=== PATIENT | male | born 1950 | race American Indian/Alaskan Native ===

== ENCOUNTER 2022-01-17 19:41 | Inpatient (IN) | payer MEDICARE ==
[2022-01-17] MEDS ORDERED: SODIUM CHLORIDE 0.9% 1000 ML 1,000 ML IV ONE (21:48)
--- NOTE | 2022-01-17 22:13 | XRay Report ---
CHEST 1 VIEW 01/17/2022 9:06 PM INDICATION / CLINICAL INFORMATION: Altered Mental Status. COMPARISON: None available. FINDINGS: SUPPORT DEVICES: None. HEART / MEDIASTINUM: No significant abnormality. LUNGS / PLEURA: Left lower lung opacity and retrocardiac opacity No pneumothorax. Signer Name: Matteo Hu MD Signed: 01/17/2022 10:09 PM Workstation Name: [id number]
[2022-01-17 22:20] LABS: ABG Base Excess -4.9 mmol/L (-2.0-3.0); ABG HCO3 19.1 mmol/L (20.0-26.0); ABG Methemoglobin 0.6 % (0.0-1.5); ABG Oxygen Saturation 99.3 % (95.0-99.0); ABG PCO2 32.8 mm Hg; ABG PH 7.383 pH Units (7.350-7.450); ABG PO2 210.4 mm Hg (80.0-90.0)
[2022-01-17 22:56] LABS: Bacteria,Urine 3+ /HPF (Negative); Color,Urine Yellow (Yellow); Mucus,Urine FEW /HPF; WBC,Urine > 182.0 /HPF (0.0-6.0)
[2022-01-17] MEDS ORDERED: cefTRIAXone/NS 1 GM/50 ML 1 GM/50 ML BAG IV ONE (23:14)
[2022-01-17 23:32] LABS: Mean Corpuscular HGB Conc 31 % (32-34); Mean Corpuscular Volume 77 fl (84-94); Platelet Count 320 K/mm3 (140-440); Red Blood Count 6.26 M/mm3 (3.65-5.03); Red Cell Distribution Width 17.4 % (13.2-15.2)
[2022-01-17 23:34] LABS: Hematocrit 47.9 % (35.5-45.6)
[2022-01-17 23:39] LABS: INR 1.06 (0.87-1.13)
[2022-01-18 00:51] LABS: Anisocytosis 1+; Band Neutrophils # (Manual) 0.1 K/mm3; Basophils % (Manual) 0 % (0.0-1.8); Eosinophils % (Manual) 0 % (0.0-4.3); Total Cells Counted 100
[2022-01-18 00:52] LABS: Platelet Estimate Consistent w Auto; Target Cells Few
[2022-01-18 01:16] LABS: Albumin 3.4 g/dL (3.9-5); Calcium 10.3 mg/dL (8.4-10.2)
--- NOTE | 2022-01-18 02:34 | Emergency Department Report ---
ED Shortness of Breath HPI - General Chief Complaint: Dyspnea/Respdistress Stated Complaint: AMS/MARLI Time Seen by Provider: 01/17/22 21:44 Source: EMS Mode of arrival: Ambulatory Limitations: No Limitations - History of Present Illness Initial Comments: From [facility] with Difficulty In breathing. Altered Mental Status. Non rebreather on and O2 sat 100%. Kumar cath in place. pt has colon cancer and had surgery this year with colosotmy and chemo Complaint: shortness of breath -: unknown Consistency: constant Improves With: nothing Worsens With: nothing Associated Symptoms: cough - Related Data Allergies Allergy/AdvReac Type Severity Reaction Status Date / Time No Known Allergies Allergy Verified 01/17/22 20:48 ED Review of Systems ROS: Stated complaint: AMS/MARLI Other details as noted in HPI Comment: Unobtainable due to pts medical conditions ED Past Medical Hx - Past Medical History Previous Medical History?: Yes Hx Hypertension: Yes Hx Congestive Heart Failure: Yes Hx Renal Disease: Yes Hx of Cancer: Yes (Colon) Additional medical history: Anemia. A-fib. BPH - Surgical History Past Surgical History?: No - Social History Smoking Status: Unknown if ever smoked ED Physical Exam - General Limitations: No Limitations General appearance: lethargic, cachectic - Head Head exam: Present: atraumatic, normocephalic - Eye Eye exam: Present: normal appearance - ENT ENT exam: Present: mucous membranes dry - Neck Neck exam: Present: normal inspection - Respiratory Respiratory exam: Present: normal lung sounds bilaterally. Absent: respiratory distress - Cardiovascular Cardiovascular Exam: Present: normal rhythm, tachycardia. Absent: systolic murmur, diastolic murmur, rubs, gallop - GI/Abdominal GI/Abdominal exam: Present: soft, normal bowel sounds, other (colostomy bag) - Rectal Rectal exam: Present: deferred - Extremities Exam Extremities exam: Present: normal inspection - Back Exam Back exam: Present: normal inspection - Expanded Neurological Exam Expanded Neurological exam: Present: innattentive Best Eye Response (Josue): (4) open spontaneously Best Motor Response (Josue): (4) withdraws to pain Best Verbal Response (Josue): (1) no verbal response [place] Total: 9 - Skin Skin exam: Present: dry. Absent: rash ED Course Vital Signs 01/17/22 01/17/22 01/17/22 20:43 21:51 22:22 Temperature 97 F L 98.6 F Pulse Rate 116 H 108 H Respiratory 18 20 17 Rate Blood Pressure 122/90 Blood Pressure 114/77 [Right] O2 Sat by Pulse 92 100 100 Oximetry 01/17/22 01/18/22 22:28 02:28 Temperature 98.0 F Pulse Rate 101 H 106 H Respiratory 17 16 Rate Blood Pressure Blood Pressure 122/89 115/79 [Right] O2 Sat by Pulse 100 96 Oximetry ED Medical Decision Making - Lab Data Result diagrams: 01/17/22 22:34 01/18/22 00:47 - EKG Data -: EKG Interpreted by Ga EKG shows normal: sinus rhythm Rate: tachycardia - EKG Data Interpretation: nonspecific ST-T wave bibiana, LVH - Radiology Data Radiology results: report reviewed, image reviewed - Medical Decision Making work up showed : - Sepsis : cultures fluids abx - Pneumonia : abx - FTT : fludis given -UTI : Abx given spoke with sister desirae , who confimed full code status cental line placed sister will talk to son to come to hospital to see if he can change status Critical care attestation.: If time is entered above; I have spent that time in minutes in the direct care of this critically ill patient, excluding procedure time. ED Disposition Clinical Impression: Altered mental status, Cachexia, SOB (shortness of breath), Pneumonia, Hypernatremia, Hyperkalemia, Hypercalcemia, Sepsis, UTI (urinary tract infection), Failure to thrive Disposition: ADMITTED INPATIENT Is pt being admited?: Yes Does the pt Need Aspirin: No Condition: Fair Instructions: Bacterial Pneumonia (ED)
[2022-01-18] MEDS ORDERED: ACETAMINOPHEN 325 MG TAB PO PRN ×2 (02:52→02:55)
[2022-01-18] MEDS ORDERED: ONDANSETRON 4 MG/2 ML INJ IV PRN (02:52)
[2022-01-18] MEDS ORDERED: MORPHINE 2 MG/1 ML INJ IV PRN (02:52)
[2022-01-18] MEDS ORDERED: MORPHINE 4 MG/1 ML INJ IV PRN (02:52)
[2022-01-18] MEDS ORDERED: traMADol 50 MG TAB PO PRN (02:55)
[2022-01-18] MEDS ORDERED: NITROGLYCERIN 0.4 MG TAB SUBL SL PRN (02:55)
[2022-01-18] MEDS ORDERED: D5W/0.45% NACL 1,000 ML IV SCH (03:00)
--- NOTE | 2022-01-18 03:03 | History and Physical Report ---
History of Present Illness Date of examination: 01/18/22 Date of admission: 01/18/22 Chief complaint: Dyspnea Respiratory distress History of present illness: 71 years old male with history of colon cancer s/p chemotherapy with colostomy was brought to the emergency room from [facility] because of dyspnea and respiratory distress. Patient is also altered Mental Status. Patient is on Non rebreather on and O2 sat 100%. Kumar cath in place. Patient is a very poor historian. In the ER patient chest x-ray shows pneumonia, patient sodium is 154, potassium 5.6 BUN 135 creatinine 4.7, glucose 162, lactic acid 5.20, troponin 0.149. Also patient has UTI.'s were going to admit the patient we will put the patient on IMCU. We will put the patient on IV fluid antibiotic. We will consult cardiology as well as nephrology for evaluation. Past History Past Medical History: heart failure, hypertension, renal failure, other (Colon cancer is status postchemotherapy with colostomy, anemia, A. fib, BPH) Past Surgical History: Other (Colon cancer with colostomy) Social history: no significant social history Family history: hypertension Medications and Allergies Allergies Allergy/AdvReac Type Severity Reaction Status Date / Time No Known Allergies Allergy Verified 01/17/22 20:48 Review of Systems Constitutional: fatigue, weakness, malaise, lethargy, other (Altered mental status, dyspnea, respiratory distress) Exam - Constitutional Vitals: Temp Pulse Resp BP Pulse Ox 98.0 F 106 H 16 115/79 96 01/18/22 02:28 01/18/22 02:28 01/18/22 02:28 01/18/22 02:28 01/18/22 02:28 General appearance: Present: severe distress, cachectic - EENT Eyes: Present: PERRL ENT: hearing intact, clear oral mucosa - Neck Neck: Present: supple, normal ROM - Respiratory Respiratory effort: normal Respiratory: bilateral: diminished - Cardiovascular Heart Sounds: Present: S1 & S2. Absent: rub, click - Extremities Extremities: pulses symmetrical, No edema Peripheral Pulses: within normal limits - Abdominal General gastrointestinal: Present: soft, non-tender, non-distended, normal bowel sounds Male genitourinary: Present: normal - Integumentary Integumentary: Present: clear, warm, dry - Musculoskeletal Musculoskeletal: gait normal, strength equal bilaterally - Psychiatric Psychiatric: other - Neurologic Neurologic: CNII-XII intact, moves all extremities HEART Score - HEART Score Troponin: Troponin T 0.149 ng/mL (0.00-0.029) H* 01/17/22 22:34 Results - Labs CBC & Chem 7: 01/17/22 22:34 01/18/22 00:47 Labs: Laboratory Last Values WBC 12.5 K/mm3 (4.5-11.0) H 01/17/22 22:34 RBC 6.26 M/mm3 (3.65-5.03) H 01/17/22 22:34 Hgb 15.0 gm/dl (11.8-15.2) 01/17/22 22:34 Hct 47.9 % (35.5-45.6) H 01/17/22 22:34 MCV 77 fl (84-94) L 01/17/22 22:34 MCH 24 pg (28-32) L 01/17/22 22:34 MCHC 31 % (32-34) L 01/17/22 22:34 RDW 17.4 % (13.2-15.2) H 01/17/22 22:34 Plt Count 320 K/mm3 (140-440) 01/17/22 22:34 Add Manual Diff Complete 01/17/22 22:34 Total Counted 100 01/17/22 22:34 Seg Neutrophils % Class A Truck Driver 01/17/22 22:34 Seg Neuts % (Manual) 82.0 % (40.0-70.0) H 01/17/22 22:34 Band Neutrophils % 1.0 % 01/17/22 22:34 Lymphocytes % (Manual) 11.0 % (13.4-35.0) L 01/17/22 22:34 Reactive Lymphs % (Man) 0 % 01/17/22 22:34 Monocytes % (Manual) 6.0 % (0.0-7.3) 01/17/22 22:34 Eosinophils % (Manual) 0 % (0.0-4.3) 01/17/22 22:34 Basophils % (Manual) 0 % (0.0-1.8) 01/17/22 22:34 Metamyelocytes % 0 % 01/17/22 22:34 Myelocytes % 0 % 01/17/22 22:34 Promyelocytes % 0 % 01/17/22 22:34 Blast Cells % 0 % 01/17/22 22:34 Nucleated RBC % Not Reportable 01/17/22 22:34 Seg Neutrophils # Man 10.3 K/mm3 (1.8-7.7) H 01/17/22 22:34 Band Neutrophils # 0.1 K/mm3 01/17/22 22:34 Lymphocytes # (Manual) 1.4 K/mm3 (1.2-5.4) 01/17/22 22:34 Abs React Lymphs (Man) 0.0 K/mm3 01/17/22 22:34 Monocytes # (Manual) 0.8 K/mm3 (0.0-0.8) 01/17/22 22:34 Eosinophils # (Manual) 0.0 K/mm3 (0.0-0.4) 01/17/22 22:34 Basophils # (Manual) 0.0 K/mm3 (0.0-0.1) 01/17/22 22:34 Metamyelocytes # 0.0 K/mm3 01/17/22 22:34 Myelocytes # 0.0 K/mm3 01/17/22 22:34 Promyelocytes # 0.0 K/mm3 01/17/22 22:34 Blast Cells # 0.0 K/mm3 01/17/22 22:34 WBC Morphology Not Reportable 01/17/22 22:34 Hypersegmented Neuts Not Reportable 01/17/22 22:34 Hyposegmented Neuts Not Reportable 01/17/22 22:34 Hypogranular Neuts Not Reportable 01/17/22 22:34 Smudge Cells Not Reportable 01/17/22 22:34 Toxic Granulation Not Reportable 01/17/22 22:34 Toxic Vacuolation Not Reportable 01/17/22 22:34 Dohle Bodies Not Reportable 01/17/22 22:34 Pelger-Huet Anomaly Not Reportable 01/17/22 22:34 Bj Rods Not Reportable 01/17/22 22:34 Platelet Estimate Consistent w auto 01/17/22 22:34 Clumped Platelets Not Reportable 01/17/22 22:34 Plt Clumps, EDTA Not Reportable 01/17/22 22:34 Large Platelets Not Reportable 01/17/22 22:34 Giant Platelets Not Reportable 01/17/22 22:34 Platelet Satelliting Not Reportable 01/17/22 22:34 Plt Morphology Comment Not Reportable 01/17/22 22:34 RBC Morphology Not Reportable 01/17/22 22:34 Dimorphic RBCs Not Reportable 01/17/22 22:34 Polychromasia Not Reportable 01/17/22 22:34 Hypochromasia Not Reportable 01/17/22 22:34 Poikilocytosis Not Reportable 01/17/22 22:34 Anisocytosis 1+ 01/17/22 22:34 Microcytosis 1+ 01/17/22 22:34 Macrocytosis Not Reportable 01/17/22 22:34 Spherocytes Not Reportable 01/17/22 22:34 Pappenheimer Bodies Not Reportable 01/17/22 22:34 Sickle Cells Not Reportable 01/17/22 22:34 Target Cells Few 01/17/22 22:34 Tear Drop Cells Not Reportable 01/17/22 22:34 Ovalocytes Not Reportable 01/17/22 22:34 Helmet Cells Not Reportable 01/17/22 22:34 [place] Bodies Not Reportable 01/17/22 22:34 [place] Rings Not Reportable 01/17/22 22:34 [place] Cells Not Reportable 01/17/22 22:34 Bite Cells Not Reportable 01/17/22 22:34 Crenated Cell Not Reportable 01/17/22 22:34 Elliptocytes Not Reportable 01/17/22 22:34 Acanthocytes (Spur) Not Reportable 01/17/22 22:34 Rouleaux Not Reportable 01/17/22 22:34 Hemoglobin C Crystals Not Reportable 01/17/22 22:34 Schistocytes Not Reportable 01/17/22 22:34 Malaria parasites Not Reportable 01/17/22 22:34 Sahil Bodies Not Reportable 01/17/22 22:34 Hem Pathologist Commnt No 01/17/22 22:34 PT 15.3 Sec. (12.2-14.9) H 01/17/22 22:34 INR 1.06 (0.87-1.13) 01/17/22 22:34 ABG pH 7.383 pH Units (7.350-7.450) 01/17/22 22:05 ABG pCO2 32.8 mm Hg 01/17/22 22:05 ABG pO2 210.4 mm Hg (80.0-90.0) H 01/17/22 22:05 ABG HCO3 19.1 mmol/L (20.0-26.0) L 01/17/22 22:05 ABG O2 Saturation 99.3 % (95.0-99.0) H 01/17/22 22:05 ABG O2 Content 20.3 (0.0-44) 01/17/22 22:05 ABG Base Excess -4.9 mmol/L (-2.0-3.0) L 01/17/22 22:05 ABG Hemoglobin 14.5 gm/dl (14.0-18.0) 01/17/22 22:05 ABG Carboxyhemoglobin 1.2 % (0.0-5.0) 01/17/22 22:05 ABG Methemoglobin 0.6 % (0.0-1.5) 01/17/22 22:05 Oxyhemoglobin 97.5 % (95.0-99.0) 01/17/22 22:05 FiO2 100 % 01/17/22 22:05 Sodium 154 mmol/L (137-145) H 01/18/22 00:47 Potassium 5.6 mmol/L (3.6-5.0) H 01/18/22 00:47 Chloride 110.8 mmol/L (98-107) H 01/18/22 00:47 Carbon Dioxide 21 mmol/L (22-30) L 01/18/22 00:47 Anion Gap 28 mmol/L 01/18/22 00:47 BUN 135 mg/dL (9-20) H 01/18/22 00:47 Creatinine 4.7 mg/dL (0.8-1.3) H 01/18/22 00:47 Estimated GFR 12 ml/min 01/18/22 00:47 BUN/Creatinine Ratio 29 % 01/18/22 00:47 Glucose 162 mg/dL (75-100) H 01/18/22 00:47 Lactic Acid 6.30 mmol/L (0.7-2.0) H* 01/18/22 00:10 Calcium 10.3 mg/dL (8.4-10.2) H 01/18/22 00:47 Total Bilirubin 0.30 mg/dL (0.1-1.2) 01/18/22 00:47 AST 18 units/L (5-40) 01/18/22 00:47 ALT 15 units/L (7-56) 01/18/22 00:47 Alkaline Phosphatase 124 units/L (35-129) 01/18/22 00:47 Ammonia 14.0 umol/L (25-60) L 01/17/22 22:34 Total Creatine Kinase 48 units/L (55-170) L 01/17/22 22:34 Troponin T 0.149 ng/mL (0.00-0.029) H* 01/17/22 22:34 NT-Pro-B Natriuret Pep 2069 pg/mL (0-900) H 01/17/22 22:34 Total Protein 9.8 g/dL (6.3-8.2) H 01/18/22 00:47 Albumin 3.4 g/dL (3.9-5) L 01/18/22 00:47 Albumin/Globulin Ratio 0.5 % 01/18/22 00:47 Urine Color Yellow (Yellow) 01/17/22 21:49 Urine Turbidity Cloudy (Clear) 01/17/22 21:49 Specific [place] (Man) 1.020 (1.003-1.030) 01/17/22 21:49 Ur Protein (Man) 2+ mg/dL (Negative) 01/17/22 21:49 Ur Ketones (Man) Negative (Negative) 01/17/22 21:49 Ur Nitrite (Man) Positive (Negative) 01/17/22 21:49 Ur Reducing Substances Not Reportable 01/17/22 21:49 Urine Bilirubin (Man) Negative (Negative) 01/17/22 21:49 Urine Ictotest Not Reportable 01/17/22 21:49 Leukocyte Esterase (Man) Moderate (Negative) 01/17/22 21:49 Urine WBC (Auto) > 182.0 /HPF (0.0-6.0) H 01/17/22 21:49 Urine RBC (Auto) 17.0 /HPF (0.0-6.0) 01/17/22 21:49 Urine Bacteria (Auto) 3+ /HPF (Negative) 01/17/22 21:49 Urine RBC (Manual) 1+ (Negative) 01/17/22 21:49 Urine WBC Clumps 3+ /HPF 01/17/22 21:49 Urine Mucus Few /HPF 01/17/22 21:49 Urine Yeast (Budding) 3+ /HPF 01/17/22 21:49 Salicylates < 0.3 mg/dL (2.8-20.0) L 01/17/22 22:34 - Imaging and Cardiology Chest x-ray: report reviewed Assessment and Plan VTE prophylaxis?: Mechanical Plan of care discussed with patient/family: Yes - Patient Problems (1) Acute metabolic encephalopathy Status: Acute Plan to address problem: Admit the patient to the [facility]. Metabolic encephalopathy secondary to sepsis, pneumonia, UTI. Oxygen via nasal cannula filer helper pulmonate. D5 half-normal saline at the rate of 100 cc/h. DuoNeb by nebulizer every 4 hours. Albuterol via nebulizer every 4 hours as needed. Rocephin 2 g IV daily. Zithromax 500 mg IV daily. We will do the blood culture urine culture. (2) Cachexia Status: Acute Plan to address problem: D5 half-normal saline at the rate of 100 cc/h. We will consult nutrition evaluation. Recheck CMP in the morning (3) Failure to thrive Status: Acute Plan to address problem: D5 half-normal saline at the rate of 100 cc/h. We will consult nutrition evaluation. Recheck CMP in the morning (4) Hyperkalemia Status: Acute Plan to address problem: Patient already get calcium gluconate 1 g IV x1 dose. Kayexalate 30 g p.o. x1 dose. Will consult nephrology for evaluation. Recheck CMP in the morning (5) Hypernatremia Status: Acute Plan to address problem: D5 half-normal saline at the rate of 100 cc/h. Will consult nephrology for evaluation. Recheck CMP in the morning (6) Pneumonia Status: Acute Plan to address problem: Oxygen via nasal cannula filer helper pulmonate. DuoNeb by nebulizer every 4 hours. Albuterol via nebulizer every 4 hours as needed. Rocephin 2 g IV daily. Zithromax 500 mg IV daily. We will do the blood culture urine culture. (7) Sepsis Status: Acute Plan to address problem: D5 half-normal saline at the rate of 100 cc/h. Rocephin 2 g IV daily. Zithromax 500 mg IV daily. We will do the blood culture urine culture. Recheck CBC BMP in the morning (8) SOB (shortness of breath) Status: Acute Plan to address problem: Oxygen via nasal cannula filer helper pulmonate. DuoNeb by nebulizer every 4 hours. Albuterol via nebulizer every 4 hours as needed. (9) UTI (urinary tract infection) Status: Acute Plan to address problem: Rocephin 2 g IV daily. Zithromax 500 mg IV daily. We will do the blood culture urine culture. (10) DVT prophylaxis Status: Acute Plan to address problem: SCD for DVT prophylaxis. Pepcid 20 mg IV every 12 hours for GI prophylaxis. Patient is a full code. Prognosis is poor
[2022-01-18] MEDS ORDERED: SODIUM POLYSTYRENE 15 GM/60 ML ORAL LIQD PO ONE (03:09)
[2022-01-18] MEDS ORDERED: CALC GLUCONATE 1GM/NS 100 ML 1 GM/100 ML BAG IV ONE (03:15)
[2022-01-18 03:38] LABS: Chol/HDL Ratio 3.06 %; HDL Cholesterol 73 mg/dL (40-59); LDL Cholesterol,Direct 114 mg/dL (50-130)
--- NOTE | 2022-01-18 04:04 | Consultation ---
History of Present Illness - Reason for Consult acute renal failure - History of Present Illness 71 years old male with history of colon cancer s/p chemotherapy with colostomy was brought [facility] the emergency room from [facility] because of dyspnea and respiratory distress. Patient is also altered Mental Status. Patient is on Non rebreather on and O2 sat 100%. Kumar cath in place. Patient is a very poor historian. In the ER patient chest x-ray shows pneumonia, patient sodium is 154, potassium 5.6 BUN 135 creatinine 4.7, glucose 162, lactic acid 5.20, troponin 0.149. Also patient has UTI.'s were going to admit the patient we will put the patient on IMCU. We will put the patient on IV fluid antibiotic. Past History Past Medical History: heart failure, hypertension, renal failure, other (Colon cancer is status postchemotherapy with colostomy, anemia, A. fib, BPH) Past Surgical History: Other (Colon cancer with colostomy) Social history: no significant social history Family history: hypertension Review of Systems Constitutional: fatigue, weakness, malaise, lethargy, other (Altered mental status, dyspnea, respiratory distress) Past History Past Medical History: heart failure, hypertension, renal failure, other (Colon cancer is status postchemotherapy with colostomy, anemia, A. fib, BPH) Past Surgical History: Other (Colon cancer with colostomy) Social history: no significant social history Family history: hypertension Medications and Allergies Allergies Allergy/AdvReac Type Severity Reaction Status Date / Time No Known Allergies Allergy Verified 01/18/22 07:24 Active Meds: Active Medications Acetaminophen (Acetaminophen 325 Mg Tab) 650 mg PO Q4H PRN PRN Reason: Pain MILD(1-3)/Fever >100.5/LUTHER Albuterol/Ipratropium (Ipratropium/Albuterol Sulfate 3 Ml Ampul.Neb) 1 ampul IH Q6HRT [facility] Aspirin (Aspirin Ec 325 Mg Tab) 325 mg PO QDAY [facility] Atorvastatin Calcium (Atorvastatin 40 Mg Tab) 40 mg PO QHS [facility] Famotidine (Famotidine 20 Mg/2 Ml Inj) 20 mg IV DAILY [facility] Dextrose/Sodium Chloride (D5/0.45ns) 1,000 mls @ 100 mls/hr IV DIRECT [facility] Ceftriaxone Sodium (Rocephin/Ns 2 Gm/100 Ml) 2 gm in 100 mls @ 200 mls/hr IV Q24H [facility]; Protocol Azithromycin (Zithromax/Ns) 500 mg in 250 mls @ 250 mls/hr IV Q24H [facility] CALC GLUCONATE 1GM/NS 100 ML (Calcium Gluonate/Ns 1,000mg/100ml) 1 gm in 100 mls @ 100 mls/hr IV ONCE ONE Stop: 01/18/22 04:14 Morphine Sulfate (Morphine 2 Mg/1 Ml Inj) 2 mg IV Q4H PRN PRN Reason: Pain, Moderate (4-6) Morphine Sulfate (Morphine 4 Mg/1 Ml Inj) 4 mg IV Q4H PRN PRN Reason: Pain , Severe (7-10) Nitroglycerin (Nitroglycerin 0.4 Mg Tab Subl) 0.4 mg SL Q5M PRN PRN Reason: Chest Pain Ondansetron HCl (Ondansetron 4 Mg/2 Ml Inj) 4 mg IV Q8H PRN PRN Reason: Nausea And Vomiting Sodium Chloride (Sodium Chloride 0.9% 10 Ml Flush Syringe) 10 ml IV BID [facility] Sodium Chloride (Sodium Chloride 0.9% 10 Ml Flush Syringe) 10 ml IV PRN PRN PRN Reason: LINE FLUSH Tramadol HCl (Tramadol 50 Mg Tab) 50 mg PO Q6H PRN PRN Reason: Pain, Moderate (4-6) Exam - Vital Signs Vital signs: Vital Signs Temp Pulse Resp BP Pulse Ox 97 F L 116 H 18 114/77 92 01/17/22 20:43 01/17/22 20:43 01/17/22 20:43 01/17/22 20:43 01/17/22 20:43 - Physical Exam Narrative exam: General appearance: Present: severe distress, cachectic - EENT Eyes: Present: PERRL ENT: hearing intact, clear oral mucosa - Neck Neck: Present: supple, normal ROM - Respiratory Respiratory effort: normal Respiratory: bilateral: diminished - Cardiovascular Heart Sounds: Present: S1 & S2. Absent: rub, click - Extremities Extremities: pulses symmetrical, No edema Peripheral Pulses: within normal limits - Abdominal General gastrointestinal: Present: soft, non-tender, non-distended, normal bowel sounds Male genitourinary: Present: normal - Integumentary Integumentary: Present: clear, warm, dry - Musculoskeletal Musculoskeletal: gait normal, strength equal bilaterally - Psychiatric Psychiatric: other - Neurologic Neurologic: CNII-XII intact, moves all extremities Results - Lab Results 01/18/22 06:01 01/18/22 06:01 Most recent lab results ABG pH 7.383 pH Units (7.350-7.450) 01/17/22 22:05 ABG pCO2 32.8 mm Hg 01/17/22 22:05 ABG pO2 210.4 mm Hg (80.0-90.0) H 01/17/22 22:05 ABG HCO3 19.1 mmol/L (20.0-26.0) L 01/17/22 22:05 ABG O2 Saturation 99.3 % (95.0-99.0) H 01/17/22 22:05 Calcium 10.3 mg/dL (8.4-10.2) H 01/18/22 00:47 Assessment and Plan Impression: * NATHALIE * Metabolic acidosis * Hyperkalemia * Hypernatremia * sepsis * UTI * AMS Plan: * aggressive ivf resusciatation--give d5w * iv abx * strict i/os and daily lytes * rec abd imaging with elevated lactate * follow up renal us * urine lytes * avoid nephrotoxins * medical treatment of Hyperkalemia--follow up * no emergent indication for [employer] at this time
[2022-01-18 06:19] LABS: Mean Corpuscular HGB Conc 31 % (32-34); Mean Corpuscular Volume 76 fl (84-94); Platelet Count 248 K/mm3 (140-440); Red Blood Count 5.29 M/mm3 (3.65-5.03); Red Cell Distribution Width 17.2 % (13.2-15.2)
[2022-01-18 06:20] LABS: Hemoglobin 12.2 gm/dl (11.8-15.2); Lymphocytes % (Auto) 3.3 % (13.4-35.0)
[2022-01-18 06:21] LABS: Basophils % (Auto) 0.1 % (0.0-1.8); Lymphocytes # (Auto) 0.6 K/mm3 (1.2-5.4); Monocytes # (Auto) 0.5 K/mm3 (0.0-0.8)
[2022-01-18 06:38] LABS: Calcium 9.1 mg/dL (8.4-10.2)
--- NOTE | 2022-01-18 09:51 | Consultation ---
History of Present Illness Consult date: 01/18/22 Consult reason: abnormal cardiac enzymes History of present illness: 71-year-old male with history of hypertension, CKD, colon cancer status post chemotherapy with colostomy was brought into the hospital from [facility] because of shortness of breath and altered mental status. He was placed on nonrebreather 100%. In the ER he was found to have urinary tract infection, NATHALIE lactic acidosis with mild elevated troponins of 0.149. This morning patient was altered and was not able to answer any of my questions. Past History Past Medical History: heart failure, hypertension, renal failure, other (Colon cancer is status postchemotherapy with colostomy, anemia, A. fib, BPH) Past Surgical History: Other (Colon cancer with colostomy) Social history: no significant social history Family history: hypertension Medications and Allergies Allergies Allergy/AdvReac Type Severity Reaction Status Date / Time No Known Allergies Allergy Verified 01/18/22 07:24 Active Meds: Active Medications Acetaminophen (Acetaminophen 325 Mg Tab) 650 mg PO Q4H PRN PRN Reason: Pain MILD(1-3)/Fever >100.5/LUTHER Albuterol/Ipratropium (Ipratropium/Albuterol Sulfate 3 Ml Ampul.Neb) 1 ampul IH Q6HRT [facility] Aspirin (Aspirin Ec 325 Mg Tab) 325 mg PO QDAY [facility] Atorvastatin Calcium (Atorvastatin 40 Mg Tab) 40 mg PO QHS [facility] Famotidine (Famotidine 20 Mg/2 Ml Inj) 20 mg IV DAILY [facility] Dextrose/Sodium Chloride (D5/0.45ns) 1,000 mls @ 125 mls/hr IV DIRECT [facility] Ceftriaxone Sodium (Rocephin/Ns 2 Gm/100 Ml) 2 gm in 100 mls @ 200 mls/hr IV Q24H [facility]; Protocol Azithromycin (Zithromax/Ns) 500 mg in 250 mls @ 250 mls/hr IV Q24H [facility] Morphine Sulfate (Morphine 2 Mg/1 Ml Inj) 2 mg IV Q4H PRN PRN Reason: Pain, Moderate (4-6) Morphine Sulfate (Morphine 4 Mg/1 Ml Inj) 4 mg IV Q4H PRN PRN Reason: Pain , Severe (7-10) Nitroglycerin (Nitroglycerin 0.4 Mg Tab Subl) 0.4 mg SL Q5M PRN PRN Reason: Chest Pain Ondansetron HCl (Ondansetron 4 Mg/2 Ml Inj) 4 mg IV Q8H PRN PRN Reason: Nausea And Vomiting Sodium Chloride (Sodium Chloride 0.9% 10 Ml Flush Syringe) 10 ml IV BID [facility] Sodium Chloride (Sodium Chloride 0.9% 10 Ml Flush Syringe) 10 ml IV PRN PRN PRN Reason: LINE FLUSH Tramadol HCl (Tramadol 50 Mg Tab) 50 mg PO Q6H PRN PRN Reason: Pain, Moderate (4-6) Review of Systems ROS unobtainable: due to mental status Physical Examination Vital Signs Temp Pulse Resp BP Pulse Ox 97 F L 116 H 18 114/77 92 01/17/22 20:43 01/17/22 20:43 01/17/22 20:43 01/17/22 20:43 01/17/22 20:43 General appearance: cachectic HEENT: Positive: Normocephaly Neck: Negative: JVD/HJR Cardiac: Positive: Irregularly Regular, S1/S2 Lungs: Positive: Decreased Breath Sounds Neuro: Positive: Other (Unable to exam) Abdomen: Positive: Soft Skin: Negative: Rash Extremities: Absent: edema Results 01/18/22 06:01 01/18/22 06:01 Cardiac Enzymes 01/18/22 Range/Units 00:47 AST 18 (5-40) units/L Coagulation 01/17/22 Range/Units 22:34 PT 15.3 H (12.2-14.9) Sec. INR 1.06 (0.87-1.13) Lipids 01/17/22 Range/Units 22:34 Triglycerides 143 (2-149) mg/dL Cholesterol 224 H (50-199) mg/dL HDL Cholesterol 73 H (40-59) mg/dL Cholesterol/HDL Ratio 3.06 % CBC 01/17/22 01/18/22 Range/Units 22:34 06:01 WBC 12.5 H 18.5 H (4.5-11.0) K/mm3 RBC 6.26 H 5.29 H (3.65-5.03) M/mm3 Hgb 15.0 12.2 (11.8-15.2) gm/dl Hct 47.9 H 40.0 D (35.5-45.6) % Plt Count 320 248 (140-440) K/mm3 Lymph # (Auto) 0.6 L (1.2-5.4) K/mm3 [place] # (Auto) 0.5 (0.0-0.8) K/mm3 Eos # (Auto) 0.0 (0.0-0.4) K/mm3 Baso # (Auto) 0.0 (0.0-0.1) K/mm3 Comprehensive Metabolic Panel 01/18/22 01/18/22 Range/Units 00:47 06:01 Sodium 154 H 157 H (137-145) mmol/L Potassium 5.6 H 5.1 H (3.6-5.0) mmol/L Chloride 110.8 H 121.2 H (98-107) mmol/L Carbon Dioxide 21 L 21 L (22-30) mmol/L BUN 135 H 126 H (9-20) mg/dL Creatinine 4.7 H 4.0 H (0.8-1.3) mg/dL Glucose 162 H 115 H (75-100) mg/dL Calcium 10.3 H 9.1 (8.4-10.2) mg/dL AST 18 (5-40) units/L ALT 15 (7-56) units/L Alkaline Phosphatase 124 (35-129) units/L Total Protein 9.8 H (6.3-8.2) g/dL Albumin 3.4 L (3.9-5) g/dL EKG interpretations - Telemetry EKG Rhythm: Atrial Fibrillation - EKG Sinus rhythms and dysrhythmias: sinus tachycardia Chamber hypertrophy or enlargement: left ventricular hypertro Repolarization changes or abnormalities: early repolarization due to LVH Assessment and Plan - Patient Problems (1) Elevated troponin Current Visit: Yes Status: Acute Plan to address problem: The elevated troponin is likely type II NV secondary to sepsis lactic acidosis acute kidney injury. Continue to trend troponins x2. Obtain an echocardiogram to assess for EF and wall motion abnormalities. (2) Atrial fibrillation Current Visit: Yes Status: Acute Plan to address problem: Patient initially was in sinus tachycardia based on the EKG but around 2:00 this morning developed atrial fibrillation with RVR. Given his chronic medical issues he may benefit from amiodarone therapy please give 150 mg IV bolus then start 1 mg drip for 6 hours and 0.5 mg for 18 hours. There is a oral amiodarone 200 mg twice daily. Patient will need anticoagulation, we will start once safe given his altered mental status.
[2022-01-18] MEDS ORDERED: FAMOTIDINE 20 MG/2 ML INJ IV SCH (10:00)
--- NOTE | 2022-01-18 10:10 | Progress Note ---
Assessment and Plan Assessment and plan: History of present illness: 71 years old male from [place] with history of colon cancer s/p chemotherapy with colostomy was brought to the emergency room from [facility] because of dyspnea and respiratory distress. Patient is also altered Mental Status. Patient is on Non rebreather on and O2 sat 100%. Kumar cath in place. Patient is a very poor historian. In the ER patient chest x-ray shows pneumonia, patient sodium is 154, potassium 5.6 BUN 135 creatinine 4.7, glucose 162, lactic acid 5.20, troponin 0.149. Also patient has UTI.'s were going to admit the patient we will put the patient on IMCU. We will put the patient on IV fluid antibiotic. We will consult cardiology as well as nephrology for evaluation. Assessment and Plan: #Sepsis POA #Urinary tract infection #Left lower lobe pneumonia #Lactic Acidosis - WBC: 18.5K, tachycardia, elevated urine [id number], LA 5.2 - CXR: LLL pneumonic process - blood culture -urine culture -MRSA screen, COVID PCR (recent outbreak at facility) - Abx therapy with Rocephin IV, azithromycin #Atrial fibrillation with rapid ventricular response #Doubt NSTEMI, Possibly Type 2 [place] - elevated troponin: 0.149 --> 0.88 - BNP: 2069 - echo pending - tele: afib, ventricular rate 90-110 - amiodorone 200 mg bid - heparin gtt - cardiology consultation #Acute kidney injury due to vasomotor nephropathy #Hypokalemia #Hyponatremia #Metabolic Acidosis - sepsis/dehydration likely driving Nathalie - renal US: mild prominence of renal pelvis - replace K. - Aggressive IVF - nephrology consultation #Acute metabolic encephalopathy - etiology: multifactorial poor po intake, UTI, NATHALIE - IVF, management as above. - CT brain w/o con ordered. #History of colon cancer on chemotherapy #Failure to thrive - apparently stage 4 Colon CA, mets to liver per son - has only had one session of chemotherapy. - only on puree diet per history #Advance care planning Spoke extenisviely with son Soha Taylor II. Disease education conducted, care plan discussed, diagnoses discussed, prognosis discussed, patient is full code, patient son acknowledges understanding and agree with care plan, +30 minutes. The high probability of a clinically significant, sudden or life threatening deterioration of the [multi] system(s) required my full and direct attention, intervention and personal management. The aggregate critical care time was [60] minutes. This time is in addition to time spent performing reported procedures but includes the following: [x] Data Review and interpretation [x] Patient assessment and monitoring of vital signs [x] Documentation [x] Medication orders and management History Interval history: Altered on examination. Hospitalist Physical - Physical exam Narrative exam: Physical Exam: VITAL SIGNS: Reviewed. GENERAL: The patient appears normally developed, Vital signs as documented. Altered, ill-appearing, very thin HEAD: No signs of head trauma. EYES: Pupils are equal. Extraocular motions intact. EARS: Hearing grossly intact. MOUTH: Oropharynx is normal. NECK: No adenopathy, no JVD. CHEST: Chest with clear breath sounds bilaterally. No wheezes, rales, or rhonchi. CARDIAC: Regular rate and rhythm. S1 and S2, without murmurs, gallops, or rubs. VASCULAR: No Edema. Peripheral pulses normal and equal in all extremities. ABDOMEN: Soft, non tender and non distended. No rebound or guarding, and no masses palpated. Bowel Sounds normal. MUSCULOSKELETAL: Good range of motion of all major joints. Extremities without clubbing, cyanosis or edema. NEUROLOGIC EXAM: Obtunded, mildly agitated PSYCHIATRIC: Mood normal. SKIN: detail exam as documented in skin assessment - Constitutional Vitals: Temp Pulse Resp BP Pulse Ox 98.0 F 110 H 18 117/81 96 01/18/22 02:28 01/18/22 06:01 01/18/22 06:01 01/18/22 06:01 01/18/22 06:01 General appearance: Present: cachectic HEART Score - HEART Score Troponin: Troponin T 0.149 ng/mL (0.00-0.029) H* 01/17/22 22:34 Results - Labs CBC & Chem 7: 01/18/22 06:01 01/18/22 06:01 Labs: Laboratory Last Values WBC 18.5 K/mm3 (4.5-11.0) H 01/18/22 06:01 RBC 5.29 M/mm3 (3.65-5.03) H 01/18/22 06:01 Hgb 12.2 gm/dl (11.8-15.2) 01/18/22 06:01 Hct 40.0 % (35.5-45.6) D 01/18/22 06:01 MCV 76 fl (84-94) L 01/18/22 06:01 MCH 23 pg (28-32) L 01/18/22 06:01 MCHC 31 % (32-34) L 01/18/22 06:01 RDW 17.2 % (13.2-15.2) H 01/18/22 06:01 Plt Count 248 K/mm3 (140-440) 01/18/22 06:01 Lymph % (Auto) 3.3 % (13.4-35.0) L 01/18/22 06:01 [place] % (Auto) 3.0 % (0.0-7.3) 01/18/22 06:01 Eos % (Auto) 0.0 % (0.0-4.3) 01/18/22 06:01 Baso % (Auto) 0.1 % (0.0-1.8) 01/18/22 06:01 Lymph # (Auto) 0.6 K/mm3 (1.2-5.4) L 01/18/22 06:01 [place] # (Auto) 0.5 K/mm3 (0.0-0.8) 01/18/22 06:01 Eos # (Auto) 0.0 K/mm3 (0.0-0.4) 01/18/22 06:01 Baso # (Auto) 0.0 K/mm3 (0.0-0.1) 01/18/22 06:01 Add Manual Diff Complete 01/17/22 22:34 Total Counted 100 01/17/22 22:34 Seg Neutrophils % [employer] 01/18/22 06:01 Seg Neuts % (Manual) 82.0 % (40.0-70.0) H 01/17/22 22:34 Band Neutrophils % 1.0 % 01/17/22 22:34 Lymphocytes % (Manual) 11.0 % (13.4-35.0) L 01/17/22 22:34 Reactive Lymphs % (Man) 0 % 01/17/22 22:34 Monocytes % (Manual) 6.0 % (0.0-7.3) 01/17/22 22:34 Eosinophils % (Manual) 0 % (0.0-4.3) 01/17/22 22:34 Basophils % (Manual) 0 % (0.0-1.8) 01/17/22 22:34 Metamyelocytes % 0 % 01/17/22 22:34 Myelocytes % 0 % 01/17/22 22:34 Promyelocytes % 0 % 01/17/22 22:34 Blast Cells % 0 % 01/17/22 22:34 Nucleated RBC % Not Reportable 01/17/22 22:34 Seg Neutrophils # 17.3 K/mm3 (1.8-7.7) H 01/18/22 06:01 Seg Neutrophils # Man 10.3 K/mm3 (1.8-7.7) H 01/17/22 22:34 Band Neutrophils # 0.1 K/mm3 01/17/22 22:34 Lymphocytes # (Manual) 1.4 K/mm3 (1.2-5.4) 01/17/22 22:34 Abs React Lymphs (Man) 0.0 K/mm3 01/17/22 22:34 Monocytes # (Manual) 0.8 K/mm3 (0.0-0.8) 01/17/22 22:34 Eosinophils # (Manual) 0.0 K/mm3 (0.0-0.4) 01/17/22 22:34 Basophils # (Manual) 0.0 K/mm3 (0.0-0.1) 01/17/22 22:34 Metamyelocytes # 0.0 K/mm3 01/17/22 22:34 Myelocytes # 0.0 K/mm3 01/17/22 22:34 Promyelocytes # 0.0 K/mm3 01/17/22 22:34 Blast Cells # 0.0 K/mm3 01/17/22 22:34 WBC Morphology Not Reportable 01/17/22 22:34 Hypersegmented Neuts Not Reportable 01/17/22 22:34 Hyposegmented Neuts Not Reportable 01/17/22 22:34 Hypogranular Neuts Not Reportable 01/17/22 22:34 Smudge Cells Not Reportable 01/17/22 22:34 Toxic Granulation Not Reportable 01/17/22 22:34 Toxic Vacuolation Not Reportable 01/17/22 22:34 Dohle Bodies Not Reportable 01/17/22 22:34 Pelger-Huet Anomaly Not Reportable 01/17/22 22:34 Bj Rods Not Reportable 01/17/22 22:34 Platelet Estimate Consistent w auto 01/17/22 22:34 Clumped Platelets Not Reportable 01/17/22 22:34 Plt Clumps, EDTA Not Reportable 01/17/22 22:34 Large Platelets Not Reportable 01/17/22 22:34 Giant Platelets Not Reportable 01/17/22 22:34 Platelet Satelliting Not Reportable 01/17/22 22:34 Plt Morphology Comment Not Reportable 01/17/22 22:34 RBC Morphology Not Reportable 01/17/22 22:34 Dimorphic RBCs Not Reportable 01/17/22 22:34 Polychromasia Not Reportable 01/17/22 22:34 Hypochromasia Not Reportable 01/17/22 22:34 Poikilocytosis Not Reportable 01/17/22 22:34 Anisocytosis 1+ 01/17/22 22:34 Microcytosis 1+ 01/17/22 22:34 Macrocytosis Not Reportable 01/17/22 22:34 Spherocytes Not Reportable 01/17/22 22:34 Pappenheimer Bodies Not Reportable 01/17/22 22:34 Sickle Cells Not Reportable 01/17/22 22:34 Target Cells Few 01/17/22 22:34 Tear Drop Cells Not Reportable 01/17/22 22:34 Ovalocytes Not Reportable 01/17/22 22:34 Helmet Cells Not Reportable 01/17/22 22:34 Byers-Klahr Bodies Not Reportable 01/17/22 22:34 [place] Rings Not Reportable 01/17/22 22:34 [place] Cells Not Reportable 01/17/22 22:34 Bite Cells Not Reportable 01/17/22 22:34 Crenated Cell Not Reportable 01/17/22 22:34 Elliptocytes Not Reportable 01/17/22 22:34 Acanthocytes (Spur) Not Reportable 01/17/22 22:34 Rouleaux Not Reportable 01/17/22 22:34 Hemoglobin C Crystals Not Reportable 01/17/22 22:34 Schistocytes Not Reportable 01/17/22 22:34 Malaria parasites Not Reportable 01/17/22 22:34 Sahil Bodies Not Reportable 01/17/22 22:34 Hem Pathologist Commnt No 01/17/22 22:34 PT 15.3 Sec. (12.2-14.9) H 01/17/22 22:34 INR 1.06 (0.87-1.13) 01/17/22 22:34 ABG pH 7.383 pH Units (7.350-7.450) 01/17/22 22:05 ABG pCO2 32.8 mm Hg 01/17/22 22:05 ABG pO2 210.4 mm Hg (80.0-90.0) H 01/17/22 22:05 ABG HCO3 19.1 mmol/L (20.0-26.0) L 01/17/22 22:05 ABG O2 Saturation 99.3 % (95.0-99.0) H 01/17/22 22:05 ABG O2 Content 20.3 (0.0-44) 01/17/22 22:05 ABG Base Excess -4.9 mmol/L (-2.0-3.0) L 01/17/22 22:05 ABG Hemoglobin 14.5 gm/dl (14.0-18.0) 01/17/22 22:05 ABG Carboxyhemoglobin 1.2 % (0.0-5.0) 01/17/22 22:05 ABG Methemoglobin 0.6 % (0.0-1.5) 01/17/22 22:05 Oxyhemoglobin 97.5 % (95.0-99.0) 01/17/22 22:05 FiO2 100 % 01/17/22 22:05 Sodium 157 mmol/L (137-145) H 01/18/22 06:01 Potassium 5.1 mmol/L (3.6-5.0) H 01/18/22 06:01 Chloride 121.2 mmol/L (98-107) H 01/18/22 06:01 Carbon Dioxide 21 mmol/L (22-30) L 01/18/22 06:01 Anion Gap 20 mmol/L 01/18/22 06:01 BUN 126 mg/dL (9-20) H 01/18/22 06:01 Creatinine 4.0 mg/dL (0.8-1.3) H 01/18/22 06:01 Estimated GFR 18 ml/min 01/18/22 06:01 BUN/Creatinine Ratio 32 % 01/18/22 06:01 Glucose 115 mg/dL (75-100) H 01/18/22 06:01 Ketones Quantitative Negative (Negative) 01/17/22 22:34 Lactic Acid 2.70 mmol/L (0.7-2.0) H* 01/18/22 06:01 Calcium 9.1 mg/dL (8.4-10.2) 01/18/22 06:01 Total Bilirubin 0.30 mg/dL (0.1-1.2) 01/18/22 00:47 AST 18 units/L (5-40) 01/18/22 00:47 ALT 15 units/L (7-56) 01/18/22 00:47 Alkaline Phosphatase 124 units/L (35-129) 01/18/22 00:47 Ammonia 14.0 umol/L (25-60) L 01/17/22 22:34 Total Creatine Kinase 48 units/L (55-170) L 01/17/22 22:34 Troponin T 0.149 ng/mL (0.00-0.029) H* 01/17/22 22:34 C-Reactive Protein 5.80 mg/dL (0.00-1.30) H 01/17/22 22:34 NT-Pro-B Natriuret Pep 2069 pg/mL (0-900) H 01/17/22 22:34 Total Protein 9.8 g/dL (6.3-8.2) H 01/18/22 00:47 Albumin 3.4 g/dL (3.9-5) L 01/18/22 00:47 Albumin/Globulin Ratio 0.5 % 01/18/22 00:47 Triglycerides 143 mg/dL (2-149) 01/17/22 22:34 Cholesterol 224 mg/dL (50-199) H 01/17/22 22:34 LDL Cholesterol Direct 114 mg/dL (50-130) 01/17/22 22:34 HDL Cholesterol 73 mg/dL (40-59) H 01/17/22 22:34 Cholesterol/HDL Ratio 3.06 % 01/17/22 22:34 Urine Color Yellow (Yellow) 01/17/22 21:49 Urine Turbidity Cloudy (Clear) 01/17/22 21:49 Specific [place] (Man) 1.020 (1.003-1.030) 01/17/22 21:49 Ur Protein (Man) 2+ mg/dL (Negative) 01/17/22 21:49 Ur Ketones (Man) Negative (Negative) 01/17/22 21:49 Ur Nitrite (Man) Positive (Negative) 01/17/22 21:49 Ur Reducing Substances Not Reportable 01/17/22 21:49 Urine Bilirubin (Man) Negative (Negative) 01/17/22 21:49 Urine Ictotest Not Reportable 01/17/22 21:49 Leukocyte Esterase (Man) Moderate (Negative) 01/17/22 21:49 Urine WBC (Auto) > 182.0 /HPF (0.0-6.0) H 01/17/22 21:49 Urine RBC (Auto) 17.0 /HPF (0.0-6.0) 01/17/22 21:49 Urine Bacteria (Auto) 3+ /HPF (Negative) 01/17/22 21:49 Urine RBC (Manual) 1+ (Negative) 01/17/22 21:49 Urine WBC Clumps 3+ /HPF 01/17/22 21:49 Urine Mucus Few /HPF 01/17/22 21:49 Urine Yeast ([place]) 3+ /HPF 01/17/22 21:49 Salicylates < 0.3 mg/dL (2.8-20.0) L 01/17/22 22:34 Microbiology: Microbiology 01/17/22 23:06 Peripheral/Venous Blood Culture - Preliminary Culture in Progress 01/17/22 22:34 Peripheral/Venous Blood Culture - Preliminary Culture in Progress Active Medications - Current Medications Current Medications: Generic Name Dose Route Start Last Admin Trade Name Freq PRN Reason Stop Dose Admin Acetaminophen 650 mg 01/18/22 02:52 Acetaminophen 325 Mg Tab PO Q4H PRN Pain MILD(1-3)/Fever >100.5/LUTHER Albuterol/Ipratropium 1 ampul 01/18/22 08:00 Ipratropium/Albuterol Sulfate 3 Ml Ampul.Neb IH Q6HRT [facility] Aspirin 325 mg 01/19/22 10:00 Aspirin Ec 325 Mg Tab PO QDAY [facility] Atorvastatin Calcium 40 mg 01/18/22 22:00 Atorvastatin 40 Mg Tab PO QHS [facility] Famotidine 20 mg 01/18/22 10:00 Famotidine 20 Mg/2 Ml Inj IV DAILY [facility] Dextrose/Sodium Chloride 1,000 mls @ 125 mls/hr 01/18/22 03:00 D5/0.45ns IV DIRECT [facility] Ceftriaxone Sodium 2 gm in 100 mls @ 200 mls/hr 01/18/22 14:00 Rocephin/Ns 2 Gm/100 Ml IV Q24H [facility] Protocol Azithromycin 500 mg in 250 mls @ 250 mls/hr 01/18/22 03:00 Zithromax/Ns IV Q24H [facility] Morphine Sulfate 2 mg 01/18/22 02:52 Morphine 2 Mg/1 Ml Inj IV Q4H PRN Pain, Moderate (4-6) Morphine Sulfate 4 mg 01/18/22 02:52 Morphine 4 Mg/1 Ml Inj IV Q4H PRN Pain , Severe (7-10) Nitroglycerin 0.4 mg 01/18/22 02:55 Nitroglycerin 0.4 Mg Tab Subl SL Q5M PRN Chest Pain Ondansetron HCl 4 mg 01/18/22 02:52 Ondansetron 4 Mg/2 Ml Inj IV Q8H PRN Nausea And Vomiting Sodium Chloride 10 ml 01/18/22 10:00 Sodium Chloride 0.9% 10 Ml Flush Syringe IV BID [facility] Sodium Chloride 10 ml 01/18/22 02:52 Sodium Chloride 0.9% 10 Ml Flush Syringe IV PRN PRN LINE FLUSH Tramadol HCl 50 mg 01/18/22 02:55 Tramadol 50 Mg Tab PO Q6H PRN Pain, Moderate (4-6) Nutrition/Malnutrition Assess - Dietary Evaluation Nutrition/Malnutrition Findings: Nutrition Notes Start: 01/18/22 09:21 Freq: Status: Active Protocol: Document 01/18/22 09:21 JULIANA (Rec: 01/18/22 09:27 [facility] [id number]) Nutrition Notes Need for Assessment generated from: MD Order Initial or Follow up Assessment Current Diagnosis Acute Kidney Injury,Sepsis Other Pertinent Diagnosis Resp distress, Acute metabolic encephalopathy, Pneu, Cachexia, FTT, UTI Current Diet NPO Labs/Tests Na 157 K 5.1 BUN 126 Cr 4 Pertinent Medications D5 1/2NS at 125ml/hr Height 5 ft 11 in Weight 68.039 kg [place] Body Weight (kg) 78.18 BMI 20.9 Weight Status Underweight Subjective/Other Information RD consulted for malnutrition; pt in ED at this time. [place] is from [place]. PMHx includes colon CA s/p chemo and colostomy placement. Per nephrology, no indication for renal replacement therapy at this time. Burn Absent Trauma Absent #1 Nutrition Diagnosis Inadequate oral intake Etiology AMS, resp distress As Evidenced by Signs and Symptoms pt NPO, pt underweight for age Is patient on ventilator? No Is Patient Ambulatory and/or Out of Bed No REE-([facility]-confined to bed) 4790.204 Calculation Used for Recommendations [facility] Additional Notes Pro needs 0.8-1.2g/k-82g/ day Fluid needs 1ml/kcal Nutrition Intervention Change Diet Order: Advance diet when medically feasible Goal #1 Diet advancement to meet nutrient needs Goal #2 Wt maintenance and/or gain Anticipated Discharge Needs: Unable to identify at this time Follow-Up By: 01/20/22 Additional Comments F/U: diet advancement, transfer to medical floor, malnutrition assessment
--- NOTE | 2022-01-18 11:28 | Ultrasound Report ---
ULTRASOUND RENAL INDICATION / CLINICAL INFORMATION: renal failure. COMPARISON: None available. FINDINGS: RIGHT KIDNEY: Length = 9.2 cm. - Echogenicity: Normal. - Cortical Thickness: Normal. - Hydronephrosis: Mild prominence of the renal pelvis - Cyst or mass: No significant abnormality. - Stones: None seen. LEFT KIDNEY: Length = 9 cm. - Echogenicity: Normal. - Cortical Thickness: Normal. - Hydronephrosis: Mild prominence of the renal pelvis - Cyst or mass: No significant abnormality. - Stones: None seen. URINARY BLADDER: No significant abnormality. FREE FLUID: None. ADDITIONAL FINDINGS: None. IMPRESSION: 1. No definite renal stones. Mild prominence of the renal pelvis. Signer Name: Matteo Hu MD Signed: 01/18/2022 11:24 AM Workstation Name: [id number]
[2022-01-18] MEDS ORDERED: HEPARIN 10,000 UNITS/10 ML VIAL IV PRN (15:48)
[2022-01-18] MEDS: FAMOTIDINE 20 MG/2 ML INJ IV SCH (16:18)
[2022-01-18] MEDS: cefTRIAXone/NS 2 GM/100 ML 2 GM/100 ML BAG IV SCH (16:18)
[2022-01-18] MEDS: HEPARIN/ 0.45% NACL DRIP 25,000 UNIT/500 ML BAG IV SCH (16:39)
[2022-01-18] MEDS: IPRATROPIUM/ALBUTEROL SULFATE 3 ML AMPUL.NEB IH SCH ×2 (20:56→20:57)
[2022-01-18] MEDS: AZITHROMYCIN/NS 500 MG/250 ML 500 MG/250 ML BAG IV SCH (21:09)
--- NOTE | 2022-01-19 01:08 | Cat Scan Report ---
CT HEAD WITHOUT CONTRAST INDICATION / CLINICAL INFORMATION: encephalopathy. TECHNIQUE: CT head was performed without administration of intravenous contrast. All CT scans at this location are performed using CT dose reduction for ALARA by means of automated exposure control. COMPARISON: None available. FINDINGS: CEREBRAL HEMISPHERES: Significant motion artifact. Area of hypoattenuation right parietal cortex and white matter within the centrum semiovale compatible with infarction is demonstrated. No evidence of hemorrhage. Moderate atrophy. Moderate changes of microvascular ischemia. CEREBELLUM / BRAINSTEM: No significant abnormality. ORBITS: No significant abnormality. SOFT TISSUES: No significant abnormality. SKULL: No significant abnormality. PARANASAL SINUSES / MASTOID AIR CELLS: Normal as visualized. ADDITIONAL FINDINGS: None. IMPRESSION: 1. Hypoattenuation right parietal cortex and white matter compatible with infarction, subacute to chr onic appearance is suggested. 2. Allowing for motion, no evidence of acute pathology. 3. Moderately advanced senescent changes.. Signer Name: John Rosado II, MD Signed: 01/19/2022 1:04 AM Workstation Name: [id number]
[2022-01-19] MEDS: AMIODARONE 200 MG TAB FEEDTUBE SCH ×2 (01:10→11:27)
--- NOTE | 2022-01-19 08:32 | Progress Note ---
Assessment and Plan Assessment and plan: History of present illness: 71 years old male from longterm with history of colon cancer s/p chemotherapy with colostomy was brought to the emergency room from intermediate because of dyspnea and respiratory distress. Patient is also altered Mental Status. Patient is on Non rebreather on and O2 sat 100%. Kumar cath in place. Patient is a very poor historian. In the ER patient chest x-ray shows pneumonia, patient sodium is 154, potassium 5.6 BUN 135 creatinine 4.7, glucose 162, lactic acid 5.20, troponin 0.149. Also patient has UTI.'s were going to admit the patient we will put the patient on IMCU. We will put the patient on IV fluid antibiotic. We will consult cardiology as well as nephrology for evaluation. Hospital Course: Spoke extensively with son about history. Patient has a history of colon cancer S4 with mets to liver. He has only undergone one course of chemotherapy at [facility]. He was recently discharged 1 month ago from [facility] for UTI. Currently the patient resides in SNF. Per the son pt has lost a lot of weight. has been struggling with feeding. I explained that the patient's medical terminologist prognosis is poor. We discussed hospice breifly but son was not ready to go over this. I mentioned that in the next 24- 48hrs we could reassess. 01/19: Continue aggressive hydration for NATHALIE. 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 Treatment of Sepsis/UTI/PNA with IV Abx. HR mostly controlle d on amiodorone. Continue heparin gtt. Assessment and Plan: #Sepsis POA #Urinary tract infection #Left lower lobe pneumonia #Lactic Acidosis - WBC: 18.5K, tachycardia, elevated urine [id number], LA 5.2 - CXR: LLL pneumonic process - blood culture -urine culture -MRSA screen, COVID PCR (recent outbreak at facility) - Abx therapy with Rocephin IV, azithromycin #Atrial fibrillation with rapid ventricular response #Doubt NSTEMI, Possibly Type 2 NV - elevated troponin: 0.149 --> 0.88 - BNP: 2068 - echo pending - tele: afib, ventricular rate 90-110 - amiodorone 200 mg bid - heparin gtt - cardiology consultation #Acute kidney injury due to vasomotor nephropathy #Hypokalemia #Hyponatremia #Metabolic Acidosis - sepsis/dehydration likely driving Nathalie - renal US: mild prominence of renal pelvis - replace K. - Aggressive IVF - nephrology consultation #Acute metabolic encephalopathy - etiology: multifactorial poor po intake, UTI, NATHALIE - IVF, management as above. - CT brain w/o con ordered. #History of colon cancer on chemotherapy #Failure to thrive - apparently stage 4 Colon CA, mets to liver per son - has only had one session of chemotherapy. - only on puree diet per history #Advance care planning Spoke extensively with son Soha Taylor II. Disease education conducted, care plan discussed, diagnoses discussed, prognosis discussed, patient is full code, patient son acknowledges understanding and agree with care plan, +30 minutes. Time spent: +35 min CPT 54619 History Interval history: more alert on bedside encounter. Only yes/no responses. Difficult to address orientation. Hospitalist Physical - Physical exam Narrative exam: Physical Exam: VITAL SIGNS: Reviewed. GENERAL: The patient appears normally developed, Vital signs as documented. Altered, ill-appearing, very thin HEAD: No signs of head trauma. EYES: Pupils are equal. Extraocular motions intact. EARS: Hearing grossly intact. MOUTH: Oropharynx is normal. dry on initial encounter, poor dentition. NECK: No adenopathy, no JVD. CHEST: Chest with clear breath sounds bilaterally. No wheezes, rales, or rhonchi. CARDIAC: Regular rate and rhythm. S1 and S2, without murmurs, gallops, or rubs. VASCULAR: No Edema. Peripheral pulses normal and equal in all extremities. ABDOMEN: Soft, non tender and non distended. No rebound or guarding, and no masses palpated. Bowel Sounds normal. MUSCULOSKELETAL: Good range of motion of all major joints. Extremities without clubbing, cyanosis or edema. NEUROLOGIC EXAM: Obtunded, mildly agitated PSYCHIATRIC: Mood normal. SKIN: detail exam as documented in skin assessment - Constitutional Vitals: Temp Pulse Resp BP Pulse Ox 98.0 F 66 18 115/78 92 01/19/22 05:40 01/19/22 05:40 01/19/22 05:10 01/19/22 05:40 01/19/22 05:40 General appearance: Present: cachectic HEART Score - HEART Score Troponin: Troponin T 0.088 ng/mL (0.00-0.029) H D 01/18/22 13:40 Results - Labs CBC & Chem 7: 01/19/22 07:35 01/19/22 07:35 Labs: Laboratory Last Values WBC 18.5 K/mm3 (4.5-11.0) H 01/18/22 06:01 RBC 5.29 M/mm3 (3.65-5.03) H 01/18/22 06:01 Hgb 12.2 gm/dl (11.8-15.2) 01/18/22 06:01 Hct 40.0 % (35.5-45.6) D 01/18/22 06:01 MCV 76 fl (84-94) L 01/18/22 06:01 MCH 23 pg (28-32) L 01/18/22 06:01 MCHC 31 % (32-34) L 01/18/22 06:01 RDW 17.2 % (13.2-15.2) H 01/18/22 06:01 Plt Count 248 K/mm3 (140-440) 01/18/22 06:01 Lymph % (Auto) 3.3 % (13.4-35.0) L 01/18/22 06:01 [place] % (Auto) 3.0 % (0.0-7.3) 01/18/22 06:01 Eos % (Auto) 0.0 % (0.0-4.3) 01/18/22 06:01 Baso % (Auto) 0.1 % (0.0-1.8) 01/18/22 06:01 Lymph # (Auto) 0.6 K/mm3 (1.2-5.4) L 01/18/22 06:01 [place] # (Auto) 0.5 K/mm3 (0.0-0.8) 01/18/22 06:01 Eos # (Auto) 0.0 K/mm3 (0.0-0.4) 01/18/22 06:01 Baso # (Auto) 0.0 K/mm3 (0.0-0.1) 01/18/22 06:01 Add Manual Diff Complete 01/17/22 22:34 Total Counted 100 01/17/22 22:34 Seg Neutrophils % Appraisal Coordinator 01/18/22 06:01 Seg Neuts % (Manual) 82.0 % (40.0-70.0) H 01/17/22 22:34 Band Neutrophils % 1.0 % 01/17/22 22:34 Lymphocytes % (Manual) 11.0 % (13.4-35.0) L 01/17/22 22:34 Reactive Lymphs % (Man) 0 % 01/17/22 22:34 Monocytes % (Manual) 6.0 % (0.0-7.3) 01/17/22 22:34 Eosinophils % (Manual) 0 % (0.0-4.3) 01/17/22 22:34 Basophils % (Manual) 0 % (0.0-1.8) 01/17/22 22:34 Metamyelocytes % 0 % 01/17/22 22:34 Myelocytes % 0 % 01/17/22 22:34 Promyelocytes % 0 % 01/17/22 22:34 Blast Cells % 0 % 01/17/22 22:34 Nucleated RBC % Not Reportable 01/17/22 22:34 Seg Neutrophils # 17.3 K/mm3 (1.8-7.7) H 01/18/22 06:01 Seg Neutrophils # Man 10.3 K/mm3 (1.8-7.7) H 01/17/22 22:34 Band Neutrophils # 0.1 K/mm3 01/17/22 22:34 Lymphocytes # (Manual) 1.4 K/mm3 (1.2-5.4) 01/17/22 22:34 Abs React Lymphs (Man) 0.0 K/mm3 01/17/22 22:34 Monocytes # (Manual) 0.8 K/mm3 (0.0-0.8) 01/17/22 22:34 Eosinophils # (Manual) 0.0 K/mm3 (0.0-0.4) 01/17/22 22:34 Basophils # (Manual) 0.0 K/mm3 (0.0-0.1) 01/17/22 22:34 Metamyelocytes # 0.0 K/mm3 01/17/22 22:34 Myelocytes # 0.0 K/mm3 01/17/22 22:34 Promyelocytes # 0.0 K/mm3 01/17/22 22:34 Blast Cells # 0.0 K/mm3 01/17/22 22:34 WBC Morphology Not Reportable 01/17/22 22:34 Hypersegmented Neuts Not Reportable 01/17/22 22:34 Hyposegmented Neuts Not Reportable 01/17/22 22:34 Hypogranular Neuts Not Reportable 01/17/22 22:34 Smudge Cells Not Reportable 01/17/22 22:34 Toxic Granulation Not Reportable 01/17/22 22:34 Toxic Vacuolation Not Reportable 01/17/22 22:34 Dohle Bodies Not Reportable 01/17/22 22:34 Pelger-Huet Anomaly Not Reportable 01/17/22 22:34 Bj Rods Not Reportable 01/17/22 22:34 Platelet Estimate Consistent w auto 01/17/22 22:34 Clumped Platelets Not Reportable 01/17/22 22:34 Plt Clumps, EDTA Not Reportable 01/17/22 22:34 Large Platelets Not Reportable 01/17/22 22:34 Giant Platelets Not Reportable 01/17/22 22:34 Platelet Satelliting Not Reportable 01/17/22 22:34 Plt Morphology Comment Not Reportable 01/17/22 22:34 RBC Morphology Not Reportable 01/17/22 22:34 Dimorphic RBCs Not Reportable 01/17/22 22:34 Polychromasia Not Reportable 01/17/22 22:34 Hypochromasia Not Reportable 01/17/22 22:34 Poikilocytosis Not Reportable 01/17/22 22:34 Anisocytosis 1+ 01/17/22 22:34 Microcytosis 1+ 01/17/22 22:34 Macrocytosis Not Reportable 01/17/22 22:34 Spherocytes Not Reportable 01/17/22 22:34 Pappenheimer Bodies Not Reportable 01/17/22 22:34 Sickle Cells Not Reportable 01/17/22 22:34 Target Cells Few 01/17/22 22:34 Tear Drop Cells Not Reportable 01/17/22 22:34 Ovalocytes Not Reportable 01/17/22 22:34 Helmet Cells Not Reportable 01/17/22 22:34 Byers-Haslet Bodies Not Reportable 01/17/22 22:34 [place] Rings Not Reportable 01/17/22 22:34 [place] Cells Not Reportable 01/17/22 22:34 Bite Cells Not Reportable 01/17/22 22:34 Crenated Cell Not Reportable 01/17/22 22:34 Elliptocytes Not Reportable 01/17/22 22:34 Acanthocytes (Spur) Not Reportable 01/17/22 22:34 Rouleaux Not Reportable 01/17/22 22:34 Hemoglobin C Crystals Not Reportable 01/17/22 22:34 Schistocytes Not Reportable 01/17/22 22:34 Malaria parasites Not Reportable 01/17/22 22:34 Sahil Bodies Not Reportable 01/17/22 22:34 Hem Pathologist Commnt No 01/17/22 22:34 PT 15.3 Sec. (12.2-14.9) H 01/17/22 22:34 INR 1.06 (0.87-1.13) 01/17/22 22:34 Heparin Anti-Xa Level 1.17 U.I./ml (0.3-0.7) H 01/19/22 00:11 ABG pH 7.383 pH Units (7.350-7.450) 01/17/22 22:05 ABG pCO2 32.8 mm Hg 01/17/22 22:05 ABG pO2 210.4 mm Hg (80.0-90.0) H 01/17/22 22:05 ABG HCO3 19.1 mmol/L (20.0-26.0) L 01/17/22 22:05 ABG O2 Saturation 99.3 % (95.0-99.0) H 01/17/22 22:05 ABG O2 Content 20.3 (0.0-44) 01/17/22 22:05 ABG Base Excess -4.9 mmol/L (-2.0-3.0) L 01/17/22 22:05 ABG Hemoglobin 14.5 gm/dl (14.0-18.0) 01/17/22 22:05 ABG Carboxyhemoglobin 1.2 % (0.0-5.0) 01/17/22 22:05 ABG Methemoglobin 0.6 % (0.0-1.5) 01/17/22 22:05 Oxyhemoglobin 97.5 % (95.0-99.0) 01/17/22 22:05 FiO2 100 % 01/17/22 22:05 Sodium 157 mmol/L (137-145) H 01/18/22 06:01 Potassium 5.1 mmol/L (3.6-5.0) H 01/18/22 06:01 Chloride 121.2 mmol/L (98-107) H 01/18/22 06:01 Carbon Dioxide 21 mmol/L (22-30) L 01/18/22 06:01 Anion Gap 20 mmol/L 01/18/22 06:01 BUN 126 mg/dL (9-20) H 01/18/22 06:01 Creatinine 4.0 mg/dL (0.8-1.3) H 01/18/22 06:01 Estimated GFR 18 ml/min 01/18/22 06:01 BUN/Creatinine Ratio 32 % 01/18/22 06:01 Glucose 115 mg/dL (75-100) H 01/18/22 06:01 Ketones Quantitative Negative (Negative) 01/17/22 22:34 Lactic Acid 3.20 mmol/L (0.7-2.0) H* 01/18/22 13:40 Calcium 9.1 mg/dL (8.4-10.2) 01/18/22 06:01 Total Bilirubin 0.30 mg/dL (0.1-1.2) 01/18/22 00:47 AST 18 units/L (5-40) 01/18/22 00:47 ALT 15 units/L (7-56) 01/18/22 00:47 Alkaline Phosphatase 124 units/L (35-129) 01/18/22 00:47 Ammonia 14.0 umol/L (25-60) L 01/17/22 22:34 Total Creatine Kinase 48 units/L (55-170) L 01/17/22 22:34 Troponin T 0.088 ng/mL (0.00-0.029) H D 01/18/22 13:40 C-Reactive Protein 5.80 mg/dL (0.00-1.30) H 01/17/22 22:34 NT-Pro-B Natriuret Pep 2069 pg/mL (0-900) H 01/17/22 22:34 Total Protein 9.8 g/dL (6.3-8.2) H 01/18/22 00:47 Albumin 3.4 g/dL (3.9-5) L 01/18/22 00:47 Albumin/Globulin Ratio 0.5 % 01/18/22 00:47 Triglycerides 143 mg/dL (2-149) 01/17/22 22:34 Cholesterol 224 mg/dL (50-199) H 01/17/22 22:34 LDL Cholesterol Direct 114 mg/dL (50-130) 01/17/22 22:34 HDL Cholesterol 73 mg/dL (40-59) H 01/17/22 22:34 Cholesterol/HDL Ratio 3.06 % 01/17/22 22:34 Urine Color Yellow (Yellow) 01/17/22 21:49 Urine Turbidity Cloudy (Clear) 01/17/22 21:49 Specific [place] (Man) 1.020 (1.003-1.030) 01/17/22 21:49 Ur Protein (Man) 2+ mg/dL (Negative) 01/17/22 21:49 Ur Ketones (Man) Negative (Negative) 01/17/22 21:49 Ur Nitrite (Man) Positive (Negative) 01/17/22 21:49 Ur Reducing Substances Not Reportable 01/17/22 21:49 Urine Bilirubin (Man) Negative (Negative) 01/17/22 21:49 Urine Ictotest Not Reportable 01/17/22 21:49 Leukocyte Esterase (Man) Moderate (Negative) 01/17/22 21:49 Urine WBC (Auto) > 182.0 /HPF (0.0-6.0) H 01/17/22 21:49 Urine RBC (Auto) 17.0 /HPF (0.0-6.0) 01/17/22 21:49 Urine Bacteria (Auto) 3+ /HPF (Negative) 01/17/22 21:49 Urine RBC (Manual) 1+ (Negative) 01/17/22 21:49 Urine WBC Clumps 3+ /HPF 01/17/22 21:49 Urine Mucus Few /HPF 01/17/22 21:49 Urine Yeast (Budding) 3+ /HPF 01/17/22 21:49 Salicylates < 0.3 mg/dL (2.8-20.0) L 01/17/22 22:34 Microbiology: Microbiology 01/17/22 23:06 Peripheral/Venous Blood Culture - Preliminary NO GROWTH AFTER 24 HOURS 01/17/22 22:34 Peripheral/Venous Blood Culture - Preliminary NO GROWTH AFTER 24 HOURS Kumar/IV: Voiding Method Indwelling Catheter Active Medications - Current Medications Current Medications: Generic Name Dose Route Start Last Admin Trade Name Freq PRN Reason Stop Dose Admin Acetaminophen 650 mg 01/18/22 02:52 Acetaminophen 325 Mg Tab PO Q4H PRN Pain MILD(1-3)/Fever >100.5/LUTHER Albuterol/Ipratropium 1 ampul 01/18/22 08:00 01/18/22 20:57 Ipratropium/Albuterol Sulfate 3 Ml Ampul.Neb IH Not Given Q6HRT [facility] Amiodarone HCl 200 mg 01/18/22 22:00 01/19/22 01:10 Amiodarone 200 Mg Tab FEEDTUBE Not Given BID [facility] Aspirin 325 mg 01/19/22 10:00 Aspirin Ec 325 Mg Tab PO QDAY [facility] Atorvastatin Calcium 40 mg 01/18/22 22:00 01/19/22 00:52 Atorvastatin 40 Mg Tab PO Not Given QHS ROSCOE Famotidine 20 mg 01/18/22 10:00 01/18/22 16:18 Famotidine 20 Mg/2 Ml Inj IV 20 mg DAILY ROSCOE Administration Heparin Sodium (Porcine) 2,700 unit 01/18/22 15:48 Heparin 10,000 Units/10 Ml Vial 40 unit/kg (2700 unit) IV Q6H PRN Anti-Xa Assay < 0.1 units/ml Ceftriaxone Sodium 2 gm in 100 mls @ 200 mls/hr 01/18/22 14:00 01/18/22 16:18 Rocephin/Ns 2 Gm/100 Ml IV 200 mls/hr Q24H ROSCOE Administration Protocol Azithromycin 500 mg in 250 mls @ 250 mls/hr 01/18/22 03:00 01/18/22 21:09 Zithromax/Ns IV 250 mls/hr Q24H ROSCOE Administration Heparin Sodium/Sodium Chloride 25,000 unit in 500 mls @ 20 mls/hr 01/18/22 16:00 01/19/22 01:15 Heparin/ 0.45% Nacl-25,000 Unit/500 Ml IV 1,000 units/hr TITR ROSCOE 20 mls/hr Titration Protocol 1,000 UNITS/HR Dextrose 1,000 mls @ 100 mls/hr 01/18/22 17:00 D5w IV DIRECT ROSCOE Morphine Sulfate 2 mg 01/18/22 02:52 Morphine 2 Mg/1 Ml Inj IV Q4H PRN Pain, Moderate (4-6) Morphine Sulfate 4 mg 01/18/22 02:52 Morphine 4 Mg/1 Ml Inj IV Q4H PRN Pain , Severe (7-10) Nitroglycerin 0.4 mg 01/18/22 02:55 Nitroglycerin 0.4 Mg Tab Subl SL Q5M PRN Chest Pain Ondansetron HCl 4 mg 01/18/22 02:52 Ondansetron 4 Mg/2 Ml Inj IV Q8H PRN Nausea And Vomiting Sodium Chloride 10 ml 01/18/22 10:00 01/19/22 00:52 Sodium Chloride 0.9% 10 Ml Flush Syringe IV 10 ml BID ROSCOE Administration Sodium Chloride 10 ml 01/18/22 02:52 Sodium Chloride 0.9% 10 Ml Flush Syringe IV PRN PRN LINE FLUSH Tramadol HCl 50 mg 01/18/22 02:55 Tramadol 50 Mg Tab PO Q6H PRN Pain, Moderate (4-6) Nutrition/Malnutrition Assess - Dietary Evaluation Nutrition/Malnutrition Findings: Nutrition Notes Start: 01/18/22 09:21 Freq: Status: Active Protocol: Document 01/18/22 09:21 TNNEO (Rec: 01/18/22 09:27 [facility] [id number]) Nutrition Notes Need for Assessment generated from: MD Order Initial or Follow up Assessment Current Diagnosis Acute Kidney Injury,Sepsis Other Pertinent Diagnosis Resp distress, Acute metabolic encephalopathy, Pneu, Cachexia, FTT, UTI Current Diet NPO Labs/Tests Na 157 K 5.1 BUN 126 Cr 4 Pertinent Medications D5 1/2NS at 125ml/hr Height 5 ft 11 in Weight 68.039 kg [facility] Body Weight (kg) 78.18 BMI 20.9 Weight Status Underweight Subjective/Other Information RD consulted for malnutrition; pt in ED at this time. Pt is from [place]. PMHx includes colon CA s/p chemo and colostomy placement. Per nephrology, no indication for renal replacement therapy at this time. Burn Absent Trauma Absent #1 Nutrition Diagnosis Inadequate oral intake Etiology AMS, resp distress As Evidenced by Signs and Symptoms pt NPO, pt underweight for age Is patient on ventilator? No Is Patient Ambulatory and/or Out of Bed No REE-([facility]-confined to bed) [phone] Calculation Used for Recommendations [facility] Additional Notes Pro needs 0.8-1.2g/k-82g/ day Fluid needs 1ml/kcal Nutrition Intervention Change Diet Order: Advance diet when medically feasible Goal #1 Diet advancement to meet nutrient needs Goal #2 Wt maintenance and/or gain Anticipated Discharge Needs: Unable to identify at this time Follow-Up By: 01/20/22 Additional Comments F/U: diet advancement, transfer to medical floor, malnutrition assessment
[2022-01-19 08:33] LABS: Mean Corpuscular HGB Conc 30 % (32-34); Mean Corpuscular Volume 77 fl (84-94); Platelet Count 199 K/mm3 (140-440); Red Blood Count 6.14 M/mm3 (3.65-5.03); Red Cell Distribution Width 17.4 % (13.2-15.2)
[2022-01-19 08:34] LABS: Hematocrit 46.9 % (35.5-45.6); Hemoglobin 14.2 gm/dl (11.8-15.2)
[2022-01-19 08:35] LABS: Albumin 3.1 g/dL (3.9-5); Calcium 10.2 mg/dL (8.4-10.2)
[2022-01-19] MEDS: IPRATROPIUM/ALBUTEROL SULFATE 3 ML AMPUL.NEB IH SCH ×4 (08:41→21:20)
[2022-01-19] MEDS ORDERED: ASPIRIN EC 325 MG TAB PO SCH (10:00)
--- NOTE | 2022-01-19 10:15 | Progress Note ---
Assessment and Plan Impression: * NATHALIE * Metabolic acidosis * Hyperkalemia * Hypernatremia * sepsis * UTI * AMS Plan: * aggressive ivf resusciatation--continue d5w * iv abx per primary team * strict i/os and daily lytes * rec abd imaging with elevated lactate * follow up renal us * urine lytes * avoid nephrotoxins * medical treatment of Hyperkalemia--better today--follow up * no emergent indication for CARDIOPULMONARY PHYSICAL THERAPIST at this time Subjective Date of service: 01/19/22 Interval history: resting in bed labs and chart reviewed Objective - Exam Narrative Exam: General appearance: Present: severe distress, cachectic - EENT Eyes: Present: PERRL ENT: hearing intact, clear oral mucosa - Neck Neck: Present: supple, normal ROM - Respiratory Respiratory effort: normal Respiratory: bilateral: diminished - Cardiovascular Heart Sounds: Present: S1 & S2. Absent: rub, click - Extremities Extremities: pulses symmetrical, No edema Peripheral Pulses: within normal limits - Abdominal General gastrointestinal: Present: soft, non-tender, non-distended, normal bowel sounds Male genitourinary: Present: normal - Integumentary Integumentary: Present: clear, warm, dry - Musculoskeletal Musculoskeletal: gait normal, strength equal bilaterally - Psychiatric Psychiatric: other - Neurologic Neurologic: CNII-XII intact, moves all extremities - Vital Signs Vital signs: Vital Signs - 12hr 01/18/22 01/18/22 01/18/22 22:16 22:30 22:46 Temperature Pulse Rate 92 H 82 86 Respiratory 13 13 12 Rate Blood Pressure 129/91 129/91 131/93 Blood Pressure [Right] O2 Sat by Pulse 100 100 100 Oximetry 01/18/22 01/18/22 01/18/22 23:00 23:16 23:19 Temperature Pulse Rate 88 91 H Respiratory 12 11 L 15 Rate Blood Pressure 131/93 131/93 Blood Pressure [Right] O2 Sat by Pulse 100 100 100 Oximetry 01/18/22 01/18/22 01/18/22 23:24 23:25 23:30 Temperature Pulse Rate 91 H 91 H 85 Respiratory 13 18 12 Rate Blood Pressure 131/93 131/93 Blood Pressure 131/93 [Right] O2 Sat by Pulse 100 100 100 Oximetry 01/18/22 01/19/22 01/19/22 23:46 00:00 00:16 Temperature Pulse Rate 93 H 99 H 97 H Respiratory 14 12 13 Rate Blood Pressure 131/93 Blood Pressure [Right] O2 Sat by Pulse 99 100 Oximetry 01/19/22 01/19/22 01/19/22 00:30 00:46 01:00 Temperature Pulse Rate 97 H 94 H 95 H Respiratory 12 12 12 Rate Blood Pressure 131/93 131/93 131/93 Blood Pressure [Right] O2 Sat by Pulse Oximetry 01/19/22 01/19/22 01/19/22 01:16 01:30 01:46 Temperature Pulse Rate 95 H 99 H 93 H Respiratory 12 13 11 L Rate Blood Pressure 131/93 131/93 131/93 Blood Pressure [Right] O2 Sat by Pulse 97 87 Oximetry 01/19/22 01/19/22 01/19/22 02:00 02:16 02:30 Temperature Pulse Rate 91 H 74 94 H Respiratory 13 14 13 Rate Blood Pressure 131/93 131/93 131/93 Blood Pressure [Right] O2 Sat by Pulse 89 86 97 Oximetry 01/19/22 01/19/22 01/19/22 02:37 02:52 04:00 Temperature 98.7 F Pulse Rate 90 Respiratory 15 18 Rate Blood Pressure 128/92 Blood Pressure 122/90 [Right] O2 Sat by Pulse 95 94 Oximetry 01/19/22 01/19/22 01/19/22 04:52 05:00 05:10 Temperature Pulse Rate 102 H 103 H 95 H Respiratory 20 18 18 Rate Blood Pressure 209/120 209/120 209/120 Blood Pressure [Right] O2 Sat by Pulse 95 95 Oximetry 01/19/22 01/19/22 01/19/22 05:40 06:00 10:06 Temperature 98.0 F 97.5 F L Pulse Rate 66 101 H Respiratory 20 Rate Blood Pressure 115/78 116/88 Blood Pressure [Right] O2 Sat by Pulse 92 94 98 Oximetry - Lab 01/19/22 07:35 01/19/22 07:35 Most recent lab results ABG pH 7.383 pH Units (7.350-7.450) 01/17/22 22:05 ABG pCO2 32.8 mm Hg 01/17/22 22:05 ABG pO2 210.4 mm Hg (80.0-90.0) H 01/17/22 22:05 ABG HCO3 19.1 mmol/L (20.0-26.0) L 01/17/22 22:05 ABG O2 Saturation 99.3 % (95.0-99.0) H 01/17/22 22:05 Calcium 10.2 mg/dL (8.4-10.2) 01/19/22 07:35 Medications & Allergies - Medications Allergies/Adverse Reactions: Allergies No Known Allergies Allergy (Verified 01/18/22 07:24) Active Medications: Generic Name Dose Route Start Last Admin Trade Name Freq PRN Reason Stop Dose Admin Acetaminophen 650 mg 01/18/22 02:52 Acetaminophen 325 Mg Tab PO Q4H PRN Pain MILD(1-3)/Fever >100.5/LUTHER Albuterol/Ipratropium 1 ampul 01/18/22 08:00 01/19/22 08:41 Ipratropium/Albuterol Sulfate 3 Ml Ampul.Neb IH 1 ampul Q6HRT ROSCOE Administration Amiodarone HCl 200 mg 01/18/22 22:00 01/19/22 01:10 Amiodarone 200 Mg Tab FEEDTUBE Not Given BID ROSCOE Aspirin 81 mg 01/19/22 10:00 Aspirin 81 Mg Tab Chew FEEDTUBE QDAY ROSCOE Atorvastatin Calcium 40 mg 01/18/22 22:00 01/19/22 00:52 Atorvastatin 40 Mg Tab PO Not Given QHS ROSCOE Famotidine 20 mg 01/18/22 10:00 01/18/22 16:18 Famotidine 20 Mg/2 Ml Inj IV 20 mg DAILY ROSCOE Administration Heparin Sodium (Porcine) 2,700 unit 01/18/22 15:48 Heparin 10,000 Units/10 Ml Vial 40 unit/kg (2700 unit) IV Q6H PRN Anti-Xa Assay < 0.1 units/ml Ceftriaxone Sodium 2 gm in 100 mls @ 200 mls/hr 01/18/22 14:00 01/18/22 16:18 Rocephin/Ns 2 Gm/100 Ml IV 200 mls/hr Q24H ROSCOE Administration Protocol Azithromycin 500 mg in 250 mls @ 250 mls/hr 01/18/22 03:00 01/18/22 21:09 Zithromax/Ns IV 250 mls/hr Q24H ROSCOE Administration Heparin Sodium/Sodium Chloride 25,000 unit in 500 mls @ 20 mls/hr 01/18/22 16:00 01/19/22 01:15 Heparin/ 0.45% Nacl-25,000 Unit/500 Ml IV 1,000 units/hr TITR ROSCOE 20 mls/hr Titration Protocol 1,000 UNITS/HR Dextrose 1,000 mls @ 125 mls/hr 01/18/22 17:00 D5w IV DIRECT ROSCOE Morphine Sulfate 2 mg 01/18/22 02:52 Morphine 2 Mg/1 Ml Inj IV Q4H PRN Pain, Moderate (4-6) Morphine Sulfate 4 mg 01/18/22 02:52 Morphine 4 Mg/1 Ml Inj IV Q4H PRN Pain , Severe (7-10) Nitroglycerin 0.4 mg 01/18/22 02:55 Nitroglycerin 0.4 Mg Tab Subl SL Q5M PRN Chest Pain Ondansetron HCl 4 mg 01/18/22 02:52 Ondansetron 4 Mg/2 Ml Inj IV Q8H PRN Nausea And Vomiting Sodium Chloride 10 ml 01/18/22 10:00 01/19/22 00:52 Sodium Chloride 0.9% 10 Ml Flush Syringe IV 10 ml BID ROSCOE Administration Sodium Chloride 10 ml 01/18/22 02:52 Sodium Chloride 0.9% 10 Ml Flush Syringe IV PRN PRN LINE FLUSH Tramadol HCl 50 mg 01/18/22 02:55 Tramadol 50 Mg Tab PO Q6H PRN Pain, Moderate (4-6)
[2022-01-19] MEDS: FAMOTIDINE 20 MG/2 ML INJ IV SCH (11:27)
[2022-01-19] MEDS: ASPIRIN 81 MG TAB CHEW FEEDTUBE SCH (11:27)
[2022-01-19] MEDS: DEXTROSE 5% IN WATER 1,000 ML IV SCH (11:29)
[2022-01-19 12:32] LABS: Band Neutrophils # (Manual) 0.2 K/mm3; Basophils % (Manual) 0 % (0.0-1.8); Eosinophils % (Manual) 0 % (0.0-4.3); Total Cells Counted 100
[2022-01-19 12:33] LABS: Anisocytosis 1+; Hypochromasia 1+; Platelet Estimate Consistent w Auto
--- NOTE | 2022-01-19 12:51 | Progress Note ---
Assessment and Plan - Patient Problems (1) Elevated troponin Current Visit: Yes Status: Acute Plan to address problem: The elevated troponin is likely type II DC secondary to sepsis lactic acidosis acute kidney injury. Continue to trend troponins x2. Obtain an echocardiogram to assess for EF and wall motion abnormalities. (2) Atrial fibrillation Current Visit: Yes Status: Acute Plan to address problem: Patient on amiodarone 200 p.o. twice daily. He is not on telemetry. Subjective Date of service: 01/19/22 Interval history: Patient seen and examined today. Patient is still altered not able to answer appropriately Objective Vital Signs Temp Pulse Pulse Resp Resp BP BP 01/19/22 10:06 97.5 F L 101 H 20 116/88 01/19/22 10:00 01/19/22 08:40 83 18 01/19/22 06:00 01/19/22 05:40 98.0 F 66 115/78 01/19/22 05:10 95 H 18 209/120 01/19/22 05:00 103 H 18 209/120 01/19/22 04:52 102 H 20 209/120 01/19/22 04:00 01/19/22 02:52 98.7 F 18 128/92 01/19/22 02:37 90 15 122/90 01/19/22 02:30 94 H 13 131/93 01/19/22 02:16 74 14 131/93 01/19/22 02:00 91 H 13 131/93 01/19/22 01:46 93 H 11 L 131/93 01/19/22 01:30 99 H 13 131/93 01/19/22 01:16 95 H 12 131/93 01/19/22 01:00 95 H 12 131/93 01/19/22 00:46 94 H 12 131/93 01/19/22 00:30 97 H 12 131/93 01/19/22 00:16 97 H 13 01/19/22 00:00 99 H 12 01/18/22 23:46 93 H 14 131/93 01/18/22 23:30 85 12 131/93 01/18/22 23:25 91 H 18 131/93 01/18/22 23:24 91 H 13 131/93 01/18/22 23:19 15 01/18/22 23:16 91 H 11 L 131/93 01/18/22 23:00 88 12 131/93 01/18/22 22:46 86 12 131/93 01/18/22 22:30 82 13 129/91 01/18/22 22:16 92 H 13 129/91 01/18/22 22:00 89 12 129/91 01/18/22 21:46 92 H 14 129/91 01/18/22 21:30 91 H 13 127/92 01/18/22 21:16 100 H 15 127/92 01/18/22 21:00 95 H 13 127/92 01/18/22 20:46 98 H 12 127/92 01/18/22 20:30 92 H 14 134/95 01/18/22 20:16 94 H 14 134/95 01/18/22 20:00 85 13 134/95 01/18/22 19:46 95 H 13 134/95 01/18/22 19:30 98 H 15 125/89 01/18/22 19:16 97 H 12 125/89 01/18/22 19:00 94 H 12 125/89 01/18/22 18:46 95 H 12 125/89 01/18/22 18:30 97 H 13 137/91 01/18/22 18:16 97 H 13 137/91 01/18/22 18:00 98 H 14 01/18/22 17:46 97 H 13 137/91 01/18/22 17:30 90 12 129/90 01/18/22 17:16 90 12 129/90 01/18/22 17:00 89 14 129/90 01/18/22 16:46 98 H 12 137/91 01/18/22 16:30 79 12 125/86 01/18/22 16:16 98 H 12 129/90 01/18/22 16:00 91 H 12 129/90 01/18/22 15:46 84 12 129/90 01/18/22 15:30 95 H 12 118/88 01/18/22 15:16 91 H 12 118/88 01/18/22 15:00 91 H 13 118/88 01/18/22 14:46 97 H 14 118/88 01/18/22 14:30 96 H 14 106/82 01/18/22 14:16 92 H 12 106/82 01/18/22 14:00 93 H 14 118/88 01/18/22 13:46 94 H 15 118/88 01/18/22 13:30 88 14 106/82 01/18/22 13:16 89 15 106/82 01/18/22 13:00 108 H 12 106/82 Pulse Ox 01/19/22 10:06 98 01/19/22 10:00 97 01/19/22 08:40 01/19/22 06:00 94 01/19/22 05:40 92 01/19/22 05:10 95 01/19/22 05:00 95 01/19/22 04:52 01/19/22 04:00 94 01/19/22 02:52 01/19/22 02:37 95 01/19/22 02:30 97 01/19/22 02:16 86 01/19/22 02:00 89 01/19/22 01:46 87 01/19/22 01:30 97 01/19/22 01:16 01/19/22 01:00 01/19/22 00:46 01/19/22 00:30 01/19/22 00:16 01/19/22 00:00 100 01/18/22 23:46 99 01/18/22 23:30 100 01/18/22 23:25 100 01/18/22 23:24 100 01/18/22 23:19 100 01/18/22 23:16 100 01/18/22 23:00 100 01/18/22 22:46 100 01/18/22 22:30 100 01/18/22 22:16 100 01/18/22 22:00 100 01/18/22 21:46 100 01/18/22 21:30 99 01/18/22 21:16 100 01/18/22 21:00 100 01/18/22 20:46 100 01/18/22 20:30 100 01/18/22 20:16 100 01/18/22 20:00 100 01/18/22 19:46 100 01/18/22 19:30 98 01/18/22 19:16 98 01/18/22 19:00 99 01/18/22 18:46 100 01/18/22 18:30 100 01/18/22 18:16 100 01/18/22 18:00 93 01/18/22 17:46 01/18/22 17:30 01/18/22 17:16 97 01/18/22 17:00 01/18/22 16:46 01/18/22 16:30 01/18/22 16:16 01/18/22 16:00 01/18/22 15:46 01/18/22 15:30 01/18/22 15:16 01/18/22 15:00 01/18/22 14:46 01/18/22 14:30 01/18/22 14:16 01/18/22 14:00 01/18/22 13:46 01/18/22 13:30 01/18/22 13:16 01/18/22 13:00 - Physical Examination General: No Apparent Distress HEENT: Positive: Normocephaly Neck: Negative: JVD/HJR Cardiac: Positive: S1/S2 Neuro: Positive: Other (Unable to exam) Abdomen: Positive: Soft Skin: Negative: Rash Extremities: Absent: edema - Labs and Meds Cardiac Enzymes 01/19/22 Range/Units 07:35 AST 18 (5-40) units/L CBC 01/19/22 Range/Units 07:35 WBC 16.1 H (4.5-11.0) K/mm3 RBC 6.14 H (3.65-5.03) M/mm3 Hgb 14.2 (11.8-15.2) gm/dl Hct 46.9 H D (35.5-45.6) % Plt Count 199 (140-440) K/mm3 Comprehensive Metabolic Panel 01/19/22 Range/Units 07:35 Sodium 158 H (137-145) mmol/L Potassium 4.9 (3.6-5.0) mmol/L Chloride 119.6 H (98-107) mmol/L Carbon Dioxide 18 L (22-30) mmol/L BUN 124 H (9-20) mg/dL Creatinine 3.5 H (0.8-1.3) mg/dL Glucose 75 (75-100) mg/dL Calcium 10.2 (8.4-10.2) mg/dL AST 18 (5-40) units/L ALT 15 (7-56) units/L Alkaline Phosphatase 135 H (35-129) units/L Total Protein 9.1 H (6.3-8.2) g/dL Albumin 3.1 L (3.9-5) g/dL - EKG Sinus rhythms and dysrhythmias: sinus tachycardia Chamber hypertrophy or enlargement: left ventricular hypertro Repolarization changes or abnormalities: early repolarization due to LVH
[2022-01-19] MEDS: cefTRIAXone/NS 2 GM/100 ML 2 GM/100 ML BAG IV SCH (13:05)
[2022-01-19] MEDS: AZITHROMYCIN/NS 500 MG/250 ML 500 MG/250 ML BAG IV SCH (19:42)
[2022-01-20] MEDS: AMIODARONE 200 MG TAB FEEDTUBE SCH ×3 (00:32→22:10)
[2022-01-20] MEDS: DEXTROSE 5% IN WATER 1,000 ML IV SCH (00:33)
[2022-01-20] MEDS: HEPARIN/ 0.45% NACL DRIP 25,000 UNIT/500 ML BAG IV SCH (00:48)
[2022-01-20] MEDS: IPRATROPIUM/ALBUTEROL SULFATE 3 ML AMPUL.NEB IH SCH ×4 (01:24→22:53)
[2022-01-20] MEDS: AZITHROMYCIN/NS 500 MG/250 ML 500 MG/250 ML BAG IV SCH (04:28)
[2022-01-20 07:05] LABS: Mean Corpuscular HGB Conc 30 % (32-34); Mean Corpuscular Volume 78 fl (84-94); Platelet Count 171 K/mm3 (140-440); Red Blood Count 5.32 M/mm3 (3.65-5.03); Red Cell Distribution Width 17.8 % (13.2-15.2)
[2022-01-20 07:12] LABS: Hematocrit 41.2 % (35.5-45.6); Hemoglobin 12.3 gm/dl (11.8-15.2)
--- NOTE | 2022-01-20 07:45 | Progress Note ---
Assessment and Plan Assessment and plan: History of present illness: 71 years old male from prison with history of colon cancer s/p chemotherapy with colostomy was brought to the emergency room from senior living because of dyspnea and respiratory distress. Patient is also altered Mental Status. Patient is on Non rebreather on and O2 sat 100%. Kumar cath in place. Patient is a very poor historian. In the ER patient chest x-ray shows pneumonia, patient sodium is 154, potassium 5.6 BUN 135 creatinine 4.7, glucose 162, lactic acid 5.20, troponin 0.149. Also patient has UTI.'s were going to admit the patient we will put the patient on IMCU. We will put the patient on IV fluid antibiotic. We will consult cardiology as well as nephrology for evaluation. Hospital Course: Spoke extensively with son about history. Patient has a history of colon cancer S4 with mets to liver. He has only undergone one course of chemotherapy at [facility]. He was recently discharged 1 month ago from [place] for UTI. Currently the patient resides in SNF. Per the son pt has lost a lot of weight. has been struggling with feeding. 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 We discussed hospice breifly but son was not ready to go over this. I mentioned that in the next 24- 48hrs we could reassess. 01/19: Continue aggressive hydration for NATHALIE. 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 Treatment of Sepsis/UTI/PNA with IV Abx. HR mostly controlle d on amiodorone. Continue heparin gtt. 01/20: Dobhoff placed, Tube feeds started, Nepro @ 30 cc/hr. ST eval pending. Aggressive IVF rehydration (currently on D5W) per nephrology, cr: 3.1 this AM. WBC: 16.7....Currently on Azithromycin/Rocephin for CAP/UTI tx. Prognosis remains Guarded/poor. Patient is severely malnourished and cachectic. Will discuss GOK with son who is coming to hospital today. Assessment and Plan: #Sepsis POA #Urinary tract infection #Left lower lobe pneumonia #Lactic Acidosis - WBC: 18.5K, tachycardia, elevated urine [id number], LA 5.2 - CXR: LLL pneumonic process - blood culture -urine culture -MRSA screen, COVID PCR (recent outbreak at facility) - Abx therapy with Rocephin IV, azithromycin #Atrial fibrillation with rapid ventricular response #Doubt NSTEMI, Possibly Type 2 RI - elevated troponin: 0.149 --> 0.88 - BNP: 2068 - echo pending - tele: afib, ventricular rate 90-110 - amiodorone 200 mg bid - heparin gtt - cardiology consultation #Acute kidney injury due to vasomotor nephropathy #Hypokalemia #Hyponatremia #Metabolic Acidosis - sepsis/dehydration likely driving Nathalie - renal US: mild prominence of renal pelvis - replace K. - Aggressive IVF - nephrology consultation #Acute metabolic encephalopathy - etiology: multifactorial poor po intake, UTI, NATHALIE - IVF, management as above. - CT brain w/o con ordered. #History of colon cancer on chemotherapy #Failure to thrive - apparently stage 4 Colon CA, mets to liver per son - has only had one session of chemotherapy. - only on puree diet per history #Advance care planning Spoke extensively with son Soha Taylor II. Disease education conducted, care plan discussed, diagnoses discussed, prognosis discussed, patient is full code, patient son acknowledges understanding and agree with care plan, +30 minutes. Time spent: +35 min CPT 64006 History Interval history: Resting comfortably. opens eyes to name and able to nod head to state he is feeling well but does not answer any questions. Hospitalist Physical - Physical exam Narrative exam: Physical Exam: VITAL SIGNS: Reviewed. GENERAL: The patient appears normally developed, Vital signs as documented. Al tered, ill-appearing, very thin HEAD: No signs of head trauma. EYES: Pupils are equal. Extraocular motions intact. EARS: Hearing grossly intact. MOUTH: Oropharynx is normal. dry on initial encounter, poor dentition. NECK: No adenopathy, no JVD. CHEST: Chest with clear breath sounds bilaterally. No wheezes, rales, or rhonchi. CARDIAC: Regular rate and rhythm. S1 and S2, without murmurs, gallops, or rubs. VASCULAR: No Edema. Peripheral pulses normal and equal in all extremities. ABDOMEN: Soft, non tender and non distended. No rebound or guarding, and no masses palpated. Bowel Sounds normal. MUSCULOSKELETAL: Good range of motion of all major joints. Extremities without clubbing, cyanosis or edema. NEUROLOGIC EXAM: Obtunded, mildly agitated PSYCHIATRIC: Mood normal. SKIN: detail exam as documented in skin assessment - Constitutional Vitals: Temp Pulse Resp BP Pulse Ox 97.5 F L 99 H 18 110/80 99 01/20/22 04:36 01/20/22 01:29 01/20/22 04:36 01/20/22 04:36 01/19/22 21:25 General appearance: Present: cachectic HEART Score - HEART Score Troponin: Troponin T 0.088 ng/mL (0.00-0.029) H D 01/18/22 13:40 Results - Labs CBC & Chem 7: 01/20/22 06:17 01/20/22 06:17 Labs: Laboratory Last Values WBC 16.7 K/mm3 (4.5-11.0) H 01/20/22 06:17 RBC 5.32 M/mm3 (3.65-5.03) H 01/20/22 06:17 Hgb 12.3 gm/dl (11.8-15.2) 01/20/22 06:17 Hct 41.2 % (35.5-45.6) 01/20/22 06:17 MCV 78 fl (84-94) L 01/20/22 06:17 MCH 23 pg (28-32) L 01/20/22 06:17 MCHC 30 % (32-34) L 01/20/22 06:17 RDW 17.8 % (13.2-15.2) H 01/20/22 06:17 Plt Count 171 K/mm3 (140-440) 01/20/22 06:17 Lymph % (Auto) 3.3 % (13.4-35.0) L 01/18/22 06:01 Howard % (Auto) 3.0 % (0.0-7.3) 01/18/22 06:01 Eos % (Auto) 0.0 % (0.0-4.3) 01/18/22 06:01 Baso % (Auto) 0.1 % (0.0-1.8) 01/18/22 06:01 Lymph # (Auto) 0.6 K/mm3 (1.2-5.4) L 01/18/22 06:01 Howard # (Auto) 0.5 K/mm3 (0.0-0.8) 01/18/22 06:01 Eos # (Auto) 0.0 K/mm3 (0.0-0.4) 01/18/22 06:01 Baso # (Auto) 0.0 K/mm3 (0.0-0.1) 01/18/22 06:01 Add Manual Diff Complete 01/19/22 07:35 Total Counted 100 01/19/22 07:35 Seg Neutrophils % Grants Assistant 01/20/22 06:17 Seg Neuts % (Manual) 95.0 % (40.0-70.0) H 01/19/22 07:35 Band Neutrophils % 1.0 % 01/19/22 07:35 Lymphocytes % (Manual) 3.0 % (13.4-35.0) L 01/19/22 07:35 Reactive Lymphs % (Man) 0 % 01/19/22 07:35 Monocytes % (Manual) 1.0 % (0.0-7.3) 01/19/22 07:35 Eosinophils % (Manual) 0 % (0.0-4.3) 01/19/22 07:35 Basophils % (Manual) 0 % (0.0-1.8) 01/19/22 07:35 Metamyelocytes % 0 % 01/19/22 07:35 Myelocytes % 0 % 01/19/22 07:35 Promyelocytes % 0 % 01/19/22 07:35 Blast Cells % 0 % 01/19/22 07:35 Nucleated RBC % Not Reportable 01/19/22 07:35 Seg Neutrophils # 17.3 K/mm3 (1.8-7.7) H 01/18/22 06:01 Seg Neutrophils # Man 15.3 K/mm3 (1.8-7.7) H 01/19/22 07:35 Band Neutrophils # 0.2 K/mm3 01/19/22 07:35 Lymphocytes # (Manual) 0.5 K/mm3 (1.2-5.4) L 01/19/22 07:35 Abs React Lymphs (Man) 0.0 K/mm3 01/19/22 07:35 Monocytes # (Manual) 0.2 K/mm3 (0.0-0.8) 01/19/22 07:35 Eosinophils # (Manual) 0.0 K/mm3 (0.0-0.4) 01/19/22 07:35 Basophils # (Manual) 0.0 K/mm3 (0.0-0.1) 01/19/22 07:35 Metamyelocytes # 0.0 K/mm3 01/19/22 07:35 Myelocytes # 0.0 K/mm3 01/19/22 07:35 Promyelocytes # 0.0 K/mm3 01/19/22 07:35 Blast Cells # 0.0 K/mm3 01/19/22 07:35 WBC Morphology Not Reportable 01/19/22 07:35 Hypersegmented Neuts Not Reportable 01/19/22 07:35 Hyposegmented Neuts Not Reportable 01/19/22 07:35 Hypogranular Neuts Not Reportable 01/19/22 07:35 Smudge Cells Not Reportable 01/19/22 07:35 Toxic Granulation Not Reportable 01/19/22 07:35 Toxic Vacuolation Not Reportable 01/19/22 07:35 Dohle Bodies Not Reportable 01/19/22 07:35 Pelger-Huet Anomaly Not Reportable 01/19/22 07:35 Bj Rods Not Reportable 01/19/22 07:35 Platelet Estimate Consistent w auto 01/19/22 07:35 Clumped Platelets Not Reportable 01/19/22 07:35 Plt Clumps, EDTA Not Reportable 01/19/22 07:35 Large Platelets Not Reportable 01/19/22 07:35 Giant Platelets Not Reportable 01/19/22 07:35 Platelet Satelliting Not Reportable 01/19/22 07:35 Plt Morphology Comment Not Reportable 01/19/22 07:35 RBC Morphology Not Reportable 01/19/22 07:35 Dimorphic RBCs Not Reportable 01/19/22 07:35 Polychromasia Not Reportable 01/19/22 07:35 Hypochromasia 1+ 01/19/22 07:35 Poikilocytosis Not Reportable 01/19/22 07:35 Anisocytosis 1+ 01/19/22 07:35 Microcytosis Not Reportable 01/19/22 07:35 Macrocytosis Not Reportable 01/19/22 07:35 Spherocytes Not Reportable 01/19/22 07:35 Pappenheimer Bodies Not Reportable 01/19/22 07:35 Sickle Cells Not Reportable 01/19/22 07:35 Target Cells Not Reportable 01/19/22 07:35 Tear Drop Cells Not Reportable 01/19/22 07:35 Ovalocytes Not Reportable 01/19/22 07:35 Helmet Cells Not Reportable 01/19/22 07:35 [place] Bodies Not Reportable 01/19/22 07:35 [place] Rings Not Reportable 01/19/22 07:35 [place] Cells Not Reportable 01/19/22 07:35 Bite Cells Not Reportable 01/19/22 07:35 Crenated Cell Not Reportable 01/19/22 07:35 Elliptocytes Not Reportable 01/19/22 07:35 Acanthocytes (Spur) Not Reportable 01/19/22 07:35 Rouleaux Not Reportable 01/19/22 07:35 Hemoglobin C Crystals Not Reportable 01/19/22 07:35 Schistocytes Not Reportable 01/19/22 07:35 Malaria parasites Not Reportable 01/19/22 07:35 Sahil Bodies Not Reportable 01/19/22 07:35 Hem Pathologist Commnt No 01/19/22 07:35 PT 15.3 Sec. (12.2-14.9) H 01/17/22 22:34 INR 1.06 (0.87-1.13) 01/17/22 22:34 Heparin Anti-Xa Level 0.78 U.I./ml (0.3-0.7) H 01/20/22 06:17 ABG pH 7.383 pH Units (7.350-7.450) 01/17/22 22:05 ABG pCO2 32.8 mm Hg 01/17/22 22:05 ABG pO2 210.4 mm Hg (80.0-90.0) H 01/17/22 22:05 ABG HCO3 19.1 mmol/L (20.0-26.0) L 01/17/22 22:05 ABG O2 Saturation 99.3 % (95.0-99.0) H 01/17/22 22:05 ABG O2 Content 20.3 (0.0-44) 01/17/22 22:05 ABG Base Excess -4.9 mmol/L (-2.0-3.0) L 01/17/22 22:05 ABG Hemoglobin 14.5 gm/dl (14.0-18.0) 01/17/22 22:05 ABG Carboxyhemoglobin 1.2 % (0.0-5.0) 01/17/22 22:05 ABG Methemoglobin 0.6 % (0.0-1.5) 01/17/22 22:05 Oxyhemoglobin 97.5 % (95.0-99.0) 01/17/22 22:05 FiO2 100 % 01/17/22 22:05 Sodium 158 mmol/L (137-145) H 01/19/22 07:35 Potassium 4.9 mmol/L (3.6-5.0) 01/19/22 07:35 Chloride 119.6 mmol/L (98-107) H 01/19/22 07:35 Carbon Dioxide 18 mmol/L (22-30) L 01/19/22 07:35 Anion Gap 25 mmol/L 01/19/22 07:35 BUN 124 mg/dL (9-20) H 01/19/22 07:35 Creatinine 3.5 mg/dL (0.8-1.3) H 01/19/22 07:35 Estimated GFR 21 ml/min 01/19/22 07:35 BUN/Creatinine Ratio 35 % 01/19/22 07:35 Glucose 75 mg/dL (75-100) 01/19/22 07:35 Ketones Quantitative Negative (Negative) 01/17/22 22:34 Lactic Acid 3.20 mmol/L (0.7-2.0) H* 01/18/22 13:40 Calcium 10.2 mg/dL (8.4-10.2) 01/19/22 07:35 Total Bilirubin 0.30 mg/dL (0.1-1.2) 01/19/22 07:35 AST 18 units/L (5-40) 01/19/22 07:35 ALT 15 units/L (7-56) 01/19/22 07:35 Alkaline Phosphatase 135 units/L (35-129) H 01/19/22 07:35 Ammonia 14.0 umol/L (25-60) L 01/17/22 22:34 Total Creatine Kinase 48 units/L (55-170) L 01/17/22 22:34 Troponin T 0.088 ng/mL (0.00-0.029) H D 01/18/22 13:40 C-Reactive Protein 5.80 mg/dL (0.00-1.30) H 01/17/22 22:34 NT-Pro-B Natriuret Pep 2069 pg/mL (0-900) H 01/17/22 22:34 Total Protein 9.1 g/dL (6.3-8.2) H 01/19/22 07:35 Albumin 3.1 g/dL (3.9-5) L 01/19/22 07:35 Albumin/Globulin Ratio 0.5 % 01/19/22 07:35 Triglycerides 143 mg/dL (2-149) 01/17/22 22:34 Cholesterol 224 mg/dL (50-199) H 01/17/22 22:34 LDL Cholesterol Direct 114 mg/dL (50-130) 01/17/22 22:34 HDL Cholesterol 73 mg/dL (40-59) H 01/17/22 22:34 Cholesterol/HDL Ratio 3.06 % 01/17/22 22:34 Urine Color Yellow (Yellow) 01/17/22 21:49 Urine Turbidity Cloudy (Clear) 01/17/22 21:49 Specific [place] (Man) 1.020 (1.003-1.030) 01/17/22 21:49 Ur Protein (Man) 2+ mg/dL (Negative) 01/17/22 21:49 Ur Ketones (Man) Negative (Negative) 01/17/22 21:49 Ur Nitrite (Man) Positive (Negative) 01/17/22 21:49 Ur Reducing Substances Not Reportable 01/17/22 21:49 Urine Bilirubin (Man) Negative (Negative) 01/17/22 21:49 Urine Ictotest Not Reportable 01/17/22 21:49 Leukocyte Esterase (Man) Moderate (Negative) 01/17/22 21:49 Urine WBC (Auto) > 182.0 /HPF (0.0-6.0) H 01/17/22 21:49 Urine RBC (Auto) 17.0 /HPF (0.0-6.0) 01/17/22 21:49 Urine Bacteria (Auto) 3+ /HPF (Negative) 01/17/22 21:49 Urine RBC (Manual) 1+ (Negative) 01/17/22 21:49 Urine WBC Clumps 3+ /HPF 01/17/22 21:49 Urine Mucus Few /HPF 01/17/22 21:49 Urine Yeast (Budding) 3+ /HPF 01/17/22 21:49 Salicylates < 0.3 mg/dL (2.8-20.0) L 01/17/22 22:34 Coronavirus (PCR) Negative (Negative) 01/19/22 10:10 Microbiology: Microbiology 01/17/22 23:06 Peripheral/Venous Blood Culture - Preliminary NO GROWTH AFTER 48 HOURS 01/17/22 22:34 Peripheral/Venous Blood Culture - Preliminary NO GROWTH AFTER 48 HOURS Kumar/IV: Voiding Method Indwelling Catheter Active Medications - Current Medications Current Medications: Generic Name Dose Route Start Last Admin Trade Name Freq PRN Reason Stop Dose Admin Acetaminophen 650 mg 01/18/22 02:52 Acetaminophen 325 Mg Tab PO Q4H PRN Pain MILD(1-3)/Fever >100.5/LUTHER Albuterol/Ipratropium 1 ampul 01/18/22 08:00 01/20/22 01:24 Ipratropium/Albuterol Sulfate 3 Ml Ampul.Neb IH 1 ampul Q6HRT ROSCOE Administration Amiodarone HCl 200 mg 01/18/22 22:00 01/20/22 00:32 Amiodarone 200 Mg Tab FEEDTUBE 200 mg BID ROSCOE Administration Aspirin 81 mg 01/19/22 10:00 01/19/22 11:27 Aspirin 81 Mg Tab Chew FEEDTUBE 81 mg QDAY ROSCOE Administration Atorvastatin Calcium 40 mg 01/18/22 22:00 01/19/22 21:47 Atorvastatin 40 Mg Tab PO 40 mg QHS ROSCOE Administration Famotidine 20 mg 01/18/22 10:00 01/19/22 11:27 Famotidine 20 Mg/2 Ml Inj IV 20 mg DAILY ROSCOE Administration Heparin Sodium (Porcine) 2,700 unit 01/18/22 15:48 Heparin 10,000 Units/10 Ml Vial 40 unit/kg (2700 unit) IV Q6H PRN Anti-Xa Assay < 0.1 units/ml Ceftriaxone Sodium 2 gm in 100 mls @ 200 mls/hr 01/18/22 14:00 01/19/22 13:05 Rocephin/Ns 2 Gm/100 Ml IV 200 mls/hr Q24H ROSCOE Administration Protocol Azithromycin 500 mg in 250 mls @ 250 mls/hr 01/18/22 03:00 01/20/22 04:28 Zithromax/Ns IV 250 mls/hr Q24H ROSCOE Administration Heparin Sodium/Sodium Chloride 25,000 unit in 500 mls @ 20 mls/hr 01/18/22 16:00 01/20/22 07:40 Heparin/ 0.45% Nacl-25,000 Unit/500 Ml IV 850 units/hr TITR ROSCOE 17 mls/hr Titration Protocol 1,000 UNITS/HR Dextrose 1,000 mls @ 125 mls/hr 01/18/22 17:00 01/20/22 00:33 D5w IV 125 mls/hr DIRECT ROSCOE Administration Morphine Sulfate 2 mg 01/18/22 02:52 Morphine 2 Mg/1 Ml Inj IV Q4H PRN Pain, Moderate (4-6) Morphine Sulfate 4 mg 01/18/22 02:52 Morphine 4 Mg/1 Ml Inj IV Q4H PRN Pain , Severe (7-10) Nitroglycerin 0.4 mg 01/18/22 02:55 Nitroglycerin 0.4 Mg Tab Subl SL Q5M PRN Chest Pain Ondansetron HCl 4 mg 01/18/22 02:52 Ondansetron 4 Mg/2 Ml Inj IV Q8H PRN Nausea And Vomiting Sodium Chloride 10 ml 01/18/22 10:00 01/19/22 21:48 Sodium Chloride 0.9% 10 Ml Flush Syringe IV 10 ml BID ROSCOE Administration Sodium Chloride 10 ml 01/18/22 02:52 Sodium Chloride 0.9% 10 Ml Flush Syringe IV PRN PRN LINE FLUSH Tramadol HCl 50 mg 01/18/22 02:55 Tramadol 50 Mg Tab PO Q6H PRN Pain, Moderate (4-6) Nutrition/Malnutrition Assess - Dietary Evaluation Nutrition/Malnutrition Findings: Nutrition Notes Start: 01/18/22 09:21 Freq: Status: Active Protocol: Document 01/19/22 14:04 JULIANA (Rec: 01/19/22 14:24 JULIANA [id number]) Nutrition Notes 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 Current Diet NPO Labs/Tests Na 158 Cl 119.6 CO2 18 BUN 124 Cr 3.5 Pertinent Medications Medications reviewed. 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 Pt currently NPO. 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 Spoke with RN who noted pt can 't open mouth and has swallowing difficulty. Spoke of possible NG tube placement. Attempted to visit pt, but is on COVID19 isolation. Spoke w/ pt's sister who reported that pt has been losing wt since September 2021 with a UBW of 65.09kg. She also reported pt is consuming <25% of meals since August-September 2021. Sister does not live with pt , but son does - contact provided. Attempted to speak with son with no answer. Will continue to monitor and follow-up. Burn Absent Trauma Absent GI Symptoms None Food Allergy No Skin Integrity/Comment No data per Physical Assessment Current % PO Other #1 Nutrition Diagnosis Inadequate oral intake Diagnosis Progress(for reassessment Continues documentation) Is patient on ventilator? No Is Patient Ambulatory and/or Out of Bed No REE-([facility]-confined to bed) [phone] Calculation Used for Recommendations [facility] Additional Notes 0.8-1.2g/kg ABW 54-82g/day Fluid needs 1ml/kcal Nutrition Intervention Change Diet Order: Advance diet when medically feasible Goal #1 Diet advancement to meet nutrient needs Goal #2 Wt maintenance and/or gain Follow-Up By: 01/21/22 Additional Comments Monitor diet advancement, nutrition-related lab values, and weight status.
[2022-01-20 08:23] LABS: Alanine Aminotransferase 13 units/L (7-56); Calcium 10.1 mg/dL (8.4-10.2); Hemolysis Index 79
[2022-01-20 08:36] LABS: BUN/Creatinine Ratio 36; Blood Urea Nitrogen 112 mg/dL (9-20)
--- NOTE | 2022-01-20 08:53 | Electrocardiograph Report ---
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
--- NOTE | 2022-01-20 08:53 | Electrocardiograph Report ---
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
--- NOTE | 2022-01-20 11:23 | Progress Note ---
Assessment and Plan - Patient Problems (1) Elevated troponin Current Visit: Yes Status: Acute Plan to address problem: The elevated troponin is likely type II OH secondary to sepsis lactic acidosis acute kidney injury. Echocardiogram is of poor quality due to body habitus cannot adequately assess the EF or wall motion (2) Atrial fibrillation Current Visit: Yes Status: Acute Plan to address problem: Patient on amiodarone 200 p.o. twice daily. He is currently in sinus rhythm on telemetry. Subjective Interval history: Patient seen and examined today. Patient is still altered Objective Vital Signs Temp Pulse Pulse Resp Resp BP BP 01/20/22 08:19 85 20 01/20/22 08:02 01/20/22 04:36 97.5 F L 18 110/80 01/20/22 01:29 99 H 17 01/19/22 21:25 01/19/22 21:06 97.5 F L 18 114/92 01/19/22 20:35 20 01/19/22 20:00 99 H 16 01/19/22 18:00 97 F L 83 18 99/77 01/19/22 14:30 101 H 20 01/19/22 13:12 97 F L 69 18 113/77 01/19/22 13:05 20 Pulse Ox 01/20/22 08:19 01/20/22 08:02 96 01/20/22 04:36 01/20/22 01:29 01/19/22 21:25 99 01/19/22 21:06 01/19/22 20:35 94 01/19/22 20:00 01/19/22 18:00 94 01/19/22 14:30 01/19/22 13:12 94 01/19/22 13:05 94 - Physical Examination General: No Apparent Distress HEENT: Positive: Normocephaly Neck: Negative: JVD/HJR Cardiac: Positive: Reg Rate and Rhythm, S1/S2 Lungs: Positive: clear to auscultation Neuro: Positive: Other (Unable to exam) Abdomen: Positive: Soft Skin: Negative: Rash Extremities: Absent: edema - Labs and Meds Cardiac Enzymes 01/20/22 Range/Units 06:17 AST 23 (5-40) units/L CBC 01/20/22 Range/Units 06:17 WBC 16.7 H (4.5-11.0) K/mm3 RBC 5.32 H (3.65-5.03) M/mm3 Hgb 12.3 (11.8-15.2) gm/dl Hct 41.2 (35.5-45.6) % Plt Count 171 (140-440) K/mm3 Comprehensive Metabolic Panel 01/20/22 Range/Units 06:17 Sodium QNS Potassium QNS Chloride QNS Carbon Dioxide 16 L (22-30) mmol/L BUN 112 H (9-20) mg/dL Creatinine 3.1 H (0.8-1.3) mg/dL Glucose 137 H (75-100) mg/dL Calcium 10.1 (8.4-10.2) mg/dL AST 23 (5-40) units/L ALT 13 (7-56) units/L Alkaline Phosphatase 132 H (35-129) units/L Total Protein 8.4 H (6.3-8.2) g/dL Albumin 3.0 L (3.9-5) g/dL - Telemetry EKG Rhythm: Sinus Rhythm - EKG Sinus rhythms and dysrhythmias: sinus tachycardia Chamber hypertrophy or enlargement: left ventricular hypertro Repolarization changes or abnormalities: early repolarization due to LVH
[2022-01-20 11:31] LABS: Basophils % (Manual) 0 % (0.0-1.8); Eosinophils % (Manual) 0 % (0.0-4.3); Hypochromasia 1+; Platelet Estimate Consistent w Auto; Total Cells Counted 100
--- NOTE | 2022-01-20 11:39 | Progress Note ---
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 Labs reviewed. Objective - Exam Narrative Exam: Constitutional: no acute distress Head: NC/AT Neck: supple Lungs: clear to auscultation CV: RRR, no M/R/G Abdomen: soft, non-tender, bowel sounds present Back: nontender Extremities: no edema, pulses WNL Skin: intact Neuro: Somnolent - Vital Signs Vital signs: Vital Signs - 12hr 01/20/22 01/20/22 01/20/22 01:29 04:36 08:02 Temperature 97.5 F L Pulse Rate [ 99 H Bilateral] Respiratory 18 Rate Respiratory 17 Rate [Bilateral ] Blood Pressure 110/80 O2 Sat by Pulse 96 Oximetry 01/20/22 08:19 Temperature Pulse Rate [ 85 Bilateral] Respiratory Rate Respiratory 20 Rate [Bilateral ] Blood Pressure O2 Sat by Pulse Oximetry - Lab 01/20/22 06:17 01/20/22 06:17 Most recent lab results ABG pH 7.383 pH Units (7.350-7.450) 01/17/22 22:05 ABG pCO2 32.8 mm Hg 01/17/22 22:05 ABG pO2 210.4 mm Hg (80.0-90.0) H 01/17/22 22:05 ABG HCO3 19.1 mmol/L (20.0-26.0) L 01/17/22 22:05 ABG O2 Saturation 99.3 % (95.0-99.0) H 01/17/22 22:05 Calcium 10.1 mg/dL (8.4-10.2) 01/20/22 06:17 Medications & Allergies - Medications Allergies/Adverse Reactions: Allergies No Known Allergies Allergy (Verified 01/18/22 07:24) Active Medications: Generic Name Dose Route Start Last Admin Trade Name Freq PRN Reason Stop Dose Admin Acetaminophen 650 mg 01/18/22 02:52 Acetaminophen 325 Mg Tab PO Q4H PRN Pain MILD(1-3)/Fever >100.5/LUTHER Albuterol/Ipratropium 1 ampul 01/18/22 08:00 01/20/22 08:02 Ipratropium/Albuterol Sulfate 3 Ml Ampul.Neb IH 1 ampul Q6HRT ROSCOE Administration Amiodarone HCl 200 mg 01/18/22 22:00 01/20/22 00:32 Amiodarone 200 Mg Tab FEEDTUBE 200 mg BID ROSCOE Administration Aspirin 81 mg 01/19/22 10:00 01/19/22 11:27 Aspirin 81 Mg Tab Chew FEEDTUBE 81 mg QDAY ROSCOE Administration Atorvastatin Calcium 40 mg 01/18/22 22:00 01/19/22 21:47 Atorvastatin 40 Mg Tab PO 40 mg QHS ROSCOE Administration Famotidine 20 mg 01/18/22 10:00 01/19/22 11:27 Famotidine 20 Mg/2 Ml Inj IV 20 mg DAILY ROSCOE Administration Heparin Sodium (Porcine) 2,700 unit 01/18/22 15:48 Heparin 10,000 Units/10 Ml Vial 40 unit/kg (2700 unit) IV Q6H PRN Anti-Xa Assay < 0.1 units/ml Ceftriaxone Sodium 2 gm in 100 mls @ 200 mls/hr 01/18/22 14:00 01/19/22 13:05 Rocephin/Ns 2 Gm/100 Ml IV 200 mls/hr Q24H ROSCOE Administration Protocol Azithromycin 500 mg in 250 mls @ 250 mls/hr 01/18/22 03:00 01/20/22 04:28 Zithromax/Ns IV 250 mls/hr Q24H ROSCOE Administration Heparin Sodium/Sodium Chloride 25,000 unit in 500 mls @ 20 mls/hr 01/18/22 16:00 01/20/22 07:40 Heparin/ 0.45% Nacl-25,000 Unit/500 Ml IV 850 units/hr TITR ROSCOE 17 mls/hr Titration Protocol 1,000 UNITS/HR Dextrose 1,000 mls @ 125 mls/hr 01/18/22 17:00 01/20/22 00:33 D5w IV 125 mls/hr DIRECT ROSCOE Administration Morphine Sulfate 2 mg 01/18/22 02:52 Morphine 2 Mg/1 Ml Inj IV Q4H PRN Pain, Moderate (4-6) Morphine Sulfate 4 mg 01/18/22 02:52 Morphine 4 Mg/1 Ml Inj IV Q4H PRN Pain , Severe (7-10) Nitroglycerin 0.4 mg 01/18/22 02:55 Nitroglycerin 0.4 Mg Tab Subl SL Q5M PRN Chest Pain Ondansetron HCl 4 mg 01/18/22 02:52 Ondansetron 4 Mg/2 Ml Inj IV Q8H PRN Nausea And Vomiting Sodium Chloride 10 ml 01/18/22 10:00 01/19/22 21:48 Sodium Chloride 0.9% 10 Ml Flush Syringe IV 10 ml BID ROSCOE Administration Sodium Chloride 10 ml 01/18/22 02:52 Sodium Chloride 0.9% 10 Ml Flush Syringe IV PRN PRN LINE FLUSH Tramadol HCl 50 mg 01/18/22 02:55 Tramadol 50 Mg Tab PO Q6H PRN Pain, Moderate (4-6)
[2022-01-20] MEDS: ASPIRIN 81 MG TAB CHEW FEEDTUBE SCH (12:17)
[2022-01-20] MEDS: FAMOTIDINE 20 MG/2 ML INJ IV SCH (12:18)
[2022-01-20] MEDS: THIAMINE 100 MG TAB PO SCH (12:18)
[2022-01-20] MEDS: SODIUM BICARBONATE 100 MEQ in DEXTROSE 5% IN WATER 1,000 ML IV SCH (12:35)
[2022-01-20] MEDS: cefTRIAXone/NS 2 GM/100 ML 2 GM/100 ML BAG IV SCH (14:00)
--- NOTE | 2022-01-20 15:45 | Consultation ---
History of Present Illness Consult date: 01/20/22 Reason for Consult: MS History of present illness: 71 years old male with history of colon cancer s/p chemotherapy with colostomy was brought to the emergency room from group home because of dyspnea and respiratory distress. Patient is also altered Mental Status. Patient is on Non rebreather on and O2 sat 100%. Kumar cath in place. Patient is a very poor historian. The patient is not opening eyes some mid line command is being followed . Past History Past Medical History: heart failure, hypertension, renal failure, other (Colon cancer is status postchemotherapy with colostomy, anemia, A. fib, BPH) Past Surgical History: Other (Colon cancer with colostomy) Social history: no significant social history Family history: hypertension Medications and Allergies Allergies Allergy/AdvReac Type Severity Reaction Status Date / Time No Known Allergies Allergy Verified 01/18/22 07:24 Active Meds: Active Medications Acetaminophen (Acetaminophen 325 Mg Tab) 650 mg PO Q4H PRN PRN Reason: Pain MILD(1-3)/Fever >100.5/LUTHER Albuterol/Ipratropium (Ipratropium/Albuterol Sulfate 3 Ml Ampul.Neb) 1 ampul IH Q6HRT [facility] Last Admin: 01/20/22 08:02 Dose: 1 ampul Amiodarone HCl (Amiodarone 200 Mg Tab) 200 mg FEEDTUBE BID [facility] Last Admin: 01/20/22 12:17 Dose: 200 mg Aspirin (Aspirin 81 Mg Tab Chew) 81 mg FEEDTUBE QDAY [facility] Last Admin: 01/20/22 12:17 Dose: 81 mg Atorvastatin Calcium (Atorvastatin 40 Mg Tab) 40 mg PO QHS [facility] Last Admin: 01/19/22 21:47 Dose: 40 mg Famotidine (Famotidine 20 Mg/2 Ml Inj) 20 mg IV DAILY [facility] Last Admin: 01/20/22 12:18 Dose: 20 mg Heparin Sodium (Porcine) (Heparin 10,000 Units/10 Ml Vial) 2,700 unit 40 unit/kg (2700 unit) IV Q6H PRN PRN Reason: Anti-Xa Assay < 0.1 units/ml Ceftriaxone Sodium (Rocephin/Ns 2 Gm/100 Ml) 2 gm in 100 mls @ 200 mls/hr IV Q24H [facility]; Protocol Last Admin: 01/19/22 13:05 Dose: 200 mls/hr Azithromycin (Zithromax/Ns) 500 mg in 250 mls @ 250 mls/hr IV Q24H [facility] Last Admin: 01/20/22 04:28 Dose: 250 mls/hr Heparin Sodium/Sodium Chloride (Heparin/ 0.45% Nacl-25,000 Unit/500 Ml) 25,000 unit in 500 mls @ 20 mls/hr IV TITR ROSCOE; Protocol Last Titration: 01/20/22 07:40 Dose: 850 units/hr, 17 mls/hr Sodium Bicarbonate 100 meq/ (Dextrose) 1,100 mls @ 125 mls/hr IV DIRECT ROSCOE Stop: 01/24/22 21:47 Last Admin: 01/20/22 12:35 Dose: 125 mls/hr Morphine Sulfate (Morphine 2 Mg/1 Ml Inj) 2 mg IV Q4H PRN PRN Reason: Pain, Moderate (4-6) Morphine Sulfate (Morphine 4 Mg/1 Ml Inj) 4 mg IV Q4H PRN PRN Reason: Pain , Severe (7-10) Nitroglycerin (Nitroglycerin 0.4 Mg Tab Subl) 0.4 mg SL Q5M PRN PRN Reason: Chest Pain Ondansetron HCl (Ondansetron 4 Mg/2 Ml Inj) 4 mg IV Q8H PRN PRN Reason: Nausea And Vomiting Sodium Chloride (Sodium Chloride 0.9% 10 Ml Flush Syringe) 10 ml IV BID [facility] Last Admin: 01/20/22 12:18 Dose: 10 ml Sodium Chloride (Sodium Chloride 0.9% 10 Ml Flush Syringe) 10 ml IV PRN PRN PRN Reason: LINE FLUSH Thiamine HCl (Thiamine 100 Mg Tab) 100 mg PO QDAY [facility] Last Admin: 01/20/22 12:18 Dose: 100 mg Tramadol HCl (Tramadol 50 Mg Tab) 50 mg PO Q6H PRN PRN Reason: Pain, Moderate (4-6) Physical Examination - Vital Signs Vital Signs: Vital Signs Temp Pulse Resp BP Pulse Ox 97 F L 116 H 18 114/77 92 01/17/22 20:43 01/17/22 20:43 01/17/22 20:43 01/17/22 20:43 01/17/22 20:43 - Physical Exam Narrative exam: 1. The patient is drowsy , moves all extremity very sluggisly , there is no purposeful movements . Results - Laboratory Findings CBC and BMP: 01/20/22 06:17 01/20/22 06:17 Abnormal Lab Findings: Abnormal Labs 01/17/22 01/17/22 01/17/22 21:49 22:05 22:34 WBC RBC Hct MCV MCH MCHC RDW Lymph % (Auto) Lymph # (Auto) Seg Neuts % (Manual) Lymphocytes % (Manual) Seg Neutrophils # Seg Neutrophils # Man Lymphocytes # (Manual) PT Heparin Anti-Xa Level ABG pO2 210.4 H ABG HCO3 19.1 L ABG O2 Saturation 99.3 H ABG Base Excess -4.9 L Sodium Potassium Chloride Carbon Dioxide BUN Creatinine Glucose Lactic Acid 5.20 H* Calcium Alkaline Phosphatase Ammonia Total Creatine Kinase Troponin T C-Reactive Protein NT-Pro-B Natriuret Pep Total Protein Albumin Cholesterol HDL Cholesterol Urine WBC (Auto) > 182.0 H Salicylates 01/17/22 01/17/22 01/17/22 22:34 22:34 22:34 WBC 12.5 H RBC 6.26 H Hct 47.9 H MCV 77 L MCH 24 L MCHC 31 L RDW 17.4 H Lymph % (Auto) Lymph # (Auto) Seg Neuts % (Manual) 82.0 H Lymphocytes % (Manual) 11.0 L Seg Neutrophils # Seg Neutrophils # Man 10.3 H Lymphocytes # (Manual) PT 15.3 H Heparin Anti-Xa Level ABG pO2 ABG HCO3 ABG O2 Saturation ABG Base Excess Sodium Potassium Chloride Carbon Dioxide BUN Creatinine Glucose Lactic Acid Calcium Alkaline Phosphatase Ammonia 14.0 L Total Creatine Kinase Troponin T C-Reactive Protein NT-Pro-B Natriuret Pep Total Protein Albumin Cholesterol HDL Cholesterol Urine WBC (Auto) Salicylates 01/17/22 01/17/22 01/18/22 22:34 22:34 00:10 WBC RBC Hct MCV MCH MCHC RDW Lymph % (Auto) Lymph # (Auto) Seg Neuts % (Manual) Lymphocytes % (Manual) Seg Neutrophils # Seg Neutrophils # Man Lymphocytes # (Manual) PT Heparin Anti-Xa Level ABG pO2 ABG HCO3 ABG O2 Saturation ABG Base Excess Sodium Potassium Chloride Carbon Dioxide BUN Creatinine Glucose Lactic Acid 6.30 H* Calcium Alkaline Phosphatase Ammonia Total Creatine Kinase 48 L Troponin T 0.149 H* C-Reactive Protein 5.80 H NT-Pro-B Natriuret Pep 2069 H Total Protein Albumin Cholesterol 224 H HDL Cholesterol 73 H Urine WBC (Auto) Salicylates < 0.3 L 01/18/22 01/18/22 01/18/22 00:47 06:01 06:01 WBC 18.5 H RBC 5.29 H Hct MCV 76 L MCH 23 L MCHC 31 L RDW 17.2 H Lymph % (Auto) 3.3 L Lymph # (Auto) 0.6 L Seg Neuts % (Manual) Lymphocytes % (Manual) Seg Neutrophils # 17.3 H Seg Neutrophils # Man Lymphocytes # (Manual) PT Heparin Anti-Xa Level ABG pO2 ABG HCO3 ABG O2 Saturation ABG Base Excess Sodium 154 H Potassium 5.6 H Chloride 110.8 H Carbon Dioxide 21 L BUN 135 H Creatinine 4.7 H Glucose 162 H Lactic Acid 2.70 H* Calcium 10.3 H Alkaline Phosphatase Ammonia Total Creatine Kinase Troponin T C-Reactive Protein NT-Pro-B Natriuret Pep Total Protein 9.8 H Albumin 3.4 L Cholesterol HDL Cholesterol Urine WBC (Auto) Salicylates 01/18/22 01/18/22 01/18/22 06:01 13:40 13:40 WBC RBC Hct MCV MCH MCHC RDW Lymph % (Auto) Lymph # (Auto) Seg Neuts % (Manual) Lymphocytes % (Manual) Seg Neutrophils # Seg Neutrophils # Man Lymphocytes # (Manual) PT Heparin Anti-Xa Level ABG pO2 ABG HCO3 ABG O2 Saturation ABG Base Excess Sodium 157 H Potassium 5.1 H Chloride 121.2 H Carbon Dioxide 21 L BUN 126 H Creatinine 4.0 H Glucose 115 H Lactic Acid 3.20 H* Calcium Alkaline Phosphatase Ammonia Total Creatine Kinase Troponin T 0.088 H D C-Reactive Protein NT-Pro-B Natriuret Pep Total Protein Albumin Cholesterol HDL Cholesterol Urine WBC (Auto) Salicylates 01/19/22 01/19/22 01/19/22 00:11 07:35 07:35 WBC 16.1 H RBC 6.14 H Hct 46.9 H D MCV 77 L MCH 23 L MCHC 30 L RDW 17.4 H Lymph % (Auto) Lymph # (Auto) Seg Neuts % (Manual) 95.0 H Lymphocytes % (Manual) 3.0 L Seg Neutrophils # Seg Neutrophils # Man 15.3 H Lymphocytes # (Manual) 0.5 L PT Heparin Anti-Xa Level 1.17 H ABG pO2 ABG HCO3 ABG O2 Saturation ABG Base Excess Sodium 158 H Potassium Chloride 119.6 H Carbon Dioxide 18 L BUN 124 H Creatinine 3.5 H Glucose Lactic Acid Calcium Alkaline Phosphatase 135 H Ammonia Total Creatine Kinase Troponin T C-Reactive Protein NT-Pro-B Natriuret Pep Total Protein 9.1 H Albumin 3.1 L Cholesterol HDL Cholesterol Urine WBC (Auto) Salicylates 01/19/22 01/20/22 01/20/22 19:41 06:17 06:17 WBC 16.7 H RBC 5.32 H Hct MCV 78 L MCH 23 L MCHC 30 L RDW 17.8 H Lymph % (Auto) Lymph # (Auto) Seg Neuts % (Manual) 92.0 H Lymphocytes % (Manual) 3.0 L Seg Neutrophils # Seg Neutrophils # Man 15.4 H Lymphocytes # (Manual) 0.5 L PT Heparin Anti-Xa Level 0.16 L ABG pO2 ABG HCO3 ABG O2 Saturation ABG Base Excess Sodium Potassium Chloride Carbon Dioxide 16 L BUN 112 H Creatinine 3.1 H Glucose 137 H Lactic Acid Calcium Alkaline Phosphatase 132 H Ammonia Total Creatine Kinase Troponin T C-Reactive Protein NT-Pro-B Natriuret Pep Total Protein 8.4 H Albumin 3.0 L Cholesterol HDL Cholesterol Urine WBC (Auto) Salicylates 01/20/22 06:17 WBC RBC Hct MCV MCH MCHC RDW Lymph % (Auto) Lymph # (Auto) Seg Neuts % (Manual) Lymphocytes % (Manual) Seg Neutrophils # Seg Neutrophils # Man Lymphocytes # (Manual) PT Heparin Anti-Xa Level 0.78 H ABG pO2 ABG HCO3 ABG O2 Saturation ABG Base Excess Sodium Potassium Chloride Carbon Dioxide BUN Creatinine Glucose Lactic Acid Calcium Alkaline Phosphatase Ammonia Total Creatine Kinase Troponin T C-Reactive Protein NT-Pro-B Natriuret Pep Total Protein Albumin Cholesterol HDL Cholesterol Urine WBC (Auto) Salicylates Assessment and Plan 1. Encephalopathy ( Multifactorial - ischemic, toxic metabolic ). 2. Rule out Seizure 3. If possible MRI brain - reviewed head CT 4. EEG . 5. No change in medications for now. 6. Follow up in 2 days - neurological prognois is guarded . Dr. Denis
[2022-01-20] MEDS ORDERED: LIP THERAPY VASELINE TP PRN (16:53)
[2022-01-20 17:28] LABS: Calcium 8.7 mg/dL (8.4-10.2)
[2022-01-20] MEDS ORDERED: HEPARIN/ 0.45% NACL DRIP 25,000 UNIT/250 ML BAG IV SCH (18:00)
[2022-01-21] MEDS: SODIUM BICARBONATE 100 MEQ in DEXTROSE 5% IN WATER 1,000 ML IV SCH (01:11)
[2022-01-21] MEDS: AZITHROMYCIN/NS 500 MG/250 ML 500 MG/250 ML BAG IV SCH (02:06)
[2022-01-21] MEDS: IPRATROPIUM/ALBUTEROL SULFATE 3 ML AMPUL.NEB IH SCH ×4 (03:58→20:19)
[2022-01-21 06:24] LABS: Hematocrit 34.8 % (35.5-45.6); Hemoglobin 10.7 gm/dl (11.8-15.2); Mean Corpuscular HGB Conc 31 % (32-34); Mean Corpuscular Volume 76 fl (84-94); Platelet Count 117 K/mm3 (140-440); Red Cell Distribution Width 17.1 % (13.2-15.2)
[2022-01-21] MEDS: HEPARIN/ 0.45% NACL DRIP 25,000 UNIT/500 ML BAG IV SCH (06:26)
[2022-01-21 07:28] LABS: Albumin 2.4 g/dL (3.9-5); Calcium 8.6 mg/dL (8.4-10.2)
[2022-01-21 07:46] LABS: Anisocytosis 1+; Basophils % (Manual) 0 % (0.0-1.8); Eosinophils % (Manual) 0 % (0.0-4.3); Total Cells Counted 100
[2022-01-21 07:47] LABS: Hypochromasia 2+; Platelet Estimate Consistent w Auto
--- NOTE | 2022-01-21 09:42 | Electrocardiograph Report ---
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
--- NOTE | 2022-01-21 10:27 | Progress Note ---
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 Labs reviewed. Objective - Exam Narrative Exam: Constitutional: no acute distress Head: NC/AT Neck: supple Lungs: clear to auscultation CV: RRR, no M/R/G Abdomen: soft, non-tender, bowel sounds present Back: nontender Extremities: no edema, pulses WNL Skin: intact Neuro: Somnolent - Vital Signs Vital signs: Vital Signs - 12hr 01/20/22 01/20/22 01/20/22 22:31 22:58 23:54 Temperature 98.1 F Pulse Rate 92 H Pulse Rate [ 92 H Bilateral] Respiratory 18 Rate Respiratory 20 Rate [Bilateral ] Blood Pressure 123/80 O2 Sat by Pulse 98 96 98 Oximetry 01/21/22 01/21/22 01/21/22 03:58 05:07 06:29 Temperature 98.6 F Pulse Rate 91 H 86 Pulse Rate [ 90 Bilateral] Respiratory 18 Rate Respiratory 16 Rate [Bilateral ] Blood Pressure 110/68 O2 Sat by Pulse 100 Oximetry 01/21/22 08:15 Temperature Pulse Rate Pulse Rate [ 80 Bilateral] Respiratory Rate Respiratory 18 Rate [Bilateral ] Blood Pressure O2 Sat by Pulse 98 Oximetry - Lab 01/21/22 05:37 01/21/22 14:52 Most recent lab results ABG pH 7.383 pH Units (7.350-7.450) 01/17/22 22:05 ABG pCO2 32.8 mm Hg 01/17/22 22:05 ABG pO2 210.4 mm Hg (80.0-90.0) H 01/17/22 22:05 ABG HCO3 19.1 mmol/L (20.0-26.0) L 01/17/22 22:05 ABG O2 Saturation 99.3 % (95.0-99.0) H 01/17/22 22:05 Calcium 8.6 mg/dL (8.4-10.2) 01/21/22 05:37 Medications & Allergies - Medications Allergies/Adverse Reactions: Allergies No Known Allergies Allergy (Verified 01/18/22 07:24) Active Medications: Generic Name Dose Route Start Last Admin Trade Name Freq PRN Reason Stop Dose Admin Acetaminophen 650 mg 01/18/22 02:52 Acetaminophen 325 Mg Tab PO Q4H PRN Pain MILD(1-3)/Fever >100.5/LUTHER Albuterol/Ipratropium 1 ampul 01/18/22 08:00 01/21/22 08:15 Ipratropium/Albuterol Sulfate 3 Ml Ampul.Neb IH 1 ampul Q6HRT ROSCOE Administration Amiodarone HCl 200 mg 01/18/22 22:00 01/20/22 22:10 Amiodarone 200 Mg Tab FEEDTUBE 200 mg BID ROSCOE Administration Aspirin 81 mg 01/19/22 10:00 01/20/22 12:17 Aspirin 81 Mg Tab Chew FEEDTUBE 81 mg QDAY ROSCOE Administration Atorvastatin Calcium 40 mg 01/18/22 22:00 01/20/22 22:10 Atorvastatin 40 Mg Tab PO 40 mg QHS ROSCOE Administration Famotidine 20 mg 01/18/22 10:00 01/20/22 12:18 Famotidine 20 Mg/2 Ml Inj IV 20 mg DAILY ROSCOE Administration Heparin Sodium (Porcine) 2,700 unit 01/18/22 15:48 Heparin 10,000 Units/10 Ml Vial 40 unit/kg (2700 unit) IV Q6H PRN Anti-Xa Assay < 0.1 units/ml Hydrophilic Ointment 1 applic 01/20/22 16:53 Lip Therapy Vaseline TP DIRECT PRN Dry Lips Ceftriaxone Sodium 2 gm in 100 mls @ 200 mls/hr 01/18/22 14:00 01/20/22 14:00 Rocephin/Ns 2 Gm/100 Ml IV 01/22/22 15:59 200 mls/hr Q24H ROSCOE Administration Protocol Azithromycin 500 mg in 250 mls @ 250 mls/hr 01/18/22 03:00 01/21/22 02:06 Zithromax/Ns IV 01/22/22 03:59 250 mls/hr Q24H ROSCOE Administration Heparin Sodium/Sodium Chloride 25,000 unit in 500 mls @ 20 mls/hr 01/18/22 16:00 01/21/22 06:26 Heparin/ 0.45% Nacl-25,000 Unit/500 Ml IV 850 units/hr TITR ROSCOE 17 mls/hr Administration Protocol 1,000 UNITS/HR Dextrose 1,000 mls @ 125 mls/hr 01/21/22 09:00 D5w IV DIRECT ROSCOE Morphine Sulfate 2 mg 01/18/22 02:52 Morphine 2 Mg/1 Ml Inj IV Q4H PRN Pain, Moderate (4-6) Morphine Sulfate 4 mg 01/18/22 02:52 Morphine 4 Mg/1 Ml Inj IV Q4H PRN Pain , Severe (7-10) Nitroglycerin 0.4 mg 01/18/22 02:55 Nitroglycerin 0.4 Mg Tab Subl SL Q5M PRN Chest Pain Ondansetron HCl 4 mg 01/18/22 02:52 Ondansetron 4 Mg/2 Ml Inj IV Q8H PRN Nausea And Vomiting Sodium Chloride 10 ml 01/18/22 10:00 01/20/22 22:10 Sodium Chloride 0.9% 10 Ml Flush Syringe IV 10 ml BID ROSCOE Administration Sodium Chloride 10 ml 01/18/22 02:52 Sodium Chloride 0.9% 10 Ml Flush Syringe IV PRN PRN LINE FLUSH Thiamine HCl 100 mg 01/20/22 12:00 01/20/22 12:18 Thiamine 100 Mg Tab PO 100 mg QDAY ROSCOE Administration Tramadol HCl 50 mg 01/18/22 02:55 Tramadol 50 Mg Tab PO Q6H PRN Pain, Moderate (4-6)
[2022-01-21] MEDS: THIAMINE 100 MG TAB PO SCH (11:19)
[2022-01-21] MEDS: ASPIRIN 81 MG TAB CHEW FEEDTUBE SCH (11:19)
[2022-01-21] MEDS: AMIODARONE 200 MG TAB FEEDTUBE SCH ×2 (11:19→21:20)
[2022-01-21] MEDS: FAMOTIDINE 20 MG/2 ML INJ IV SCH (11:21)
[2022-01-21] MEDS: DEXTROSE 5% IN WATER 1,000 ML IV SCH (11:22)
[2022-01-21] MEDS ORDERED: APIXABAN 5 MG TAB PO SCH (12:30)
[2022-01-21] MEDS ORDERED: HEPARIN/ 0.45% NACL DRIP 25,000 UNIT/250 ML BAG IV SCH (13:00)
--- NOTE | 2022-01-21 13:06 | Progress Note ---
Assessment and Plan Assessment and plan: 71 years old male from senior living with history of colon cancer s/p chemotherapy with colostomy [facility] because of dyspnea and respiratory distress. Patient is also altered Mental Status. Patient is on Non rebreather on and O2 sat 100%. Kumar cath in place. Patient is a very poor historian. In the ER patient chest x-ray shows pneumonia, patient sodium is 154, potassium 5.6 BUN 135 creatinine 4.7, glucose 162, lactic acid 5.20, troponin 0.149. Also patient has UTI.'s were going to admit the patient we will put the patient on IMCU. We will put the patient on IV fluid antibiotic. We will consult cardiology as well as nephrology for evaluation. Hospital Course: Spoke extensively with son about history. Patient has a history of colon cancer S4 with mets to liver. He has only undergone one course of chemotherapy a suzy Kirk. He was recently discharged 1 month ago from [facility] for UTI. Currently the patient resides in SNF. Per the son pt has lost a lot of weight. has been struggling with feeding. I e xplained that the patient's intermediate designer prognosis is poor. We discussed hospice breifly but son was not ready to go over this. I mentioned that in the next 24- 48hrs we could reassess. 01/19: Continue aggressive hydration for NATHALIE. Nephrology recs noted ,no emergent indication for MEDICARE SPECIALIST. Treatment of Sepsis/UTI/PNA with IV Abx. HR mostly controlled on amiodorone. Continue heparin gtt. 01/20: Dobhoff placed, Tube feeds started, Nepro @ 30 cc/hr. ST eval pending. Aggressive IVF rehydration (currently on D5W) per nephrology, cr: 3.1 this AM. WBC: 16.7....Currently on Azithromycin/Rocephin for CAP/UTI tx. Prognosis remains Guarded/poor. Patient is severely malnourished and cachectic. 01/21: TF continues to run at 30cc/hr. Patient alert to person only. Will continue with current care plan. Patient may require PEG tube. Will discuss with NOK. Assessment and Plan: #Sepsis POA #Urinary tract infection #Left lower lobe pneumonia #Lactic Acidosis - WBC: 12, tachycardia, elevated urine wbc 182, LA 5.2 - CXR: LLL pneumonic process - blood culture and urine culture NGTD -MRSA screen, COVID PCR negative (recent outbreak at facility) - Abx therapy with Rocephin IV, azithromycin (end date 01/22/2022) #Atrial fibrillation with rapid ventricular response #NSTEMI, type II - elevated troponin: 0.149 --> 0.088 - BNP: 2068 - TTE with poor quality per Cardiology due to body habitus - tele: afib, ventricular rate 90-110 - amiodorone 200 mg bid - heparin gtt stopped and eliquis started - Cardiology following, assistance appreciated #Acute kidney injury due to vasomotor nephropathy #Hypokalemia #Hyponatremia #Metabolic Acidosis - sepsis/dehydration likely driving NATHALIE - renal US: mild prominence of renal pelvis - replace K. - Aggressive IVF - Nephrology following, assistance appreciated #Acute metabolic encephalopathy - etiology: multifactorial poor po intake, UTI, NATHALIE - IVF, management as above. - CT brain negative, MRI negative for acute findings #History of colon cancer on chemotherapy #Failure to thrive #moderate protein calorie malnutrition - apparently stage 4 Colon CA, mets to liver per son - has only had one session of chemotherapy. - only on puree diet per history, currently NPO with TFs running - patient son agreeable to PEG tube placement, GI consulted #Advance care planning - Spoke extensively with son Soha Taylor II. Disease education conducted, care plan discussed, diagnoses discussed, prognosis discussed, patient is full code, patient son acknowledges understanding and agree with care plan, +30 minutes. History Interval history: No acute events overnight per nursing. Patient appears to be comfortable. He responds to name but no other commands. Hospitalist Physical - Physical exam Narrative exam: GENERAL: Cachextic male. In no acute distress. HEENT: NGT in place @30cc/hr NECK: Supple. CHEST/LUNGS: CTAB on room air HEART/CARDIOVASCULAR: Irregularly irregular rhythm. No murmur, rubs or gallops appreciated. ABDOMEN: +BS. NT/ND. SKIN: No rashes noted. NEURO: Patient does not follow commands. MUSCULOSKELETAL: No joint effusion EXTREMITIES: No cyanosis, clubbing or edema. PSYCH: Somnolent. - Constitutional Vitals: Temp Pulse Resp BP Pulse Ox 98.3 F 86 20 104/68 97 01/21/22 10:28 01/21/22 10:28 01/21/22 10:28 01/21/22 10:28 01/21/22 10:28 General appearance: Present: cachectic HEART Score - HEART Score Troponin: Troponin T 0.088 ng/mL (0.00-0.029) H D 01/18/22 13:40 Results - Labs CBC & Chem 7: 01/21/22 05:37 01/21/22 05:37 Labs: Laboratory Last Values WBC 12.3 K/mm3 (4.5-11.0) H 01/21/22 05:37 RBC 4.60 M/mm3 (3.65-5.03) 01/21/22 05:37 Hgb 10.7 gm/dl (11.8-15.2) L 01/21/22 05:37 Hct 34.8 % (35.5-45.6) L D 01/21/22 05:37 MCV 76 fl (84-94) L 01/21/22 05:37 MCH 23 pg (28-32) L 01/21/22 05:37 MCHC 31 % (32-34) L 01/21/22 05:37 RDW 17.1 % (13.2-15.2) H 01/21/22 05:37 Plt Count 117 K/mm3 (140-440) L 01/21/22 05:37 Lymph % (Auto) 3.3 % (13.4-35.0) L 01/18/22 06:01 [place] % (Auto) 3.0 % (0.0-7.3) 01/18/22 06:01 Eos % (Auto) 0.0 % (0.0-4.3) 01/18/22 06:01 Baso % (Auto) 0.1 % (0.0-1.8) 01/18/22 06:01 Lymph # (Auto) 0.6 K/mm3 (1.2-5.4) L 01/18/22 06:01 [place] # (Auto) 0.5 K/mm3 (0.0-0.8) 01/18/22 06:01 Eos # (Auto) 0.0 K/mm3 (0.0-0.4) 01/18/22 06:01 Baso # (Auto) 0.0 K/mm3 (0.0-0.1) 01/18/22 06:01 Add Manual Diff Complete 01/21/22 05:37 Total Counted 100 01/21/22 05:37 Seg Neutrophils % Control Area Operator 01/21/22 05:37 Seg Neuts % (Manual) 92.0 % (40.0-70.0) H 01/21/22 05:37 Band Neutrophils % 0 % 01/21/22 05:37 Lymphocytes % (Manual) 6.0 % (13.4-35.0) L 01/21/22 05:37 Reactive Lymphs % (Man) 0 % 01/21/22 05:37 Monocytes % (Manual) 2.0 % (0.0-7.3) 01/21/22 05:37 Eosinophils % (Manual) 0 % (0.0-4.3) 01/21/22 05:37 Basophils % (Manual) 0 % (0.0-1.8) 01/21/22 05:37 Metamyelocytes % 0 % 01/21/22 05:37 Myelocytes % 0 % 01/21/22 05:37 Promyelocytes % 0 % 01/21/22 05:37 Blast Cells % 0 % 01/21/22 05:37 Nucleated RBC % Not Reportable 01/21/22 05:37 Seg Neutrophils # 17.3 K/mm3 (1.8-7.7) H 01/18/22 06:01 Seg Neutrophils # Man 11.3 K/mm3 (1.8-7.7) H 01/21/22 05:37 Band Neutrophils # 0.0 K/mm3 01/21/22 05:37 Lymphocytes # (Manual) 0.7 K/mm3 (1.2-5.4) L 01/21/22 05:37 Abs React Lymphs (Man) 0.0 K/mm3 01/21/22 05:37 Monocytes # (Manual) 0.2 K/mm3 (0.0-0.8) 01/21/22 05:37 Eosinophils # (Manual) 0.0 K/mm3 (0.0-0.4) 01/21/22 05:37 Basophils # (Manual) 0.0 K/mm3 (0.0-0.1) 01/21/22 05:37 Metamyelocytes # 0.0 K/mm3 01/21/22 05:37 Myelocytes # 0.0 K/mm3 01/21/22 05:37 Promyelocytes # 0.0 K/mm3 01/21/22 05:37 Blast Cells # 0.0 K/mm3 01/21/22 05:37 WBC Morphology Not Reportable 01/21/22 05:37 Hypersegmented Neuts Not Reportable 01/21/22 05:37 Hyposegmented Neuts Not Reportable 01/21/22 05:37 Hypogranular Neuts Not Reportable 01/21/22 05:37 Smudge Cells Not Reportable 01/21/22 05:37 Toxic Granulation Not Reportable 01/21/22 05:37 Toxic Vacuolation Not Reportable 01/21/22 05:37 Dohle Bodies Not Reportable 01/21/22 05:37 Pelger-Huet Anomaly Not Reportable 01/21/22 05:37 Bj Rods Not Reportable 01/21/22 05:37 Platelet Estimate Consistent w auto 01/21/22 05:37 Clumped Platelets Not Reportable 01/21/22 05:37 Plt Clumps, EDTA Not Reportable 01/21/22 05:37 Large Platelets Not Reportable 01/21/22 05:37 Giant Platelets Not Reportable 01/21/22 05:37 Platelet Satelliting Not Reportable 01/21/22 05:37 Plt Morphology Comment Not Reportable 01/21/22 05:37 RBC Morphology Not Reportable 01/21/22 05:37 Dimorphic RBCs Not Reportable 01/21/22 05:37 Polychromasia Not Reportable 01/21/22 05:37 Hypochromasia 2+ 01/21/22 05:37 Poikilocytosis Not Reportable 01/21/22 05:37 Anisocytosis 1+ 01/21/22 05:37 Microcytosis Not Reportable 01/21/22 05:37 Macrocytosis Not Reportable 01/21/22 05:37 Spherocytes Not Reportable 01/21/22 05:37 Pappenheimer Bodies Not Reportable 01/21/22 05:37 Sickle Cells Not Reportable 01/21/22 05:37 Target Cells Not Reportable 01/21/22 05:37 Tear Drop Cells Not Reportable 01/21/22 05:37 Ovalocytes Not Reportable 01/21/22 05:37 Helmet Cells Not Reportable 01/21/22 05:37 [place] Bodies Not Reportable 01/21/22 05:37 Marcell Rings Not Reportable 01/21/22 05:37 [place] Cells Not Reportable 01/21/22 05:37 Bite Cells Not Reportable 01/21/22 05:37 Crenated Cell Not Reportable 01/21/22 05:37 Elliptocytes Not Reportable 01/21/22 05:37 Acanthocytes (Spur) Not Reportable 01/21/22 05:37 Rouleaux Not Reportable 01/21/22 05:37 Hemoglobin C Crystals Not Reportable 01/21/22 05:37 Schistocytes Not Reportable 01/21/22 05:37 Malaria parasites Not Reportable 01/21/22 05:37 Sahil Bodies Not Reportable 01/21/22 05:37 Hem Pathologist Commnt No 01/21/22 05:37 PT 15.3 Sec. (12.2-14.9) H 01/17/22 22:34 INR 1.06 (0.87-1.13) 01/17/22 22:34 Heparin Anti-Xa Level 0.57 U.I./ml (0.3-0.7) 01/20/22 15:00 ABG pH 7.383 pH Units (7.350-7.450) 01/17/22 22:05 ABG pCO2 32.8 mm Hg 01/17/22 22:05 ABG pO2 210.4 mm Hg (80.0-90.0) H 01/17/22 22:05 ABG HCO3 19.1 mmol/L (20.0-26.0) L 01/17/22 22:05 ABG O2 Saturation 99.3 % (95.0-99.0) H 01/17/22 22:05 ABG O2 Content 20.3 (0.0-44) 01/17/22 22:05 ABG Base Excess -4.9 mmol/L (-2.0-3.0) L 01/17/22 22:05 ABG Hemoglobin 14.5 gm/dl (14.0-18.0) 01/17/22 22:05 ABG Carboxyhemoglobin 1.2 % (0.0-5.0) 01/17/22 22:05 ABG Methemoglobin 0.6 % (0.0-1.5) 01/17/22 22:05 Oxyhemoglobin 97.5 % (95.0-99.0) 01/17/22 22:05 FiO2 100 % 01/17/22 22:05 Sodium 154 mmol/L (137-145) H 01/21/22 05:37 Potassium 3.5 mmol/L (3.6-5.0) L D 01/21/22 05:37 Chloride 117.3 mmol/L (98-107) H 01/21/22 05:37 Carbon Dioxide 26 mmol/L (22-30) D 01/21/22 05:37 Anion Gap 14 mmol/L 01/21/22 05:37 BUN 88 mg/dL (9-20) H 01/21/22 05:37 Creatinine 2.5 mg/dL (0.8-1.3) H 01/21/22 05:37 Estimated GFR 31 ml/min 01/21/22 05:37 BUN/Creatinine Ratio 35 % 01/21/22 05:37 Glucose 131 mg/dL (75-100) H 01/21/22 05:37 POC Glucose 147 mg/dL (70-105) H 01/20/22 16:52 Ketones Quantitative Negative (Negative) 01/17/22 22:34 Lactic Acid 3.20 mmol/L (0.7-2.0) H* 01/18/22 13:40 Calcium 8.6 mg/dL (8.4-10.2) 01/21/22 05:37 Total Bilirubin 0.20 mg/dL (0.1-1.2) 01/21/22 05:37 AST 84 units/L (5-40) H 01/21/22 05:37 ALT 63 units/L (7-56) H 01/21/22 05:37 Alkaline Phosphatase 224 units/L (35-129) H 01/21/22 05:37 Ammonia 14.0 umol/L (25-60) L 01/17/22 22:34 Total Creatine Kinase 48 units/L (55-170) L 01/17/22 22:34 Troponin T 0.088 ng/mL (0.00-0.029) H D 01/18/22 13:40 C-Reactive Protein 5.80 mg/dL (0.00-1.30) H 01/17/22 22:34 NT-Pro-B Natriuret Pep 2069 pg/mL (0-900) H 01/17/22 22:34 Total Protein 6.8 g/dL (6.3-8.2) 01/21/22 05:37 Albumin 2.4 g/dL (3.9-5) L 01/21/22 05:37 Albumin/Globulin Ratio 0.5 % 01/21/22 05:37 Triglycerides 143 mg/dL (2-149) 01/17/22 22:34 Cholesterol 224 mg/dL (50-199) H 01/17/22 22:34 LDL Cholesterol Direct 114 mg/dL (50-130) 01/17/22 22:34 HDL Cholesterol 73 mg/dL (40-59) H 01/17/22 22:34 Cholesterol/HDL Ratio 3.06 % 01/17/22 22:34 Urine Color Yellow (Yellow) 01/17/22 21:49 Urine Turbidity Cloudy (Clear) 01/17/22 21:49 Specific [place] (Man) 1.020 (1.003-1.030) 01/17/22 21:49 Ur Protein (Man) 2+ mg/dL (Negative) 01/17/22 21:49 Ur Ketones (Man) Negative (Negative) 01/17/22 21:49 Ur Nitrite (Man) Positive (Negative) 01/17/22 21:49 Ur Reducing Substances Not Reportable 01/17/22 21:49 Urine Bilirubin (Man) Negative (Negative) 01/17/22 21:49 Urine Ictotest Not Reportable 01/17/22 21:49 Leukocyte Esterase (Man) Moderate (Negative) 01/17/22 21:49 Urine WBC (Auto) > 182.0 /HPF (0.0-6.0) H 01/17/22 21:49 Urine RBC (Auto) 17.0 /HPF (0.0-6.0) 01/17/22 21:49 Urine Bacteria (Auto) 3+ /HPF (Negative) 01/17/22 21:49 Urine RBC (Manual) 1+ (Negative) 01/17/22 21:49 Urine WBC Clumps 3+ /HPF 01/17/22 21:49 Urine Mucus Few /HPF 01/17/22 21:49 Urine Yeast (Budding) 3+ /HPF 01/17/22 21:49 Salicylates < 0.3 mg/dL (2.8-20.0) L 01/17/22 22:34 Coronavirus (PCR) Negative (Negative) 01/19/22 10:10 Microbiology: Microbiology 01/17/22 23:06 Peripheral/Venous Blood Culture - Preliminary NO GROWTH AFTER 72 HOURS 01/17/22 22:34 Peripheral/Venous Blood Culture - Preliminary NO GROWTH AFTER 72 HOURS Kumar/IV: Voiding Method Indwelling Catheter Active Medications - Current Medications Current Medications: Generic Name Dose Route Start Last Admin Trade Name Freq PRN Reason Stop Dose Admin Acetaminophen 650 mg 01/18/22 02:52 Acetaminophen 325 Mg Tab PO Q4H PRN Pain MILD(1-3)/Fever >100.5/LUTHER Albuterol/Ipratropium 1 ampul 01/18/22 08:00 01/21/22 08:15 Ipratropium/Albuterol Sulfate 3 Ml Ampul.Neb IH 1 ampul Q6HRT ROSCOE Administration Amiodarone HCl 200 mg 01/18/22 22:00 01/21/22 11:19 Amiodarone 200 Mg Tab FEEDTUBE 200 mg BID ROSCOE Administration Apixaban 5 mg 01/21/22 12:30 Apixaban 5 Mg Tab PO Q12HR ROSCOE Protocol Aspirin 81 mg 01/19/22 10:00 01/21/22 11:19 Aspirin 81 Mg Tab Chew FEEDTUBE 81 mg QDAY ROSCOE Administration Atorvastatin Calcium 40 mg 01/18/22 22:00 01/20/22 22:10 Atorvastatin 40 Mg Tab PO 40 mg QHS ROSCOE Administration Famotidine 20 mg 01/18/22 10:00 01/21/22 11:21 Famotidine 20 Mg/2 Ml Inj IV 20 mg DAILY ROSCOE Administration Hydrophilic Ointment 1 applic 01/20/22 16:53 Lip Therapy Vaseline TP DIRECT PRN Dry Lips Ceftriaxone Sodium 2 gm in 100 mls @ 200 mls/hr 01/18/22 14:00 01/20/22 14:00 Rocephin/Ns 2 Gm/100 Ml IV 01/22/22 15:59 200 mls/hr Q24H ROSCOE Administration Protocol Azithromycin 500 mg in 250 mls @ 250 mls/hr 01/18/22 03:00 01/21/22 02:06 Zithromax/Ns IV 01/22/22 03:59 250 mls/hr Q24H ROSCOE Administration Dextrose 1,000 mls @ 125 mls/hr 01/21/22 09:00 01/21/22 11:22 D5w IV 125 mls/hr DIRECT ROSCOE Administration Morphine Sulfate 2 mg 01/18/22 02:52 Morphine 2 Mg/1 Ml Inj IV Q4H PRN Pain, Moderate (4-6) Morphine Sulfate 4 mg 01/18/22 02:52 Morphine 4 Mg/1 Ml Inj IV Q4H PRN Pain , Severe (7-10) Nitroglycerin 0.4 mg 01/18/22 02:55 Nitroglycerin 0.4 Mg Tab Subl SL Q5M PRN Chest Pain Ondansetron HCl 4 mg 01/18/22 02:52 Ondansetron 4 Mg/2 Ml Inj IV Q8H PRN Nausea And Vomiting Sodium Chloride 10 ml 01/18/22 10:00 01/21/22 11:20 Sodium Chloride 0.9% 10 Ml Flush Syringe IV 10 ml BID ROSCOE Administration Sodium Chloride 10 ml 01/18/22 02:52 Sodium Chloride 0.9% 10 Ml Flush Syringe IV PRN PRN LINE FLUSH Thiamine HCl 100 mg 01/20/22 12:00 01/21/22 11:19 Thiamine 100 Mg Tab PO 100 mg QDAY ROSCOE Administration Tramadol HCl 50 mg 01/18/22 02:55 Tramadol 50 Mg Tab PO Q6H PRN Pain, Moderate (4-6) Nutrition/Malnutrition Assess - Dietary Evaluation Nutrition/Malnutrition Findings: Nutrition Notes Start: 01/18/22 09:21 Freq: Status: Active Protocol: Document 01/21/22 10:08 JONO (Rec: 01/21/22 10:51 JONO [id number]) Nutrition Notes Initial or Follow up Reassessment Current Diagnosis Acute Kidney Injury,Sepsis, Hypertension,Heart Failure Other Pertinent Diagnosis Atrial Fibrilation/RVR, CAP, FTT, UTI, Encephalopathy, Anemia, Colon CA,... Current Diet TF-Nepro w/CARBSTEADY @ 30 ml/ hr (since L 01/20). Labs/Tests 01/21: Na 154, K 3.5, Cl 117.3 , BUN 88, Crea 2.5, Glu 131. Pertinent Medications 01/21: Thiamine, others nutritionally unremarkable. Height 5 ft 11 in Weight 68.039 kg [place] Body Weight (kg) 78.18 BMI 20.9 Weight change and time frame no body weight change reported in 4 days. Weight Status Appropriate Subjective/Other Information RD consult for routine F/U on dietary advancement assessment . started TF without RD consultation on 01/20. Pt is on Room Air, O2 saturation @ 98%, according to Physical Assessment History notes. MECHANIC/WELDER note on 01/20/22 13:11: Swallowing function has been assessed. Patient demonstrates a severe oral and pharyngeal phase dysphagia characterized by bolus holding and failure to swallow. Recommend NPO. Will reassess in 24 hours. - END OF NOTE. Pt has caries and missing teeth, according to Physical Assessment History notes. Pt has a colostomy poa, according to Physical Assessment History notes. Pt is a SNF resident, according to Progress notes. Percent of energy/protein needs met: Prescribed TF-Nepro w/ CARBSTEADY @ 30 ml/hr provides for energy/protein needs (1, 275 Kcal/57 g) during LOS, 62% Kcal; 100% AA. Burn Absent Trauma Absent GI Symptoms None Difficulty In Swallowing Food Allergy No Skin Integrity/Comment Assessment WNL. Current % PO Other Minimum of two criteria No Energy Intake (severe) < or equal to 50% Estimated Energy Requirement > or equal to 5 days Muscle Mass Mild Depletion (non-severe) Fluid Accumulation N/A Protein-Calorie Malnutrition N\A #1 Nutrition Diagnosis Inadequate oral intake Comments: MECHANIC/WELDER note on 01/20/22 13:11: Swallowing function has been assessed. Patient demonstrates a severe oral and pharyngeal phase dysphagia characterized by bolus holding and failure to swallow. Recommend NPO. Will reassess in 24 hours. - END OF NOTE. started TF without RD consultation on 01/20. Diagnosis Progress(for reassessment Continues documentation) Is patient on ventilator? No Is Patient Ambulatory and/or Out of Bed No REE-([facility]-confined to bed) 1743.204 Kcal/Kg value to use for calculation 30 Approximate Energy Requirements Using 2041 kcal/Kg Calculation Used for Recommendations Kcal/kg Additional Notes Protein: 0.8-1.2 g/Kg ABW; 54- 82 g/day. Fluids: 1 ml/Kcal, or as per MD. Nutrition Intervention Nutrition Support: Continue TF-Nepro w/CARBSTEADY @ 30 ml/hr. Flush: 250 ml water Q 4 hr, or as per MD. Kcal 1,275 Protein (gm) 57 Carbohydrates (gm) 114 Fat (gm) 68 Fluid (mL) 515 Fiber (gm) 9 % RDI: 62% Kcal; 100% AA. Goal #1 Provide at least 75% of energy /protein needs through Enteral Feeding during LOS. Goal #2 Adjust the dietary intervention to better serve Pt's energy/protein needs and clinical conditions during LOS . Follow-Up By: 01/28/22 Additional Comments Continue monitoring TF tolerance, TF adjustment/ increase rate, and BM.
--- NOTE | 2022-01-21 13:16 | Magnetic Resonance Report ---
MRI BRAIN 01/21/2022 INDICATION / CLINICAL INFORMATION: cva, WEAKNESS. TECHNIQUE: Multiplanar, multisequence MR images of the brain were obtained. COMPARISON: None available. FINDINGS: BRAIN / INTRACRANIAL CONTENTS: Unenhanced MR images of the brain demonstrate no evidence of acute abn ormality. Ventricles and sulci are prominent in size, consistent with prominent age-related atrophic change. There is evidence of chronic cortical and subcortical ischemic injury involving the right parietal lo be, with evidence of hemosiderin deposition, presumably from remote hemorrhagic change. There is no e vidence of acute hemorrhage. There is no evidence of acute ischemic injury. No abnormal extra-axial fluid collections. EXTRACRANIAL: Unremarkable CRANIOCERVICAL JUNCTION: No significant abnormality. VASCULAR FLOW-VOIDS: No significant abnormality. IMPRESSION: No acute abnormality. Chronic ischemic and age-related changes. Signer Name: Brandon Peña MD Signed: 01/21/2022 1:12 PM Workstation Name: [id number]
--- NOTE | 2022-01-21 13:18 | Progress Note ---
Assessment and Plan Cardiac work-up so far benign. ECG showed sinus rhythm with PACs, left ventricle hypertrophy with repolarization abnormalities of LVH. Echocardiogram showed mild decrease in left ventricular systolic function. Chest x-ray showed normal-sized cardiac silhouette, hyperlucent lungs of chronic lung disease, but no interstitial edema or CHF. Telemetry monitoring has shown stable sinus rhythm with intermittent PACs. Cardiac status is stable and asymptomatic, we will recommend conservative cardiac management and intermittent follow-up. Subjective Date of service: 01/21/22 Principal diagnosis: Acute encephalopathy Interval history: Patient is lethargic, not communicative, but no acute respiratory distress. On laborer car barn there is a sinus rhythm with intermittent PACs. Objective Vital Signs Temp Pulse Pulse Resp Resp BP Pulse Ox 01/21/22 10:28 98.3 F 86 20 104/68 97 01/21/22 08:15 80 18 98 01/21/22 06:29 86 01/21/22 05:07 98.6 F 91 H 18 110/68 100 01/21/22 03:58 90 16 01/20/22 23:54 98 01/20/22 22:58 92 H 20 96 01/20/22 22:31 98.1 F 92 H 18 123/80 98 01/20/22 16:49 98.2 F 95 H 18 113/80 97 01/20/22 16:18 87 20 01/20/22 14:00 98 - Physical Examination General: No Apparent Distress HEENT: Positive: Normocephaly Neck: Negative: JVD/HJR Cardiac: Positive: Irregularly Regular Lungs: Positive: Decreased Breath Sounds Neuro: Positive: Weakness (Generalized lethargy) Abdomen: Positive: Soft Skin: Negative: Rash Extremities: Absent: edema - Labs and Meds Cardiac Enzymes 01/21/22 Range/Units 05:37 AST 84 H (5-40) units/L CBC 01/21/22 Range/Units 05:37 WBC 12.3 H (4.5-11.0) K/mm3 RBC 4.60 (3.65-5.03) M/mm3 Hgb 10.7 L (11.8-15.2) gm/dl Hct 34.8 L D (35.5-45.6) % Plt Count 117 L (140-440) K/mm3 Comprehensive Metabolic Panel 01/20/22 01/21/22 Range/Units 16:48 05:37 Sodium 155 H 154 H (137-145) mmol/L Potassium 4.5 3.5 L D (3.6-5.0) mmol/L Chloride 121.8 H 117.3 H (98-107) mmol/L Carbon Dioxide 17 L 26 D (22-30) mmol/L BUN 101 H 88 H (9-20) mg/dL Creatinine 2.7 H 2.5 H (0.8-1.3) mg/dL Glucose 150 H 131 H (75-100) mg/dL Calcium 8.7 8.6 (8.4-10.2) mg/dL AST 84 H (5-40) units/L ALT 63 H (7-56) units/L Alkaline Phosphatase 224 H (35-129) units/L Total Protein 6.8 (6.3-8.2) g/dL Albumin 2.4 L (3.9-5) g/dL - EKG Sinus rhythms and dysrhythmias: sinus tachycardia Chamber hypertrophy or enlargement: left ventricular hypertro Repolarization changes or abnormalities: early repolarization due to LVH
[2022-01-21] MEDS: cefTRIAXone/NS 2 GM/100 ML 2 GM/100 ML BAG IV SCH (14:00)
[2022-01-21 23:05] LABS: Hematocrit 33.6 % (35.5-45.6); Hemoglobin 10.3 gm/dl (11.8-15.2); Mean Corpuscular HGB Conc 31 % (32-34); Mean Corpuscular Volume 77 fl (84-94); Platelet Count 106 K/mm3 (140-440); Red Blood Count 4.35 M/mm3 (3.65-5.03); Red Cell Distribution Width 17.8 % (13.2-15.2)
[2022-01-22] MEDS: AZITHROMYCIN/NS 500 MG/250 ML 500 MG/250 ML BAG IV SCH (03:22)
[2022-01-22] MEDS: DEXTROSE 5% IN WATER 1,000 ML IV SCH ×2 (03:24→16:47)
[2022-01-22] MEDS: IPRATROPIUM/ALBUTEROL SULFATE 3 ML AMPUL.NEB IH SCH ×3 (07:44→20:11)
--- NOTE | 2022-01-22 07:51 | Gastroenterology Consultation ---
History of Present Illness - Reason for Consult Consult date: 01/22/22 PEG eval Requesting physician: STACEY CARREON - History of Present Illness 71 year old male with history of colon cancer s/p chemotherapy with colostomy admitted because of dyspnea and respiratory distress. Not tolerating diet, losing weight, failed speech eval, so GI consulted for PEG Patient unable to provide a history Past History Past Medical History: heart failure, hypertension, renal failure, other (Colon cancer is status postchemotherapy with colostomy, anemia, A. fib, BPH) Past Surgical History: Other (Colon cancer with colostomy) Social history: no significant social history Family history: hypertension Obtained/updated/reviewed patient's current medications Past History Past Medical History: heart failure, hypertension, renal failure, other (Colon cancer is status postchemotherapy with colostomy, anemia, A. fib, BPH) Past Surgical History: Other (Colon cancer with colostomy) Social history: no significant social history Family history: hypertension Medications and Allergies Allergies Allergy/AdvReac Type Severity Reaction Status Date / Time No Known Allergies Allergy Verified 01/18/22 07:24 Active Meds: Active Medications Acetaminophen (Acetaminophen 325 Mg Tab) 650 mg PO Q4H PRN PRN Reason: Pain MILD(1-3)/Fever >100.5/LUTHER Albuterol/Ipratropium (Ipratropium/Albuterol Sulfate 3 Ml Ampul.Neb) 1 ampul IH TIDRT [facility] Last Admin: 01/22/22 07:44 Dose: 1 ampul Amiodarone HCl (Amiodarone 200 Mg Tab) 200 mg FEEDTUBE BID [facility] Last Admin: 01/21/22 21:20 Dose: 200 mg Aspirin (Aspirin 81 Mg Tab Chew) 81 mg FEEDTUBE QDAY [facility] Last Admin: 01/21/22 11:19 Dose: 81 mg Atorvastatin Calcium (Atorvastatin 40 Mg Tab) 40 mg PO QHS [facility] Last Admin: 01/21/22 21:20 Dose: 40 mg Famotidine (Famotidine 20 Mg/2 Ml Inj) 20 mg IV DAILY [facility] Last Admin: 01/21/22 11:21 Dose: 20 mg Hydrophilic Ointment (Lip Therapy Vaseline) 1 applic TP DIRECT PRN PRN Reason: Dry Lips Ceftriaxone Sodium (Rocephin/Ns 2 Gm/100 Ml) 2 gm in 100 mls @ 200 mls/hr IV Q24H [facility]; Protocol Stop: 01/22/22 15:59 Last Admin: 01/21/22 14:00 Dose: 200 mls/hr Dextrose (D5w) 1,000 mls @ 125 mls/hr IV DIRECT [facility] Last Admin: 01/22/22 03:24 Dose: 125 mls/hr Morphine Sulfate (Morphine 2 Mg/1 Ml Inj) 2 mg IV Q4H PRN PRN Reason: Pain, Moderate (4-6) Morphine Sulfate (Morphine 4 Mg/1 Ml Inj) 4 mg IV Q4H PRN PRN Reason: Pain , Severe (7-10) Nitroglycerin (Nitroglycerin 0.4 Mg Tab Subl) 0.4 mg SL Q5M PRN PRN Reason: Chest Pain Ondansetron HCl (Ondansetron 4 Mg/2 Ml Inj) 4 mg IV Q8H PRN PRN Reason: Nausea And Vomiting Sodium Chloride (Sodium Chloride 0.9% 10 Ml Flush Syringe) 10 ml IV BID [facility] Last Admin: 01/21/22 21:20 Dose: 10 ml Sodium Chloride (Sodium Chloride 0.9% 10 Ml Flush Syringe) 10 ml IV PRN PRN PRN Reason: LINE FLUSH Thiamine HCl (Thiamine 100 Mg Tab) 100 mg PO QDAY [facility] Last Admin: 01/21/22 11:19 Dose: 100 mg Tramadol HCl (Tramadol 50 Mg Tab) 50 mg PO Q6H PRN PRN Reason: Pain, Moderate (4-6) Review of Systems - Review of Systems ROS unobtainable: due to mental status Exam - Constitutional Vital Signs: Temp Pulse Resp BP Pulse Ox 98.1 F 58 L 14 147/78 100 01/22/22 06:49 01/22/22 07:44 01/22/22 07:44 01/22/22 06:49 01/22/22 07:44 General appearance: cachectic - EENT Eyes: EOM intact - Neck Neck: supple - Respiratory Respiratory effort: normal - Cardiovascular Rhythm: regular - Gastrointestinal General gastrointestinal: Present: other (Ostomy in place left upper quadrant. Extensive amount of scar tissue from prior abdominal surgeries. Thin.) - Integumentary Integumentary: Present: dry - Neurologic Neurological: disoriented - Labs CBC & Chem 7: 01/22/22 07:52 01/21/22 14:52 Lab Results: Laboratory Results - last 24 hr 01/21/22 01/21/22 01/21/22 05:37 11:30 14:52 WBC RBC Hgb Hct MCV MCH MCHC RDW Plt Count PT 16.9 H INR 1.20 H APTT 33.0 Heparin Anti-Xa Level < 0.10 L Potassium 3.5 L D Carbon Dioxide 26 D Anion Gap 14 Creatinine Estimated GFR POC Glucose 104 01/21/22 01/21/22 01/21/22 14:52 20:49 21:47 WBC 12.5 H RBC 4.35 Hgb 10.3 L Hct 33.6 L MCV 77 L MCH 24 L MCHC 31 L RDW 17.8 H Plt Count 106 L PT INR APTT Heparin Anti-Xa Level Potassium Carbon Dioxide Anion Gap Creatinine 2.2 H Estimated GFR 36 POC Glucose 114 H Assessment and Plan After exam the patient's abdomen is seen the placement of his ostomy as well as scar tissue that is present I am concerned that a endoscopic placement of a PEG tube would be unsuccessful due to his anatomy and at significant increased risk of inadvertent perforation. Therefore, I recommend consulting other service for placement of PEG tube such as surgery or IR GI will sign off, please call us back we can be of any further service - Patient Problems (1) Oropharyngeal dysphagia Current Visit: Yes Status: Acute (2) Altered mental status Current Visit: Yes Status: Acute (3) Cachexia Current Visit: Yes Status: Acute (4) Failure to thrive Current Visit: Yes Status: Acute
[2022-01-22] MEDS: FAMOTIDINE 20 MG/2 ML INJ IV SCH ×2 (08:21→10:00)
[2022-01-22 08:39] LABS: Basophils % (Auto) 0.1 % (0.0-1.8); Eosinophils # (Auto) 0.3 K/mm3 (0.0-0.4); Hematocrit 32.5 % (35.5-45.6); Hemoglobin 10.1 gm/dl (11.8-15.2); Lymphocytes # (Auto) 0.6 K/mm3 (1.2-5.4); Lymphocytes % (Auto) 5.8 % (13.4-35.0); Mean Corpuscular HGB Conc 31 % (32-34); Mean Corpuscular Volume 76 fl (84-94); Monocytes # (Auto) 0.4 K/mm3 (0.0-0.8); Monocytes % (Auto) 3.8 % (0.0-7.3); Platelet Count 100 K/mm3 (140-440); Red Blood Count 4.26 M/mm3 (3.65-5.03); Red Cell Distribution Width 17.4 % (13.2-15.2)
--- NOTE | 2022-01-22 08:50 | Progress Note ---
Assessment and Plan Assessment and plan: 71 years old male from senior care with history of colon cancer s/p chemotherapy with colostomy was brought to the emergency room from long-term because of dyspnea and respiratory distress. Patient is also altered Mental Status. Patient is on Non rebreather on and O2 sat 100%. Kumar cath in place. Patient is a very poor historian. In the ER patient chest x-ray shows pneumonia, patient sodium is 154, potassium 5.6 BUN 135 creatinine 4.7, glucose 162, lactic acid 5.20, troponin 0.149. Also patient has UTI.'s were going to admit the patient we will put the patient on IMCU. We will put the patient on IV fluid antibiotic. We will consult cardiology as well as nephrology for evaluation. Hospital Course: Spoke extensively with son about history. Patient has a history of colon cancer S4 with mets to liver. He has only undergone one course of chemotherapy a t [facility]. He was recently discharged 1 month ago from [place] for UTI. Currently the patient resides in SNF. Per the son pt has lost a lot of weight. has been struggling with feeding. I e xplained that the patient's correction prognosis is poor. We discussed hospice breifly but son was not ready to go over this. I mentioned that in the next 24- 48hrs we could reassess. 01/19: Continue aggressive hydration for NATHALIE. Nephrology recs noted ,no emergent indication for LOSS CONTROL ENGINEER. Treatment of Sepsis/UTI/PNA with IV Abx. HR mostly controlled on amiodorone. Continue heparin gtt. 01/20: Dobhoff placed, Tube feeds started, Nepro @ 30 cc/hr. ST eval pending. Aggressive IVF rehydration (currently on D5W) per nephrology, cr: 3.1 this AM. WBC: 16.7....Currently on Azithromycin/Rocephin for CAP/UTI tx. Prognosis remains Guarded/poor. Patient is severely malnourished and cachectic. 01/21: TF continues to run at 30cc/hr. Patient alert to person only. Will continue with current care plan. Patient may require PEG tube. Will discuss with NOK. 01/22: NOK agreeable to PEG. GI and General surgery consulted. Awaiting CT scan of the abdomen, will consult IR for possible PEG placement afterward Assessment and Plan: #Sepsis POA-improving #Urinary tract infection #Left lower lobe pneumonia #Lactic Acidosis - WBC: 12, tachycardia, elevated urine wbc 182, LA 5.2 - CXR: LLL pneumonic process - blood culture and urine culture NGTD -MRSA screen, COVID PCR negative (recent outbreak at facility) - Abx therapy with Rocephin IV, azithromycin (end date 01/22/2022) #Atrial fibrillation with rapid ventricular response #NSTEMI, type II - elevated troponin: 0.149 --> 0.088 - BNP: 2068 - TTE with poor quality per Cardiology due to body habitus - tele: afib, ventricular rate 90-110 - continue amiodorone 200 mg bid - heparin gtt stopped and eliquis currently held for PEG tube placement - Cardiology following, assistance appreciated #Acute kidney injury due to vasomotor nephropathy #Hypokalemia #Hyponatremia #Metabolic Acidosis-improving - sepsis/dehydration likely driving NATHALIE - SCr improved to 1.7 after IVF fluids - renal US: mild prominence of renal pelvis - Nephrology following, assistance appreciated #Acute metabolic encephalopathy-resolved - etiology: multifactorial poor po intake, UTI, NATHALIE - IVF, management as above. - CT brain negative, MRI negative for acute findings #History of colon cancer on chemotherapy #Failure to thrive #moderate protein calorie malnutrition - apparently stage 4 Colon CA, mets to liver per son - has only had one session of chemotherapy. - only on puree diet per history, currently NPO with TFs running - patient son agreeable to PEG tube placement, GI & general surgery consulted #Advance care planning - Disease education conducted, care plan discussed, diagnoses discussed, prognosis discussed, patient is full code, patient and his son acknowledges understanding and agree with care plan, +30 minutes. History Interval history: No acute events overnight per nursing. Patient is alert and talkative today. He denies current pain and discomfort. We discussed the fact that his son agreed to PEG tube placement and he voiced understanding. Hospitalist Physical - Physical exam Narrative exam: GENERAL: Cachextic male. In no acute distress. HEENT: NGT in place without feeds running NECK: Supple. CHEST/LUNGS: CTAB on room air HEART/CARDIOVASCULAR: Irregularly irregular rhythm. No murmur, rubs or gallops appreciated. ABDOMEN: +BS. NT/ND. SKIN: No rashes noted. NEURO: Patient follows commands. MUSCULOSKELETAL: No joint effusion EXTREMITIES: No cyanosis, clubbing or edema. PSYCH: AAOx3 today. - Constitutional Vitals: Temp Pulse Resp BP Pulse Ox 98.1 F 58 L 14 147/78 100 01/22/22 06:49 01/22/22 07:44 01/22/22 07:44 01/22/22 06:49 01/22/22 07:44 General appearance: Present: cachectic HEART Score - HEART Score Troponin: Troponin T 0.088 ng/mL (0.00-0.029) H D 01/18/22 13:40 Results - Labs CBC & Chem 7: 01/22/22 07:52 01/22/22 07:52 Labs: Laboratory Last Values WBC 9.8 K/mm3 (4.5-11.0) 01/22/22 07:52 RBC 4.26 M/mm3 (3.65-5.03) 01/22/22 07:52 Hgb 10.1 gm/dl (11.8-15.2) L 01/22/22 07:52 Hct 32.5 % (35.5-45.6) L 01/22/22 07:52 MCV 76 fl (84-94) L 01/22/22 07:52 MCH 24 pg (28-32) L 01/22/22 07:52 MCHC 31 % (32-34) L 01/22/22 07:52 RDW 17.4 % (13.2-15.2) H 01/22/22 07:52 Plt Count 100 K/mm3 (140-440) L 01/22/22 07:52 Lymph % (Auto) 5.8 % (13.4-35.0) L 01/22/22 07:52 [place] % (Auto) 3.8 % (0.0-7.3) 01/22/22 07:52 Eos % (Auto) 3.0 % (0.0-4.3) 01/22/22 07:52 Baso % (Auto) 0.1 % (0.0-1.8) 01/22/22 07:52 Lymph # (Auto) 0.6 K/mm3 (1.2-5.4) L 01/22/22 07:52 [place] # (Auto) 0.4 K/mm3 (0.0-0.8) 01/22/22 07:52 Eos # (Auto) 0.3 K/mm3 (0.0-0.4) 01/22/22 07:52 Baso # (Auto) 0.0 K/mm3 (0.0-0.1) 01/22/22 07:52 Add Manual Diff Complete 01/21/22 05:37 Total Counted 100 01/21/22 05:37 Seg Neutrophils % 87.3 % (40.0-70.0) H 01/22/22 07:52 Seg Neuts % (Manual) 92.0 % (40.0-70.0) H 01/21/22 05:37 Band Neutrophils % 0 % 01/21/22 05:37 Lymphocytes % (Manual) 6.0 % (13.4-35.0) L 01/21/22 05:37 Reactive Lymphs % (Man) 0 % 01/21/22 05:37 Monocytes % (Manual) 2.0 % (0.0-7.3) 01/21/22 05:37 Eosinophils % (Manual) 0 % (0.0-4.3) 01/21/22 05:37 Basophils % (Manual) 0 % (0.0-1.8) 01/21/22 05:37 Metamyelocytes % 0 % 01/21/22 05:37 Myelocytes % 0 % 01/21/22 05:37 Promyelocytes % 0 % 01/21/22 05:37 Blast Cells % 0 % 01/21/22 05:37 Nucleated RBC % Not Reportable 01/21/22 05:37 Seg Neutrophils # 8.6 K/mm3 (1.8-7.7) H 01/22/22 07:52 Seg Neutrophils # Man 11.3 K/mm3 (1.8-7.7) H 01/21/22 05:37 Band Neutrophils # 0.0 K/mm3 01/21/22 05:37 Lymphocytes # (Manual) 0.7 K/mm3 (1.2-5.4) L 01/21/22 05:37 Abs React Lymphs (Man) 0.0 K/mm3 01/21/22 05:37 Monocytes # (Manual) 0.2 K/mm3 (0.0-0.8) 01/21/22 05:37 Eosinophils # (Manual) 0.0 K/mm3 (0.0-0.4) 01/21/22 05:37 Basophils # (Manual) 0.0 K/mm3 (0.0-0.1) 01/21/22 05:37 Metamyelocytes # 0.0 K/mm3 01/21/22 05:37 Myelocytes # 0.0 K/mm3 01/21/22 05:37 Promyelocytes # 0.0 K/mm3 01/21/22 05:37 Blast Cells # 0.0 K/mm3 01/21/22 05:37 WBC Morphology Not Reportable 01/21/22 05:37 Hypersegmented Neuts Not Reportable 01/21/22 05:37 Hyposegmented Neuts Not Reportable 01/21/22 05:37 Hypogranular Neuts Not Reportable 01/21/22 05:37 Smudge Cells Not Reportable 01/21/22 05:37 Toxic Granulation Not Reportable 01/21/22 05:37 Toxic Vacuolation Not Reportable 01/21/22 05:37 Dohle Bodies Not Reportable 01/21/22 05:37 Pelger-Huet Anomaly Not Reportable 01/21/22 05:37 Bj Rods Not Reportable 01/21/22 05:37 Platelet Estimate Consistent w auto 01/21/22 05:37 Clumped Platelets Not Reportable 01/21/22 05:37 Plt Clumps, EDTA Not Reportable 01/21/22 05:37 Large Platelets Not Reportable 01/21/22 05:37 Giant Platelets Not Reportable 01/21/22 05:37 Platelet Satelliting Not Reportable 01/21/22 05:37 Plt Morphology Comment Not Reportable 01/21/22 05:37 RBC Morphology Not Reportable 01/21/22 05:37 Dimorphic RBCs Not Reportable 01/21/22 05:37 Polychromasia Not Reportable 01/21/22 05:37 Hypochromasia 2+ 01/21/22 05:37 Poikilocytosis Not Reportable 01/21/22 05:37 Anisocytosis 1+ 01/21/22 05:37 Microcytosis Not Reportable 01/21/22 05:37 Macrocytosis Not Reportable 01/21/22 05:37 Spherocytes Not Reportable 01/21/22 05:37 Pappenheimer Bodies Not Reportable 01/21/22 05:37 Sickle Cells Not Reportable 01/21/22 05:37 Target Cells Not Reportable 01/21/22 05:37 Tear Drop Cells Not Reportable 01/21/22 05:37 Ovalocytes Not Reportable 01/21/22 05:37 Helmet Cells Not Reportable 01/21/22 05:37 Byers-Joyce Bodies Not Reportable 01/21/22 05:37 [place] Rings Not Reportable 01/21/22 05:37 Morley Cells Not Reportable 01/21/22 05:37 Bite Cells Not Reportable 01/21/22 05:37 Crenated Cell Not Reportable 01/21/22 05:37 Elliptocytes Not Reportable 01/21/22 05:37 Acanthocytes (Spur) Not Reportable 01/21/22 05:37 Rouleaux Not Reportable 01/21/22 05:37 Hemoglobin C Crystals Not Reportable 01/21/22 05:37 Schistocytes Not Reportable 01/21/22 05:37 Malaria parasites Not Reportable 01/21/22 05:37 Sahil Bodies Not Reportable 01/21/22 05:37 Hem Pathologist Commnt No 01/21/22 05:37 PT 16.9 Sec. (12.2-14.9) H 01/21/22 14:52 INR 1.20 (0.87-1.13) H 01/21/22 14:52 APTT 33.0 Sec. (24.2-36.6) 01/21/22 14:52 Heparin Anti-Xa Level < 0.10 U.I./ml (0.3-0.7) L 01/21/22 14:52 ABG pH 7.383 pH Units (7.350-7.450) 01/17/22 22:05 ABG pCO2 32.8 mm Hg 01/17/22 22:05 ABG pO2 210.4 mm Hg (80.0-90.0) H 01/17/22 22:05 ABG HCO3 19.1 mmol/L (20.0-26.0) L 01/17/22 22:05 ABG O2 Saturation 99.3 % (95.0-99.0) H 01/17/22 22:05 ABG O2 Content 20.3 (0.0-44) 01/17/22 22:05 ABG Base Excess -4.9 mmol/L (-2.0-3.0) L 01/17/22 22:05 ABG Hemoglobin 14.5 gm/dl (14.0-18.0) 01/17/22 22:05 ABG Carboxyhemoglobin 1.2 % (0.0-5.0) 01/17/22 22:05 ABG Methemoglobin 0.6 % (0.0-1.5) 01/17/22 22:05 Oxyhemoglobin 97.5 % (95.0-99.0) 01/17/22 22:05 FiO2 100 % 01/17/22 22:05 Sodium 154 mmol/L (137-145) H 01/21/22 05:37 Potassium 3.5 mmol/L (3.6-5.0) L D 01/21/22 05:37 Chloride 117.3 mmol/L (98-107) H 01/21/22 05:37 Carbon Dioxide 26 mmol/L (22-30) D 01/21/22 05:37 Anion Gap 14 mmol/L 01/21/22 05:37 BUN 88 mg/dL (9-20) H 01/21/22 05:37 Creatinine 2.2 mg/dL (0.8-1.3) H 01/21/22 14:52 Estimated GFR 36 ml/min 01/21/22 14:52 BUN/Creatinine Ratio 35 % 01/21/22 05:37 Glucose 131 mg/dL (75-100) H 01/21/22 05:37 POC Glucose 114 mg/dL (70-105) H 01/21/22 20:49 Ketones Quantitative Negative (Negative) 01/17/22 22:34 Lactic Acid 3.20 mmol/L (0.7-2.0) H* 01/18/22 13:40 Calcium 8.6 mg/dL (8.4-10.2) 01/21/22 05:37 Total Bilirubin 0.20 mg/dL (0.1-1.2) 01/21/22 05:37 AST 84 units/L (5-40) H 01/21/22 05:37 ALT 63 units/L (7-56) H 01/21/22 05:37 Alkaline Phosphatase 224 units/L (35-129) H 01/21/22 05:37 Ammonia 14.0 umol/L (25-60) L 01/17/22 22:34 Total Creatine Kinase 48 units/L (55-170) L 01/17/22 22:34 Troponin T 0.088 ng/mL (0.00-0.029) H D 01/18/22 13:40 C-Reactive Protein 5.80 mg/dL (0.00-1.30) H 01/17/22 22:34 NT-Pro-B Natriuret Pep 2069 pg/mL (0-900) H 01/17/22 22:34 Total Protein 6.8 g/dL (6.3-8.2) 01/21/22 05:37 Albumin 2.4 g/dL (3.9-5) L 01/21/22 05:37 Albumin/Globulin Ratio 0.5 % 01/21/22 05:37 Triglycerides 143 mg/dL (2-149) 01/17/22 22:34 Cholesterol 224 mg/dL (50-199) H 01/17/22 22:34 LDL Cholesterol Direct 114 mg/dL (50-130) 01/17/22 22:34 HDL Cholesterol 73 mg/dL (40-59) H 01/17/22 22:34 Cholesterol/HDL Ratio 3.06 % 01/17/22 22:34 Urine Color Yellow (Yellow) 01/17/22 21:49 Urine Turbidity Cloudy (Clear) 01/17/22 21:49 Specific [place] (Man) 1.020 (1.003-1.030) 01/17/22 21:49 Ur Protein (Man) 2+ mg/dL (Negative) 01/17/22 21:49 Ur Ketones (Man) Negative (Negative) 01/17/22 21:49 Ur Nitrite (Man) Positive (Negative) 01/17/22 21:49 Ur Reducing Substances Not Reportable 01/17/22 21:49 Urine Bilirubin (Man) Negative (Negative) 01/17/22 21:49 Urine Ictotest Not Reportable 01/17/22 21:49 Leukocyte Esterase (Man) Moderate (Negative) 01/17/22 21:49 Urine WBC (Auto) > 182.0 /HPF (0.0-6.0) H 01/17/22 21:49 Urine RBC (Auto) 17.0 /HPF (0.0-6.0) 01/17/22 21:49 Urine Bacteria (Auto) 3+ /HPF (Negative) 01/17/22 21:49 Urine RBC (Manual) 1+ (Negative) 01/17/22 21:49 Urine WBC Clumps 3+ /HPF 01/17/22 21:49 Urine Mucus Few /HPF 01/17/22 21:49 Urine Yeast (Budding) 3+ /HPF 01/17/22 21:49 Salicylates < 0.3 mg/dL (2.8-20.0) L 01/17/22 22:34 Coronavirus (PCR) Negative (Negative) 01/19/22 10:10 Microbiology: Microbiology 01/17/22 23:06 Peripheral/Venous Blood Culture - Preliminary NO GROWTH AFTER 4 DAYS 01/17/22 22:34 Peripheral/Venous Blood Culture - Preliminary NO GROWTH AFTER 4 DAYS Kumar/IV: Voiding Method Indwelling Catheter Active Medications - Current Medications Current Medications: Generic Name Dose Route Start Last Admin Trade Name Freq PRN Reason Stop Dose Admin Acetaminophen 650 mg 01/18/22 02:52 Acetaminophen 325 Mg Tab PO Q4H PRN Pain MILD(1-3)/Fever >100.5/LUTHER Albuterol/Ipratropium 1 ampul 01/22/22 08:00 01/22/22 07:44 Ipratropium/Albuterol Sulfate 3 Ml Ampul.Neb IH 1 ampul TIDRT [facility] Administration Amiodarone HCl 200 mg 01/18/22 22:00 01/21/22 21:20 Amiodarone 200 Mg Tab FEEDTUBE 200 mg BID [facility] Administration Aspirin 81 mg 01/19/22 10:00 01/21/22 11:19 Aspirin 81 Mg Tab Chew FEEDTUBE 81 mg QDAY [facility] Administration Atorvastatin Calcium 40 mg 01/18/22 22:00 01/21/22 21:20 Atorvastatin 40 Mg Tab PO 40 mg QHS [facility] Administration Famotidine 20 mg 01/18/22 10:00 01/22/22 08:21 Famotidine 20 Mg/2 Ml Inj IV 20 mg DAILY [facility] Administration Hydrophilic Ointment 1 applic 01/20/22 16:53 Lip Therapy Vaseline TP DIRECT PRN Dry Lips Ceftriaxone Sodium 2 gm in 100 mls @ 200 mls/hr 01/18/22 14:00 01/21/22 14:00 Rocephin/Ns 2 Gm/100 Ml IV 01/22/22 15:59 200 mls/hr Q24H [facility] Administration Protocol Dextrose 1,000 mls @ 125 mls/hr 01/21/22 09:00 01/22/22 03:24 D5w IV 125 mls/hr DIRECT [facility] Administration Morphine Sulfate 2 mg 01/18/22 02:52 Morphine 2 Mg/1 Ml Inj IV Q4H PRN Pain, Moderate (4-6) Morphine Sulfate 4 mg 01/18/22 02:52 Morphine 4 Mg/1 Ml Inj IV Q4H PRN Pain , Severe (7-10) Nitroglycerin 0.4 mg 01/18/22 02:55 Nitroglycerin 0.4 Mg Tab Subl SL Q5M PRN Chest Pain Ondansetron HCl 4 mg 01/18/22 02:52 Ondansetron 4 Mg/2 Ml Inj IV Q8H PRN Nausea And Vomiting Sodium Chloride 10 ml 01/18/22 10:00 01/21/22 21:20 Sodium Chloride 0.9% 10 Ml Flush Syringe IV 10 ml BID [facility] Administration Sodium Chloride 10 ml 01/18/22 02:52 Sodium Chloride 0.9% 10 Ml Flush Syringe IV PRN PRN LINE FLUSH Thiamine HCl 100 mg 01/20/22 12:00 01/21/22 11:19 Thiamine 100 Mg Tab PO 100 mg QDAY [facility] Administration Tramadol HCl 50 mg 01/18/22 02:55 Tramadol 50 Mg Tab PO Q6H PRN Pain, Moderate (4-6) Nutrition/Malnutrition Assess - Dietary Evaluation Nutrition/Malnutrition Findings: Nutrition Notes Start: 01/18/22 09:21 Freq: Status: Active Protocol: Document 01/21/22 10:08 JONO (Rec: 01/21/22 10:51 JONO [id number]) Nutrition Notes Initial or Follow up Reassessment Current Diagnosis Acute Kidney Injury,Sepsis, Hypertension,Heart Failure Other Pertinent Diagnosis Atrial Fibrilation/RVR, CAP, FTT, UTI, Encephalopathy, Anemia, Colon CA,... Current Diet TF-Nepro w/CARBSTEADY @ 30 ml/ hr (since L 01/20). Labs/Tests 01/21: Na 154, K 3.5, Cl 117.3 , BUN 88, Crea 2.5, Glu 131. Pertinent Medications 01/21: Thiamine, others nutritionally unremarkable. Height 5 ft 11 in Weight 68.039 kg [place] Body Weight (kg) 78.18 BMI 20.9 Weight change and time frame no body weight change reported in 4 days. Weight Status Appropriate Subjective/Other Information RD consult for routine F/U on dietary advancement assessment . MD started TF without RD consultation on 01/20. Pt is on Room Air, O2 saturation @ 98%, according to Physical Assessment History notes. WATER TREATMENT PLANT MECHANIC note on 01/20/22 13:11: Swallowing function has been assessed. Patient demonstrates a severe oral and pharyngeal phase dysphagia characterized by bolus holding and failure to swallow. Recommend NPO. Will reassess in 24 hours. - END OF NOTE. Pt has caries and missing teeth, according to Physical Assessment History notes. Pt has a colostomy poa, according to Physical Assessment History notes. Pt is a SNF resident, according to Progress notes. Percent of energy/protein needs met: Prescribed TF-Nepro w/ CARBSTEADY @ 30 ml/hr provides for energy/protein needs (1, 275 Kcal/57 g) during LOS, 62% Kcal; 100% AA. Burn Absent Trauma Absent GI Symptoms None Difficulty In Swallowing Food Allergy No Skin Integrity/Comment Assessment WNL. Current % PO Other Minimum of two criteria No Energy Intake (severe) < or equal to 50% Estimated Energy Requirement > or equal to 5 days Muscle Mass Mild Depletion (non-severe) Fluid Accumulation N/A Protein-Calorie Malnutrition N\A #1 Nutrition Diagnosis Inadequate oral intake Comments: WATER T[employer]ATMENT PLANT MECHANIC note on 01/20/22 13:11: Swallowing function has been assessed. Patient demonstrates a severe oral and pharyngeal phase dysphagia characterized by bolus holding and failure to swallow. Recommend NPO. Will reassess in 24 hours. - END OF NOTE. started TF without RD consultation on 01/20. Diagnosis Progress(for reassessment Continues documentation) Is patient on ventilator? No Is Patient Ambulatory and/or Out of Bed No REE-([facility]-confined to bed) 8363.204 Kcal/Kg value to use for calculation 30 Approximate Energy Requirements Using 2041 kcal/Kg Calculation Used for Recommendations Kcal/kg Additional Notes Protein: 0.8-1.2 g/Kg ABW; 54- 82 g/day. Fluids: 1 ml/Kcal, or as per MD. Nutrition Intervention Nutrition Support: Continue TF-Nepro w/CARBSTEADY @ 30 ml/hr. Flush: 250 ml water Q 4 hr, or as per MD. Kcal 1,275 Protein (gm) 57 Carbohydrates (gm) 114 Fat (gm) 68 Fluid (mL) 515 Fiber (gm) 9 % RDI: 62% Kcal; 100% AA. Goal #1 Provide at least 75% of energy /protein needs through Enteral Feeding during LOS. Goal #2 Adjust the dietary intervention to better serve Pt's energy/protein needs and clinical conditions during LOS . Follow-Up By: 01/28/22 Additional Comments Continue monitoring TF tolerance, TF adjustment/ increase rate, and BM.
[2022-01-22 09:06] LABS: Alanine Aminotransferase 194 units/L (7-56); Albumin 2.1 g/dL (3.9-5); BUN/Creatinine Ratio 32; Blood Urea Nitrogen 55 mg/dL (9-20); Calcium 8.1 mg/dL (8.4-10.2); Hemolysis Index 0
[2022-01-22] MEDS: ASPIRIN 81 MG TAB CHEW FEEDTUBE SCH (10:00)
[2022-01-22] MEDS: AMIODARONE 200 MG TAB FEEDTUBE SCH ×2 (10:00→22:09)
[2022-01-22] MEDS: THIAMINE 100 MG TAB PO SCH (10:00)
--- NOTE | 2022-01-22 10:50 | Consultation ---
History of Present Illness Consult date: 01/22/22 - History of present illness History of present illness: 71 year old male with history of colon cancer s/p chemotherapy with colostomy admitted because of dyspnea and respiratory distress. Not tolerating diet, losing weight, failed speech eval, so GI consulted for PEG. GI concerned over prior surguries done for colon ca. Pt has a left hypogastric colostomy. There is also a midline incision. Prior feeding tube sites are located in the ruq and right hypogastrium and may represent jejunal feeding tubes. Pt is alert but is not able to recall exactly what was done or where it was done. He states that he is able to swallow but he does not feel like eating. Past History Past Medical History: heart failure, hypertension, renal failure, other (Colon cancer is status postchemotherapy with colostomy, anemia, A. fib, BPH) Past Surgical History: Other (Colon cancer with colostomy) Social history: no significant social history Family history: hypertension Medications and Allergies Allergies Allergy/AdvReac Type Severity Reaction Status Date / Time No Known Allergies Allergy Verified 01/18/22 07:24 Active Meds: Active Medications Acetaminophen (Acetaminophen 325 Mg Tab) 650 mg PO Q4H PRN PRN Reason: Pain MILD(1-3)/Fever >100.5/LUTHER Albuterol/Ipratropium (Ipratropium/Albuterol Sulfate 3 Ml Ampul.Neb) 1 ampul IH TIDRT [facility] Last Admin: 01/22/22 07:44 Dose: 1 ampul Amiodarone HCl (Amiodarone 200 Mg Tab) 200 mg FEEDTUBE BID [facility] Last Admin: 01/21/22 21:20 Dose: 200 mg Aspirin (Aspirin 81 Mg Tab Chew) 81 mg FEEDTUBE QDAY [facility] Last Admin: 01/21/22 11:19 Dose: 81 mg Atorvastatin Calcium (Atorvastatin 40 Mg Tab) 40 mg PO QHS [facility] Last Admin: 01/21/22 21:20 Dose: 40 mg Famotidine (Famotidine 20 Mg/2 Ml Inj) 20 mg IV DAILY [facility] Last Admin: 01/22/22 08:21 Dose: 20 mg Hydrophilic Ointment (Lip Therapy Vaseline) 1 applic TP DIRECT PRN PRN Reason: Dry Lips Ceftriaxone Sodium (Rocephin/Ns 2 Gm/100 Ml) 2 gm in 100 mls @ 200 mls/hr IV Q24H [facility]; Protocol Stop: 01/22/22 15:59 Last Admin: 01/21/22 14:00 Dose: 200 mls/hr Dextrose (D5w) 1,000 mls @ 125 mls/hr IV DIRECT ROSCOE Last Admin: 01/22/22 03:24 Dose: 125 mls/hr Morphine Sulfate (Morphine 2 Mg/1 Ml Inj) 2 mg IV Q4H PRN PRN Reason: Pain, Moderate (4-6) Morphine Sulfate (Morphine 4 Mg/1 Ml Inj) 4 mg IV Q4H PRN PRN Reason: Pain , Severe (7-10) Nitroglycerin (Nitroglycerin 0.4 Mg Tab Subl) 0.4 mg SL Q5M PRN PRN Reason: Chest Pain Ondansetron HCl (Ondansetron 4 Mg/2 Ml Inj) 4 mg IV Q8H PRN PRN Reason: Nausea And Vomiting Sodium Chloride (Sodium Chloride 0.9% 10 Ml Flush Syringe) 10 ml IV BID [facility] Last Admin: 01/21/22 21:20 Dose: 10 ml Sodium Chloride (Sodium Chloride 0.9% 10 Ml Flush Syringe) 10 ml IV PRN PRN PRN Reason: LINE FLUSH Thiamine HCl (Thiamine 100 Mg Tab) 100 mg PO QDAY [facility] Last Admin: 01/21/22 11:19 Dose: 100 mg Tramadol HCl (Tramadol 50 Mg Tab) 50 mg PO Q6H PRN PRN Reason: Pain, Moderate (4-6) Exam Vital Signs Temp Pulse Resp BP Pulse Ox 97 F L 116 H 18 114/77 92 01/17/22 20:43 01/17/22 20:43 01/17/22 20:43 01/17/22 20:43 01/17/22 20:43 - General physical appearance Positive: well developed, no distress - Eyes Positive: PERRL - Neck Positive: no masses, no bruits, trachea midline - Respiratory Positive: normal expansion - Cardiovascular Rhythm: regular - Extremities Extremities: no ischemia, No edema - Abdomen Abdomen: Present: soft, bowel sounds normal, other. Absent: tender Results - Labs 01/22/22 07:52 01/22/22 07:52 Abnormal lab results 01/21/22 01/21/22 01/21/22 Range/Units 14:52 14:52 20:49 WBC (4.5-11.0) K/mm3 Hgb (11.8-15.2) gm/dl Hct (35.5-45.6) % MCV (84-94) fl MCH (28-32) pg MCHC (32-34) % RDW (13.2-15.2) % Plt Count (140-440) K/mm3 Lymph % (Auto) (13.4-35.0) % Lymph # (Auto) (1.2-5.4) K/mm3 Seg Neutrophils % (40.0-70.0) % Seg Neutrophils # (1.8-7.7) K/mm3 PT 16.9 H (12.2-14.9) Sec. INR 1.20 H (0.87-1.13) Heparin Anti-Xa Level < 0.10 L (0.3-0.7) U.I./ml Sodium (137-145) mmol/L Potassium (3.6-5.0) mmol/L Chloride (98-107) mmol/L BUN (9-20) mg/dL Creatinine 2.2 H (0.8-1.3) mg/dL POC Glucose 114 H (70-105) mg/dL Lactic Acid (0.7-2.0) mmol/L Calcium (8.4-10.2) mg/dL AST (5-40) units/L ALT (7-56) units/L Alkaline Phosphatase (35-129) units/L Albumin (3.9-5) g/dL 01/21/22 01/22/22 01/22/22 Range/Units 21:47 07:52 07:52 WBC 12.5 H (4.5-11.0) K/mm3 Hgb 10.3 L 10.1 L (11.8-15.2) gm/dl Hct 33.6 L 32.5 L (35.5-45.6) % MCV 77 L 76 L (84-94) fl MCH 24 L 24 L (28-32) pg MCHC 31 L 31 L (32-34) % RDW 17.8 H 17.4 H (13.2-15.2) % Plt Count 106 L 100 L (140-440) K/mm3 Lymph % (Auto) 5.8 L (13.4-35.0) % Lymph # (Auto) 0.6 L (1.2-5.4) K/mm3 Seg Neutrophils % 87.3 H (40.0-70.0) % Seg Neutrophils # 8.6 H (1.8-7.7) K/mm3 PT (12.2-14.9) Sec. INR (0.87-1.13) Heparin Anti-Xa Level (0.3-0.7) U.I./ml Sodium 148 H (137-145) mmol/L Potassium 3.5 L (3.6-5.0) mmol/L Chloride 111.4 H (98-107) mmol/L BUN 55 H (9-20) mg/dL Creatinine 1.7 H (0.8-1.3) mg/dL POC Glucose (70-105) mg/dL Lactic Acid (0.7-2.0) mmol/L Calcium 8.1 L (8.4-10.2) mg/dL AST 198 H (5-40) units/L ALT 194 H (7-56) units/L Alkaline Phosphatase 332 H (35-129) units/L Albumin 2.1 L (3.9-5) g/dL 01/22/22 Range/Units 07:52 WBC (4.5-11.0) K/mm3 Hgb (11.8-15.2) gm/dl Hct (35.5-45.6) % MCV (84-94) fl MCH (28-32) pg MCHC (32-34) % RDW (13.2-15.2) % Plt Count (140-440) K/mm3 Lymph % (Auto) (13.4-35.0) % Lymph # (Auto) (1.2-5.4) K/mm3 Seg Neutrophils % (40.0-70.0) % Seg Neutrophils # (1.8-7.7) K/mm3 PT (12.2-14.9) Sec. INR (0.87-1.13) Heparin Anti-Xa Level (0.3-0.7) U.I./ml Sodium (137-145) mmol/L Potassium (3.6-5.0) mmol/L Chloride (98-107) mmol/L BUN (9-20) mg/dL Creatinine (0.8-1.3) mg/dL POC Glucose (70-105) mg/dL Lactic Acid 2.20 H* (0.7-2.0) mmol/L Calcium (8.4-10.2) mg/dL AST (5-40) units/L ALT (7-56) units/L Alkaline Phosphatase (35-129) units/L Albumin (3.9-5) g/dL Diabetes panel 01/21/22 01/22/22 Range/Units 14:52 07:52 Sodium 148 H (137-145) mmol/L Potassium 3.5 L (3.6-5.0) mmol/L Chloride 111.4 H (98-107) mmol/L Carbon Dioxide 28 (22-30) mmol/L BUN 55 H (9-20) mg/dL Creatinine 2.2 H 1.7 H (0.8-1.3) mg/dL Glucose 100 (75-100) mg/dL Calcium 8.1 L (8.4-10.2) mg/dL AST 198 H (5-40) units/L ALT 194 H (7-56) units/L Alkaline Phosphatase 332 H (35-129) units/L Total Protein 6.6 (6.3-8.2) g/dL Albumin 2.1 L (3.9-5) g/dL Calcium panel 01/22/22 Range/Units 07:52 Calcium 8.1 L (8.4-10.2) mg/dL Albumin 2.1 L (3.9-5) g/dL Pituitary panel 01/21/22 01/22/22 Range/Units 14:52 07:52 Sodium 148 H (137-145) mmol/L Potassium 3.5 L (3.6-5.0) mmol/L Chloride 111.4 H (98-107) mmol/L Carbon Dioxide 28 (22-30) mmol/L BUN 55 H (9-20) mg/dL Creatinine 2.2 H 1.7 H (0.8-1.3) mg/dL Glucose 100 (75-100) mg/dL Calcium 8.1 L (8.4-10.2) mg/dL Adrenal panel 01/21/22 01/22/22 Range/Units 14:52 07:52 Sodium 148 H (137-145) mmol/L Potassium 3.5 L (3.6-5.0) mmol/L Chloride 111.4 H (98-107) mmol/L Carbon Dioxide 28 (22-30) mmol/L BUN 55 H (9-20) mg/dL Creatinine 2.2 H 1.7 H (0.8-1.3) mg/dL Glucose 100 (75-100) mg/dL Calcium 8.1 L (8.4-10.2) mg/dL Total Bilirubin < 0.20 (0.1-1.2) mg/dL AST 198 H (5-40) units/L ALT 194 H (7-56) units/L Alkaline Phosphatase 332 H (35-129) units/L Total Protein 6.6 (6.3-8.2) g/dL Albumin 2.1 L (3.9-5) g/dL Assessment and Plan Patient with reported stage IV colon cancer and is anorexia. Request for gastrostomy feeding tube. This would be difficult at best with the prior surgeries and scar tissue. Would appreciate a CT of the abdomen and pelvis at this time and also consultation to IR.
--- NOTE | 2022-01-22 14:24 | Progress Note ---
Assessment and Plan Cardiac work-up so far benign, we will recommend conservative cardiac management and intermittent follow-up. Subjective Date of service: 01/22/22 Principal diagnosis: Acute encephalopathy Interval history: No new cardiac complaints, on screw machine tender the patient has a sinus bradycardia at 56. Objective Vital Signs Temp Pulse Pulse Resp Resp BP BP 01/22/22 14:00 55 L 17 01/22/22 11:31 97.7 F 56 L 20 131/68 01/22/22 09:34 01/22/22 07:44 58 L 14 01/22/22 06:49 98.1 F 60 20 147/78 01/22/22 01:53 01/21/22 21:24 98.5 F 74 20 140/80 01/21/22 20:29 01/21/22 20:24 01/21/22 20:20 67 20 01/21/22 16:09 97.6 F 73 16 118/70 Pulse Ox 01/22/22 14:00 01/22/22 11:31 100 01/22/22 09:34 97 01/22/22 07:44 100 01/22/22 06:49 99 01/22/22 01:53 98 01/21/22 21:24 98 01/21/22 20:29 98 01/21/22 20:24 98 01/21/22 20:20 01/21/22 16:09 99 - Physical Examination General: No Apparent Distress, Cachectic HEENT: Positive: Normocephaly Neck: Negative: JVD/HJR Cardiac: Positive: Regular Rhythm Lungs: Positive: Decreased Breath Sounds Neuro: Positive: Weakness (Generalized lethargy) Abdomen: Positive: Soft Skin: Negative: Rash Extremities: Absent: edema - Labs and Meds Cardiac Enzymes 01/22/22 Range/Units 07:52 AST 198 H (5-40) units/L Coagulation 01/21/22 Range/Units 14:52 PT 16.9 H (12.2-14.9) Sec. INR 1.20 H (0.87-1.13) APTT 33.0 (24.2-36.6) Sec. CBC 01/21/22 01/22/22 Range/Units 21:47 07:52 WBC 12.5 H 9.8 (4.5-11.0) K/mm3 RBC 4.35 4.26 (3.65-5.03) M/mm3 Hgb 10.3 L 10.1 L (11.8-15.2) gm/dl Hct 33.6 L 32.5 L (35.5-45.6) % Plt Count 106 L 100 L (140-440) K/mm3 Lymph # (Auto) 0.6 L (1.2-5.4) K/mm3 Douglas # (Auto) 0.4 (0.0-0.8) K/mm3 Eos # (Auto) 0.3 (0.0-0.4) K/mm3 Baso # (Auto) 0.0 (0.0-0.1) K/mm3 Comprehensive Metabolic Panel 01/21/22 01/22/22 Range/Units 14:52 07:52 Sodium 148 H (137-145) mmol/L Potassium 3.5 L (3.6-5.0) mmol/L Chloride 111.4 H (98-107) mmol/L Carbon Dioxide 28 (22-30) mmol/L BUN 55 H (9-20) mg/dL Creatinine 2.2 H 1.7 H (0.8-1.3) mg/dL Glucose 100 (75-100) mg/dL Calcium 8.1 L (8.4-10.2) mg/dL AST 198 H (5-40) units/L ALT 194 H (7-56) units/L Alkaline Phosphatase 332 H (35-129) units/L Total Protein 6.6 (6.3-8.2) g/dL Albumin 2.1 L (3.9-5) g/dL - EKG Sinus rhythms and dysrhythmias: sinus tachycardia Chamber hypertrophy or enlargement: left ventricular hypertro Repolarization changes or abnormalities: early repolarization due to LVH
--- NOTE | 2022-01-22 15:47 | Cat Scan Report ---
CT ABDOMEN WITHOUT CONTRAST INDICATION / CLINICAL INFORMATION: abdominal mets. TECHNIQUE: Axial CT images were obtained through the abdomen without contrast. All CT scans at this [facility] are performed using CT dose reduction for ALARA by means of automated exposure control. COMPARISON: Renal ultrasound 01/18/2022 FINDINGS: LOWER CHEST: Extensive consolidations within the visualized portion of the left lower lobe. Some of t hese appear nodular or masslike. A masslike nodular consolidation is seen at the left lung base measu ring 2.4 x 1.8 x 2.1 cm. Surrounding nodular consolidations are present as well. Small left pleural e ffusion. LIVER: No significant abnormality. GALLBLADDER: Cholelithiasis. BILE DUCTS: No significant abnormality. PANCREAS: No significant abnormality. SPLEEN: No significant abnormality. ADRENALS: No significant abnormality. RIGHT KIDNEY / URETER: Mild calyceal prominence/hydronephrosis. No proximal ureteral obstructing lesi on is seen. LEFT KIDNEY / URETER: Mild calyceal prominence/hydronephrosis. No proximal ureteral obstructing lesio n is seen. STOMACH / SMALL BOWEL: No significant abnormality. COLON: There is a left lower quadrant ostomy. APPENDIX: Not visualized. PERITONEUM: No free fluid. No free air. No fluid collection. LYMPH NODES: No significant adenopathy. AORTA / ARTERIES: Moderate atherosclerotic calcification without acute abnormality. IVC / VEINS: No significant abnormality. ADDITIONAL FINDINGS: None. SKELETAL SYSTEM: Multilevel degenerative changes of the spine. IMPRESSION: 1. Extensive patchy consolidations within the visualized portion of the left lower lobe. Some of thes e appear nodular/masslike. The differential for these lesions includes multifocal pneumonia and malig ida. 2. Cholelithiasis. 3. Mild bilateral hydronephrosis/calyceal prominence. The pelvis is not included on this study, as byrne evaluation for ureteral obstructions is limited. Signer Name: Miguel Lomas MD Signed: 01/22/2022 3:42 PM Workstation Name: [id number]
[2022-01-22] MEDS: cefTRIAXone/NS 2 GM/100 ML 2 GM/100 ML BAG IV SCH (16:47)
--- NOTE | 2022-01-22 18:07 | Progress Note ---
Assessment and Plan Impression: * NATHALIE * Metabolic acidosis * Hyperkalemia * Hypernatremia * sepsis * UTI * AMS Plan: * S/p ivf resusciatation--continue D5W * Continue thiamine tablets * iv abx per primary team * strict i/os and daily lytes * Renal us unremarkable * urine lytes * avoid nephrotoxins * no indication for CHEESE COOK at this time Subjective Date of service: 01/22/22 Principal diagnosis: Acute encephalopathy Interval history: Seen in room, family at bedside. Labs reviewed. Objective - Exam Narrative Exam: Constitutional: no acute distress Head: NC/AT Neck: supple Lungs: clear to auscultation CV: RRR, no M/R/G Abdomen: soft, non-tender, bowel sounds present Back: nontender Extremities: no edema, pulses WNL Skin: intact Neuro: Somnolent - Vital Signs Vital signs: Vital Signs - 12hr 01/22/22 01/22/22 01/22/22 06:49 07:44 09:34 Temperature 98.1 F Pulse Rate 60 Pulse Rate [ 58 L Bilateral] Respiratory 20 Rate Respiratory 14 Rate [Bilateral ] Blood Pressure Blood Pressure 147/78 [Right] O2 Sat by Pulse 99 100 97 Oximetry 01/22/22 01/22/22 01/22/22 10:00 11:31 14:00 Temperature 97.7 F Pulse Rate 57 L 56 L Pulse Rate [ 55 L Bilateral] Respiratory 20 Rate Respiratory 17 Rate [Bilateral ] Blood Pressure 131/68 Blood Pressure [Right] O2 Sat by Pulse 100 Oximetry 01/22/22 16:42 Temperature 97.2 F L Pulse Rate 63 Pulse Rate [ Bilateral] Respiratory 18 Rate Respiratory Rate [Bilateral ] Blood Pressure 128/63 Blood Pressure [Right] O2 Sat by Pulse 100 Oximetry - Lab 01/22/22 07:52 01/22/22 07:52 Most recent lab results ABG pH 7.383 pH Units (7.350-7.450) 01/17/22 22:05 ABG pCO2 32.8 mm Hg 01/17/22 22:05 ABG pO2 210.4 mm Hg (80.0-90.0) H 01/17/22 22:05 ABG HCO3 19.1 mmol/L (20.0-26.0) L 01/17/22 22:05 ABG O2 Saturation 99.3 % (95.0-99.0) H 01/17/22 22:05 Calcium 8.1 mg/dL (8.4-10.2) L 01/22/22 07:52 Medications & Allergies - Medications Allergies/Adverse Reactions: Allergies No Known Allergies Allergy (Verified 01/18/22 07:24) Active Medications: Generic Name Dose Route Start Last Admin Trade Name Freq PRN Reason Stop Dose Admin Acetaminophen 650 mg 01/18/22 02:52 Acetaminophen 325 Mg Tab PO Q4H PRN Pain MILD(1-3)/Fever >100.5/LUTHER Albuterol/Ipratropium 1 ampul 01/22/22 08:00 01/22/22 14:04 Ipratropium/Albuterol Sulfate 3 Ml Ampul.Neb IH 1 ampul TIDRT ROSCOE Administration Amiodarone HCl 200 mg 01/18/22 22:00 01/22/22 10:00 Amiodarone 200 Mg Tab FEEDTUBE Not Given BID ROSCOE Aspirin 81 mg 01/19/22 10:00 01/22/22 10:00 Aspirin 81 Mg Tab Chew FEEDTUBE Not Given QDAY ROSCOE Atorvastatin Calcium 40 mg 01/18/22 22:00 01/21/22 21:20 Atorvastatin 40 Mg Tab PO 40 mg QHS ROSCOE Administration Famotidine 20 mg 01/18/22 10:00 01/22/22 10:00 Famotidine 20 Mg/2 Ml Inj IV Not Given DAILY ROSCOE Hydrophilic Ointment 1 applic 01/20/22 16:53 Lip Therapy Vaseline TP DIRECT PRN Dry Lips Dextrose 1,000 mls @ 125 mls/hr 01/21/22 09:00 01/22/22 16:47 D5w IV 125 mls/hr DIRECT ROSCOE Administration Morphine Sulfate 2 mg 01/18/22 02:52 Morphine 2 Mg/1 Ml Inj IV Q4H PRN Pain, Moderate (4-6) Morphine Sulfate 4 mg 01/18/22 02:52 Morphine 4 Mg/1 Ml Inj IV Q4H PRN Pain , Severe (7-10) Nitroglycerin 0.4 mg 01/18/22 02:55 Nitroglycerin 0.4 Mg Tab Subl SL Q5M PRN Chest Pain Ondansetron HCl 4 mg 01/18/22 02:52 Ondansetron 4 Mg/2 Ml Inj IV Q8H PRN Nausea And Vomiting Sodium Chloride 10 ml 01/18/22 10:00 01/22/22 10:00 Sodium Chloride 0.9% 10 Ml Flush Syringe IV Not Given BID ROSCOE Sodium Chloride 10 ml 01/18/22 02:52 Sodium Chloride 0.9% 10 Ml Flush Syringe IV PRN PRN LINE FLUSH Thiamine HCl 100 mg 01/20/22 12:00 01/22/22 10:00 Thiamine 100 Mg Tab PO Not Given QDAY [facility] Tramadol HCl 50 mg 01/18/22 02:55 Tramadol 50 Mg Tab PO Q6H PRN Pain, Moderate (4-6)
[2022-01-23] MEDS: DEXTROSE 5% IN WATER 1,000 ML IV SCH ×2 (05:37→15:42)
[2022-01-23 08:47] LABS: Basophils % (Auto) 0.2 % (0.0-1.8); Eosinophils # (Auto) 0.2 K/mm3 (0.0-0.4); Hematocrit 30.4 % (35.5-45.6); Hemoglobin 9.4 gm/dl (11.8-15.2); Lymphocytes # (Auto) 0.5 K/mm3 (1.2-5.4); Lymphocytes % (Auto) 6.6 % (13.4-35.0); Mean Corpuscular HGB Conc 31 % (32-34); Mean Corpuscular Volume 77 fl (84-94); Monocytes # (Auto) 0.4 K/mm3 (0.0-0.8); Monocytes % (Auto) 5.2 % (0.0-7.3); Red Blood Count 3.98 M/mm3 (3.65-5.03); Red Cell Distribution Width 16.9 % (13.2-15.2)
[2022-01-23 08:57] LABS: Platelet Count 96 K/mm3 (140-440)
[2022-01-23 09:02] LABS: Alanine Aminotransferase 124 units/L (7-56); Albumin 1.9 g/dL (3.9-5); BUN/Creatinine Ratio 23; Blood Urea Nitrogen 30 mg/dL (9-20); Calcium 7.9 mg/dL (8.4-10.2); Hemolysis Index 1
[2022-01-23] MEDS: IPRATROPIUM/ALBUTEROL SULFATE 3 ML AMPUL.NEB IH SCH ×3 (09:59→20:07)
[2022-01-23] MEDS: POTASSIUM CHLORIDE 10 MEQ 10 MEQ/100 ML BAG IV SCH ×2 (10:47→13:06)
[2022-01-23] MEDS: ASPIRIN 81 MG TAB CHEW FEEDTUBE SCH (10:47)
[2022-01-23] MEDS: AMIODARONE 200 MG TAB FEEDTUBE SCH ×2 (10:47→22:42)
[2022-01-23] MEDS: POTASSIUM CHLORIDE 20 MEQ PACKET FEEDTUBE SCH ×2 (10:48→13:06)
[2022-01-23] MEDS: FAMOTIDINE 20 MG/2 ML INJ IV SCH (10:49)
[2022-01-23] MEDS: THIAMINE 100 MG TAB PO SCH (10:49)
--- NOTE | 2022-01-23 13:09 | Progress Note ---
Assessment and Plan Patient requiring longer term access for tube feeds as he is unable to tolerate significant amounts of p.o. intake. CT scan of the abdomen pelvis was performed. This demonstrates a very poor positioning for percutaneous access with interventional radiology given the presence of bowel in between the gastric wall and abdominal wall. Patient would benefit from surgical placement of a G- tube. Subjective Date of service: 01/23/22 Principal diagnosis: Acute encephalopathy Interval history: Patient with a history of malnutrition. Patient with a history of colon cancer status postresection [facility]. Patient with altered mental s tatus. Patient is cachectic. History obtained from patient's son. Objective - Constitutional Vitals: Vital Signs - 12hr 01/23/22 01/23/22 01/23/22 05:40 08:27 09:59 Temperature 98.6 F Pulse Rate 60 Respiratory 18 Rate Blood Pressure 115/75 O2 Sat by Pulse 98 97 98 Oximetry 01/23/22 10:51 Temperature 97.4 F L Pulse Rate 58 L Respiratory 18 Rate Blood Pressure 144/76 O2 Sat by Pulse 100 Oximetry General appearance: Present: cachectic - EENT ENT: other (NG tube) - Neck Neck: normal ROM - Respiratory Respiratory effort: normal - Labs CBC & Chem 7: 01/23/22 08:14 01/23/22 08:14 Labs: Abnormal lab results 01/22/22 01/23/22 01/23/22 Range/Units 22:00 08:14 08:14 Hgb 9.4 L (11.8-15.2) gm/dl Hct 30.4 L (35.5-45.6) % MCV 77 L (84-94) fl MCH 24 L (28-32) pg MCHC 31 L (32-34) % RDW 16.9 H (13.2-15.2) % Plt Count 96 L (140-440) K/mm3 Lymph % (Auto) 6.6 L (13.4-35.0) % Lymph # (Auto) 0.5 L (1.2-5.4) K/mm3 Seg Neutrophils % 85.0 H (40.0-70.0) % Potassium 2.9 L* (3.6-5.0) mmol/L BUN 30 H (9-20) mg/dL Glucose 103 H (75-100) mg/dL Lactic Acid 2.20 H* (0.7-2.0) mmol/L Calcium 7.9 L (8.4-10.2) mg/dL AST 65 H (5-40) units/L ALT 124 H (7-56) units/L Alkaline Phosphatase 292 H (35-129) units/L Total Protein 5.8 L (6.3-8.2) g/dL Albumin 1.9 L (3.9-5) g/dL Medications & Allergies - Medications Allergies/Adverse Reactions: Allergies No Known Allergies Allergy (Verified 01/18/22 07:24) Home Medications: Home Medications Medication Instructions Recorded Confirmed Last Taken Type No Known Home Medications [No 01/22/22 01/22/22 Unknown History Reported Home Medications] Active Medications: Generic Name Dose Route Start Last Admin Trade Name Freq PRN Reason Stop Dose Admin Acetaminophen 650 mg 01/18/22 02:52 Acetaminophen 325 Mg Tab PO Q4H PRN Pain MILD(1-3)/Fever >100.5/LUTHER Albuterol/Ipratropium 1 ampul 01/22/22 08:00 01/23/22 09:59 Ipratropium/Albuterol Sulfate 3 Ml Ampul.Neb IH Not Given TIDRT ROSCOE Amiodarone HCl 200 mg 01/18/22 22:00 01/23/22 10:47 Amiodarone 200 Mg Tab FEEDTUBE 200 mg BID ROSCOE Administration Aspirin 81 mg 01/19/22 10:00 01/23/22 10:47 Aspirin 81 Mg Tab Chew FEEDTUBE 81 mg QDAY ROSCOE Administration Atorvastatin Calcium 40 mg 01/23/22 22:00 Atorvastatin 40 Mg Tab FEEDTUBE QHS ROSCOE Famotidine 20 mg 01/24/22 10:00 Famotidine 20 Mg Tab FEEDTUBE DAILY ROSCOE Hydrophilic Ointment 1 applic 01/20/22 16:53 01/23/22 10:47 Lip Therapy Vaseline TP 1 applic DIRECT PRN Administration Dry Lips Dextrose 1,000 mls @ 125 mls/hr 01/21/22 09:00 01/23/22 05:37 D5w IV 125 mls/hr DIRECT ROSCOE Administration Morphine Sulfate 2 mg 01/18/22 02:52 Morphine 2 Mg/1 Ml Inj IV Q4H PRN Pain, Moderate (4-6) Morphine Sulfate 4 mg 01/18/22 02:52 Morphine 4 Mg/1 Ml Inj IV Q4H PRN Pain , Severe (7-10) Nitroglycerin 0.4 mg 01/18/22 02:55 Nitroglycerin 0.4 Mg Tab Subl SL Q5M PRN Chest Pain Ondansetron HCl 4 mg 01/18/22 02:52 Ondansetron 4 Mg/2 Ml Inj IV Q8H PRN Nausea And Vomiting Potassium Chloride 40 meq 01/23/22 10:00 01/23/22 10:48 Potassium Chloride 20 Meq Packet FEEDTUBE 01/23/22 14:01 40 meq Q4H ROSCOE Administration Sodium Chloride 10 ml 01/18/22 10:00 01/23/22 10:49 Sodium Chloride 0.9% 10 Ml Flush Syringe IV 10 ml BID ROSCOE Administration Sodium Chloride 10 ml 01/18/22 02:52 Sodium Chloride 0.9% 10 Ml Flush Syringe IV PRN PRN LINE FLUSH Thiamine HCl 100 mg 01/24/22 10:00 Thiamine 100 Mg Tab FEEDTUBE QDAY ROSCOE Tramadol HCl 50 mg 01/18/22 02:55 Tramadol 50 Mg Tab PO Q6H PRN Pain, Moderate (4-6) HEART Score - HEART Score Troponin: Troponin T 0.088 ng/mL (0.00-0.029) H D 01/18/22 13:40
--- NOTE | 2022-01-23 14:01 | Progress Note ---
Assessment and Plan Assessment and plan: 71 years old male from longterm with history of colon cancer s/p chemotherapy with colostomy [facility] because of dyspnea and respiratory distress. Patient is also altered Mental Status. Patient is on Non rebreather on and O2 sat 100%. Kumar cath in place. Patient is a very poor historian. In the ER patient chest x-ray shows pneumonia, patient sodium is 154, potassium 5.6 BUN 135 creatinine 4.7, glucose 162, lactic acid 5.20, troponin 0.149. Also patient has UTI.'s were going to admit the patient we will put the patient on IMCU. We will put the patient on IV fluid antibiotic. We will consult cardiology as well as nephrology for evaluation. Hospital Course: Spoke extensively with son about history. Patient has a history of colon cancer S4 with mets to liver. He has only undergone one course of chemotherapy a t [facility]. He was recently discharged 1 month ago from [facility] for UTI. Currently the patient resides in SNF. Per the son pt has lost a lot of weight. has been struggling with feeding. I e xplained that the patient's assisted prognosis is poor. We discussed hospice breifly but son was not ready to go over this. I mentioned that in the next 24- 48hrs we could reassess. 01/19: Continue aggressive hydration for NATHALIE. Nephrology recs noted ,no emergent indication for BARK FITTER. Treatment of Sepsis/UTI/PNA with IV Abx. HR mostly controlled on amiodorone. Continue heparin gtt. 01/20: Dobhoff placed, Tube feeds started, Nepro @ 30 cc/hr. ST eval pending. Aggressive IVF rehydration (currently on D5W) per nephrology, cr: 3.1 this AM. WBC: 16.7....Currently on Azithromycin/Rocephin for CAP/UTI tx. Prognosis remains Guarded/poor. Patient is severely malnourished and cachectic. 01/21: TF continues to run at 30cc/hr. Patient alert to person only. Will continue with current care plan. Patient may require PEG tube. Will discuss with NOK. 01/22: NOK agreeable to PEG. GI and General surgery consulted. Awaiting CT scan of the abdomen, will consult IR for possible PEG placement afterward 01/23: Family meeting with patients Sister and son at bedside. Agreed to continue care and PEG tube placement with plan to discharge back to care facility. Assessment and Plan: #Sepsis POA-improving #Urinary tract infection #Left lower lobe pneumonia #Lactic Acidosis - WBC: 12, tachycardia, elevated urine wbc 182, LA 5.2 - CXR: LLL pneumonic process - blood culture and urine culture NGTD -MRSA screen, COVID PCR negative (recent outbreak at facility) - s/p Abx therapy with Rocephin IV, azithromycin (end date 01/22/2022) #Atrial fibrillation with rapid ventricular response #NSTEMI, type II - elevated troponin: 0.149 --> 0.088 - BNP: 2068 - TTE with poor quality per Cardiology due to body habitus - tele: afib, ventricular rate 90-110 - continue amiodorone 200 mg bid - heparin gtt stopped and eliquis currently held for PEG tube placement - Cardiology following, assistance appreciated #Acute kidney injury due to vasomotor nephropathy-resolved #Hypokalemia #Hyponatremia #Metabolic Acidosis-improving - sepsis/dehydration likely driving NATHALIE - SCr improved to 1.3 after IVF fluids - renal US: mild prominence of renal pelvis - continue to replete and monitor potassium levels - Nephrology following, assistance appreciated #Acute metabolic encephalopathy-resolved - etiology: multifactorial poor po intake, UTI, NATHALIE - IVF, management as above. - CT brain negative, MRI negative for acute findings #History of colon cancer on chemotherapy #Failure to thrive #moderate protein calorie malnutrition - apparently stage 4 Colon CA, mets to liver per son - has only had one session of chemotherapy. - only on puree diet per history, currently NPO with TFs running - patient son agreeable to PEG tube placement, GI & general surgery consulted #Advance care planning - Disease education conducted, care plan discussed, diagnoses discussed, prognosis discussed, patient is now AND/DNR, patient and his son acknowledges understanding and agree with care plan, +30 minutes. History Interval history: No acute events overnight per nursing. Patient is alert. He denies current pain and discomfort. Family discussion was conducted at the bedside with Son and Sister. Will continue with PEG tube placement and discharge to nursing facility. Hospitalist Physical - Physical exam Narrative exam: GENERAL: Cachextic male. In no acute distress. HEENT: NGT in place without feeds running NECK: Supple. CHEST/LUNGS: CTAB on room air HEART/CARDIOVASCULAR: Irregularly irregular rhythm. No murmur, rubs or gallops appreciated. ABDOMEN: +BS. NT/ND. SKIN: No rashes noted. NEURO: Patient follows commands. MUSCULOSKELETAL: No joint effusion EXTREMITIES: No cyanosis, clubbing or edema. PSYCH: AAOx3 today. - Constitutional Vitals: Temp Pulse Resp BP Pulse Ox 97.4 F L 58 L 18 144/76 100 01/23/22 10:51 01/23/22 10:51 01/23/22 10:51 01/23/22 10:51 01/23/22 10:51 General appearance: Present: cachectic HEART Score - HEART Score Troponin: Troponin T 0.088 ng/mL (0.00-0.029) H D 01/18/22 13:40 Results - Labs CBC & Chem 7: 01/23/22 08:14 01/23/22 08:14 Labs: Laboratory Last Values WBC 7.5 K/mm3 (4.5-11.0) 01/23/22 08:14 RBC 3.98 M/mm3 (3.65-5.03) 01/23/22 08:14 Hgb 9.4 gm/dl (11.8-15.2) L 01/23/22 08:14 Hct 30.4 % (35.5-45.6) L 01/23/22 08:14 MCV 77 fl (84-94) L 01/23/22 08:14 MCH 24 pg (28-32) L 01/23/22 08:14 MCHC 31 % (32-34) L 01/23/22 08:14 RDW 16.9 % (13.2-15.2) H 01/23/22 08:14 Plt Count 96 K/mm3 (140-440) L 01/23/22 08:14 Lymph % (Auto) 6.6 % (13.4-35.0) L 01/23/22 08:14 [place] % (Auto) 5.2 % (0.0-7.3) 01/23/22 08:14 Eos % (Auto) 3.0 % (0.0-4.3) 01/23/22 08:14 Baso % (Auto) 0.2 % (0.0-1.8) 01/23/22 08:14 Lymph # (Auto) 0.5 K/mm3 (1.2-5.4) L 01/23/22 08:14 [place] # (Auto) 0.4 K/mm3 (0.0-0.8) 01/23/22 08:14 Eos # (Auto) 0.2 K/mm3 (0.0-0.4) 01/23/22 08:14 Baso # (Auto) 0.0 K/mm3 (0.0-0.1) 01/23/22 08:14 Add Manual Diff Complete 01/21/22 05:37 Total Counted 100 01/21/22 05:37 Seg Neutrophils % 85.0 % (40.0-70.0) H 01/23/22 08:14 Seg Neuts % (Manual) 92.0 % (40.0-70.0) H 01/21/22 05:37 Band Neutrophils % 0 % 01/21/22 05:37 Lymphocytes % (Manual) 6.0 % (13.4-35.0) L 01/21/22 05:37 Reactive Lymphs % (Man) 0 % 01/21/22 05:37 Monocytes % (Manual) 2.0 % (0.0-7.3) 01/21/22 05:37 Eosinophils % (Manual) 0 % (0.0-4.3) 01/21/22 05:37 Basophils % (Manual) 0 % (0.0-1.8) 01/21/22 05:37 Metamyelocytes % 0 % 01/21/22 05:37 Myelocytes % 0 % 01/21/22 05:37 Promyelocytes % 0 % 01/21/22 05:37 Blast Cells % 0 % 01/21/22 05:37 Nucleated RBC % Not Reportable 01/21/22 05:37 Seg Neutrophils # 6.3 K/mm3 (1.8-7.7) 01/23/22 08:14 Seg Neutrophils # Man 11.3 K/mm3 (1.8-7.7) H 01/21/22 05:37 Band Neutrophils # 0.0 K/mm3 01/21/22 05:37 Lymphocytes # (Manual) 0.7 K/mm3 (1.2-5.4) L 01/21/22 05:37 Abs React Lymphs (Man) 0.0 K/mm3 01/21/22 05:37 Monocytes # (Manual) 0.2 K/mm3 (0.0-0.8) 01/21/22 05:37 Eosinophils # (Manual) 0.0 K/mm3 (0.0-0.4) 01/21/22 05:37 Basophils # (Manual) 0.0 K/mm3 (0.0-0.1) 01/21/22 05:37 Metamyelocytes # 0.0 K/mm3 01/21/22 05:37 Myelocytes # 0.0 K/mm3 01/21/22 05:37 Promyelocytes # 0.0 K/mm3 01/21/22 05:37 Blast Cells # 0.0 K/mm3 01/21/22 05:37 WBC Morphology Not Reportable 01/21/22 05:37 Hypersegmented Neuts Not Reportable 01/21/22 05:37 Hyposegmented Neuts Not Reportable 01/21/22 05:37 Hypogranular Neuts Not Reportable 01/21/22 05:37 Smudge Cells Not Reportable 01/21/22 05:37 Toxic Granulation Not Reportable 01/21/22 05:37 Toxic Vacuolation Not Reportable 01/21/22 05:37 Dohle Bodies Not Reportable 01/21/22 05:37 Pelger-Huet Anomaly Not Reportable 01/21/22 05:37 Bj Rods Not Reportable 01/21/22 05:37 Platelet Estimate Consistent w auto 01/21/22 05:37 Clumped Platelets Not Reportable 01/21/22 05:37 Plt Clumps, EDTA Not Reportable 01/21/22 05:37 Large Platelets Not Reportable 01/21/22 05:37 Giant Platelets Not Reportable 01/21/22 05:37 Platelet Satelliting Not Reportable 01/21/22 05:37 Plt Morphology Comment Not Reportable 01/21/22 05:37 RBC Morphology Not Reportable 01/21/22 05:37 Dimorphic RBCs Not Reportable 01/21/22 05:37 Polychromasia Not Reportable 01/21/22 05:37 Hypochromasia 2+ 01/21/22 05:37 Poikilocytosis Not Reportable 01/21/22 05:37 Anisocytosis 1+ 01/21/22 05:37 Microcytosis Not Reportable 01/21/22 05:37 Macrocytosis Not Reportable 01/21/22 05:37 Spherocytes Not Reportable 01/21/22 05:37 Pappenheimer Bodies Not Reportable 01/21/22 05:37 Sickle Cells Not Reportable 01/21/22 05:37 Target Cells Not Reportable 01/21/22 05:37 Tear Drop Cells Not Reportable 01/21/22 05:37 Ovalocytes Not Reportable 01/21/22 05:37 Helmet Cells Not Reportable 01/21/22 05:37 [place] Bodies Not Reportable 01/21/22 05:37 [place] Rings Not Reportable 01/21/22 05:37 Dilip Cells Not Reportable 01/21/22 05:37 Bite Cells Not Reportable 01/21/22 05:37 Crenated Cell Not Reportable 01/21/22 05:37 Elliptocytes Not Reportable 01/21/22 05:37 Acanthocytes (Spur) Not Reportable 01/21/22 05:37 Rouleaux Not Reportable 01/21/22 05:37 Hemoglobin C Crystals Not Reportable 01/21/22 05:37 Schistocytes Not Reportable 01/21/22 05:37 Malaria parasites Not Reportable 01/21/22 05:37 Sahil Bodies Not Reportable 01/21/22 05:37 Hem Pathologist Commnt No 01/21/22 05:37 PT 16.9 Sec. (12.2-14.9) H 01/21/22 14:52 INR 1.20 (0.87-1.13) H 01/21/22 14:52 APTT 33.0 Sec. (24.2-36.6) 01/21/22 14:52 Heparin Anti-Xa Level < 0.10 U.I./ml (0.3-0.7) L 01/21/22 14:52 ABG pH 7.383 pH Units (7.350-7.450) 01/17/22 22:05 ABG pCO2 32.8 mm Hg 01/17/22 22:05 ABG pO2 210.4 mm Hg (80.0-90.0) H 01/17/22 22:05 ABG HCO3 19.1 mmol/L (20.0-26.0) L 01/17/22 22:05 ABG O2 Saturation 99.3 % (95.0-99.0) H 01/17/22 22:05 ABG O2 Content 20.3 (0.0-44) 01/17/22 22:05 ABG Base Excess -4.9 mmol/L (-2.0-3.0) L 01/17/22 22:05 ABG Hemoglobin 14.5 gm/dl (14.0-18.0) 01/17/22 22:05 ABG Carboxyhemoglobin 1.2 % (0.0-5.0) 01/17/22 22:05 ABG Methemoglobin 0.6 % (0.0-1.5) 01/17/22 22:05 Oxyhemoglobin 97.5 % (95.0-99.0) 01/17/22 22:05 FiO2 100 % 01/17/22 22:05 Sodium 139 mmol/L (137-145) D 01/23/22 08:14 Potassium 2.9 mmol/L (3.6-5.0) L* 01/23/22 08:14 Chloride 105.3 mmol/L (98-107) 01/23/22 08:14 Carbon Dioxide 26 mmol/L (22-30) 01/23/22 08:14 Anion Gap 11 mmol/L 01/23/22 08:14 BUN 30 mg/dL (9-20) H 01/23/22 08:14 Creatinine 1.3 mg/dL (0.8-1.3) 01/23/22 08:14 Estimated GFR > 60 ml/min 01/23/22 08:14 BUN/Creatinine Ratio 23 % 01/23/22 08:14 Glucose 103 mg/dL (75-100) H 01/23/22 08:14 POC Glucose 92 mg/dL (70-105) 01/22/22 05:04 Ketones Quantitative Negative (Negative) 01/17/22 22:34 Lactic Acid 2.20 mmol/L (0.7-2.0) H* 01/22/22 22:00 Calcium 7.9 mg/dL (8.4-10.2) L 01/23/22 08:14 Total Bilirubin < 0.20 mg/dL (0.1-1.2) 01/23/22 08:14 AST 65 units/L (5-40) H 01/23/22 08:14 ALT 124 units/L (7-56) H 01/23/22 08:14 Alkaline Phosphatase 292 units/L (35-129) H 01/23/22 08:14 Ammonia 14.0 umol/L (25-60) L 01/17/22 22:34 Total Creatine Kinase 48 units/L (55-170) L 01/17/22 22:34 Troponin T 0.088 ng/mL (0.00-0.029) H D 01/18/22 13:40 C-Reactive Protein 5.80 mg/dL (0.00-1.30) H 01/17/22 22:34 NT-Pro-B Natriuret Pep 2069 pg/mL (0-900) H 01/17/22 22:34 Total Protein 5.8 g/dL (6.3-8.2) L 01/23/22 08:14 Albumin 1.9 g/dL (3.9-5) L 01/23/22 08:14 Albumin/Globulin Ratio 0.5 % 01/23/22 08:14 Triglycerides 143 mg/dL (2-149) 01/17/22 22:34 Cholesterol 224 mg/dL (50-199) H 01/17/22 22:34 LDL Cholesterol Direct 114 mg/dL (50-130) 01/17/22 22:34 HDL Cholesterol 73 mg/dL (40-59) H 01/17/22 22:34 Cholesterol/HDL Ratio 3.06 % 01/17/22 22:34 Urine Color Yellow (Yellow) 01/17/22 21:49 Urine Turbidity Cloudy (Clear) 01/17/22 21:49 Specific [place] (Man) 1.020 (1.003-1.030) 01/17/22 21:49 Ur Protein (Man) 2+ mg/dL (Negative) 01/17/22 21:49 Ur Ketones (Man) Negative (Negative) 01/17/22 21:49 Ur Nitrite (Man) Positive (Negative) 01/17/22 21:49 Ur Reducing Substances Not Reportable 01/17/22 21:49 Urine Bilirubin (Man) Negative (Negative) 01/17/22 21:49 Urine Ictotest Not Reportable 01/17/22 21:49 Leukocyte Esterase (Man) Moderate (Negative) 01/17/22 21:49 Urine WBC (Auto) > 182.0 /HPF (0.0-6.0) H 01/17/22 21:49 Urine RBC (Auto) 17.0 /HPF (0.0-6.0) 01/17/22 21:49 Urine Bacteria (Auto) 3+ /HPF (Negative) 01/17/22 21:49 Urine RBC (Manual) 1+ (Negative) 01/17/22 21:49 Urine WBC Clumps 3+ /HPF 01/17/22 21:49 Urine Mucus Few /HPF 01/17/22 21:49 Urine Yeast (Budding) 3+ /HPF 01/17/22 21:49 Salicylates < 0.3 mg/dL (2.8-20.0) L 01/17/22 22:34 Coronavirus (PCR) Negative (Negative) 01/19/22 10:10 Microbiology: Microbiology 01/17/22 23:06 Peripheral/Venous Blood Culture - Final NO GROWTH AFTER 5 DAYS 01/17/22 22:34 Peripheral/Venous Blood Culture - Final NO GROWTH AFTER 5 DAYS Kumar/IV: Voiding Method Indwelling Catheter Active Medications - Current Medications Current Medications: Generic Name Dose Route Start Last Admin Trade Name Freq PRN Reason Stop Dose Admin Acetaminophen 650 mg 01/18/22 02:52 Acetaminophen 325 Mg Tab PO Q4H PRN Pain MILD(1-3)/Fever >100.5/LUTHER Albuterol/Ipratropium 1 ampul 01/22/22 08:00 01/23/22 09:59 Ipratropium/Albuterol Sulfate 3 Ml Ampul.Neb IH Not Given TIDRT ROSCOE Amiodarone HCl 200 mg 01/18/22 22:00 01/23/22 10:47 Amiodarone 200 Mg Tab FEEDTUBE 200 mg BID ROSCOE Administration Aspirin 81 mg 01/19/22 10:00 01/23/22 10:47 Aspirin 81 Mg Tab Chew FEEDTUBE 81 mg QDAY ROSCOE Administration Atorvastatin Calcium 40 mg 01/23/22 22:00 Atorvastatin 40 Mg Tab FEEDTUBE QHS ROSCOE Famotidine 20 mg 01/24/22 10:00 Famotidine 20 Mg Tab FEEDTUBE DAILY [facility] Hydrophilic Ointment 1 applic 01/20/22 16:53 01/23/22 10:47 Lip Therapy Vaseline TP 1 applic DIRECT PRN Administration Dry Lips Dextrose 1,000 mls @ 125 mls/hr 01/21/22 09:00 01/23/22 05:37 D5w IV 125 mls/hr DIRECT ROSCOE Administration Morphine Sulfate 2 mg 01/18/22 02:52 Morphine 2 Mg/1 Ml Inj IV Q4H PRN Pain, Moderate (4-6) Morphine Sulfate 4 mg 01/18/22 02:52 Morphine 4 Mg/1 Ml Inj IV Q4H PRN Pain , Severe (7-10) Nitroglycerin 0.4 mg 01/18/22 02:55 Nitroglycerin 0.4 Mg Tab Subl SL Q5M PRN Chest Pain Ondansetron HCl 4 mg 01/18/22 02:52 Ondansetron 4 Mg/2 Ml Inj IV Q8H PRN Nausea And Vomiting Potassium Chloride 40 meq 01/23/22 10:00 01/23/22 13:06 Potassium Chloride 20 Meq Packet FEEDTUBE 01/23/22 14:01 40 meq Q4H ROSCOE Administration Sodium Chloride 10 ml 01/18/22 10:00 01/23/22 10:49 Sodium Chloride 0.9% 10 Ml Flush Syringe IV 10 ml BID ROSCOE Administration Sodium Chloride 10 ml 01/18/22 02:52 Sodium Chloride 0.9% 10 Ml Flush Syringe IV PRN PRN LINE FLUSH Thiamine HCl 100 mg 01/24/22 10:00 Thiamine 100 Mg Tab FEEDTUBE QDAY ROSCOE Tramadol HCl 50 mg 01/18/22 02:55 Tramadol 50 Mg Tab PO Q6H PRN Pain, Moderate (4-6) Nutrition/Malnutrition Assess - Dietary Evaluation Nutrition/Malnutrition Findings: Nutrition Notes Start: 01/18/22 09:21 Freq: Status: Active Protocol: Document 01/21/22 10:08 JONO (Rec: 01/21/22 10:51 JONO [id number]) Nutrition Notes Initial or Follow up Reassessment Current Diagnosis Acute Kidney Injury,Sepsis, Hypertension,Heart Failure Other Pertinent Diagnosis Atrial Fibrilation/RVR, CAP, FTT, UTI, Encephalopathy, Anemia, Colon CA,... Current Diet TF-Nepro w/CARBSTEADY @ 30 ml/ hr (since L 01/20). Labs/Tests 01/21: Na 154, K 3.5, Cl 117.3 , BUN 88, Crea 2.5, Glu 131. Pertinent Medications 01/21: Thiamine, others nutritionally unremarkable. Height 5 ft 11 in Weight 68.039 kg [place] Body Weight (kg) 78.18 BMI 20.9 Weight change and time frame no body weight change reported in 4 days. Weight Status Appropriate Subjective/Other Information RD consult for routine F/U on dietary advancement assessment . started TF without RD consultation on 01/20. Pt is on Room Air, O2 saturation @ 98%, according to Physical Assessment History notes. SCIENTIFIC ILLUSTRATOR note on 01/20/22 13:11: Swallowing function has been assessed. Patient demonstrates a severe oral and pharyngeal phase dysphagia characterized by bolus holding and failure to swallow. Recommend NPO. Will reassess in 24 hours. - END OF NOTE. Pt has caries and missing teeth, according to Physical Assessment History notes. Pt has a colostomy poa, according to Physical Assessment History notes. Pt is a SNF resident, according to Progress notes. Percent of energy/protein needs met: Prescribed TF-Nepro w/ CARBSTEADY @ 30 ml/hr provides for energy/protein needs (1, 275 Kcal/57 g) during LOS, 62% Kcal; 100% AA. Burn Absent Trauma Absent GI Symptoms None Difficulty In Swallowing Food Allergy No Skin Integrity/Comment Assessment WNL. Current % PO Other Minimum of two criteria No Energy Intake (severe) < or equal to 50% Estimated Energy Requirement > or equal to 5 days Muscle Mass Mild Depletion (non-severe) Fluid Accumulation N/A Protein-Calorie Malnutrition N\A #1 Nutrition Diagnosis Inadequate oral intake Comments: SCIENTIFIC ILLUSTRATOR note on 01/20/22 13:11: Swallowing function has been assessed. Patient demonstrates a severe oral and pharyngeal phase dysphagia characterized by bolus holding and failure to swallow. Recommend NPO. Will reassess in 24 hours. - END OF NOTE. started TF without RD consultation on 01/20. Diagnosis Progress(for reassessment Continues documentation) Is patient on ventilator? No Is Patient Ambulatory and/or Out of Bed No REE-([facility]-confined to bed) 1743.204 Kcal/Kg value to use for calculation 30 Approximate Energy Requirements Using 2041 kcal/Kg Calculation Used for Recommendations Kcal/kg Additional Notes Protein: 0.8-1.2 g/Kg ABW; 54- 82 g/day. Fluids: 1 ml/Kcal, or as per MD. Nutrition Intervention Nutrition Support: Continue TF-Nepro w/CARBSTEADY @ 30 ml/hr. Flush: 250 ml water Q 4 hr, or as per MD. Kcal 1,275 Protein (gm) 57 Carbohydrates (gm) 114 Fat (gm) 68 Fluid (mL) 515 Fiber (gm) 9 % RDI: 62% Kcal; 100% AA. Goal #1 Provide at least 75% of energy /protein needs through Enteral Feeding during LOS. Goal #2 Adjust the dietary intervention to better serve Pt's energy/protein needs and clinical conditions during LOS . Follow-Up By: 01/28/22 Additional Comments Continue monitoring TF tolerance, TF adjustment/ increase rate, and BM.
--- NOTE | 2022-01-23 14:03 | Progress Note ---
Assessment and Plan Cardiac work-up so far benign, we will recommend conservative cardiac management and intermittent follow-up. Subjective Date of service: 01/23/22 Principal diagnosis: Acute encephalopathy Interval history: No new cardiac complaints, on monitor technician the patient has a sinus bradycardia at 54. Objective Vital Signs Temp Pulse Pulse Resp Resp BP Pulse Ox 01/23/22 10:51 97.4 F L 58 L 18 144/76 100 01/23/22 09:59 98 01/23/22 08:27 97 01/23/22 05:40 98.6 F 60 18 115/75 98 01/22/22 23:28 98.9 F 60 18 118/70 98 01/22/22 22:00 60 97 01/22/22 20:13 99 01/22/22 20:11 70 18 01/22/22 16:42 97.2 F L 63 18 128/63 100 - Physical Examination General: No Apparent Distress, Cachectic HEENT: Positive: Normocephaly Neck: Positive: neck supple Cardiac: Positive: Regular Rhythm Lungs: Positive: Decreased Breath Sounds Neuro: Positive: Weakness (Generalized lethargy) Abdomen: Positive: Soft Skin: Negative: Rash Extremities: Absent: edema - Labs and Meds Cardiac Enzymes 01/23/22 Range/Units 08:14 AST 65 H (5-40) units/L CBC 01/23/22 Range/Units 08:14 WBC 7.5 (4.5-11.0) K/mm3 RBC 3.98 (3.65-5.03) M/mm3 Hgb 9.4 L (11.8-15.2) gm/dl Hct 30.4 L (35.5-45.6) % Plt Count 96 L (140-440) K/mm3 Lymph # (Auto) 0.5 L (1.2-5.4) K/mm3 [place] # (Auto) 0.4 (0.0-0.8) K/mm3 Eos # (Auto) 0.2 (0.0-0.4) K/mm3 Baso # (Auto) 0.0 (0.0-0.1) K/mm3 Comprehensive Metabolic Panel 01/23/22 Range/Units 08:14 Sodium 139 D (137-145) mmol/L Potassium 2.9 L* (3.6-5.0) mmol/L Chloride 105.3 (98-107) mmol/L Carbon Dioxide 26 (22-30) mmol/L BUN 30 H (9-20) mg/dL Creatinine 1.3 (0.8-1.3) mg/dL Glucose 103 H (75-100) mg/dL Calcium 7.9 L (8.4-10.2) mg/dL AST 65 H (5-40) units/L ALT 124 H (7-56) units/L Alkaline Phosphatase 292 H (35-129) units/L Total Protein 5.8 L (6.3-8.2) g/dL Albumin 1.9 L (3.9-5) g/dL - EKG Sinus rhythms and dysrhythmias: sinus tachycardia Chamber hypertrophy or enlargement: left ventricular hypertro Repolarization changes or abnormalities: early repolarization due to LVH
[2022-01-23] MEDS ORDERED: POTASSIUM CHLORIDE 10 MEQ 10 MEQ/100 ML BAG IV SCH (15:00)
--- NOTE | 2022-01-23 20:31 | Progress Note ---
Assessment and Plan Impression: * NATHALIE * Metabolic acidosis * Hypokalemia * Hypernatremia * sepsis * UTI * AMS Plan: * S/p ivf resusciatation--continue D5W * Status post potassium repletion today, recheck BMP to assess response * Continue thiamine tablets * iv abx per primary team * strict i/os and daily lytes * Renal us unremarkable * urine lytes * avoid nephrotoxins * Renal function has improved, will see peripherally as needed Subjective Date of service: 01/23/22 Principal diagnosis: Acute encephalopathy Interval history: Seen in room, awake and alert. Labs reviewed. Objective - Exam Narrative Exam: Constitutional: no acute distress Head: NC/AT Neck: supple Lungs: clear to auscultation CV: RRR, no M/R/G Abdomen: soft, non-tender, bowel sounds present Back: nontender Extremities: no edema, pulses WNL Skin: intact Neuro: Somnolent - Vital Signs Vital signs: Vital Signs - 12hr 01/23/22 01/23/22 01/23/22 09:59 10:51 15:47 Temperature 97.4 F L 99.2 F Pulse Rate 58 L 67 Respiratory 18 20 Rate Blood Pressure 144/76 150/84 O2 Sat by Pulse 98 100 100 Oximetry - Lab 01/23/22 08:14 01/23/22 08:14 Most recent lab results ABG pH 7.383 pH Units (7.350-7.450) 01/17/22 22:05 ABG pCO2 32.8 mm Hg 01/17/22 22:05 ABG pO2 210.4 mm Hg (80.0-90.0) H 01/17/22 22:05 ABG HCO3 19.1 mmol/L (20.0-26.0) L 01/17/22 22:05 ABG O2 Saturation 99.3 % (95.0-99.0) H 01/17/22 22:05 Calcium 7.9 mg/dL (8.4-10.2) L 01/23/22 08:14 Medications & Allergies - Medications Allergies/Adverse Reactions: Allergies No Known Allergies Allergy (Verified 01/18/22 07:24) Home Medications: Home Medications Medication Instructions Recorded Confirmed Last Taken Type No Known Home Medications [No 01/22/22 01/22/22 Unknown History Reported Home Medications] Active Medications: Generic Name Dose Route Start Last Admin Trade Name Freq PRN Reason Stop Dose Admin Acetaminophen 650 mg 01/18/22 02:52 Acetaminophen 325 Mg Tab PO Q4H PRN Pain MILD(1-3)/Fever >100.5/LUTHER Albuterol/Ipratropium 1 ampul 01/22/22 08:00 01/23/22 20:07 Ipratropium/Albuterol Sulfate 3 Ml Ampul.Neb IH Not Given TIDRT ROSCOE Amiodarone HCl 200 mg 01/18/22 22:00 01/23/22 10:47 Amiodarone 200 Mg Tab FEEDTUBE 200 mg BID ROSCOE Administration Aspirin 81 mg 01/19/22 10:00 01/23/22 10:47 Aspirin 81 Mg Tab Chew FEEDTUBE 81 mg QDAY ROSCOE Administration Atorvastatin Calcium 40 mg 01/23/22 22:00 Atorvastatin 40 Mg Tab FEEDTUBE QHS ROSCOE Famotidine 20 mg 01/24/22 10:00 Famotidine 20 Mg Tab FEEDTUBE DAILY ROSCOE Hydrophilic Ointment 1 applic 01/20/22 16:53 01/23/22 10:47 Lip Therapy Vaseline TP 1 applic DIRECT PRN Administration Dry Lips Dextrose 1,000 mls @ 125 mls/hr 01/21/22 09:00 01/23/22 15:42 D5w IV 125 mls/hr DIRECT ROSCOE Administration Morphine Sulfate 2 mg 01/18/22 02:52 Morphine 2 Mg/1 Ml Inj IV Q4H PRN Pain, Moderate (4-6) Morphine Sulfate 4 mg 01/18/22 02:52 Morphine 4 Mg/1 Ml Inj IV Q4H PRN Pain , Severe (7-10) Nitroglycerin 0.4 mg 01/18/22 02:55 Nitroglycerin 0.4 Mg Tab Subl SL Q5M PRN Chest Pain Ondansetron HCl 4 mg 01/18/22 02:52 Ondansetron 4 Mg/2 Ml Inj IV Q8H PRN Nausea And Vomiting Sodium Chloride 10 ml 01/18/22 10:00 01/23/22 10:49 Sodium Chloride 0.9% 10 Ml Flush Syringe IV 10 ml BID ROSCOE Administration Sodium Chloride 10 ml 01/18/22 02:52 Sodium Chloride 0.9% 10 Ml Flush Syringe IV PRN PRN LINE FLUSH Thiamine HCl 100 mg 01/24/22 10:00 Thiamine 100 Mg Tab FEEDTUBE QDAY ROSCOE Tramadol HCl 50 mg 01/18/22 02:55 Tramadol 50 Mg Tab PO Q6H PRN Pain, Moderate (4-6)
[2022-01-23 22:25] LABS: BUN/Creatinine Ratio 18; Blood Urea Nitrogen 22 mg/dL (9-20); Calcium 8.1 mg/dL (8.4-10.2); Hemolysis Index 0
[2022-01-24] MEDS: DEXTROSE 5% IN WATER 1,000 ML IV SCH ×2 (01:01→18:03)
[2022-01-24 05:08] LABS: Basophils % (Auto) 0.2 % (0.0-1.8); Eosinophils # (Auto) 0.3 K/mm3 (0.0-0.4); Eosinophils % (Auto) 3.9 % (0.0-4.3); Hematocrit 34.4 % (35.5-45.6); Hemoglobin 10.8 gm/dl (11.8-15.2); Lymphocytes # (Auto) 0.6 K/mm3 (1.2-5.4); Lymphocytes % (Auto) 8.5 % (13.4-35.0); Mean Corpuscular HGB Conc 32 % (32-34); Mean Corpuscular Volume 75 fl (84-94); Monocytes # (Auto) 0.4 K/mm3 (0.0-0.8); Monocytes % (Auto) 6.2 % (0.0-7.3); Platelet Count 110 K/mm3 (140-440); Red Blood Count 4.57 M/mm3 (3.65-5.03); Red Cell Distribution Width 17.3 % (13.2-15.2)
[2022-01-24 05:13] LABS: Alanine Aminotransferase 163 units/L (7-56); Albumin 2.3 g/dL (3.9-5); BUN/Creatinine Ratio 16; Blood Urea Nitrogen 19 mg/dL (9-20); Calcium 7.9 mg/dL (8.4-10.2); Hemolysis Index 2
--- NOTE | 2022-01-24 07:21 | Progress Note ---
Assessment and Plan - Patient Problems (1) Atrial fibrillation Current Visit: Yes Status: Acute Plan to address problem: The patient is frail, elderly, cachectic and poorly communicative. Admitted with mental status changes associated with urinary tract infection, sepsis and lactic acidosis. During this hospitalization, there was a development of transient atrial fibrillation. He has since returned to a stable sinus rhythm. Echocardiogram showed mild left ventricular function impairment. Due to the development of liver transaminitis, I will discontinue both amiodarone and atorvastatin. I will instead use metoprolol for paroxysmal atrial fibrillation. Due to advanced age, frailty, multiple comorbidities including a low platelet count and anemia, he is a high risk candidate for oral anticoagulation. Subjective Date of service: 01/24/22 Principal diagnosis: Acute encephalopathy Interval history: Patient is noncommunicative, with NG tube in place. No acute distress. No new cardiac events reported. Recent laboratory values show elevated liver enzymes with alkaline phosphatase up to 450. Objective Vital Signs Temp Pulse Resp BP BP Pulse Ox 01/24/22 04:21 97.6 F 61 18 152/93 99 01/23/22 22:00 97.9 F 60 18 107/62 97 01/23/22 15:47 99.2 F 67 20 150/84 100 01/23/22 10:51 97.4 F L 58 L 18 144/76 100 01/23/22 09:59 98 01/23/22 08:27 97 - Physical Examination General: No Apparent Distress, Cachectic HEENT: Positive: Normocephaly Neck: Positive: neck supple Cardiac: Positive: Reg Rate and Rhythm Lungs: Positive: Decreased Breath Sounds Neuro: Positive: Weakness (Generalized lethargy) Abdomen: Positive: Soft Skin: Negative: Rash Extremities: Absent: edema - Labs and Meds Cardiac Enzymes 01/23/22 01/24/22 Range/Units 08:14 04:28 AST 65 H 120 H (5-40) units/L CBC 01/23/22 01/24/22 Range/Units 08:14 04:28 WBC 7.5 7.0 (4.5-11.0) K/mm3 RBC 3.98 4.57 (3.65-5.03) M/mm3 Hgb 9.4 L 10.8 L (11.8-15.2) gm/dl Hct 30.4 L 34.4 L (35.5-45.6) % Plt Count 96 L 110 L (140-440) K/mm3 Lymph # (Auto) 0.5 L 0.6 L (1.2-5.4) K/mm3 Dickens # (Auto) 0.4 0.4 (0.0-0.8) K/mm3 Eos # (Auto) 0.2 0.3 (0.0-0.4) K/mm3 Baso # (Auto) 0.0 0.0 (0.0-0.1) K/mm3 Comprehensive Metabolic Panel 01/23/22 01/23/22 01/23/22 Range/Units 08:14 19:34 21:38 Sodium 139 D 136 L (137-145) mmol/L Potassium 2.9 L* 4.4 D 4.0 (3.6-5.0) mmol/L Chloride 105.3 104.1 (98-107) mmol/L Carbon Dioxide 26 25 (22-30) mmol/L BUN 30 H 22 H (9-20) mg/dL Creatinine 1.3 1.2 (0.8-1.3) mg/dL Glucose 103 H 92 (75-100) mg/dL Calcium 7.9 L 8.1 L (8.4-10.2) mg/dL AST 65 H (5-40) units/L ALT 124 H (7-56) units/L Alkaline Phosphatase 292 H (35-129) units/L Total Protein 5.8 L (6.3-8.2) g/dL Albumin 1.9 L (3.9-5) g/dL 01/24/22 Range/Units 04:28 Sodium 138 (137-145) mmol/L Potassium 4.2 (3.6-5.0) mmol/L Chloride 105.5 (98-107) mmol/L Carbon Dioxide 26 (22-30) mmol/L BUN 19 (9-20) mg/dL Creatinine 1.2 (0.8-1.3) mg/dL Glucose 89 (75-100) mg/dL Calcium 7.9 L (8.4-10.2) mg/dL AST 120 H (5-40) units/L ALT 163 H (7-56) units/L Alkaline Phosphatase 451 H (35-129) units/L Total Protein 6.4 (6.3-8.2) g/dL Albumin 2.3 L (3.9-5) g/dL - EKG Sinus rhythms and dysrhythmias: sinus tachycardia Chamber hypertrophy or enlargement: left ventricular hypertro Repolarization changes or abnormalities: early repolarization due to LVH
[2022-01-24] MEDS: IPRATROPIUM/ALBUTEROL SULFATE 3 ML AMPUL.NEB IH SCH ×3 (08:01→19:31)
--- NOTE | 2022-01-24 09:14 | Progress Note ---
Assessment and Plan Assessment and plan: 71 years old male from assisted with history of colon cancer s/p chemotherapy with colostomy was brought to the emergency room from custodial because of dyspnea and respiratory distress. Patient is also altered Mental Status. Patient is on Non rebreather on and O2 sat 100%. Kumar cath in place. Patient is a very poor historian. In the ER patient chest x-ray shows pneumonia, patient sodium is 154, potassium 5.6 BUN 135 creatinine 4.7, glucose 162, lactic acid 5.20, troponin 0.149. Also patient has UTI.'s were going to admit the patient we will put the patient on IMCU. We will put the patient on IV fluid antibiotic. We will consult cardiology as well as nephrology for evaluation. Hospital Course: Spoke extensively with son about history. Patient has a history of colon cancer S4 with mets to liver. He has only undergone one course of chemotherapy a t [facility]. He was recently discharged 1 month ago from [place] for UTI. Currently the patient resides in SNF. Per the son pt has lost a lot of weight. has been struggling with feeding. I e xplained that the patient's mcc prognosis is poor. We discussed hospice breifly but son was not ready to go over this. I mentioned that in the next 24- 48hrs we could reassess. 01/19: Continue aggressive hydration for NATHALIE. Nephrology recs noted ,no emergent indication for CASH APPLICATIONS SPECIALIST. Treatment of Sepsis/UTI/PNA with IV Abx. HR mostly controlled on amiodorone. Continue heparin gtt. 01/20: Dobhoff placed, Tube feeds started, Nepro @ 30 cc/hr. ST eval pending. Aggressive IVF rehydration (currently on D5W) per nephrology, cr: 3.1 this AM. WBC: 16.7....Currently on Azithromycin/Rocephin for CAP/UTI tx. Prognosis remains Guarded/poor. Patient is severely malnourished and cachectic. 01/21: TF continues to run at 30cc/hr. Patient alert to person only. Will continue with current care plan. Patient may require PEG tube. Will discuss with NOK. 01/22: NOK agreeable to PEG. GI and General surgery consulted. Awaiting CT scan of the abdomen, will consult IR for possible PEG placement afterward 01/23: Family meeting with patients Sister and son at bedside. Agreed to continue care and PEG tube placement with plan to discharge back to care facility. 01/24: Patient clinically stable, plan for PEG tube later today Assessment and Plan: #Sepsis POA-improving #Urinary tract infection #Left lower lobe pneumonia #Lactic Acidosis - WBC: 12, tachycardia, elevated urine wbc 182, LA 5.2 - CXR: LLL pneumonic process - blood culture and urine culture NGTD -MRSA screen, COVID PCR negative (recent outbreak at facility) - s/p Abx therapy with Rocephin IV, azithromycin (end date 01/22/2022) #Elevated liver enzymes -Elevated AST/ALT and alkaline phosphatase -Patient with known liver mets -Amiodarone and statin therapy discontinued by cardiology -We will continue to trend #Atrial fibrillation with rapid ventricular response #NSTEMI, type II - elevated troponin: 0.149 --> 0.088 - BNP: 2068 - TTE with poor quality per Cardiology due to body habitus - tele: afib, ventricular rate 90-110 - Amiodarone discontinued due to elevation LFTs - heparin gtt stopped and eliquis currently held for PEG tube placement - Cardiology following, assistance appreciated #Acute kidney injury due to vasomotor nephropathy-resolved #Hypokalemia-resolved #Hyponatremia #Metabolic Acidosis-improving - sepsis/dehydration likely driving NATHALIE - SCr improved to 1.3 after IVF fluids - renal US: mild prominence of renal pelvis - continue to replete and monitor potassium levels - Nephrology following, assistance appreciated #Acute metabolic encephalopathy-resolved - etiology: multifactorial poor po intake, UTI, NATHALIE - IVF, management as above. - CT brain negative, MRI negative for acute findings #History of colon cancer on chemotherapy #Failure to thrive #moderate protein calorie malnutrition - apparently stage 4 Colon CA, mets to liver per son - has only had one session of chemotherapy. - only on puree diet per history, currently NPO with TFs running - patient son agreeable to PEG tube placement, GI & general surgery consulted #Advance care planning - Disease education conducted, care plan discussed, diagnoses discussed, prognosis discussed, patient is AND/DNR, patient and his son acknowledges understanding and agree with care plan, +30 minutes. History Interval history: No acute events overnight per nursing. Patient is alert. He denies current pain and discomfort. We discussed plan for PEG today patient responded "what ever". Hospitalist Physical - Physical exam Narrative exam: GENERAL: Cachextic male. In no acute distress. HEENT: NGT in place without feeds running NECK: Supple. CHEST/LUNGS: CTAB on room air HEART/CARDIOVASCULAR: Irregularly irregular rhythm. No murmur, rubs or gallops appreciated. ABDOMEN: +BS. NT/ND. SKIN: No rashes noted. NEURO: Patient follows commands. MUSCULOSKELETAL: No joint effusion EXTREMITIES: No cyanosis, clubbing or edema. PSYCH: AAOx3 today. - Constitutional Vitals: Temp Pulse Resp BP Pulse Ox 97.6 F 58 L 18 152/93 99 01/24/22 04:21 01/24/22 08:00 01/24/22 08:00 01/24/22 04:21 01/24/22 04:21 General appearance: Present: cachectic HEART Score - HEART Score Troponin: Troponin T 0.088 ng/mL (0.00-0.029) H D 01/18/22 13:40 Results - Labs CBC & Chem 7: 01/24/22 04:28 01/24/22 04:28 Labs: Laboratory Last Values WBC 7.0 K/mm3 (4.5-11.0) 01/24/22 04:28 RBC 4.57 M/mm3 (3.65-5.03) 01/24/22 04:28 Hgb 10.8 gm/dl (11.8-15.2) L 01/24/22 04:28 Hct 34.4 % (35.5-45.6) L 01/24/22 04:28 MCV 75 fl (84-94) L 01/24/22 04:28 MCH 24 pg (28-32) L 01/24/22 04:28 MCHC 32 % (32-34) 01/24/22 04:28 RDW 17.3 % (13.2-15.2) H 01/24/22 04:28 Plt Count 110 K/mm3 (140-440) L 01/24/22 04:28 Lymph % (Auto) 8.5 % (13.4-35.0) L 01/24/22 04:28 [place] % (Auto) 6.2 % (0.0-7.3) 01/24/22 04:28 Eos % (Auto) 3.9 % (0.0-4.3) 01/24/22 04:28 Baso % (Auto) 0.2 % (0.0-1.8) 01/24/22 04:28 Lymph # (Auto) 0.6 K/mm3 (1.2-5.4) L 01/24/22 04:28 [place] # (Auto) 0.4 K/mm3 (0.0-0.8) 01/24/22 04:28 Eos # (Auto) 0.3 K/mm3 (0.0-0.4) 01/24/22 04:28 Baso # (Auto) 0.0 K/mm3 (0.0-0.1) 01/24/22 04:28 Add Manual Diff Complete 01/21/22 05:37 Total Counted 100 01/21/22 05:37 Seg Neutrophils % 81.2 % (40.0-70.0) H 01/24/22 04:28 Seg Neuts % (Manual) 92.0 % (40.0-70.0) H 01/21/22 05:37 Band Neutrophils % 0 % 01/21/22 05:37 Lymphocytes % (Manual) 6.0 % (13.4-35.0) L 01/21/22 05:37 Reactive Lymphs % (Man) 0 % 01/21/22 05:37 Monocytes % (Manual) 2.0 % (0.0-7.3) 01/21/22 05:37 Eosinophils % (Manual) 0 % (0.0-4.3) 01/21/22 05:37 Basophils % (Manual) 0 % (0.0-1.8) 01/21/22 05:37 Metamyelocytes % 0 % 01/21/22 05:37 Myelocytes % 0 % 01/21/22 05:37 Promyelocytes % 0 % 01/21/22 05:37 Blast Cells % 0 % 01/21/22 05:37 Nucleated RBC % Not Reportable 01/21/22 05:37 Seg Neutrophils # 5.7 K/mm3 (1.8-7.7) 01/24/22 04:28 Seg Neutrophils # Man 11.3 K/mm3 (1.8-7.7) H 01/21/22 05:37 Band Neutrophils # 0.0 K/mm3 01/21/22 05:37 Lymphocytes # (Manual) 0.7 K/mm3 (1.2-5.4) L 01/21/22 05:37 Abs React Lymphs (Man) 0.0 K/mm3 01/21/22 05:37 Monocytes # (Manual) 0.2 K/mm3 (0.0-0.8) 01/21/22 05:37 Eosinophils # (Manual) 0.0 K/mm3 (0.0-0.4) 01/21/22 05:37 Basophils # (Manual) 0.0 K/mm3 (0.0-0.1) 01/21/22 05:37 Metamyelocytes # 0.0 K/mm3 01/21/22 05:37 Myelocytes # 0.0 K/mm3 01/21/22 05:37 Promyelocytes # 0.0 K/mm3 01/21/22 05:37 Blast Cells # 0.0 K/mm3 01/21/22 05:37 WBC Morphology Not Reportable 01/21/22 05:37 Hypersegmented Neuts Not Reportable 01/21/22 05:37 Hyposegmented Neuts Not Reportable 01/21/22 05:37 Hypogranular Neuts Not Reportable 01/21/22 05:37 Smudge Cells Not Reportable 01/21/22 05:37 Toxic Granulation Not Reportable 01/21/22 05:37 Toxic Vacuolation Not Reportable 01/21/22 05:37 Dohle Bodies Not Reportable 01/21/22 05:37 Pelger-Huet Anomaly Not Reportable 01/21/22 05:37 Bj Rods Not Reportable 01/21/22 05:37 Platelet Estimate Consistent w auto 01/21/22 05:37 Clumped Platelets Not Reportable 01/21/22 05:37 Plt Clumps, EDTA Not Reportable 01/21/22 05:37 Large Platelets Not Reportable 01/21/22 05:37 Giant Platelets Not Reportable 01/21/22 05:37 Platelet Satelliting Not Reportable 01/21/22 05:37 Plt Morphology Comment Not Reportable 01/21/22 05:37 RBC Morphology Not Reportable 01/21/22 05:37 Dimorphic RBCs Not Reportable 01/21/22 05:37 Polychromasia Not Reportable 01/21/22 05:37 Hypochromasia 2+ 01/21/22 05:37 Poikilocytosis Not Reportable 01/21/22 05:37 Anisocytosis 1+ 01/21/22 05:37 Microcytosis Not Reportable 01/21/22 05:37 Macrocytosis Not Reportable 01/21/22 05:37 Spherocytes Not Reportable 01/21/22 05:37 Pappenheimer Bodies Not Reportable 01/21/22 05:37 Sickle Cells Not Reportable 01/21/22 05:37 Target Cells Not Reportable 01/21/22 05:37 Tear Drop Cells Not Reportable 01/21/22 05:37 Ovalocytes Not Reportable 01/21/22 05:37 Helmet Cells Not Reportable 01/21/22 05:37 [place] Bodies Not Reportable 01/21/22 05:37 [place] Rings Not Reportable 01/21/22 05:37 Dilip Cells Not Reportable 01/21/22 05:37 Bite Cells Not Reportable 01/21/22 05:37 Crenated Cell Not Reportable 01/21/22 05:37 Elliptocytes Not Reportable 01/21/22 05:37 Acanthocytes (Spur) Not Reportable 01/21/22 05:37 Rouleaux Not Reportable 01/21/22 05:37 Hemoglobin C Crystals Not Reportable 01/21/22 05:37 Schistocytes Not Reportable 01/21/22 05:37 Malaria parasites Not Reportable 01/21/22 05:37 Sahil Bodies Not Reportable 01/21/22 05:37 Hem Pathologist Commnt No 01/21/22 05:37 PT 16.9 Sec. (12.2-14.9) H 01/21/22 14:52 INR 1.20 (0.87-1.13) H 01/21/22 14:52 APTT 33.0 Sec. (24.2-36.6) 01/21/22 14:52 Heparin Anti-Xa Level < 0.10 U.I./ml (0.3-0.7) L 01/21/22 14:52 ABG pH 7.383 pH Units (7.350-7.450) 01/17/22 22:05 ABG pCO2 32.8 mm Hg 01/17/22 22:05 ABG pO2 210.4 mm Hg (80.0-90.0) H 01/17/22 22:05 ABG HCO3 19.1 mmol/L (20.0-26.0) L 01/17/22 22:05 ABG O2 Saturation 99.3 % (95.0-99.0) H 01/17/22 22:05 ABG O2 Content 20.3 (0.0-44) 01/17/22 22:05 ABG Base Excess -4.9 mmol/L (-2.0-3.0) L 01/17/22 22:05 ABG Hemoglobin 14.5 gm/dl (14.0-18.0) 01/17/22 22:05 ABG Carboxyhemoglobin 1.2 % (0.0-5.0) 01/17/22 22:05 ABG Methemoglobin 0.6 % (0.0-1.5) 01/17/22 22:05 Oxyhemoglobin 97.5 % (95.0-99.0) 01/17/22 22:05 FiO2 100 % 01/17/22 22:05 Sodium 138 mmol/L (137-145) 01/24/22 04:28 Potassium 4.2 mmol/L (3.6-5.0) 01/24/22 04:28 Chloride 105.5 mmol/L (98-107) 01/24/22 04:28 Carbon Dioxide 26 mmol/L (22-30) 01/24/22 04:28 Anion Gap 11 mmol/L 01/24/22 04:28 BUN 19 mg/dL (9-20) 01/24/22 04:28 Creatinine 1.2 mg/dL (0.8-1.3) 01/24/22 04:28 Estimated GFR > 60 ml/min 01/24/22 04:28 BUN/Creatinine Ratio 16 % 01/24/22 04:28 Glucose 89 mg/dL (75-100) 01/24/22 04:28 POC Glucose 107 mg/dL (70-105) H 01/24/22 06:02 Ketones Quantitative Negative (Negative) 01/17/22 22:34 Lactic Acid 2.20 mmol/L (0.7-2.0) H* 01/22/22 22:00 Calcium 7.9 mg/dL (8.4-10.2) L 01/24/22 04:28 Total Bilirubin 0.20 mg/dL (0.1-1.2) 01/24/22 04:28 AST 120 units/L (5-40) H 01/24/22 04:28 ALT 163 units/L (7-56) H 01/24/22 04:28 Alkaline Phosphatase 451 units/L (35-129) H 01/24/22 04:28 Ammonia 14.0 umol/L (25-60) L 01/17/22 22:34 Total Creatine Kinase 48 units/L (55-170) L 01/17/22 22:34 Troponin T 0.088 ng/mL (0.00-0.029) H D 01/18/22 13:40 C-Reactive Protein 5.80 mg/dL (0.00-1.30) H 01/17/22 22:34 NT-Pro-B Natriuret Pep 2069 pg/mL (0-900) H 01/17/22 22:34 Total Protein 6.4 g/dL (6.3-8.2) 01/24/22 04:28 Albumin 2.3 g/dL (3.9-5) L 01/24/22 04:28 Albumin/Globulin Ratio 0.6 % 01/24/22 04:28 Triglycerides 143 mg/dL (2-149) 01/17/22 22:34 Cholesterol 224 mg/dL (50-199) H 01/17/22 22:34 LDL Cholesterol Direct 114 mg/dL (50-130) 01/17/22 22:34 HDL Cholesterol 73 mg/dL (40-59) H 01/17/22 22:34 Cholesterol/HDL Ratio 3.06 % 01/17/22 22:34 Urine Color Yellow (Yellow) 01/17/22 21:49 Urine Turbidity Cloudy (Clear) 01/17/22 21:49 Specific [place] (Man) 1.020 (1.003-1.030) 01/17/22 21:49 Ur Protein (Man) 2+ mg/dL (Negative) 01/17/22 21:49 Ur Ketones (Man) Negative (Negative) 01/17/22 21:49 Ur Nitrite (Man) Positive (Negative) 01/17/22 21:49 Ur Reducing Substances Not Reportable 01/17/22 21:49 Urine Bilirubin (Man) Negative (Negative) 01/17/22 21:49 Urine Ictotest Not Reportable 01/17/22 21:49 Leukocyte Esterase (Man) Moderate (Negative) 01/17/22 21:49 Urine WBC (Auto) > 182.0 /HPF (0.0-6.0) H 01/17/22 21:49 Urine RBC (Auto) 17.0 /HPF (0.0-6.0) 01/17/22 21:49 Urine Bacteria (Auto) 3+ /HPF (Negative) 01/17/22 21:49 Urine RBC (Manual) 1+ (Negative) 01/17/22 21:49 Urine WBC Clumps 3+ /HPF 01/17/22 21:49 Urine Mucus Few /HPF 01/17/22 21:49 Urine Yeast (Budding) 3+ /HPF 01/17/22 21:49 Salicylates < 0.3 mg/dL (2.8-20.0) L 01/17/22 22:34 Coronavirus (PCR) Negative (Negative) 01/19/22 10:10 Kumar/IV: Voiding Method Indwelling Catheter Active Medications - Current Medications Current Medications: Generic Name Dose Route Start Last Admin Trade Name Freq PRN Reason Stop Dose Admin Acetaminophen 650 mg 01/18/22 02:52 Acetaminophen 325 Mg Tab PO Q4H PRN Pain MILD(1-3)/Fever >100.5/LUTHER Albuterol/Ipratropium 1 ampul 01/22/22 08:00 01/24/22 08:01 Ipratropium/Albuterol Sulfate 3 Ml Ampul.Neb IH 1 ampul TIDRT ROSCOE Administration Aspirin 81 mg 01/19/22 10:00 01/23/22 10:47 Aspirin 81 Mg Tab Chew FEEDTUBE 81 mg QDAY ROSCOE Administration Famotidine 20 mg 01/24/22 10:00 Famotidine 20 Mg Tab FEEDTUBE DAILY ROSCOE Hydrophilic Ointment 1 applic 01/20/22 16:53 01/23/22 10:47 Lip Therapy Vaseline TP 1 applic DIRECT PRN Administration Dry Lips Dextrose 1,000 mls @ 125 mls/hr 01/21/22 09:00 01/24/22 01:01 D5w IV 125 mls/hr DIRECT ROSCOE Administration Metoprolol Tartrate 25 mg 01/24/22 07:00 Metoprolol Tartrate 25 Mg Tab PO Q8HR ROSCOE Morphine Sulfate 2 mg 01/18/22 02:52 Morphine 2 Mg/1 Ml Inj IV Q4H PRN Pain, Moderate (4-6) Morphine Sulfate 4 mg 01/18/22 02:52 Morphine 4 Mg/1 Ml Inj IV Q4H PRN Pain , Severe (7-10) Nitroglycerin 0.4 mg 01/18/22 02:55 Nitroglycerin 0.4 Mg Tab Subl SL Q5M PRN Chest Pain Ondansetron HCl 4 mg 01/18/22 02:52 Ondansetron 4 Mg/2 Ml Inj IV Q8H PRN Nausea And Vomiting Sodium Chloride 10 ml 01/18/22 10:00 01/23/22 22:42 Sodium Chloride 0.9% 10 Ml Flush Syringe IV 10 ml BID ROSCOE Administration Sodium Chloride 10 ml 01/18/22 02:52 Sodium Chloride 0.9% 10 Ml Flush Syringe IV PRN PRN LINE FLUSH Thiamine HCl 100 mg 01/24/22 10:00 Thiamine 100 Mg Tab FEEDTUBE QDAY ROSCOE Tramadol HCl 50 mg 01/18/22 02:55 Tramadol 50 Mg Tab PO Q6H PRN Pain, Moderate (4-6) Nutrition/Malnutrition Assess - Dietary Evaluation Nutrition/Malnutrition Findings: Nutrition Notes Start: 01/18/22 09:21 Freq: Status: Active Protocol: Document 01/21/22 10:08 JONO (Rec: 01/21/22 10:51 JONO [id number]) Nutrition Notes Initial or Follow up Reassessment Current Diagnosis Acute Kidney Injury,Sepsis, Hypertension,Heart Failure Other Pertinent Diagnosis Atrial Fibrilation/RVR, CAP, FTT, UTI, Encephalopathy, Anemia, Colon CA,... Current Diet TF-Nepro w/CARBSTEADY @ 30 ml/ hr (since L 01/20). Labs/Tests 01/21: Na 154, K 3.5, Cl 117.3 , BUN 88, Crea 2.5, Glu 131. Pertinent Medications 01/21: Thiamine, others nutritionally unremarkable. Height 5 ft 11 in Weight 68.039 kg [place] Body Weight (kg) 78.18 BMI 20.9 Weight change and time frame no body weight change reported in 4 days. Weight Status Appropriate Subjective/Other Information RD consult for routine F/U on dietary advancement assessment . started TF without RD consultation on 01/20. Pt is on Room Air, O2 saturation @ 98%, according to Physical Assessment History notes. PAPER SALES REPRESENTATIVE note on 01/20/22 13:11: Swallowing function has been assessed. Patient demonstrates a severe oral and pharyngeal phase dysphagia characterized by bolus holding and failure to swallow. Recommend NPO. Will reassess in 24 hours. - END OF NOTE. Pt has caries and missing teeth, according to Physical Assessment History notes. Pt has a colostomy poa, according to Physical Assessment History notes. Pt is a SNF resident, according to Progress notes. Percent of energy/protein needs met: Prescribed TF-Nepro w/ CARBSTEADY @ 30 ml/hr provides for energy/protein needs (1, 275 Kcal/57 g) during LOS, 62% Kcal; 100% AA. Burn Absent Trauma Absent GI Symptoms None Difficulty In Swallowing Food Allergy No Skin Integrity/Comment Assessment WNL. Current % PO Other Minimum of two criteria No Energy Intake (severe) < or equal to 50% Estimated Energy Requirement > or equal to 5 days Muscle Mass Mild Depletion (non-severe) Fluid Accumulation N/A Protein-Calorie Malnutrition N\\A #1 Nutrition Diagnosis Inadequate oral intake Comments: PAPER SALES REPRESENTATIVE note on 01/20/22 13:11: Swallowing function has been assessed. Patient demonstrates a severe oral and pharyngeal phase dysphagia characterized by bolus holding and failure to swallow. Recommend NPO. Will reassess in 24 hours. - END OF NOTE. started TF without RD consultation on 01/20. Diagnosis Progress(for reassessment Continues documentation) Is patient on ventilator? No Is Patient Ambulatory and/or Out of Bed No REE-([facility]-confined to bed) 1743.204 Kcal/Kg value to use for calculation 30 Approximate Energy Requirements Using 2041 kcal/Kg Calculation Used for Recommendations Kcal/kg Additional Notes Protein: 0.8-1.2 g/Kg ABW; 54- 82 g/day. Fluids: 1 ml/Kcal, or as per MD. Nutrition Intervention Nutrition Support: Continue TF-Nepro w/CARBSTEADY @ 30 ml/hr. Flush: 250 ml water Q 4 hr, or as per MD. Kcal 1,275 Protein (gm) 57 Carbohydrates (gm) 114 Fat (gm) 68 Fluid (mL) 515 Fiber (gm) 9 % RDI: 62% Kcal; 100% AA. Goal #1 Provide at least 75% of energy /protein needs through Enteral Feeding during LOS. Goal #2 Adjust the dietary intervention to better serve Pt's energy/protein needs and clinical conditions during LOS . Follow-Up By: 01/28/22 Additional Comments Continue monitoring TF tolerance, TF adjustment/ increase rate, and BM.
[2022-01-24] MEDS: METOPROLOL TARTRATE 25 MG TAB PO SCH ×3 (11:34→22:30)
[2022-01-24] MEDS: ASPIRIN 81 MG TAB CHEW FEEDTUBE SCH (11:34)
[2022-01-24] MEDS: THIAMINE 100 MG TAB FEEDTUBE SCH (11:34)
[2022-01-24] MEDS: FAMOTIDINE 20 MG TAB FEEDTUBE SCH (11:34)
--- NOTE | 2022-01-24 12:08 | Anesthesia Consultation ---
<HANNAH BUCK - Last Filed: 01/24/22 12:02> Anesthesia Consult and Med Hx Date of service: 01/24/22 - Airway Anesthetic Teeth Evaluation: Poor (unable to adequately assess due to altered mental status) Mental/Hyoid Distance: Adequate Intubation Access Assessment: Probably Good - Pre-Operative Health Status Proposed Anesthetic Plan: General - Pulmonary Hx Smoking: No Hx Respiratory Symptoms: No - Cardiovascular System Hx Hypertension: Yes (CHF) Hx Cardia Arrhythmia: Yes (paroxysmal AF) Hx Pacemaker: No Hx Internal Defibrillator: No - Endocrine Hx Renal Disease: Yes - Other Systems Hx Cancer: Yes (colon - s/p chemo & colostomy) - Additional Comments Anesthesia Medical History Comments: Limited medical history due to pt's poor mental status. A DNR order is currently in place, however son has agreed to rescind the order completely for the operative period. Consent placed on chart. <PAUL WAGGONER - Last Filed: 01/24/22 15:14> Anesthesia Consult and Med Hx - Pre-Operative Health Status ASA Pre-Surgery Classification: ASA3
--- NOTE | 2022-01-24 12:09 | Anesthesia Day of Surgery ---
Anesthesia Day of Surgery - Day of Surgery Patient Examined: Yes Patient H&P Reviewed: Yes Patient is NPO: Yes
[2022-01-24] MEDS ORDERED: LIDOCAINE (2%) 20 MG/1 ML VIAL 20 ML MDV INFILTRATI ONE ×2 (12:54→15:28)
[2022-01-24] MEDS ORDERED: BUPIVACAINE-EPINEPHRINE/PF 0.5%-1:200,000 (30 ML) VIAL INFILTRATI ONE (12:55)
[2022-01-24] MEDS ORDERED: fentaNYL 100 MCG/2 ML INJ ONE (14:15)
[2022-01-24] MEDS ORDERED: ONDANSETRON 4 MG/2 ML INJ ONE (14:15)
[2022-01-24] MEDS ORDERED: LIDOCAINE MPF (2%) 20 MG/1 ML VIAL 5 ML ONE (14:15)
[2022-01-24] MEDS ORDERED: ROCURONIUM 50 MG/5 ML INJ IV ONE (14:15)
[2022-01-24] MEDS ORDERED: propofoL 200 MG/20 ML VIAL IV ONE (14:16)
[2022-01-24] MEDS ORDERED: SODIUM CHLORIDE 0.9% 1000 ML 1,000 ML ONE (14:38)
[2022-01-24] MEDS ORDERED: ePHEDrine SULFATE 50 MG/1 ML INJ ONE (14:38)
[2022-01-24] MEDS ORDERED: WATER FOR IRRIG STERILE 250 ML BOTTLE IR ONE (14:42)
[2022-01-24] MEDS ORDERED: HYDROmorphone 0.5 MG/0.5 ML INJ IV PRN (15:24)
[2022-01-24] MEDS ORDERED: BUPIVACAINE-EPINEPHRINE/PF 0.5%-1:200,000 (10 ML) VIAL INFILTRATI ONE (15:28)
[2022-01-24] MEDS ORDERED: SODIUM CHLORIDE 0.9% IRR 1,500 ML BOTTLE IR ONE (15:28)
[2022-01-24] MEDS ORDERED: GLYCOPYRROLATE 0.4 MG/2 ML INJ ONE (15:41)
[2022-01-24] MEDS ORDERED: NEOSTIGMINE 10MG/10 ML INJ MDV ONE (15:41)
--- NOTE | 2022-01-24 16:07 | Operative Report ---
Operative Report Operative Report: General Surgery operative report: Preoperative diagnosis: Metastatic colon cancer Postoperative diagnosis: Metastatic colon cancer Surgeon: Anabell Karimi Anesthesia: Undercoat Sprayer: None available Procedure: esophagogastroduodenoscopy Procedure indication: This is a 71-year-old man with metastatic colon cancer who is status post chemotherapy and what looks like end colostomy. Surgery was consulted for failure to thrive and unable to tolerate oral intake. Decision was made to undergo a feeding tube placement. Procedure findings: Narrow gastroesophageal junction without notable masses Procedure details: The patient was brought to the operating room general anesthesia was administered he was positioned in a supine position with arms tucked. Please refer to Dr. Hawk's operative report for the rest of the procedure. After a diagnostic laparoscopy we were able to identify the stomach adhered to the abdominal wall with signs of a prior gastrostomy tube placement. The EGD scope was inserted into the mouth and into the stomach with ease there was some resistance at the gastroesophageal junction which was noted to be stenotic but there was no visible masses. The stomach was insufflated and laparoscopic guided PEG tube placement was done ensuring that the gastrostomy tube was placed through the stomach only. After securing the gastrostomy tube the stomach was desufflated and my part of the procedure was done. Estimated blood loss: Minimal Grafts or implants: None
--- NOTE | 2022-01-24 16:10 | Operative Report ---
Operative Report Operative Report: Date of procedure: 01/24/2022 Preop diagnosis: Stage IV colon cancer and dysphagia with anorexia Postop diagnosis: Same with extensive intra-abdominal adhesions Procedure: Laparoscopic exploration, lysis of adhesions, Assist with peg tube placement Surgeon: Dr. Rodriguez Firer Electric Locomotive: Dr. Corrales Anesthesia: General endotracheal anesthesia Estimated blood loss: 100 cc Specimen: None Findings: This patient was seen for surgical consultation for feeding tube placement. Preoperative evaluation included a CT of the abdomen pelvis. He has a history of stage IV colon cancer as an end colostomy in the left hypogastric area. There was also a prior history of feeding tube. Patient is taken to the OR and under general endotracheal anesthesia timeouts and consents are reviewed and completed. Abdomen is shaved and then prepped with ChloraPrep. Sterile draping is done. A 3 mm incision is placed in the right upper quadrant a Veress needle was used to insufflate the abdomen with CO2. The incision is enlarged to 5 mm and a Visiport is used to get to gain access to the abdominal cavity. Inspection of the abdomen showed there to be a small superficial injury to the right lobe of the liver. Adhesions in the right upper quadrant are broken up with the laparoscope. The scope was then advanced through an opening in the adhesions beneath the falciform ligament into the left upper quadrant where the stomach is visualized. The stomach is seen to be adhesed to the anterior abdominal wall. Details of the EGD are dictated by Dr. Corrales. The endoscope was advanced through the esophagus and into the stomach. The stomach was unremarkable. The stomach was insufflated and transillumination performed. An area of transillumination was visualized in the left upper quadrant and marked. The skin was then prepped and draped in usual sterile fashion. Local anesthetic was infiltrated to the skin at the intended incision site. A small incision was made in the skin using an 11 blade. An introducer needle/breakaway sheath was inserted directly through this incision into the stomach under direct endoscopic visualization. The needle was removed. The wire was passed and grasped with a snare by the yard assistant and the wire pulled along with the endoscope through the mouth. The PEG tube was assembled onto the wire and pulled back through the mouth and down into the stomach. The outer bumper was at 4 cm at the skin. The PEG tube was cut to size and assembled in the usual fashion. A drain sponge was applied between the skin and the PEG tube and the tube secured with tape. The endoscope history inserted into the mouth and down into the stomach. The PEG tube inner bumper was seen to lay flush against the gastric mucosa without tension. There is no bleeding. The pylorus was entered, and the first portion of the duodenum was unremarkable. The scope was then withdrawn back into the stomach and retroflexed. The entirety of the stomach was unremarkable. The NG tube was withdrawn. The stomach was then desufflated and the endoscope withdrawn. The port was then removed and the CO2 is allowed to exit the abdomen. Wound is closed with 4-0 Monocryl and Dermabond. Patient tolerated the procedure well.
[2022-01-24] MEDS ORDERED: hydrALAZINE 20 MG/1 ML INJ ONE (16:28)
[2022-01-24] MEDS ORDERED: hydrALAZINE 20 MG/1 ML INJ IV NR (16:29)
--- NOTE | 2022-01-24 16:58 | Post Anesthesia Evaluation ---
- Post Anesthesia Evaluation Patient Participated: No (baseline mentation) Airway Patent: Yes Stable Respiratory Function: Yes Nausea/Vomiting: No Temp > 96.8F: Yes Pain Manageable: Yes Adequeate Hydration: Yes Anesthesia Complications: No
[2022-01-25] MEDS: DEXTROSE 5% IN WATER 1,000 ML IV SCH (01:06)
[2022-01-25] MEDS: METOPROLOL TARTRATE 25 MG TAB PO SCH ×3 (06:00→21:48)
[2022-01-25 06:05] LABS: Basophils % (Auto) 0.3 % (0.0-1.8); Eosinophils # (Auto) 0.2 K/mm3 (0.0-0.4); Eosinophils % (Auto) 2.5 % (0.0-4.3); Lymphocytes # (Auto) 0.6 K/mm3 (1.2-5.4); Lymphocytes % (Auto) 8.8 % (13.4-35.0); Mean Corpuscular HGB Conc 30 % (32-34); Mean Corpuscular Volume 76 fl (84-94); Monocytes # (Auto) 0.3 K/mm3 (0.0-0.8); Monocytes % (Auto) 4.9 % (0.0-7.3); Red Blood Count 4.51 M/mm3 (3.65-5.03); Red Cell Distribution Width 17.1 % (13.2-15.2)
[2022-01-25 06:11] LABS: Hematocrit 34.1 % (35.5-45.6); Hemoglobin 10.4 gm/dl (11.8-15.2); Platelet Count 99 K/mm3 (140-440)
[2022-01-25 06:18] LABS: Alanine Aminotransferase 140 units/L (7-56); Albumin 2.2 g/dL (3.9-5); BUN/Creatinine Ratio 12; Blood Urea Nitrogen 12 mg/dL (9-20); Calcium 8.1 mg/dL (8.4-10.2); Hemolysis Index 29
[2022-01-25] MEDS: IPRATROPIUM/ALBUTEROL SULFATE 3 ML AMPUL.NEB IH SCH ×4 (08:15→20:23)
--- NOTE | 2022-01-25 09:16 | Progress Note ---
Assessment and Plan Assessment and plan: 71 years old male from senior living with history of colon cancer s/p chemotherapy with colostomy was brought to the emergency room from senior care because of dyspnea and respiratory distress. Patient is also altered Mental Status. Patient is on Non rebreather on and O2 sat 100%. Kumar cath in place. Patient is a very poor historian. In the ER patient chest x-ray shows pneumonia, patient sodium is 154, potassium 5.6 BUN 135 creatinine 4.7, glucose 162, lactic acid 5.20, troponin 0.149. Also patient has UTI.'s were going to admit the patient we will put the patient on IMCU. We will put the patient on IV fluid antibiotic. We will consult cardiology as well as nephrology for evaluation. Hospital Course: Spoke extensively with son about history. Patient has a history of colon cancer S4 with mets to liver. He has only undergone one course of chemotherapy a t [facility]. He was recently discharged 1 month ago from [facility] for UTI. Currently the patient resides in SNF. Per the son pt has lost a lot of weight. has been struggling with feeding. I e xplained that the patient's nursing home prognosis is poor. We discussed hospice breifly but son was not ready to go over this. I mentioned that in the next 24- 48hrs we could reassess. 01/19: Continue aggressive hydration for NATHALIE. Nephrology recs noted ,no emergent indication for STATEMENT REQUEST CLERK. Treatment of Sepsis/UTI/PNA with IV Abx. HR mostly controlled on amiodorone. Continue heparin gtt. 01/20: Dobhoff placed, Tube feeds started, Nepro @ 30 cc/hr. ST eval pending. Aggressive IVF rehydration (currently on D5W) per nephrology, cr: 3.1 this AM. WBC: 16.7....Currently on Azithromycin/Rocephin for CAP/UTI tx. Prognosis remains Guarded/poor. Patient is severely malnourished and cachectic. 01/21: TF continues to run at 30cc/hr. Patient alert to person only. Will continue with current care plan. Patient may require PEG tube. Will discuss with NOK. 01/22: NOK agreeable to PEG. GI and General surgery consulted. Awaiting CT scan of the abdomen, will consult IR for possible PEG placement afterward 01/23: Family meeting with patients Sister and son at bedside. Agreed to continue care and PEG tube placement with plan to discharge back to care facility. 01/24: Patient clinically stable, plan for PEG tube later today 01/25: Patient stable s/p PEG tube. Will start tube feeds today. Patient in better spirits today. Assessment and Plan: #Sepsis POA-improving #Urinary tract infection #Left lower lobe pneumonia #Lactic Acidosis - WBC: 12, tachycardia, elevated urine wbc 182, LA 5.2 - CXR: LLL pneumonic process - blood culture and urine culture NGTD -MRSA screen, COVID PCR negative (recent outbreak at facility) - s/p Abx therapy with Rocephin IV, azithromycin (end date 01/22/2022) #Elevated liver enzymes -Elevated AST/ALT and alkaline phosphatase -Patient with known liver mets -Amiodarone and statin therapy discontinued by cardiology -We will continue to trend #Atrial fibrillation with rapid ventricular response #NSTEMI, type II - elevated troponin: 0.149 --> 0.088 - BNP: 9 - TTE with poor quality per Cardiology due to body habitus - tele: afib, ventricular rate 90-110 - Amiodarone discontinued due to elevation LFTs - will restart eliquis for anticoagulation today - Cardiology following, assistance appreciated #Acute kidney injury due to vasomotor nephropathy-resolved #Hypokalemia-resolved #Hyponatremia #Metabolic Acidosis-improving - sepsis/dehydration likely driving NATHALIE - SCr improved to 1.3 after IVF fluids - renal US: mild prominence of renal pelvis - continue to replete and monitor potassium levels - Nephrology following, assistance appreciated #Acute metabolic encephalopathy-resolved - etiology: multifactorial poor po intake, UTI, NATHALIE - IVF, management as above. - CT brain negative, MRI negative for acute findings #History of colon cancer on chemotherapy #Failure to thrive #moderate protein calorie malnutrition - apparently stage 4 Colon CA, mets to liver per son - has only had one session of chemotherapy. - PEG tube in place, plan to restart tube feeding #Advance care planning - Disease education conducted, care plan discussed, diagnoses discussed, prognosis discussed, patient is AND/DNR, patient acknowledges understanding and agrees with care plan, +30 minutes. History Interval history: No acute events overnight per nursing. Patient is alert. He denies current pain and discomfort. We discussed plan for PEG today patient responded "what ever". Hospitalist Physical - Physical exam Narrative exam: GENERAL: Cachextic male. In no acute distress. HEENT: Normocephalic. Temporal wasting. CHEST/LUNGS: CTAB on room air HEART/CARDIOVASCULAR: Irregularly irregular rhythm. No murmur, rubs or gallops appreciated. ABDOMEN: +Colostomy and PEG tube. +BS. NT/ND. SKIN: No rashes noted. NEURO: Patient follows commands. MUSCULOSKELETAL: No joint effusion EXTREMITIES: No cyanosis, clubbing or edema. PSYCH: AAOx3 today. - Constitutional Vitals: Temp Pulse Resp BP Pulse Ox 97.7 F 65 20 128/77 96 01/25/22 04:33 01/25/22 08:00 01/25/22 08:00 01/25/22 04:33 01/25/22 04:33 General appearance: Present: cachectic HEART Score - HEART Score Troponin: Troponin T 0.088 ng/mL (0.00-0.029) H D 01/18/22 13:40 Results - Labs CBC & Chem 7: 01/25/22 04:52 01/25/22 04:52 Labs: Laboratory Last Values WBC 6.6 K/mm3 (4.5-11.0) 01/25/22 04:52 RBC 4.51 M/mm3 (3.65-5.03) 01/25/22 04:52 Hgb 10.4 gm/dl (11.8-15.2) L 01/25/22 04:52 Hct 34.1 % (35.5-45.6) L 01/25/22 04:52 MCV 76 fl (84-94) L 01/25/22 04:52 MCH 23 pg (28-32) L 01/25/22 04:52 MCHC 30 % (32-34) L 01/25/22 04:52 RDW 17.1 % (13.2-15.2) H 01/25/22 04:52 Plt Count 99 K/mm3 (140-440) L 01/25/22 04:52 Lymph % (Auto) 8.8 % (13.4-35.0) L 01/25/22 04:52 [place] % (Auto) 4.9 % (0.0-7.3) 01/25/22 04:52 Eos % (Auto) 2.5 % (0.0-4.3) 01/25/22 04:52 Baso % (Auto) 0.3 % (0.0-1.8) 01/25/22 04:52 Lymph # (Auto) 0.6 K/mm3 (1.2-5.4) L 01/25/22 04:52 [place] # (Auto) 0.3 K/mm3 (0.0-0.8) 01/25/22 04:52 Eos # (Auto) 0.2 K/mm3 (0.0-0.4) 01/25/22 04:52 Baso # (Auto) 0.0 K/mm3 (0.0-0.1) 01/25/22 04:52 Add Manual Diff Complete 01/21/22 05:37 Total Counted 100 01/21/22 05:37 Seg Neutrophils % 83.5 % (40.0-70.0) H 01/25/22 04:52 Seg Neuts % (Manual) 92.0 % (40.0-70.0) H 01/21/22 05:37 Band Neutrophils % 0 % 01/21/22 05:37 Lymphocytes % (Manual) 6.0 % (13.4-35.0) L 01/21/22 05:37 Reactive Lymphs % (Man) 0 % 01/21/22 05:37 Monocytes % (Manual) 2.0 % (0.0-7.3) 01/21/22 05:37 Eosinophils % (Manual) 0 % (0.0-4.3) 01/21/22 05:37 Basophils % (Manual) 0 % (0.0-1.8) 01/21/22 05:37 Metamyelocytes % 0 % 01/21/22 05:37 Myelocytes % 0 % 01/21/22 05:37 Promyelocytes % 0 % 01/21/22 05:37 Blast Cells % 0 % 01/21/22 05:37 Nucleated RBC % Not Reportable 01/21/22 05:37 Seg Neutrophils # 5.5 K/mm3 (1.8-7.7) 01/25/22 04:52 Seg Neutrophils # Man 11.3 K/mm3 (1.8-7.7) H 01/21/22 05:37 Band Neutrophils # 0.0 K/mm3 01/21/22 05:37 Lymphocytes # (Manual) 0.7 K/mm3 (1.2-5.4) L 01/21/22 05:37 Abs React Lymphs (Man) 0.0 K/mm3 01/21/22 05:37 Monocytes # (Manual) 0.2 K/mm3 (0.0-0.8) 01/21/22 05:37 Eosinophils # (Manual) 0.0 K/mm3 (0.0-0.4) 01/21/22 05:37 Basophils # (Manual) 0.0 K/mm3 (0.0-0.1) 01/21/22 05:37 Metamyelocytes # 0.0 K/mm3 01/21/22 05:37 Myelocytes # 0.0 K/mm3 01/21/22 05:37 Promyelocytes # 0.0 K/mm3 01/21/22 05:37 Blast Cells # 0.0 K/mm3 01/21/22 05:37 WBC Morphology Not Reportable 01/21/22 05:37 Hypersegmented Neuts Not Reportable 01/21/22 05:37 Hyposegmented Neuts Not Reportable 01/21/22 05:37 Hypogranular Neuts Not Reportable 01/21/22 05:37 Smudge Cells Not Reportable 01/21/22 05:37 Toxic Granulation Not Reportable 01/21/22 05:37 Toxic Vacuolation Not Reportable 01/21/22 05:37 Dohle Bodies Not Reportable 01/21/22 05:37 Pelger-Huet Anomaly Not Reportable 01/21/22 05:37 Bj Rods Not Reportable 01/21/22 05:37 Platelet Estimate Consistent w auto 01/21/22 05:37 Clumped Platelets Not Reportable 01/21/22 05:37 Plt Clumps, EDTA Not Reportable 01/21/22 05:37 Large Platelets Not Reportable 01/21/22 05:37 Giant Platelets Not Reportable 01/21/22 05:37 Platelet Satelliting Not Reportable 01/21/22 05:37 Plt Morphology Comment Not Reportable 01/21/22 05:37 RBC Morphology Not Reportable 01/21/22 05:37 Dimorphic RBCs Not Reportable 01/21/22 05:37 Polychromasia Not Reportable 01/21/22 05:37 Hypochromasia 2+ 01/21/22 05:37 Poikilocytosis Not Reportable 01/21/22 05:37 Anisocytosis 1+ 01/21/22 05:37 Microcytosis Not Reportable 01/21/22 05:37 Macrocytosis Not Reportable 01/21/22 05:37 Spherocytes Not Reportable 01/21/22 05:37 Pappenheimer Bodies Not Reportable 01/21/22 05:37 Sickle Cells Not Reportable 01/21/22 05:37 Target Cells Not Reportable 01/21/22 05:37 Tear Drop Cells Not Reportable 01/21/22 05:37 Ovalocytes Not Reportable 01/21/22 05:37 Helmet Cells Not Reportable 01/21/22 05:37 [place] Bodies Not Reportable 01/21/22 05:37 [place] Rings Not Reportable 01/21/22 05:37 Dilip Cells Not Reportable 01/21/22 05:37 Bite Cells Not Reportable 01/21/22 05:37 Crenated Cell Not Reportable 01/21/22 05:37 Elliptocytes Not Reportable 01/21/22 05:37 Acanthocytes (Spur) Not Reportable 01/21/22 05:37 Rouleaux Not Reportable 01/21/22 05:37 Hemoglobin C Crystals Not Reportable 01/21/22 05:37 Schistocytes Not Reportable 01/21/22 05:37 Malaria parasites Not Reportable 01/21/22 05:37 Sahil Bodies Not Reportable 01/21/22 05:37 Hem Pathologist Commnt No 01/21/22 05:37 PT 16.9 Sec. (12.2-14.9) H 01/21/22 14:52 INR 1.20 (0.87-1.13) H 01/21/22 14:52 APTT 33.0 Sec. (24.2-36.6) 01/21/22 14:52 Heparin Anti-Xa Level < 0.10 U.I./ml (0.3-0.7) L 01/21/22 14:52 ABG pH 7.383 pH Units (7.350-7.450) 01/17/22 22:05 ABG pCO2 32.8 mm Hg 01/17/22 22:05 ABG pO2 210.4 mm Hg (80.0-90.0) H 01/17/22 22:05 ABG HCO3 19.1 mmol/L (20.0-26.0) L 01/17/22 22:05 ABG O2 Saturation 99.3 % (95.0-99.0) H 01/17/22 22:05 ABG O2 Content 20.3 (0.0-44) 01/17/22 22:05 ABG Base Excess -4.9 mmol/L (-2.0-3.0) L 01/17/22 22:05 ABG Hemoglobin 14.5 gm/dl (14.0-18.0) 01/17/22 22:05 ABG Carboxyhemoglobin 1.2 % (0.0-5.0) 01/17/22 22:05 ABG Methemoglobin 0.6 % (0.0-1.5) 01/17/22 22:05 Oxyhemoglobin 97.5 % (95.0-99.0) 01/17/22 22:05 FiO2 100 % 01/17/22 22:05 Sodium 137 mmol/L (137-145) 01/25/22 04:52 Potassium 4.2 mmol/L (3.6-5.0) 01/25/22 04:52 Chloride 102.9 mmol/L (98-107) 01/25/22 04:52 Carbon Dioxide 23 mmol/L (22-30) 01/25/22 04:52 Anion Gap 15 mmol/L 01/25/22 04:52 BUN 12 mg/dL (9-20) 01/25/22 04:52 Creatinine 1.0 mg/dL (0.8-1.3) 01/25/22 04:52 Estimated GFR > 60 ml/min 01/25/22 04:52 BUN/Creatinine Ratio 12 % 01/25/22 04:52 Glucose 112 mg/dL (75-100) H 01/25/22 04:52 POC Glucose 122 mg/dL (70-105) H 01/25/22 05:31 Ketones Quantitative Negative (Negative) 01/17/22 22:34 Lactic Acid 2.20 mmol/L (0.7-2.0) H* 01/22/22 22:00 Calcium 8.1 mg/dL (8.4-10.2) L 01/25/22 04:52 Total Bilirubin < 0.20 mg/dL (0.1-1.2) 01/25/22 04:52 AST 60 units/L (5-40) H 01/25/22 04:52 ALT 140 units/L (7-56) H 01/25/22 04:52 Alkaline Phosphatase 423 units/L (35-129) H 01/25/22 04:52 Ammonia 14.0 umol/L (25-60) L 01/17/22 22:34 Total Creatine Kinase 48 units/L (55-170) L 01/17/22 22:34 Troponin T 0.088 ng/mL (0.00-0.029) H D 01/18/22 13:40 C-Reactive Protein 5.80 mg/dL (0.00-1.30) H 01/17/22 22:34 NT-Pro-B Natriuret Pep 2069 pg/mL (0-900) H 01/17/22 22:34 Total Protein 6.1 g/dL (6.3-8.2) L 01/25/22 04:52 Albumin 2.2 g/dL (3.9-5) L 01/25/22 04:52 Albumin/Globulin Ratio 0.6 % 01/25/22 04:52 Triglycerides 143 mg/dL (2-149) 01/17/22 22:34 Cholesterol 224 mg/dL (50-199) H 01/17/22 22:34 LDL Cholesterol Direct 114 mg/dL (50-130) 01/17/22 22:34 HDL Cholesterol 73 mg/dL (40-59) H 01/17/22 22:34 Cholesterol/HDL Ratio 3.06 % 01/17/22 22:34 Urine Color Yellow (Yellow) 01/17/22 21:49 Urine Turbidity Cloudy (Clear) 01/17/22 21:49 Specific [place] (Man) 1.020 (1.003-1.030) 01/17/22 21:49 Ur Protein (Man) 2+ mg/dL (Negative) 01/17/22 21:49 Ur Ketones (Man) Negative (Negative) 01/17/22 21:49 Ur Nitrite (Man) Positive (Negative) 01/17/22 21:49 Ur Reducing Substances Not Reportable 01/17/22 21:49 Urine Bilirubin (Man) Negative (Negative) 01/17/22 21:49 Urine Ictotest Not Reportable 01/17/22 21:49 Leukocyte Esterase (Man) Moderate (Negative) 01/17/22 21:49 Urine WBC (Auto) > 182.0 /HPF (0.0-6.0) H 01/17/22 21:49 Urine RBC (Auto) 17.0 /HPF (0.0-6.0) 01/17/22 21:49 Urine Bacteria (Auto) 3+ /HPF (Negative) 01/17/22 21:49 Urine RBC (Manual) 1+ (Negative) 01/17/22 21:49 Urine WBC Clumps 3+ /HPF 01/17/22 21:49 Urine Mucus Few /HPF 01/17/22 21:49 Urine Yeast (Budding) 3+ /HPF 01/17/22 21:49 Salicylates < 0.3 mg/dL (2.8-20.0) L 01/17/22 22:34 Coronavirus (PCR) Negative (Negative) 01/19/22 10:10 Kumar/IV: Voiding Method Indwelling Catheter Active Medications - Current Medications Current Medications: Generic Name Dose Route Start Last Admin Trade Name Freq PRN Reason Stop Dose Admin Acetaminophen 650 mg 01/18/22 02:52 Acetaminophen 325 Mg Tab PO Q4H PRN Pain MILD(1-3)/Fever >100.5/LUTHER Albuterol/Ipratropium 1 ampul 01/22/22 08:00 01/25/22 08:15 Ipratropium/Albuterol Sulfate 3 Ml Ampul.Neb IH 1 ampul TIDRT ROSCOE Administration Aspirin 81 mg 01/19/22 10:00 01/24/22 11:34 Aspirin 81 Mg Tab Chew FEEDTUBE Not Given QDAY ROSCOE Famotidine 20 mg 01/24/22 10:00 01/24/22 11:34 Famotidine 20 Mg Tab FEEDTUBE Not Given DAILY ROSCOE Hydrophilic Ointment 1 applic 01/20/22 16:53 01/23/22 10:47 Lip Therapy Vaseline TP 1 applic DIRECT PRN Administration Dry Lips Dextrose 1,000 mls @ 125 mls/hr 01/21/22 09:00 01/25/22 01:06 D5w IV 125 mls/hr DIRECT ROSCOE Administration Metoprolol Tartrate 25 mg 01/24/22 07:00 01/25/22 06:00 Metoprolol Tartrate 25 Mg Tab PO Not Given Q8HR ROSCOE Morphine Sulfate 2 mg 01/18/22 02:52 Morphine 2 Mg/1 Ml Inj IV Q4H PRN Pain, Moderate (4-6) Morphine Sulfate 4 mg 01/18/22 02:52 Morphine 4 Mg/1 Ml Inj IV Q4H PRN Pain , Severe (7-10) Nitroglycerin 0.4 mg 01/18/22 02:55 Nitroglycerin 0.4 Mg Tab Subl SL Q5M PRN Chest Pain Ondansetron HCl 4 mg 01/18/22 02:52 Ondansetron 4 Mg/2 Ml Inj IV Q8H PRN Nausea And Vomiting Sodium Chloride 10 ml 01/18/22 10:00 01/24/22 22:22 Sodium Chloride 0.9% 10 Ml Flush Syringe IV 10 ml BID ROSCOE Administration Sodium Chloride 10 ml 01/18/22 02:52 Sodium Chloride 0.9% 10 Ml Flush Syringe IV PRN PRN LINE FLUSH Thiamine HCl 100 mg 01/24/22 10:00 01/24/22 11:34 Thiamine 100 Mg Tab FEEDTUBE Not Given QDAY ROSCOE Tramadol HCl 50 mg 01/18/22 02:55 Tramadol 50 Mg Tab PO Q6H PRN Pain, Moderate (4-6) Nutrition/Malnutrition Assess - Dietary Evaluation Nutrition/Malnutrition Findings: Nutrition Notes Start: 01/18/22 09:21 Freq: Status: Active Protocol: Document 01/21/22 10:08 JONO (Rec: 01/21/22 10:51 JONO [email or web address]) Nutrition Notes Initial or Follow up Reassessment Current Diagnosis Acute Kidney Injury,Sepsis, Hypertension,Heart Failure Other Pertinent Diagnosis Atrial Fibrilation/RVR, CAP, FTT, UTI, Encephalopathy, Anemia, Colon CA,... Current Diet TF-Nepro w/CARBSTEADY @ 30 ml/ hr (since L 01/20). Labs/Tests 01/21: Na 154, K 3.5, Cl 117.3 , BUN 88, Crea 2.5, Glu 131. Pertinent Medications 01/21: Thiamine, others nutritionally unremarkable. Height 5 ft 11 in Weight 68.039 kg Robinson Body Weight (kg) 78.18 BMI 20.9 Weight change and time frame no body weight change reported in 4 days. Weight Status Appropriate Subjective/Other Information RD consult for routine F/U on dietary advancement assessment . started TF without RD consultation on 01/20. Pt is on Room Air, O2 saturation @ 98%, according to Physical Assessment History notes. THREE DIMENSIONAL ART INSTRUCTOR note on 01/20/22 13:11: Swallowing function has been assessed. Patient demonstrates a severe oral and pharyngeal phase dysphagia characterized by bolus holding and failure to swallow. Recommend NPO. Will reassess in 24 hours. - END OF NOTE. Pt has caries and missing teeth, according to Physical Assessment History notes. Pt has a colostomy poa, according to Physical Assessment History notes. Pt is a SNF resident, according to Progress notes. Percent of energy/protein needs met: Prescribed TF-Nepro w/ CARBSTEADY @ 30 ml/hr provides for energy/protein needs (1, 275 Kcal/57 g) during LOS, 62% Kcal; 100% AA. Burn Absent Trauma Absent GI Symptoms None Difficulty In Swallowing Food Allergy No Skin Integrity/Comment Assessment WNL. Current % PO Other Minimum of two criteria No Energy Intake (severe) < or equal to 50% Estimated Energy Requirement > or equal to 5 days Muscle Mass Mild Depletion (non-severe) Fluid Accumulation N/A Protein-Calorie Malnutrition N\\A #1 Nutrition Diagnosis Inadequate oral intake Comments: THREE DIMENSIONAL ART INSTRUCTOR note on 01/20/22 13:11: Swallowing function has been assessed. Patient demonstrates a severe oral and pharyngeal phase dysphagia characterized by bolus holding and failure to swallow. Recommend NPO. Will reassess in 24 hours. - END OF NOTE. started TF without RD consultation on 01/20. Diagnosis Progress(for reassessment Continues documentation) Is patient on ventilator? No Is Patient Ambulatory and/or Out of Bed No REE-([facility]-confined to bed) 1743.204 Kcal/Kg value to use for calculation 30 Approximate Energy Requirements Using 2041 kcal/Kg Calculation Used for Recommendations Kcal/kg Additional Notes Protein: 0.8-1.2 g/Kg ABW; 54- 82 g/day. Fluids: 1 ml/Kcal, or as per MD. Nutrition Intervention Nutrition Support: Continue TF-Nepro w/CARBSTEADY @ 30 ml/hr. Flush: 250 ml water Q 4 hr, or as per MD. Kcal 1,275 Protein (gm) 57 Carbohydrates (gm) 114 Fat (gm) 68 Fluid (mL) 515 Fiber (gm) 9 % RDI: 62% Kcal; 100% AA. Goal #1 Provide at least 75% of energy /protein needs through Enteral Feeding during LOS. Goal #2 Adjust the dietary intervention to better serve Pt's energy/protein needs and clinical conditions during LOS . Follow-Up By: 01/28/22 Additional Comments Continue monitoring TF tolerance, TF adjustment/ increase rate, and BM.
--- NOTE | 2022-01-25 10:24 | Progress Note ---
Assessment and Plan Patient with reported stage IV colon cancer and is anorexia. Patient status post laparoscopic exploration and EGD with PEG tube placement he feels well. He may be slightly confused this morning. He states that he was in [place] prior to his current admission. He is not able to say how he got to [place]. May begin using gastrostomy tube this morning. Patient surgically cleared for discharge or transfer. Subjective Date of service: 01/25/22 Patient Reports: Positive: no new complaints Narrative: Patient status post laparoscopic exploration and EGD with PEG tube placement he feels well. He may be slightly confused this morning. He states that he was in [place] prior to his current admission. He is not able to say how he got to [place]. Objective Vital Signs - 12hr 01/24/22 01/25/22 01/25/22 22:28 04:33 08:00 Temperature 97.7 F Pulse Rate 55 L 59 L Pulse Rate [ 65 Anterior Bilateral Throughout] Respiratory 18 Rate Respiratory 20 Rate [Anterior Bilateral Throughout] Blood Pressure 128/77 O2 Sat by Pulse 96 Oximetry - Labs 01/25/22 04:52 01/25/22 04:52 Diabetes panel 01/25/22 Range/Units 04:52 Sodium 137 (137-145) mmol/L Potassium 4.2 (3.6-5.0) mmol/L Chloride 102.9 (98-107) mmol/L Carbon Dioxide 23 (22-30) mmol/L BUN 12 (9-20) mg/dL Creatinine 1.0 (0.8-1.3) mg/dL Glucose 112 H (75-100) mg/dL Calcium 8.1 L (8.4-10.2) mg/dL AST 60 H (5-40) units/L ALT 140 H (7-56) units/L Alkaline Phosphatase 423 H (35-129) units/L Total Protein 6.1 L (6.3-8.2) g/dL Albumin 2.2 L (3.9-5) g/dL Calcium panel 01/25/22 Range/Units 04:52 Calcium 8.1 L (8.4-10.2) mg/dL Albumin 2.2 L (3.9-5) g/dL Pituitary panel 01/25/22 Range/Units 04:52 Sodium 137 (137-145) mmol/L Potassium 4.2 (3.6-5.0) mmol/L Chloride 102.9 (98-107) mmol/L Carbon Dioxide 23 (22-30) mmol/L BUN 12 (9-20) mg/dL Creatinine 1.0 (0.8-1.3) mg/dL Glucose 112 H (75-100) mg/dL Calcium 8.1 L (8.4-10.2) mg/dL Adrenal panel 01/25/22 Range/Units 04:52 Sodium 137 (137-145) mmol/L Potassium 4.2 (3.6-5.0) mmol/L Chloride 102.9 (98-107) mmol/L Carbon Dioxide 23 (22-30) mmol/L BUN 12 (9-20) mg/dL Creatinine 1.0 (0.8-1.3) mg/dL Glucose 112 H (75-100) mg/dL Calcium 8.1 L (8.4-10.2) mg/dL Total Bilirubin < 0.20 (0.1-1.2) mg/dL AST 60 H (5-40) units/L ALT 140 H (7-56) units/L Alkaline Phosphatase 423 H (35-129) units/L Total Protein 6.1 L (6.3-8.2) g/dL Albumin 2.2 L (3.9-5) g/dL
[2022-01-25] MEDS ORDERED: SIMPLE SYRUP 15 ML FEEDTUBE PRN (10:31)
[2022-01-25] MEDS ORDERED: SODIUM BICARBONATE 325 MG TAB FEEDTUBE PRN (10:31)
[2022-01-25] MEDS ORDERED: LIPASE 10,500/PROTEASE 25,000/AMYLASE 43,750 (UNITS) DR CAP FEEDTUBE PRN (10:31)
[2022-01-25] MEDS: FAMOTIDINE 20 MG TAB FEEDTUBE SCH (11:15)
[2022-01-25] MEDS: ASPIRIN 81 MG TAB CHEW FEEDTUBE SCH (11:15)
[2022-01-25] MEDS: APIXABAN 5 MG TAB PO SCH ×2 (11:18→21:48)
--- NOTE | 2022-01-25 12:08 | Progress Note ---
Assessment and Plan - Patient Problems (1) Atrial fibrillation Current Visit: Yes Status: Acute (2) Cachexia Current Visit: Yes Status: Acute (3) Pneumonia Current Visit: Yes Status: Acute (4) Sepsis Current Visit: Yes Status: Acute Subjective Date of service: 01/25/22 Principal diagnosis: Acute encephalopathy Interval history: ALERT,,NO C/O Objective Vital Signs Temp Pulse Pulse Pulse Resp Resp Resp 01/25/22 08:00 65 20 01/25/22 04:33 97.7 F 59 L 18 01/24/22 22:28 55 L 01/24/22 22:00 54 L 01/24/22 21:40 97.6 F 57 L 18 01/24/22 20:00 01/24/22 19:31 62 16 01/24/22 17:15 97.3 F L 59 L 14 01/24/22 17:00 98.2 F 65 13 01/24/22 16:45 62 12 01/24/22 16:30 48 L 12 01/24/22 16:29 49 L 01/24/22 16:15 56 L 12 01/24/22 16:10 54 L 13 01/24/22 16:05 55 L 14 01/24/22 16:01 97.9 F 62 13 BP Pulse Ox 01/25/22 08:00 01/25/22 04:33 128/77 96 01/24/22 22:28 01/24/22 22:00 94 01/24/22 21:40 98 01/24/22 20:00 98 01/24/22 19:31 01/24/22 17:15 103/47 99 01/24/22 17:00 120/75 99 01/24/22 16:45 157/67 100 01/24/22 16:30 169/67 100 01/24/22 16:29 173/76 01/24/22 16:15 154/73 100 01/24/22 16:10 162/74 100 01/24/22 16:05 165/76 100 01/24/22 16:01 157/87 100 - Physical Examination General: No Apparent Distress, Cachectic HEENT: Positive: Normocephaly Neck: Positive: neck supple Cardiac: Positive: Irregularly Regular Lungs: Positive: clear to auscultation Neuro: Positive: Weakness (Generalized lethargy) Abdomen: Positive: Other (POST PEG) Skin: Negative: Rash Extremities: Absent: edema - Labs and Meds Cardiac Enzymes 01/25/22 Range/Units 04:52 AST 60 H (5-40) units/L CBC 01/25/22 Range/Units 04:52 WBC 6.6 (4.5-11.0) K/mm3 RBC 4.51 (3.65-5.03) M/mm3 Hgb 10.4 L (11.8-15.2) gm/dl Hct 34.1 L (35.5-45.6) % Plt Count 99 L (140-440) K/mm3 Lymph # (Auto) 0.6 L (1.2-5.4) K/mm3 Jay # (Auto) 0.3 (0.0-0.8) K/mm3 Eos # (Auto) 0.2 (0.0-0.4) K/mm3 Baso # (Auto) 0.0 (0.0-0.1) K/mm3 Comprehensive Metabolic Panel 01/25/22 Range/Units 04:52 Sodium 137 (137-145) mmol/L Potassium 4.2 (3.6-5.0) mmol/L Chloride 102.9 (98-107) mmol/L Carbon Dioxide 23 (22-30) mmol/L BUN 12 (9-20) mg/dL Creatinine 1.0 (0.8-1.3) mg/dL Glucose 112 H (75-100) mg/dL Calcium 8.1 L (8.4-10.2) mg/dL AST 60 H (5-40) units/L ALT 140 H (7-56) units/L Alkaline Phosphatase 423 H (35-129) units/L Total Protein 6.1 L (6.3-8.2) g/dL Albumin 2.2 L (3.9-5) g/dL - EKG Sinus rhythms and dysrhythmias: sinus tachycardia Chamber hypertrophy or enlargement: left ventricular hypertro Repolarization changes or abnormalities: early repolarization due to LVH
[2022-01-25 12:32] LABS: INR 0.76 (0.87-1.13)
[2022-01-25] MEDS: THIAMINE 100 MG TAB FEEDTUBE SCH (14:18)
[2022-01-26] MEDS: METOPROLOL TARTRATE 25 MG TAB PO SCH ×3 (06:03→22:32)
[2022-01-26 07:32] LABS: Hematocrit 32.5 % (35.5-45.6); Hemoglobin 10.3 gm/dl (11.8-15.2); Mean Corpuscular HGB Conc 32 % (32-34); Mean Corpuscular Volume 75 fl (84-94); Platelet Count 131 K/mm3 (140-440); Red Blood Count 4.34 M/mm3 (3.65-5.03); Red Cell Distribution Width 17.3 % (13.2-15.2)
[2022-01-26] MEDS: IPRATROPIUM/ALBUTEROL SULFATE 3 ML AMPUL.NEB IH SCH ×3 (09:12→20:29)
--- NOTE | 2022-01-26 09:15 | Progress Note ---
Assessment and Plan Assessment and plan: 71 years old male from long-term with history of colon cancer s/p chemotherapy with colostomy was brought to the emergency room from snf because of dyspnea and respiratory distress. Patient is also altered Mental Status. Patient is on Non rebreather on and O2 sat 100%. Kumar cath in place. Patient is a very poor historian. In the ER patient chest x-ray shows pneumonia, patient sodium is 154, potassium 5.6 BUN 135 creatinine 4.7, glucose 162, lactic acid 5.20, troponin 0.149. Also patient has UTI.'s were going to admit the patient we will put the patient on IMCU. We will put the patient on IV fluid antibiotic. We will consult cardiology as well as nephrology for evaluation. Hospital Course: Spoke extensively with son about history. Patient has a history of colon cancer S4 with mets to liver. He has only undergone one course of chemotherapy a t [facility]. He was recently discharged 1 month ago from [facility] for UTI. Currently the patient resides in SNF. Per the son pt has lost a lot of weight. has been struggling with feeding. I e xplained that the patient's shelter prognosis is poor. We discussed hospice breifly but son was not ready to go over this. I mentioned that in the next 24- 48hrs we could reassess. 01/19: Continue aggressive hydration for NATHALIE. Nephrology recs noted ,no emergent indication for [employer]. Treatment of Sepsis/UTI/PNA with IV Abx. HR mostly controlled on amiodorone. Continue heparin gtt. 01/20: Dobhoff placed, Tube feeds started, Nepro @ 30 cc/hr. ST eval pending. Aggressive IVF rehydration (currently on D5W) per nephrology, cr: 3.1 this AM. WBC: 16.7....Currently on Azithromycin/Rocephin for CAP/UTI tx. Prognosis remains Guarded/poor. Patient is severely malnourished and cachectic. 01/21: TF continues to run at 30cc/hr. Patient alert to person only. Will continue with current care plan. Patient may require PEG tube. Will discuss with NOK. 01/22: NOK agreeable to PEG. GI and General surgery consulted. Awaiting CT scan of the abdomen, will consult IR for possible PEG placement afterward 01/23: Family meeting with patients Sister and son at bedside. Agreed to continue care and PEG tube placement with plan to discharge back to care facility. 01/24: Patient clinically stable, plan for PEG tube later today 01/25: Patient stable s/p PEG tube. Will start tube feeds today. Patient in better spirits today. Assessment and Plan: #Sepsis POA-improving #Urinary tract infection #Left lower lobe pneumonia #Lactic Acidosis - WBC: 12, tachycardia, elevated urine wbc 182, LA 5.2 - CXR: LLL pneumonic process - blood culture and urine culture NGTD -MRSA screen, COVID PCR negative (recent outbreak at facility) - s/p Abx therapy with Rocephin IV, azithromycin (end date 01/22/2022) #Elevated liver enzymes -Elevated AST/ALT and alkaline phosphatase -Patient with known liver mets -Amiodarone and statin therapy discontinued by cardiology -We will continue to trend #Atrial fibrillation with rapid ventricular response #NSTEMI, type II - elevated troponin: 0.149 --> 0.088 - BNP: 2068 - TTE with poor quality per Cardiology due to body habitus - tele: afib, ventricular rate 90-110 - Amiodarone discontinued due to elevation LFTs - continue eliquis - Cardiology following, assistance appreciated #Acute kidney injury due to vasomotor nephropathy-resolved #Hypokalemia-resolved #Hyponatremia #Metabolic Acidosis-improving - sepsis/dehydration likely driving NATHALIE - SCr improved to 1.3 after IVF fluids - renal US: mild prominence of renal pelvis - continue to replete and monitor potassium levels - Nephrology following, assistance appreciated #Microcytic anemia #Thrombocytopenia -chronic, will transfuse for Hgb less than 7, Plt less than >30 with bleeding #Acute metabolic encephalopathy-resolved - etiology: multifactorial poor po intake, UTI, NATHALIE - IVF, management as above. - CT brain negative, MRI negative for acute findings #History of colon cancer on chemotherapy #Failure to thrive #moderate protein calorie malnutrition - apparently stage 4 Colon CA, mets to liver per son - has only had one session of chemotherapy. - PEG tube in place, continue tube feeding #Advance care planning - Disease education conducted, care plan discussed, diagnoses discussed, prognosis discussed, patient is AND/DNR, patient acknowledges understanding and agrees with care plan, +30 minutes. History Interval history: No acute events overnight per nursing. Patient is alert. He denies current pain and discomfort. Tube feeds running at 40cc/hr. Hospitalist Physical - Physical exam Narrative exam: GENERAL: Cachextic male. In no acute distress. HEENT: Normocephalic. Temporal wasting. CHEST/LUNGS: CTAB on room air HEART/CARDIOVASCULAR: Irregularly irregular rhythm. No murmur, rubs or gallops appreciated. ABDOMEN: +Colostomy and PEG tube. +BS. NT/ND. SKIN: No rashes noted. NEURO: Patient follows commands. MUSCULOSKELETAL: No joint effusion EXTREMITIES: No cyanosis, clubbing or edema. PSYCH: AAOx3 today. - Constitutional Vitals: Temp Pulse Resp BP Pulse Ox 98.5 F 60 18 114/69 97 01/26/22 05:48 01/26/22 06:03 01/26/22 05:48 01/26/22 06:03 01/26/22 05:48 General appearance: Present: cachectic HEART Score - HEART Score Troponin: Troponin T 0.088 ng/mL (0.00-0.029) H D 01/18/22 13:40 Results - Labs CBC & Chem 7: 01/26/22 05:16 01/25/22 04:52 Labs: Laboratory Last Values WBC 5.8 K/mm3 (4.5-11.0) 01/26/22 05:16 RBC 4.34 M/mm3 (3.65-5.03) 01/26/22 05:16 Hgb 10.3 gm/dl (11.8-15.2) L 01/26/22 05:16 Hct 32.5 % (35.5-45.6) L 01/26/22 05:16 MCV 75 fl (84-94) L 01/26/22 05:16 MCH 24 pg (28-32) L 01/26/22 05:16 MCHC 32 % (32-34) 01/26/22 05:16 RDW 17.3 % (13.2-15.2) H 01/26/22 05:16 Plt Count 131 K/mm3 (140-440) L 01/26/22 05:16 Lymph % (Auto) 8.8 % (13.4-35.0) L 01/25/22 04:52 Swain % (Auto) 4.9 % (0.0-7.3) 01/25/22 04:52 Eos % (Auto) 2.5 % (0.0-4.3) 01/25/22 04:52 Baso % (Auto) 0.3 % (0.0-1.8) 01/25/22 04:52 Lymph # (Auto) 0.6 K/mm3 (1.2-5.4) L 01/25/22 04:52 Swain # (Auto) 0.3 K/mm3 (0.0-0.8) 01/25/22 04:52 Eos # (Auto) 0.2 K/mm3 (0.0-0.4) 01/25/22 04:52 Baso # (Auto) 0.0 K/mm3 (0.0-0.1) 01/25/22 04:52 Add Manual Diff Complete 01/21/22 05:37 Total Counted 100 01/21/22 05:37 Seg Neutrophils % 83.5 % (40.0-70.0) H 01/25/22 04:52 Seg Neuts % (Manual) 92.0 % (40.0-70.0) H 01/21/22 05:37 Band Neutrophils % 0 % 01/21/22 05:37 Lymphocytes % (Manual) 6.0 % (13.4-35.0) L 01/21/22 05:37 Reactive Lymphs % (Man) 0 % 01/21/22 05:37 Monocytes % (Manual) 2.0 % (0.0-7.3) 01/21/22 05:37 Eosinophils % (Manual) 0 % (0.0-4.3) 01/21/22 05:37 Basophils % (Manual) 0 % (0.0-1.8) 01/21/22 05:37 Metamyelocytes % 0 % 01/21/22 05:37 Myelocytes % 0 % 01/21/22 05:37 Promyelocytes % 0 % 01/21/22 05:37 Blast Cells % 0 % 01/21/22 05:37 Nucleated RBC % Not Reportable 01/21/22 05:37 Seg Neutrophils # 5.5 K/mm3 (1.8-7.7) 01/25/22 04:52 Seg Neutrophils # Man 11.3 K/mm3 (1.8-7.7) H 01/21/22 05:37 Band Neutrophils # 0.0 K/mm3 01/21/22 05:37 Lymphocytes # (Manual) 0.7 K/mm3 (1.2-5.4) L 01/21/22 05:37 Abs React Lymphs (Man) 0.0 K/mm3 01/21/22 05:37 Monocytes # (Manual) 0.2 K/mm3 (0.0-0.8) 01/21/22 05:37 Eosinophils # (Manual) 0.0 K/mm3 (0.0-0.4) 01/21/22 05:37 Basophils # (Manual) 0.0 K/mm3 (0.0-0.1) 01/21/22 05:37 Metamyelocytes # 0.0 K/mm3 01/21/22 05:37 Myelocytes # 0.0 K/mm3 01/21/22 05:37 Promyelocytes # 0.0 K/mm3 01/21/22 05:37 Blast Cells # 0.0 K/mm3 01/21/22 05:37 WBC Morphology Not Reportable 01/21/22 05:37 Hypersegmented Neuts Not Reportable 01/21/22 05:37 Hyposegmented Neuts Not Reportable 01/21/22 05:37 Hypogranular Neuts Not Reportable 01/21/22 05:37 Smudge Cells Not Reportable 01/21/22 05:37 Toxic Granulation Not Reportable 01/21/22 05:37 Toxic Vacuolation Not Reportable 01/21/22 05:37 Dohle Bodies Not Reportable 01/21/22 05:37 Pelger-Huet Anomaly Not Reportable 01/21/22 05:37 Bj Rods Not Reportable 01/21/22 05:37 Platelet Estimate Consistent w auto 01/21/22 05:37 Clumped Platelets Not Reportable 01/21/22 05:37 Plt Clumps, EDTA Not Reportable 01/21/22 05:37 Large Platelets Not Reportable 01/21/22 05:37 Giant Platelets Not Reportable 01/21/22 05:37 Platelet Satelliting Not Reportable 01/21/22 05:37 Plt Morphology Comment Not Reportable 01/21/22 05:37 RBC Morphology Not Reportable 01/21/22 05:37 Dimorphic RBCs Not Reportable 01/21/22 05:37 Polychromasia Not Reportable 01/21/22 05:37 Hypochromasia 2+ 01/21/22 05:37 Poikilocytosis Not Reportable 01/21/22 05:37 Anisocytosis 1+ 01/21/22 05:37 Microcytosis Not Reportable 01/21/22 05:37 Macrocytosis Not Reportable 01/21/22 05:37 Spherocytes Not Reportable 01/21/22 05:37 Pappenheimer Bodies Not Reportable 01/21/22 05:37 Sickle Cells Not Reportable 01/21/22 05:37 Target Cells Not Reportable 01/21/22 05:37 Tear Drop Cells Not Reportable 01/21/22 05:37 Ovalocytes Not Reportable 01/21/22 05:37 Helmet Cells Not Reportable 01/21/22 05:37 [place] Bodies Not Reportable 01/21/22 05:37 [place] Rings Not Reportable 01/21/22 05:37 Dilip Cells Not Reportable 01/21/22 05:37 Bite Cells Not Reportable 01/21/22 05:37 Crenated Cell Not Reportable 01/21/22 05:37 Elliptocytes Not Reportable 01/21/22 05:37 Acanthocytes (Spur) Not Reportable 01/21/22 05:37 Rouleaux Not Reportable 01/21/22 05:37 Hemoglobin C Crystals Not Reportable 01/21/22 05:37 Schistocytes Not Reportable 01/21/22 05:37 Malaria parasites Not Reportable 01/21/22 05:37 Sahil Bodies Not Reportable 01/21/22 05:37 Hem Pathologist Commnt No 01/21/22 05:37 PT 11.4 Sec. (12.2-14.9) L 01/25/22 11:52 INR 0.76 (0.87-1.13) L 01/25/22 11:52 APTT 20.0 Sec. (24.2-36.6) L 01/25/22 11:52 Heparin Anti-Xa Level < 0.10 U.I./ml (0.3-0.7) L 01/21/22 14:52 ABG pH 7.383 pH Units (7.350-7.450) 01/17/22 22:05 ABG pCO2 32.8 mm Hg 01/17/22 22:05 ABG pO2 210.4 mm Hg (80.0-90.0) H 01/17/22 22:05 ABG HCO3 19.1 mmol/L (20.0-26.0) L 01/17/22 22:05 ABG O2 Saturation 99.3 % (95.0-99.0) H 01/17/22 22:05 ABG O2 Content 20.3 (0.0-44) 01/17/22 22:05 ABG Base Excess -4.9 mmol/L (-2.0-3.0) L 01/17/22 22:05 ABG Hemoglobin 14.5 gm/dl (14.0-18.0) 01/17/22 22:05 ABG Carboxyhemoglobin 1.2 % (0.0-5.0) 01/17/22 22:05 ABG Methemoglobin 0.6 % (0.0-1.5) 01/17/22 22:05 Oxyhemoglobin 97.5 % (95.0-99.0) 01/17/22 22:05 FiO2 100 % 01/17/22 22:05 Sodium 137 mmol/L (137-145) 01/25/22 04:52 Potassium 4.2 mmol/L (3.6-5.0) 01/25/22 04:52 Chloride 102.9 mmol/L (98-107) 01/25/22 04:52 Carbon Dioxide 23 mmol/L (22-30) 01/25/22 04:52 Anion Gap 15 mmol/L 01/25/22 04:52 BUN 12 mg/dL (9-20) 01/25/22 04:52 Creatinine 1.0 mg/dL (0.8-1.3) 01/25/22 04:52 Estimated GFR > 60 ml/min 01/25/22 04:52 BUN/Creatinine Ratio 12 % 01/25/22 04:52 Glucose 112 mg/dL (75-100) H 01/25/22 04:52 POC Glucose 96 mg/dL (70-105) 01/26/22 05:47 Ketones Quantitative Negative (Negative) 01/17/22 22:34 Lactic Acid 2.20 mmol/L (0.7-2.0) H* 01/22/22 22:00 Calcium 8.1 mg/dL (8.4-10.2) L 01/25/22 04:52 Total Bilirubin < 0.20 mg/dL (0.1-1.2) 01/25/22 04:52 AST 60 units/L (5-40) H 01/25/22 04:52 ALT 140 units/L (7-56) H 01/25/22 04:52 Alkaline Phosphatase 423 units/L (35-129) H 01/25/22 04:52 Ammonia 14.0 umol/L (25-60) L 01/17/22 22:34 Total Creatine Kinase 48 units/L (55-170) L 01/17/22 22:34 Troponin T 0.088 ng/mL (0.00-0.029) H D 01/18/22 13:40 C-Reactive Protein 5.80 mg/dL (0.00-1.30) H 01/17/22 22:34 NT-Pro-B Natriuret Pep 2069 pg/mL (0-900) H 01/17/22 22:34 Total Protein 6.1 g/dL (6.3-8.2) L 01/25/22 04:52 Albumin 2.2 g/dL (3.9-5) L 01/25/22 04:52 Albumin/Globulin Ratio 0.6 % 01/25/22 04:52 Triglycerides 143 mg/dL (2-149) 01/17/22 22:34 Cholesterol 224 mg/dL (50-199) H 01/17/22 22:34 LDL Cholesterol Direct 114 mg/dL (50-130) 01/17/22 22:34 HDL Cholesterol 73 mg/dL (40-59) H 01/17/22 22:34 Cholesterol/HDL Ratio 3.06 % 01/17/22 22:34 Urine Color Yellow (Yellow) 01/17/22 21:49 Urine Turbidity Cloudy (Clear) 01/17/22 21:49 Specific Johnston (Man) 1.020 (1.003-1.030) 01/17/22 21:49 Ur Protein (Man) 2+ mg/dL (Negative) 01/17/22 21:49 Ur Ketones (Man) Negative (Negative) 01/17/22 21:49 Ur Nitrite (Man) Positive (Negative) 01/17/22 21:49 Ur Reducing Substances Not Reportable 01/17/22 21:49 Urine Bilirubin (Man) Negative (Negative) 01/17/22 21:49 Urine Ictotest Not Reportable 01/17/22 21:49 Leukocyte Esterase (Man) Moderate (Negative) 01/17/22 21:49 Urine WBC (Auto) > 182.0 /HPF (0.0-6.0) H 01/17/22 21:49 Urine RBC (Auto) 17.0 /HPF (0.0-6.0) 01/17/22 21:49 Urine Bacteria (Auto) 3+ /HPF (Negative) 01/17/22 21:49 Urine RBC (Manual) 1+ (Negative) 01/17/22 21:49 Urine WBC Clumps 3+ /HPF 01/17/22 21:49 Urine Mucus Few /HPF 01/17/22 21:49 Urine Yeast (Budding) 3+ /HPF 01/17/22 21:49 Salicylates < 0.3 mg/dL (2.8-20.0) L 01/17/22 22:34 Coronavirus (PCR) Negative (Negative) 01/19/22 10:10 Kumar/IV: Voiding Method Indwelling Catheter Active Medications - Current Medications Current Medications: Generic Name Dose Route Start Last Admin Trade Name Freq PRN Reason Stop Dose Admin Acetaminophen 650 mg 01/18/22 02:52 Acetaminophen 325 Mg Tab PO Q4H PRN Pain MILD(1-3)/Fever >100.5/LUTHER Albuterol/Ipratropium 1 ampul 01/22/22 08:00 01/26/22 09:12 Ipratropium/Albuterol Sulfate 3 Ml Ampul.Neb IH 1 ampul TIDRT ROSCOE Administration Lipase/Protease/Amylase 1 each 01/25/22 10:31 Lipase 10,500/Protease 25,000/Amylase 43,750 (Units) Dr Scales FEEDTUBE PRN PRN For Clogged Feeding Tube Apixaban 5 mg 01/25/22 11:00 01/25/22 21:48 Apixaban 5 Mg Tab PO 5 mg Q12HR ROSCOE Administration Protocol Aspirin 81 mg 01/19/22 10:00 01/25/22 11:15 Aspirin 81 Mg Tab Chew FEEDTUBE 81 mg QDAY ROSCOE Administration Famotidine 20 mg 01/24/22 10:00 01/25/22 11:15 Famotidine 20 Mg Tab FEEDTUBE 20 mg DAILY ROSCOE Administration Hydrophilic Ointment 1 applic 01/20/22 16:53 01/23/22 10:47 Lip Therapy Vaseline TP 1 applic DIRECT PRN Administration Dry Lips Dextrose 1,000 mls @ 125 mls/hr 01/21/22 09:00 01/25/22 01:06 D5w IV 125 mls/hr DIRECT ROSCOE Administration Metoprolol Tartrate 25 mg 01/24/22 07:00 01/26/22 06:03 Metoprolol Tartrate 25 Mg Tab PO Not Given Q8HR ROSCOE Morphine Sulfate 2 mg 01/18/22 02:52 Morphine 2 Mg/1 Ml Inj IV Q4H PRN Pain, Moderate (4-6) Morphine Sulfate 4 mg 01/18/22 02:52 Morphine 4 Mg/1 Ml Inj IV Q4H PRN Pain , Severe (7-10) Nitroglycerin 0.4 mg 01/18/22 02:55 Nitroglycerin 0.4 Mg Tab Subl SL Q5M PRN Chest Pain Ondansetron HCl 4 mg 01/18/22 02:52 Ondansetron 4 Mg/2 Ml Inj IV Q8H PRN Nausea And Vomiting Simple Syrup 30 ml 01/25/22 10:31 Simple Syrup 15 Ml FEEDTUBE PRN PRN Hypoglycemia Sodium Bicarbonate 325 mg 01/25/22 10:31 Sodium Bicarbonate 325 Mg Tab FEEDTUBE PRN PRN For Clogged Feeding Tube Sodium Chloride 10 ml 01/18/22 10:00 01/25/22 21:48 Sodium Chloride 0.9% 10 Ml Flush Syringe IV 10 ml BID ROSCOE Administration Sodium Chloride 10 ml 01/18/22 02:52 Sodium Chloride 0.9% 10 Ml Flush Syringe IV PRN PRN LINE FLUSH Thiamine HCl 100 mg 01/24/22 10:00 01/25/22 14:18 Thiamine 100 Mg Tab FEEDTUBE 100 mg QDAY ROSCOE Administration Tramadol HCl 50 mg 01/18/22 02:55 Tramadol 50 Mg Tab PO Q6H PRN Pain, Moderate (4-6) Nutrition/Malnutrition Assess - Dietary Evaluation Nutrition/Malnutrition Findings: Nutrition Notes Start: 01/18/22 09:21 Freq: Status: Active Protocol: Document 01/25/22 12:00 TW (Rec: 01/25/22 12:38 TW [id number]) Nutrition Notes Need for Assessment generated from: MD Order Initial or Follow up Assessment Current Diagnosis Hypertension,Heart Failure Other Pertinent Diagnosis Colon cancer, chemotherapy/ colostomy, altered mental status, renal failure, Current Diet TF Labs/Tests Glucose 112 POC Glucpse 122 Ca 8.1 Alkaline Phosphatase 423 AST 60 ALT 140 Albumin 2.2 Pertinent Medications D5w 1000 mls@ 125ml/hr Vitamin B-1 100mg Height 5 ft 11 in Weight 68.039 kg Treichlers Body Weight (kg) 78.18 BMI 20.9 Weight Status Appropriate Subjective/Other Information RD consulted for new TF. Pt presents with dyspnea, respiratory distress, pneumonia, UTI. 0% PO intake. Burn Absent Trauma Absent Minimum of two criteria No #1 Nutrition Diagnosis Predicted suboptimal energy intake Etiology Respiratory distress As Evidenced by Signs and Symptoms Pt failed to initiate a swallow with significant drooling. Patient is unable to follow commands with an inability tolerate po secondary to the risk for aspiration, dehydration and malnutrition Is patient on ventilator? No Is Patient Ambulatory and/or Out of Bed No REE-([facility]-confined to bed) [phone] Calculation Used for Recommendations [facility] Additional Notes Protein: 68-82 g/day (1-1.2g/ kg/day) Fluid: 1ml/kcal Nutrition Intervention Change Diet Order: Continue current diet Nutrition Support: Jevity 1.2 @ 65ml/hr w/ 210 ml free water flush q4h Kcal 1,872 Protein (gm) 87 Carbohydrates (gm) 264 Fat (gm) 87 Fluid (mL) 1,259 Fiber (gm) 28 Goal #1 TF tolerance Goal #2 TF to provide at least 75% energy and protein needs Anticipated Discharge Needs: Unable to identify at this time Follow-Up By: 01/27/22 Additional Comments F/U TF tolerance
[2022-01-26] MEDS: APIXABAN 5 MG TAB PO SCH ×2 (11:30→22:32)
[2022-01-26] MEDS: FAMOTIDINE 20 MG TAB FEEDTUBE SCH (12:45)
[2022-01-26] MEDS: THIAMINE 100 MG TAB FEEDTUBE SCH (12:45)
[2022-01-26] MEDS: ASPIRIN 81 MG TAB CHEW FEEDTUBE SCH (12:46)
--- NOTE | 2022-01-26 14:38 | Progress Note ---
Assessment and Plan - Patient Problems (1) Atrial fibrillation Current Visit: Yes Status: Acute (2) Cachexia Current Visit: Yes Status: Acute (3) Pneumonia Current Visit: Yes Status: Acute (4) Sepsis Current Visit: Yes Status: Acute Subjective Date of service: 01/26/22 Principal diagnosis: Acute encephalopathy Interval history: ALERT,,NO C/O Objective Vital Signs Temp Pulse Pulse Pulse Resp Resp Resp 01/26/22 09:11 60 60 14 16 01/26/22 06:03 60 01/26/22 05:48 98.5 F 60 18 01/25/22 22:00 57 L 01/25/22 21:48 60 01/25/22 21:30 97.6 F 60 18 01/25/22 20:00 68 62 18 18 01/25/22 17:18 98.0 F 58 L 18 BP Pulse Ox 01/26/22 09:11 01/26/22 06:03 114/69 01/26/22 05:48 114/69 97 01/25/22 22:00 100 01/25/22 21:48 133/77 01/25/22 21:30 133/77 100 01/25/22 20:00 01/25/22 17:18 207/87 98 - Physical Examination General: No Apparent Distress, Cachectic HEENT: Positive: Normocephaly Neck: Positive: neck supple Cardiac: Positive: Reg Rate and Rhythm Lungs: Positive: clear to auscultation Neuro: Positive: Weakness (Generalized lethargy) Abdomen: Positive: Other (POST PEG) Skin: Negative: Rash Extremities: Absent: edema - Labs and Meds CBC 01/26/22 Range/Units 05:16 WBC 5.8 (4.5-11.0) K/mm3 RBC 4.34 (3.65-5.03) M/mm3 Hgb 10.3 L (11.8-15.2) gm/dl Hct 32.5 L (35.5-45.6) % Plt Count 131 L (140-440) K/mm3 - EKG Sinus rhythms and dysrhythmias: sinus tachycardia Chamber hypertrophy or enlargement: left ventricular hypertro Repolarization changes or abnormalities: early repolarization due to LVH
[2022-01-27] MEDS: METOPROLOL TARTRATE 25 MG TAB PO SCH ×3 (06:10→22:44)
[2022-01-27] MEDS: IPRATROPIUM/ALBUTEROL SULFATE 3 ML AMPUL.NEB IH SCH ×3 (08:18→19:33)
--- NOTE | 2022-01-27 09:47 | Progress Note ---
Assessment and Plan - Patient Problems (1) Atrial fibrillation Current Visit: Yes Status: Acute Plan to address problem: Currently on metoprolol and apixaban. He is currently in sinus with paroxysmal A. fib rate controlled during the episodes of atrial fibrillation. We will continue the current management. Given his poor long-term prognosis if need be we can discontinue his apixaban as his risk of bleeding may be high. Subjective Date of service: 01/27/22 Principal diagnosis: Acute encephalopathy Interval history: Patient seen and examined today. Patient doing well denies any active complaints. No chest pain shortness of breath orthopnea or PND. Is status post PEG tube. Objective Vital Signs Temp Pulse Pulse Pulse Resp Resp Resp 01/27/22 08:00 65 18 01/27/22 06:10 59 L 01/27/22 05:22 98.4 F 61 20 01/26/22 23:58 98.8 F 59 L 18 01/26/22 22:32 89 01/26/22 22:28 98.4 F 17 01/26/22 22:00 01/26/22 20:31 62 20 01/26/22 16:59 98.7 F 69 18 01/26/22 14:14 59 L 69 16 17 01/26/22 12:10 98.4 F 64 18 01/26/22 10:00 BP BP Pulse Ox 01/27/22 08:00 01/27/22 06:10 122/62 01/27/22 05:22 127/71 100 01/26/22 23:58 100/67 98 01/26/22 22:32 96/64 01/26/22 22:28 96/64 95 01/26/22 22:00 95 01/26/22 20:31 01/26/22 16:59 105/63 100 01/26/22 14:14 01/26/22 12:10 118/61 100 01/26/22 10:00 100 - Physical Examination General: No Apparent Distress, Cachectic HEENT: Positive: Normocephaly Neck: Positive: neck supple Cardiac: Positive: Reg Rate and Rhythm, S1/S2 Lungs: Positive: clear to auscultation Neuro: Positive: Weakness (Generalized lethargy) Abdomen: Positive: Other (POST PEG) Skin: Negative: Rash Extremities: Absent: edema - Telemetry EKG Rhythm: Sinus Rhythm (brief episodes of A. fib intermittent) - EKG Sinus rhythms and dysrhythmias: sinus tachycardia Chamber hypertrophy or enlargement: left ventricular hypertro Repolarization changes or abnormalities: early repolarization due to LVH
[2022-01-27] MEDS: THIAMINE 100 MG TAB FEEDTUBE SCH (09:52)
[2022-01-27] MEDS: APIXABAN 5 MG TAB PO SCH ×2 (09:52→22:45)
[2022-01-27] MEDS: FAMOTIDINE 20 MG TAB FEEDTUBE SCH (09:52)
[2022-01-27] MEDS: ASPIRIN 81 MG TAB CHEW FEEDTUBE SCH (09:53)
--- NOTE | 2022-01-27 15:17 | Progress Note ---
Assessment and Plan Assessment and plan: 71 years old [facility] with history of colon cancer s/p chemotherapy with colostomy was brought to the emergency room from halfway because of dyspnea and respiratory distress. Patient is also altered Mental Status. Patient is on Non rebreather on and O2 sat 100%. Kumar cath in place. Patient is a very poor historian. In the ER patient chest x-ray shows pneumonia, patient sodium is 154, potassium 5.6 BUN 135 creatinine 4.7, glucose 162, lactic acid 5.20, troponin 0.149. Also patient has UTI.'s were going to admit the patient we will put the patient on IMCU. We will put the patient on IV fluid antibiotic. We will consult cardiology as well as nephrology for evaluation. Hospital Course: Spoke extensively with son about history. Patient has a history of colon cancer S4 with mets to liver. He has only undergone one course of chemotherapy a t [facility]. He was recently discharged 1 month ago from [facility] for UTI. Currently the patient resides in SNF. Per the son pt has lost a lot of weight. has been struggling with feeding. I e xplained that the patient's [place] [facility] prognosis is poor. We discussed hospice breifly but son was not ready to go over this. I mentioned that in the next 24- 48hrs we could reassess. 01/19: Continue aggressive hydration for NATHALIE. 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 Treatment of Sepsis/UTI/PNA with IV Abx. HR mostly controlled on amiodorone. Continue heparin gtt. 01/20: Dobhoff placed, Tube feeds started, Nepro @ 30 cc/hr. ST eval pending. Aggressive IVF rehydration (currently on D5W) per nephrology, cr: 3.1 this AM. WBC: 16.7....Currently on Azithromycin/Rocephin for CAP/UTI tx. Prognosis remains Guarded/poor. Patient is severely malnourished and cachectic. 01/21: TF continues to run at 30cc/hr. Patient alert to person only. Will continue with current care plan. Patient may require PEG tube. Will discuss with NOK. 01/22: NOK agreeable to PEG. GI and General surgery consulted. Awaiting CT scan of the abdomen, will consult IR for possible PEG placement afterward 01/23: Family meeting with patients Sister and son at bedside. Agreed to continue care and PEG tube placement with plan to discharge back to care facility. 01/24: Patient clinically stable, plan for PEG tube later today 01/25: Patient stable s/p PEG tube. Will start tube feeds today. Patient in better spirits today 01/27: Patient clinically stable and tolerating tube feeds. Clinically stable awaiting discharge to [facility]. Assessment and Plan: #Sepsis POA-resolved #Urinary tract infection #Left lower lobe pneumonia #Lactic Acidosis - WBC: 12, tachycardia, elevated urine wbc 182, LA 5.2 - CXR: LLL pneumonic process - blood culture and urine culture NGTD -MRSA screen, COVID PCR negative (recent outbreak at facility) - s/p Abx therapy with Rocephin IV, azithromycin (end date 01/22/2022) #Elevated liver enzymes -Elevated AST/ALT and alkaline phosphatase -Patient with known liver mets -Amiodarone and statin therapy discontinued by cardiology #Atrial fibrillation with rapid ventricular response #NSTEMI, type II - elevated troponin: 0.149 --> 0.088 - BNP: 2068 - TTE with poor quality per Cardiology due to body habitus - tele: afib, ventricular rate 90-110 - Amiodarone discontinued due to elevation LFTs - continue eliquis - Cardiology following, assistance appreciated #Acute kidney injury due to vasomotor nephropathy-resolved #Hypokalemia-resolved #Hyponatremia #Metabolic Acidosis-improving - sepsis/dehydration likely driving NATHALIE - SCr improved to 1.3 after IVF fluids - renal US: mild prominence of renal pelvis - continue to replete and monitor potassium levels - Nephrology following, assistance appreciated #Microcytic anemia #Thrombocytopenia -chronic, will transfuse for Hgb less than 7, Plt less than >30 with bleeding #Acute metabolic encephalopathy-resolved - etiology: multifactorial poor po intake, UTI, NATHALIE - IVF, management as above. - CT brain negative, MRI negative for acute findings #History of colon cancer on chemotherapy #Failure to thrive #moderate protein calorie malnutrition - apparently stage 4 Colon CA, mets to liver per son - has only had one session of chemotherapy. - PEG tube in place, continue tube feeding #Advance care planning - Disease education conducted, care plan discussed, diagnoses discussed, prognosis discussed, patient is AND/DNR, patient acknowledges understanding and agrees with care plan, +30 minutes. History Interval history: No acute events overnight per nursing. Patient is alert. He denies current pain and discomfort. Tube feeds running at 50cc/hr. Hospitalist Physical - Physical exam Narrative exam: GENERAL: Cachextic male. In no acute distress. HEENT: Normocephalic. Temporal wasting. CHEST/LUNGS: CTAB on room air HEART/CARDIOVASCULAR: Irregularly irregular rhythm. No murmur, rubs or gallops appreciated. ABDOMEN: +Colostomy and PEG tube. +BS. NT/ND. SKIN: No rashes noted. NEURO: Patient follows commands. MUSCULOSKELETAL: No joint effusion EXTREMITIES: No cyanosis, clubbing or edema. PSYCH: AAOx3 today. - Constitutional Vitals: Temp Pulse Resp BP Pulse Ox 98 F 68 20 113/62 100 01/27/22 14:08 01/27/22 14:08 01/27/22 14:08 01/27/22 14:08 01/27/22 14:08 General appearance: Present: cachectic HEART Score - HEART Score Troponin: Troponin T 0.088 ng/mL (0.00-0.029) H D 01/18/22 13:40 Results - Labs CBC & Chem 7: 01/26/22 05:16 01/25/22 04:52 Labs: Laboratory Last Values WBC 5.8 K/mm3 (4.5-11.0) 01/26/22 05:16 RBC 4.34 M/mm3 (3.65-5.03) 01/26/22 05:16 Hgb 10.3 gm/dl (11.8-15.2) L 01/26/22 05:16 Hct 32.5 % (35.5-45.6) L 01/26/22 05:16 MCV 75 fl (84-94) L 01/26/22 05:16 MCH 24 pg (28-32) L 01/26/22 05:16 MCHC 32 % (32-34) 01/26/22 05:16 RDW 17.3 % (13.2-15.2) H 01/26/22 05:16 Plt Count 131 K/mm3 (140-440) L 01/26/22 05:16 Lymph % (Auto) 8.8 % (13.4-35.0) L 01/25/22 04:52 [place] % (Auto) 4.9 % (0.0-7.3) 01/25/22 04:52 Eos % (Auto) 2.5 % (0.0-4.3) 01/25/22 04:52 Baso % (Auto) 0.3 % (0.0-1.8) 01/25/22 04:52 Lymph # (Auto) 0.6 K/mm3 (1.2-5.4) L 01/25/22 04:52 [place] # (Auto) 0.3 K/mm3 (0.0-0.8) 01/25/22 04:52 Eos # (Auto) 0.2 K/mm3 (0.0-0.4) 01/25/22 04:52 Baso # (Auto) 0.0 K/mm3 (0.0-0.1) 01/25/22 04:52 Add Manual Diff Complete 01/21/22 05:37 Total Counted 100 01/21/22 05:37 Seg Neutrophils % 83.5 % (40.0-70.0) H 01/25/22 04:52 Seg Neuts % (Manual) 92.0 % (40.0-70.0) H 01/21/22 05:37 Band Neutrophils % 0 % 01/21/22 05:37 Lymphocytes % (Manual) 6.0 % (13.4-35.0) L 01/21/22 05:37 Reactive Lymphs % (Man) 0 % 01/21/22 05:37 Monocytes % (Manual) 2.0 % (0.0-7.3) 01/21/22 05:37 Eosinophils % (Manual) 0 % (0.0-4.3) 01/21/22 05:37 Basophils % (Manual) 0 % (0.0-1.8) 01/21/22 05:37 Metamyelocytes % 0 % 01/21/22 05:37 Myelocytes % 0 % 01/21/22 05:37 Promyelocytes % 0 % 01/21/22 05:37 Blast Cells % 0 % 01/21/22 05:37 Nucleated RBC % Not Reportable 01/21/22 05:37 Seg Neutrophils # 5.5 K/mm3 (1.8-7.7) 01/25/22 04:52 Seg Neutrophils # Man 11.3 K/mm3 (1.8-7.7) H 01/21/22 05:37 Band Neutrophils # 0.0 K/mm3 01/21/22 05:37 Lymphocytes # (Manual) 0.7 K/mm3 (1.2-5.4) L 01/21/22 05:37 Abs React Lymphs (Man) 0.0 K/mm3 01/21/22 05:37 Monocytes # (Manual) 0.2 K/mm3 (0.0-0.8) 01/21/22 05:37 Eosinophils # (Manual) 0.0 K/mm3 (0.0-0.4) 01/21/22 05:37 Basophils # (Manual) 0.0 K/mm3 (0.0-0.1) 01/21/22 05:37 Metamyelocytes # 0.0 K/mm3 01/21/22 05:37 Myelocytes # 0.0 K/mm3 01/21/22 05:37 Promyelocytes # 0.0 K/mm3 01/21/22 05:37 Blast Cells # 0.0 K/mm3 01/21/22 05:37 WBC Morphology Not Reportable 01/21/22 05:37 Hypersegmented Neuts Not Reportable 01/21/22 05:37 Hyposegmented Neuts Not Reportable 01/21/22 05:37 Hypogranular Neuts Not Reportable 01/21/22 05:37 Smudge Cells Not Reportable 01/21/22 05:37 Toxic Granulation Not Reportable 01/21/22 05:37 Toxic Vacuolation Not Reportable 01/21/22 05:37 Dohle Bodies Not Reportable 01/21/22 05:37 Pelger-Huet Anomaly Not Reportable 01/21/22 05:37 Bj Rods Not Reportable 01/21/22 05:37 Platelet Estimate Consistent w auto 01/21/22 05:37 Clumped Platelets Not Reportable 01/21/22 05:37 Plt Clumps, EDTA Not Reportable 01/21/22 05:37 Large Platelets Not Reportable 01/21/22 05:37 Giant Platelets Not Reportable 01/21/22 05:37 Platelet Satelliting Not Reportable 01/21/22 05:37 Plt Morphology Comment Not Reportable 01/21/22 05:37 RBC Morphology Not Reportable 01/21/22 05:37 Dimorphic RBCs Not Reportable 01/21/22 05:37 Polychromasia Not Reportable 01/21/22 05:37 Hypochromasia 2+ 01/21/22 05:37 Poikilocytosis Not Reportable 01/21/22 05:37 Anisocytosis 1+ 01/21/22 05:37 Microcytosis Not Reportable 01/21/22 05:37 Macrocytosis Not Reportable 01/21/22 05:37 Spherocytes Not Reportable 01/21/22 05:37 Pappenheimer Bodies Not Reportable 01/21/22 05:37 Sickle Cells Not Reportable 01/21/22 05:37 Target Cells Not Reportable 01/21/22 05:37 Tear Drop Cells Not Reportable 01/21/22 05:37 Ovalocytes Not Reportable 01/21/22 05:37 Helmet Cells Not Reportable 01/21/22 05:37 [place] Bodies Not Reportable 01/21/22 05:37 Branch Rings Not Reportable 01/21/22 05:37 [place] Cells Not Reportable 01/21/22 05:37 Bite Cells Not Reportable 01/21/22 05:37 Crenated Cell Not Reportable 01/21/22 05:37 Elliptocytes Not Reportable 01/21/22 05:37 Acanthocytes (Spur) Not Reportable 01/21/22 05:37 Rouleaux Not Reportable 01/21/22 05:37 Hemoglobin C Crystals Not Reportable 01/21/22 05:37 Schistocytes Not Reportable 01/21/22 05:37 Malaria parasites Not Reportable 01/21/22 05:37 Sahil Bodies Not Reportable 01/21/22 05:37 Hem Pathologist Commnt No 01/21/22 05:37 PT 11.4 Sec. (12.2-14.9) L 01/25/22 11:52 INR 0.76 (0.87-1.13) L 01/25/22 11:52 APTT 20.0 Sec. (24.2-36.6) L 01/25/22 11:52 Heparin Anti-Xa Level < 0.10 U.I./ml (0.3-0.7) L 01/21/22 14:52 ABG pH 7.383 pH Units (7.350-7.450) 01/17/22 22:05 ABG pCO2 32.8 mm Hg 01/17/22 22:05 ABG pO2 210.4 mm Hg (80.0-90.0) H 01/17/22 22:05 ABG HCO3 19.1 mmol/L (20.0-26.0) L 01/17/22 22:05 ABG O2 Saturation 99.3 % (95.0-99.0) H 01/17/22 22:05 ABG O2 Content 20.3 (0.0-44) 01/17/22 22:05 ABG Base Excess -4.9 mmol/L (-2.0-3.0) L 01/17/22 22:05 ABG Hemoglobin 14.5 gm/dl (14.0-18.0) 01/17/22 22:05 ABG Carboxyhemoglobin 1.2 % (0.0-5.0) 01/17/22 22:05 ABG Methemoglobin 0.6 % (0.0-1.5) 01/17/22 22:05 Oxyhemoglobin 97.5 % (95.0-99.0) 01/17/22 22:05 FiO2 100 % 01/17/22 22:05 Sodium 137 mmol/L (137-145) 01/25/22 04:52 Potassium 4.2 mmol/L (3.6-5.0) 01/25/22 04:52 Chloride 102.9 mmol/L (98-107) 01/25/22 04:52 Carbon Dioxide 23 mmol/L (22-30) 01/25/22 04:52 Anion Gap 15 mmol/L 01/25/22 04:52 BUN 12 mg/dL (9-20) 01/25/22 04:52 Creatinine 1.0 mg/dL (0.8-1.3) 01/25/22 04:52 Estimated GFR > 60 ml/min 01/25/22 04:52 BUN/Creatinine Ratio 12 % 01/25/22 04:52 Glucose 112 mg/dL (75-100) H 01/25/22 04:52 POC Glucose 115 mg/dL (70-105) H 01/27/22 11:05 Ketones Quantitative Negative (Negative) 01/17/22 22:34 Lactic Acid 2.20 mmol/L (0.7-2.0) H* 01/22/22 22:00 Calcium 8.1 mg/dL (8.4-10.2) L 01/25/22 04:52 Total Bilirubin < 0.20 mg/dL (0.1-1.2) 01/25/22 04:52 AST 60 units/L (5-40) H 01/25/22 04:52 ALT 140 units/L (7-56) H 01/25/22 04:52 Alkaline Phosphatase 423 units/L (35-129) H 01/25/22 04:52 Ammonia 14.0 umol/L (25-60) L 01/17/22 22:34 Total Creatine Kinase 48 units/L (55-170) L 01/17/22 22:34 Troponin T 0.088 ng/mL (0.00-0.029) H D 01/18/22 13:40 C-Reactive Protein 5.80 mg/dL (0.00-1.30) H 01/17/22 22:34 NT-Pro-B Natriuret Pep 2069 pg/mL (0-900) H 01/17/22 22:34 Total Protein 6.1 g/dL (6.3-8.2) L 01/25/22 04:52 Albumin 2.2 g/dL (3.9-5) L 01/25/22 04:52 Albumin/Globulin Ratio 0.6 % 01/25/22 04:52 Triglycerides 143 mg/dL (2-149) 01/17/22 22:34 Cholesterol 224 mg/dL (50-199) H 01/17/22 22:34 LDL Cholesterol Direct 114 mg/dL (50-130) 01/17/22 22:34 HDL Cholesterol 73 mg/dL (40-59) H 01/17/22 22:34 Cholesterol/HDL Ratio 3.06 % 01/17/22 22:34 Urine Color Yellow (Yellow) 01/17/22 21:49 Urine Turbidity Cloudy (Clear) 01/17/22 21:49 Specific [place] (Man) 1.020 (1.003-1.030) 01/17/22 21:49 Ur Protein (Man) 2+ mg/dL (Negative) 01/17/22 21:49 Ur Ketones (Man) Negative (Negative) 01/17/22 21:49 Ur Nitrite (Man) Positive (Negative) 01/17/22 21:49 Ur Reducing Substances Not Reportable 01/17/22 21:49 Urine Bilirubin (Man) Negative (Negative) 01/17/22 21:49 Urine Ictotest Not Reportable 01/17/22 21:49 Leukocyte Esterase (Man) Moderate (Negative) 01/17/22 21:49 Urine WBC (Auto) > 182.0 /HPF (0.0-6.0) H 01/17/22 21:49 Urine RBC (Auto) 17.0 /HPF (0.0-6.0) 01/17/22 21:49 Urine Bacteria (Auto) 3+ /HPF (Negative) 01/17/22 21:49 Urine RBC (Manual) 1+ (Negative) 01/17/22 21:49 Urine WBC Clumps 3+ /HPF 01/17/22 21:49 Urine Mucus Few /HPF 01/17/22 21:49 Urine Yeast (Budding) 3+ /HPF 01/17/22 21:49 Salicylates < 0.3 mg/dL (2.8-20.0) L 01/17/22 22:34 Coronavirus (PCR) Negative (Negative) 01/19/22 10:10 Kumar/IV: Voiding Method Indwelling Catheter Active Medications - Current Medications Current Medications: Generic Name Dose Route Start Last Admin Trade Name Freq PRN Reason Stop Dose Admin Acetaminophen 650 mg 01/18/22 02:52 Acetaminophen 325 Mg Tab PO Q4H PRN Pain MILD(1-3)/Fever >100.5/LUTHER Albuterol/Ipratropium 1 ampul 01/22/22 08:00 01/27/22 14:33 Ipratropium/Albuterol Sulfate 3 Ml Ampul.Neb IH Not Given TIDRT ROSCOE Lipase/Protease/Amylase 1 each 01/25/22 10:31 Lipase 10,500/Protease 25,000/Amylase 43,750 (Units) Dr Scales FEEDTUBE PRN PRN For Clogged Feeding Tube Apixaban 5 mg 01/25/22 11:00 01/27/22 09:52 Apixaban 5 Mg Tab PO 5 mg Q12HR ROSCOE Administration Protocol Aspirin 81 mg 01/19/22 10:00 01/27/22 09:53 Aspirin 81 Mg Tab Chew FEEDTUBE 81 mg QDAY ROSCOE Administration Famotidine 20 mg 01/24/22 10:00 01/27/22 09:52 Famotidine 20 Mg Tab FEEDTUBE 20 mg DAILY ROSCOE Administration Hydrophilic Ointment 1 applic 01/20/22 16:53 01/23/22 10:47 Lip Therapy Vaseline TP 1 applic DIRECT PRN Administration Dry Lips Dextrose 1,000 mls @ 125 mls/hr 01/21/22 09:00 01/25/22 01:06 D5w IV 125 mls/hr DIRECT ROSCOE Administration Metoprolol Tartrate 25 mg 01/24/22 07:00 01/27/22 14:10 Metoprolol Tartrate 25 Mg Tab PO 25 mg Q8HR ROSCOE Administration Morphine Sulfate 2 mg 01/18/22 02:52 Morphine 2 Mg/1 Ml Inj IV Q4H PRN Pain, Moderate (4-6) Morphine Sulfate 4 mg 01/18/22 02:52 Morphine 4 Mg/1 Ml Inj IV Q4H PRN Pain , Severe (7-10) Nitroglycerin 0.4 mg 01/18/22 02:55 Nitroglycerin 0.4 Mg Tab Subl SL Q5M PRN Chest Pain Ondansetron HCl 4 mg 01/18/22 02:52 Ondansetron 4 Mg/2 Ml Inj IV Q8H PRN Nausea And Vomiting Simple Syrup 30 ml 01/25/22 10:31 Simple Syrup 15 Ml FEEDTUBE PRN PRN Hypoglycemia Sodium Bicarbonate 325 mg 01/25/22 10:31 Sodium Bicarbonate 325 Mg Tab FEEDTUBE PRN PRN For Clogged Feeding Tube Sodium Chloride 10 ml 01/18/22 10:00 01/27/22 09:53 Sodium Chloride 0.9% 10 Ml Flush Syringe IV 10 ml BID ROSCOE Administration Sodium Chloride 10 ml 01/18/22 02:52 Sodium Chloride 0.9% 10 Ml Flush Syringe IV PRN PRN LINE FLUSH Thiamine HCl 100 mg 01/24/22 10:00 01/27/22 09:52 Thiamine 100 Mg Tab FEEDTUBE 100 mg QDAY ROSCOE Administration Tramadol HCl 50 mg 01/18/22 02:55 Tramadol 50 Mg Tab PO Q6H PRN Pain, Moderate (4-6) Nutrition/Malnutrition Assess - Dietary Evaluation Nutrition/Malnutrition Findings: Nutrition Notes Start: 01/18/22 09:21 Freq: Status: Active Protocol: Document 01/27/22 10:47 JONO (Rec: 01/27/22 11:24 JONO [id number]) Nutrition Notes Initial or Follow up Reassessment Current Diagnosis Sepsis,Hypertension,Heart Failure,Malnutrition Other Pertinent Diagnosis Atrial Fibrilation/RVR, CAP, FTT, UTI, Pneumonia, Anemia, Colon CA,... Current Diet TF-Glucerna 1.2 [place] @ 60 ml/hr Labs/Tests 01/27: N/A. Pertinent Medications 01/27: D5w @ 125 ml/hr, Thiamine, others nutritionally unremarkable. Height 5 ft 11 in Weight 68.04 kg [place] Body Weight (kg) 78.18 BMI 20.9 Weight change and time frame no body weight change reported in 9 days. Weight Status Appropriate Subjective/Other Information RD consult for routine F/U on TF tolerance/continuation assessment. Jevity 1.2 [place] is out of stock , will replace it temporarily with Glucerna 1.2 [place]. Pt is s/p PEG-tube placement on 01/24, according to Progress notes. Pt is on Room Air, O2 saturation @ 98%, according to Physical Assessment History notes. Percent of energy/protein needs met: Prescribed TF-Gucerna 1.2 [place] @ 60 ml/hr provides for energy /protein needs (1,725 Kcal/86 g) during LOS, 99% Kcal; 105% AA. #1 Nutrition Diagnosis Inadequate oral intake Comments: Pt is s/p PEG-tube placement on 01/24, according to Progress notes. Diagnosis Progress(for reassessment Continues documentation) Is patient on ventilator? No Is Patient Ambulatory and/or Out of Bed No REE-([place]. Jeor-confined to bed) 3863.216 Calculation Used for Recommendations [place] or Additional Notes Protein: 1-1.2 g/Kg ABW; 68-82 g/day. Fluids: 1 ml/Kcal, or as per MD. Nutrition Intervention Nutrition Support: switch temporarily to TF- Glucerna 1.2 [place] @ 60 ml/hr. Flush: 100 ml water Q 4 hr, or as per MD. Kcal 1,725 Protein (gm) 86 Carbohydrates (gm) 165 Fat (gm) 86 Fluid (mL) 1,157 Fiber (gm) 23 % RDI: 99% Kcal; 105% AA. Goal #1 Provide at least 75% of energy /protein needs through Enteral Feeding during LOS. Goal #2 Adjust the dietary intervention to better serve Pt's energy/protein needs and clinical conditions during LOS . Follow-Up By: 02/03/22 Additional Comments Continue monitoring TF tolerance, TF adjustment (back to Jevity 1.2 [place]), and BM.
[2022-01-28] MEDS: METOPROLOL TARTRATE 25 MG TAB PO SCH ×3 (06:31→22:05)
[2022-01-28] MEDS: IPRATROPIUM/ALBUTEROL SULFATE 3 ML AMPUL.NEB IH SCH ×3 (08:00→20:45)
[2022-01-28] MEDS: APIXABAN 5 MG TAB PO SCH ×2 (09:02→22:02)
[2022-01-28] MEDS: ASPIRIN 81 MG TAB CHEW FEEDTUBE SCH (09:02)
[2022-01-28] MEDS: THIAMINE 100 MG TAB FEEDTUBE SCH (09:02)
[2022-01-28] MEDS: FAMOTIDINE 20 MG TAB FEEDTUBE SCH (09:02)
--- NOTE | 2022-01-28 13:54 | Progress Note ---
Assessment and Plan - Patient Problems (1) Atrial fibrillation Current Visit: Yes Status: Acute Plan to address problem: Admitted with mental status changes associated with urinary tract infection, sepsis and lactic acidosis. During this hospitalization, there was a development of transient atrial fibrillation. He has since returned to a stable sinus rhythm. Echocardiogram showed mild left ventricular function impairment. Conservative cardiac management as previously outlined, we will follow intermittently. Subjective Date of service: 01/28/22 Principal diagnosis: Acute encephalopathy Interval history: No new cardiac complaints, no new cardiac events reported. On cafeteria monitor, patient is a stable sinus rhythm at 73. Objective Vital Signs Temp Pulse Pulse Resp Resp BP BP 01/28/22 10:00 01/28/22 08:00 63 17 01/28/22 06:31 78 156/76 01/28/22 04:43 97.5 F L 59 L 18 125/67 01/27/22 22:44 71 133/77 01/27/22 22:00 72 01/27/22 21:24 97.5 F L 68 18 140/67 01/27/22 19:33 65 14 01/27/22 14:08 98 F 68 20 113/62 Pulse Ox 01/28/22 10:00 100 01/28/22 08:00 01/28/22 06:31 01/28/22 04:43 100 01/27/22 22:44 01/27/22 22:00 99 01/27/22 21:24 99 01/27/22 19:33 01/27/22 14:08 100 - Physical Examination General: No Apparent Distress, Cachectic HEENT: Positive: Normocephaly Neck: Positive: neck supple Cardiac: Positive: Reg Rate and Rhythm Lungs: Positive: Decreased Breath Sounds Neuro: Positive: Weakness (Generalized lethargy) Abdomen: Positive: Other (POST PEG) Skin: Negative: Rash Extremities: Absent: edema - EKG Sinus rhythms and dysrhythmias: sinus tachycardia Chamber hypertrophy or enlargement: left ventricular hypertro Repolarization changes or abnormalities: early repolarization due to LVH
[2022-01-28] MEDS: LOSARTAN 25 MG TAB PO SCH (15:34)
[2022-01-28] MEDS ORDERED: NIFEdipine XL 30 MG TAB PO SCH (16:00)
--- NOTE | 2022-01-28 16:26 | Progress Note ---
Assessment and Plan Assessment and plan: 71 years old male from assisted with history of colon cancer s/p chemotherapy with colostomy was brought to the emergency room from [facility] because of dyspnea and respiratory distress. Patient is also altered Mental Status. Patient is on Non rebreather on and O2 sat 100%. Kumar cath in place. Patient is a very poor historian. In the ER patient chest x-ray shows pneumonia, patient sodium is 154, potassium 5.6 BUN 135 creatinine 4.7, glucose 162, lactic acid 5.20, troponin 0.149. Also patient has UTI.'s were going to admit the patient we will put the patient on IMCU. We will put the patient on IV fluid antibiotic. We will consult cardiology as well as nephrology for evaluation. Hospital Course: Spoke extensively with son about history. Patient has a history of colon cancer S4 with mets to liver. He has only undergone one course of chemotherapy a t [facility]. He was recently discharged 1 month ago from [facility] for UTI. Currently the patient resides in SNF. Per the son pt has lost a lot of weight. has been struggling with feeding. I e xplained that the patient's prison prognosis is poor. We discussed hospice breifly but son was not ready to go over this. I mentioned that in the next 24- 48hrs we could reassess. 01/19: Continue aggressive hydration for NATHALIE. Nephrology recs noted ,no emergent indication for INSTRUCTIONAL MATERIAL DIRECTOR. Treatment of Sepsis/UTI/PNA with IV Abx. HR mostly controlled on amiodorone. Continue heparin gtt. 01/20: Dobhoff placed, Tube feeds started, Nepro @ 30 cc/hr. ST eval pending. Aggressive IVF rehydration (currently on D5W) per nephrology, cr: 3.1 this AM. WBC: 16.7....Currently on Azithromycin/Rocephin for CAP/UTI tx. Prognosis remains Guarded/poor. Patient is severely malnourished and cachectic. 01/21: TF continues to run at 30cc/hr. Patient alert to person only. Will continue with current care plan. Patient may require PEG tube. Will discuss with NOK. 01/22: NOK agreeable to PEG. GI and General surgery consulted. Awaiting CT scan of the abdomen, will consult IR for possible PEG placement afterward 01/23: Family meeting with patients Sister and son at bedside. Agreed to continue care and PEG tube placement with plan to discharge back to care facility. 01/24: Patient clinically stable, plan for PEG tube later today 01/25: Patient stable s/p PEG tube. Will start tube feeds today. Patient in better spirits today 01/27: Patient clinically stable and tolerating tube feeds. Clinically stable awaiting discharge to [facility]. Assessment and Plan: #Sepsis POA-resolved #Acute cystitis without hematuriaresolved #Left lower lobe pneumoniaresolved #Lactic Acidosisresolved - WBC: 12, tachycardia, elevated urine wbc 182, LA 5.2 - CXR: LLL pneumonic process - blood culture and urine culture NGTD -MRSA screen, COVID PCR negative (recent outbreak at facility) - s/p Abx therapy with Rocephin IV, azithromycin (end date 01/22/2022) #Elevated liver enzymes -Elevated AST/ALT and alkaline phosphatase -Patient with known liver mets -Amiodarone and statin therapy discontinued by cardiology #Atrial fibrillation with rapid ventricular responseresolved #NSTEMI, type II - elevated troponin: 0.149 --> 0.088 - BNP: 2068 - TTE with poor quality per Cardiology due to body habitus - tele: afib, ventricular rate 90-110 - Amiodarone discontinued due to elevation LFTs - continue eliquis - Cardiology following, assistance appreciated #Acute kidney injury due to vasomotor nephropathy-resolved #Hypokalemia-resolved #Hyponatremiaresolved #Metabolic Acidosis-resolved - sepsis/dehydration likely driving NATHALIE - SCr improved to 1.3 after IVF fluids - renal US: mild prominence of renal pelvis - continue to replete and monitor potassium levels - Nephrology following, assistance appreciated #Microcytic anemia #Thrombocytopeniaimproving -chronic, will transfuse for Hgb less than 7, Plt less than >30 with bleeding #Acute metabolic encephalopathy-resolved - etiology: multifactorial poor po intake, UTI, NATHALIE - IVF, management as above. - CT brain negative, MRI negative for acute findings #Hypertension - home medications: Unknown - current medications: Metoprolol tartrate 25 mg every 8 hours, nifedipine 30 mg daily, losartan 25 mg daily - SBP goal <160 and DBP goal <90 while inpatient - continue to monitor #History of colon cancer on chemotherapy #Failure to thrive #moderate protein calorie malnutrition - apparently stage 4 Colon CA, mets to liver per son - has only had one session of chemotherapy. - PEG tube in place, continue tube feeding #Advance care planning - Disease education conducted, care plan discussed, diagnoses discussed, prognosis discussed, patient is AND/DNR, patient acknowledges understanding and agrees with care plan, +30 minutes. #Discharge planning - Patient is pending long-term placement. - Case management has been made aware. Disposition Plan: Pending placement Total Time Spent with Patient (Minutes): 45 minutes History Interval history: No acute events overnight. Hospitalist Physical - Constitutional Vitals: Temp Pulse Resp BP Pulse Ox 97.5 F L 67 18 178/95 100 01/28/22 11:22 01/28/22 11:22 01/28/22 11:22 01/28/22 11:22 01/28/22 11:22 General appearance: Present: no acute distress, cachectic - EENT Eyes: Present: PERRL, EOM intact ENT: hearing intact, clear oral mucosa, poor dentition, edentulous - Neck Neck: Present: supple, normal ROM - Respiratory Respiratory effort: normal Respiratory: bilateral: CTA - Cardiovascular Rhythm: regular Heart Sounds: Present: S1 & S2 - Extremities Extremities: no ischemia, pulses intact, pulses symmetrical, No edema, normal temperature, normal color Peripheral Pulses: within normal limits - Abdominal General gastrointestinal: soft, non-tender, non-distended, normal bowel sounds, other (Colostomy bag in place PEG tube in place) - Integumentary Integumentary: Present: clear, warm, dry - Psychiatric Psychiatric: appropriate mood/affect, cooperative - Neurologic Neurologic: CNII-XII intact - Allied Health Allied health notes reviewed: nursing HEART Score - HEART Score Troponin: Troponin T 0.088 ng/mL (0.00-0.029) H D 01/18/22 13:40 Results - Labs CBC & Chem 7: 01/26/22 05:16 01/25/22 04:52 Labs: Laboratory Last Values WBC 5.8 K/mm3 (4.5-11.0) 01/26/22 05:16 RBC 4.34 M/mm3 (3.65-5.03) 01/26/22 05:16 Hgb 10.3 gm/dl (11.8-15.2) L 01/26/22 05:16 Hct 32.5 % (35.5-45.6) L 01/26/22 05:16 MCV 75 fl (84-94) L 01/26/22 05:16 MCH 24 pg (28-32) L 01/26/22 05:16 MCHC 32 % (32-34) 01/26/22 05:16 RDW 17.3 % (13.2-15.2) H 01/26/22 05:16 Plt Count 131 K/mm3 (140-440) L 01/26/22 05:16 Lymph % (Auto) 8.8 % (13.4-35.0) L 01/25/22 04:52 [place] % (Auto) 4.9 % (0.0-7.3) 01/25/22 04:52 Eos % (Auto) 2.5 % (0.0-4.3) 01/25/22 04:52 Baso % (Auto) 0.3 % (0.0-1.8) 01/25/22 04:52 Lymph # (Auto) 0.6 K/mm3 (1.2-5.4) L 01/25/22 04:52 [place] # (Auto) 0.3 K/mm3 (0.0-0.8) 01/25/22 04:52 Eos # (Auto) 0.2 K/mm3 (0.0-0.4) 01/25/22 04:52 Baso # (Auto) 0.0 K/mm3 (0.0-0.1) 01/25/22 04:52 Add Manual Diff Complete 01/21/22 05:37 Total Counted 100 01/21/22 05:37 Seg Neutrophils % 83.5 % (40.0-70.0) H 01/25/22 04:52 Seg Neuts % (Manual) 92.0 % (40.0-70.0) H 01/21/22 05:37 Band Neutrophils % 0 % 01/21/22 05:37 Lymphocytes % (Manual) 6.0 % (13.4-35.0) L 01/21/22 05:37 Reactive Lymphs % (Man) 0 % 01/21/22 05:37 Monocytes % (Manual) 2.0 % (0.0-7.3) 01/21/22 05:37 Eosinophils % (Manual) 0 % (0.0-4.3) 01/21/22 05:37 Basophils % (Manual) 0 % (0.0-1.8) 01/21/22 05:37 Metamyelocytes % 0 % 01/21/22 05:37 Myelocytes % 0 % 01/21/22 05:37 Promyelocytes % 0 % 01/21/22 05:37 Blast Cells % 0 % 01/21/22 05:37 Nucleated RBC % Not Reportable 01/21/22 05:37 Seg Neutrophils # 5.5 K/mm3 (1.8-7.7) 01/25/22 04:52 Seg Neutrophils # Man 11.3 K/mm3 (1.8-7.7) H 01/21/22 05:37 Band Neutrophils # 0.0 K/mm3 01/21/22 05:37 Lymphocytes # (Manual) 0.7 K/mm3 (1.2-5.4) L 01/21/22 05:37 Abs React Lymphs (Man) 0.0 K/mm3 01/21/22 05:37 Monocytes # (Manual) 0.2 K/mm3 (0.0-0.8) 01/21/22 05:37 Eosinophils # (Manual) 0.0 K/mm3 (0.0-0.4) 01/21/22 05:37 Basophils # (Manual) 0.0 K/mm3 (0.0-0.1) 01/21/22 05:37 Metamyelocytes # 0.0 K/mm3 01/21/22 05:37 Myelocytes # 0.0 K/mm3 01/21/22 05:37 Promyelocytes # 0.0 K/mm3 01/21/22 05:37 Blast Cells # 0.0 K/mm3 01/21/22 05:37 WBC Morphology Not Reportable 01/21/22 05:37 Hypersegmented Neuts Not Reportable 01/21/22 05:37 Hyposegmented Neuts Not Reportable 01/21/22 05:37 Hypogranular Neuts Not Reportable 01/21/22 05:37 Smudge Cells Not Reportable 01/21/22 05:37 Toxic Granulation Not Reportable 01/21/22 05:37 Toxic Vacuolation Not Reportable 01/21/22 05:37 Dohle Bodies Not Reportable 01/21/22 05:37 Pelger-Huet Anomaly Not Reportable 01/21/22 05:37 Bj Rods Not Reportable 01/21/22 05:37 Platelet Estimate Consistent w auto 01/21/22 05:37 Clumped Platelets Not Reportable 01/21/22 05:37 Plt Clumps, EDTA Not Reportable 01/21/22 05:37 Large Platelets Not Reportable 01/21/22 05:37 Giant Platelets Not Reportable 01/21/22 05:37 Platelet Satelliting Not Reportable 01/21/22 05:37 Plt Morphology Comment Not Reportable 01/21/22 05:37 RBC Morphology Not Reportable 01/21/22 05:37 Dimorphic RBCs Not Reportable 01/21/22 05:37 Polychromasia Not Reportable 01/21/22 05:37 Hypochromasia 2+ 01/21/22 05:37 Poikilocytosis Not Reportable 01/21/22 05:37 Anisocytosis 1+ 01/21/22 05:37 Microcytosis Not Reportable 01/21/22 05:37 Macrocytosis Not Reportable 01/21/22 05:37 Spherocytes Not Reportable 01/21/22 05:37 Pappenheimer Bodies Not Reportable 01/21/22 05:37 Sickle Cells Not Reportable 01/21/22 05:37 Target Cells Not Reportable 01/21/22 05:37 Tear Drop Cells Not Reportable 01/21/22 05:37 Ovalocytes Not Reportable 01/21/22 05:37 Helmet Cells Not Reportable 01/21/22 05:37 Beyrs-Gwinn Bodies Not Reportable 01/21/22 05:37 [place] Rings Not Reportable 01/21/22 05:37 [place] Cells Not Reportable 01/21/22 05:37 Bite Cells Not Reportable 01/21/22 05:37 Crenated Cell Not Reportable 01/21/22 05:37 Elliptocytes Not Reportable 01/21/22 05:37 Acanthocytes (Spur) Not Reportable 01/21/22 05:37 Rouleaux Not Reportable 01/21/22 05:37 Hemoglobin C Crystals Not Reportable 01/21/22 05:37 Schistocytes Not Reportable 01/21/22 05:37 Malaria parasites Not Reportable 01/21/22 05:37 Sahil Bodies Not Reportable 01/21/22 05:37 Hem Pathologist Commnt No 01/21/22 05:37 PT 11.4 Sec. (12.2-14.9) L 01/25/22 11:52 INR 0.76 (0.87-1.13) L 01/25/22 11:52 APTT 20.0 Sec. (24.2-36.6) L 01/25/22 11:52 Heparin Anti-Xa Level < 0.10 U.I./ml (0.3-0.7) L 01/21/22 14:52 ABG pH 7.383 pH Units (7.350-7.450) 01/17/22 22:05 ABG pCO2 32.8 mm Hg 01/17/22 22:05 ABG pO2 210.4 mm Hg (80.0-90.0) H 01/17/22 22:05 ABG HCO3 19.1 mmol/L (20.0-26.0) L 01/17/22 22:05 ABG O2 Saturation 99.3 % (95.0-99.0) H 01/17/22 22:05 ABG O2 Content 20.3 (0.0-44) 01/17/22 22:05 ABG Base Excess -4.9 mmol/L (-2.0-3.0) L 01/17/22 22:05 ABG Hemoglobin 14.5 gm/dl (14.0-18.0) 01/17/22 22:05 ABG Carboxyhemoglobin 1.2 % (0.0-5.0) 01/17/22 22:05 ABG Methemoglobin 0.6 % (0.0-1.5) 01/17/22 22:05 Oxyhemoglobin 97.5 % (95.0-99.0) 01/17/22 22:05 FiO2 100 % 01/17/22 22:05 Sodium 137 mmol/L (137-145) 01/25/22 04:52 Potassium 4.2 mmol/L (3.6-5.0) 01/25/22 04:52 Chloride 102.9 mmol/L (98-107) 01/25/22 04:52 Carbon Dioxide 23 mmol/L (22-30) 01/25/22 04:52 Anion Gap 15 mmol/L 01/25/22 04:52 BUN 12 mg/dL (9-20) 01/25/22 04:52 Creatinine 1.0 mg/dL (0.8-1.3) 01/25/22 04:52 Estimated GFR > 60 ml/min 01/25/22 04:52 BUN/Creatinine Ratio 12 % 01/25/22 04:52 Glucose 112 mg/dL (75-100) H 01/25/22 04:52 POC Glucose 119 mg/dL (70-105) H 01/28/22 11:52 Ketones Quantitative Negative (Negative) 01/17/22 22:34 Lactic Acid 2.20 mmol/L (0.7-2.0) H* 01/22/22 22:00 Calcium 8.1 mg/dL (8.4-10.2) L 01/25/22 04:52 Total Bilirubin < 0.20 mg/dL (0.1-1.2) 01/25/22 04:52 AST 60 units/L (5-40) H 01/25/22 04:52 ALT 140 units/L (7-56) H 01/25/22 04:52 Alkaline Phosphatase 423 units/L (35-129) H 01/25/22 04:52 Ammonia 14.0 umol/L (25-60) L 01/17/22 22:34 Total Creatine Kinase 48 units/L (55-170) L 01/17/22 22:34 Troponin T 0.088 ng/mL (0.00-0.029) H D 01/18/22 13:40 C-Reactive Protein 5.80 mg/dL (0.00-1.30) H 01/17/22 22:34 NT-Pro-B Natriuret Pep 2069 pg/mL (0-900) H 01/17/22 22:34 Total Protein 6.1 g/dL (6.3-8.2) L 01/25/22 04:52 Albumin 2.2 g/dL (3.9-5) L 01/25/22 04:52 Albumin/Globulin Ratio 0.6 % 01/25/22 04:52 Triglycerides 143 mg/dL (2-149) 01/17/22 22:34 Cholesterol 224 mg/dL (50-199) H 01/17/22 22:34 LDL Cholesterol Direct 114 mg/dL (50-130) 01/17/22 22:34 HDL Cholesterol 73 mg/dL (40-59) H 01/17/22 22:34 Cholesterol/HDL Ratio 3.06 % 01/17/22 22:34 Urine Color Yellow (Yellow) 01/17/22 21:49 Urine Turbidity Cloudy (Clear) 01/17/22 21:49 Specific [place] (Man) 1.020 (1.003-1.030) 01/17/22 21:49 Ur Protein (Man) 2+ mg/dL (Negative) 01/17/22 21:49 Ur Ketones (Man) Negative (Negative) 01/17/22 21:49 Ur Nitrite (Man) Positive (Negative) 01/17/22 21:49 Ur Reducing Substances Not Reportable 01/17/22 21:49 Urine Bilirubin (Man) Negative (Negative) 01/17/22 21:49 Urine Ictotest Not Reportable 01/17/22 21:49 Leukocyte Esterase (Man) Moderate (Negative) 01/17/22 21:49 Urine WBC (Auto) > 182.0 /HPF (0.0-6.0) H 01/17/22 21:49 Urine RBC (Auto) 17.0 /HPF (0.0-6.0) 01/17/22 21:49 Urine Bacteria (Auto) 3+ /HPF (Negative) 01/17/22 21:49 Urine RBC (Manual) 1+ (Negative) 01/17/22 21:49 Urine WBC Clumps 3+ /HPF 01/17/22 21:49 Urine Mucus Few /HPF 01/17/22 21:49 Urine Yeast (Budding) 3+ /HPF 01/17/22 21:49 Salicylates < 0.3 mg/dL (2.8-20.0) L 01/17/22 22:34 Coronavirus (PCR) Negative (Negative) 01/19/22 10:10 SARS-CoV-2 (PCR) Negative (Negative) 01/28/22 14:20 Kumar/IV: Voiding Method Condom Catheter Active Medications - Current Medications Current Medications: Generic Name Dose Route Start Last Admin Trade Name Freq PRN Reason Stop Dose Admin Acetaminophen 650 mg 01/18/22 02:52 Acetaminophen 325 Mg Tab PO Q4H PRN Pain MILD(1-3)/Fever >100.5/LUTHER Albuterol/Ipratropium 1 ampul 01/22/22 08:00 01/28/22 08:00 Ipratropium/Albuterol Sulfate 3 Ml Ampul.Neb IH 1 ampul TIDRT ROSCOE Administration Lipase/Protease/Amylase 1 each 01/25/22 10:31 Lipase 10,500/Protease 25,000/Amylase 43,750 (Units) Dr Scales FEEDTUBE PRN PRN For Clogged Feeding Tube Apixaban 5 mg 01/25/22 11:00 01/28/22 09:02 Apixaban 5 Mg Tab PO 5 mg Q12HR ROSCOE Administration Protocol Aspirin 81 mg 01/19/22 10:00 01/28/22 09:02 Aspirin 81 Mg Tab Chew FEEDTUBE 81 mg QDAY ROSCOE Administration Famotidine 20 mg 01/24/22 10:00 01/28/22 09:02 Famotidine 20 Mg Tab FEEDTUBE 20 mg DAILY ROSCOE Administration Hydrophilic Ointment 1 applic 01/20/22 16:53 01/23/22 10:47 Lip Therapy Vaseline TP 1 applic DIRECT PRN Administration Dry Lips Losartan Potassium 25 mg 01/28/22 16:00 01/28/22 15:34 Losartan 25 Mg Tab PO 25 mg QDAY ROSCOE Administration Metoprolol Tartrate 25 mg 01/24/22 07:00 01/28/22 14:59 Metoprolol Tartrate 25 Mg Tab PO 25 mg Q8HR ROSCOE Administration Morphine Sulfate 2 mg 01/18/22 02:52 01/28/22 08:58 Morphine 2 Mg/1 Ml Inj IV 2 mg Q4H PRN Administration Pain, Moderate (4-6) Morphine Sulfate 4 mg 01/18/22 02:52 Morphine 4 Mg/1 Ml Inj IV Q4H PRN Pain , Severe (7-10) Nifedipine 30 mg 01/28/22 16:00 01/28/22 15:34 Nifedipine Xl 30 Mg Tab PO 30 mg QDAY ROSCOE Administration Nitroglycerin 0.4 mg 01/18/22 02:55 Nitroglycerin 0.4 Mg Tab Subl SL Q5M PRN Chest Pain Ondansetron HCl 4 mg 01/18/22 02:52 Ondansetron 4 Mg/2 Ml Inj IV Q8H PRN Nausea And Vomiting Simple Syrup 30 ml 01/25/22 10:31 Simple Syrup 15 Ml FEEDTUBE PRN PRN Hypoglycemia Sodium Bicarbonate 325 mg 01/25/22 10:31 Sodium Bicarbonate 325 Mg Tab FEEDTUBE PRN PRN For Clogged Feeding Tube Sodium Chloride 10 ml 01/18/22 10:00 01/28/22 09:04 Sodium Chloride 0.9% 10 Ml Flush Syringe IV 10 ml BID ROSCOE Administration Sodium Chloride 10 ml 01/18/22 02:52 Sodium Chloride 0.9% 10 Ml Flush Syringe IV PRN PRN LINE FLUSH Thiamine HCl 100 mg 01/24/22 10:00 01/28/22 09:02 Thiamine 100 Mg Tab FEEDTUBE 100 mg QDAY ROSCOE Administration Tramadol HCl 50 mg 01/18/22 02:55 Tramadol 50 Mg Tab PO Q6H PRN Pain, Moderate (4-6) Nutrition/Malnutrition Assess - Dietary Evaluation Nutrition/Malnutrition Findings: Nutrition Notes Start: 01/18/22 09:21 Freq: Status: Active Protocol: Document 01/27/22 10:47 JONO (Rec: 01/27/22 11:24 JONO [id number]) Nutrition Notes Initial or Follow up Reassessment Current Diagnosis Sepsis,Hypertension,Heart Failure,Malnutrition Other Pertinent Diagnosis Atrial Fibrilation/RVR, CAP, FTT, UTI, Pneumonia, Anemia, Colon CA,... Current Diet TF-Glucerna 1.2 [place] @ 60 ml/hr Labs/Tests 01/27: N/A. Pertinent Medications 01/27: D5w @ 125 ml/hr, Thiamine, others nutritionally unremarkable. Height 5 ft 11 in Weight 68.04 kg [place] Body Weight (kg) 78.18 BMI 20.9 Weight change and time frame no body weight change reported in 9 days. Weight Status Appropriate Subjective/Other Information RD consult for routine F/U on TF tolerance/continuation assessment. Jevity 1.2 Everett is out of stock , will replace it temporarily with Glucerna 1.2 [place]. Pt is s/p PEG-tube placement on 01/24, according to Progress notes. Pt is on Room Air, O2 saturation @ 98%, according to Physical Assessment History notes. Percent of energy/protein needs met: Prescribed TF-Gucerna 1.2 [place] @ 60 ml/hr provides for energy /protein needs (1,725 Kcal/86 g) during LOS, 99% Kcal; 105% AA. #1 Nutrition Diagnosis Inadequate oral intake Comments: Pt is s/p PEG-tube placement on 01/24, according to Progress notes. Diagnosis Progress(for reassessment Continues documentation) Is patient on ventilator? No Is Patient Ambulatory and/or Out of Bed No REE-([facility]-confined to bed) [phone] Calculation Used for Recommendations [facility] Additional Notes Protein: 1-1.2 g/Kg ABW; 68-82 g/day. Fluids: 1 ml/Kcal, or as per MD. Nutrition Intervention Nutrition Support: switch temporarily to TF- Glucerna 1.2 [place] @ 60 ml/hr. Flush: 100 ml water Q 4 hr, or as per MD. Kcal 1,725 Protein (gm) 86 Carbohydrates (gm) 165 Fat (gm) 86 Fluid (mL) 1,157 Fiber (gm) 23 % RDI: 99% Kcal; 105% AA. Goal #1 Provide at least 75% of energy /protein needs through Enteral Feeding during LOS. Goal #2 Adjust the dietary intervention to better serve Pt's energy/protein needs and clinical conditions during LOS . Follow-Up By: 02/03/22 Additional Comments Continue monitoring TF tolerance, TF adjustment (back to Jevity 1.2 [place]), and BM.
[2022-01-29] MEDS: METOPROLOL TARTRATE 25 MG TAB PO SCH (06:25)
[2022-01-29] MEDS: IPRATROPIUM/ALBUTEROL SULFATE 3 ML AMPUL.NEB IH SCH ×2 (07:56→13:19)
--- NOTE | 2022-01-29 10:15 | Progress Note ---
Assessment and Plan - Patient Problems (1) Atrial fibrillation Current Visit: Yes Status: Acute Plan to address problem: Admitted with mental status changes associated with urinary tract infection, sepsis and lactic acidosis. During this hospitalization, there was a development of transient atrial fibrillation. He has since returned to a stable sinus rhythm. Echocardiogram showed mild left ventricular function impairment. Conservative cardiac management as previously outlined, we will follow intermittently. Subjective Date of service: 01/29/22 Principal diagnosis: Acute encephalopathy Interval history: No new cardiac complaints, no new cardiac events reported. On fondant puff maker, patient is a stable sinus rhythm. Objective Vital Signs Temp Pulse Pulse Resp Resp BP Pulse Ox 01/29/22 07:57 66 17 01/29/22 06:25 71 105/62 01/29/22 06:21 98.1 F 68 16 105/62 93 01/28/22 22:05 129/66 01/28/22 22:02 98.0 F 129/66 01/28/22 22:01 82 18 100 01/28/22 22:00 100 01/28/22 21:17 67 16 01/28/22 17:06 98.7 F 76 18 105/65 100 01/28/22 16:51 67 16 01/28/22 11:22 97.5 F L 67 18 178/95 100 - Physical Examination General: No Apparent Distress, Cachectic HEENT: Positive: PERRL Neck: Positive: neck supple Cardiac: Positive: Reg Rate and Rhythm Lungs: Positive: Decreased Breath Sounds Neuro: Positive: Weakness (Generalized lethargy) Abdomen: Positive: Soft, Other (POST PEG) Skin: Positive: Clear Extremities: Absent: edema - EKG Sinus rhythms and dysrhythmias: sinus tachycardia Chamber hypertrophy or enlargement: left ventricular hypertro Repolarization changes or abnormalities: early repolarization due to LVH
[2022-01-29 10:51] VITALS: BP 133/84
[2022-01-29] MEDS: ASPIRIN 81 MG TAB CHEW FEEDTUBE SCH (10:53)
[2022-01-29] MEDS: APIXABAN 5 MG TAB PO SCH (10:53)
[2022-01-29] MEDS: THIAMINE 100 MG TAB FEEDTUBE SCH (10:53)
[2022-01-29] MEDS: LOSARTAN 25 MG TAB PO SCH (10:53)
[2022-01-29] MEDS: FAMOTIDINE 20 MG TAB FEEDTUBE SCH (10:53)
--- NOTE | 2022-01-29 12:05 | Discharge Summary ---
Providers - Providers Date of Admission: 01/18/22 02:52 Date of discharge: 01/29/22 Attending physician: HELIO JARVIS MD 01/18/22 Consult to Cardiac Rehabilitation [CONS] Routine Reason For Exam: Phase I 01/18/22 02:52 Consult to Physician [CONS] Routine Comment: Consulting Provider: PANTERA MILLER Physician Instructions: Reason For Exam: vamsi 01/18/22 02:55 Consult to Dietitian/Nutrition [CONS] Routine Physician Instructions: Reason For Exam: Reason for Consult: Malnutrition 01/18/22 02:56 Consult to Cardiology [CONS] Routine Consulting Provider: BIMAL REYNOLDS Reason For Exam: Elevated troponin 01/18/22 16:07 PICC Line Insertion [Consult to PICC Line RN] [CONS] Stat Reason For Exam: PICC PLACEMENT TO REMOVE FEMORAL CENTRAL LINE Type Line:: Midline 01/19/22 08:45 Consult to Physician [CONS] Routine Comment: Consulting Provider: DAVID SCOTT Physician Instructions: Reason For Exam: subacute cva 01/20/22 07:39 Speech Therapy Evaluation and Treat [CONS] Routine Reason For Exam: eval and tx 01/21/22 13:43 Consult to Physician [CONS] Routine Comment: Consulting Provider: NILDA ZUNIGA Physician Instructions: Reason For Exam: peg tube placement 01/22/22 08:50 Consult to Physician [CONS] Routine Comment: Consulting Provider: WOJCIECH SMALLWOOD Physician Instructions: Reason For Exam: surgical PEG tube placement 01/23/22 08:03 Consult to Interventional Radiology [CONS] Routine Consulting Provider: NILDA TAMEZ Reason For Exam: G vs J tube insertion Place consult to:: Dr. Tamez Notified:: dr. tamez 01/25/22 10:31 Consult to Dietitian/Nutrition [CONS] Routine Physician Instructions: Assess nutrtn needs, initiate, modify, manage TF Reason For Exam: Reason for Consult: Write/Manage Tube Feeding Reason for Consult: Write/Manage Tube Feeding Primary care physician: GENNARO GARCIA Hospitalization Reason for admission: Sepsis secondary to UTI, left lower lobe pneumonia, acute metabolic encepha Condition: Fair Pertinent studies: Reviewed. Procedures: PEG tube placement on 01/24/2022. Hospital course: The patient is a 71-year-old male with past medical history of colon cancer status post chemotherapy complicated by colostomy, atrial fibrillation, failure to thrive, and moderate protein caloric malnutrition who presented to the ED from his residential because of worsening dyspnea and respiratory distress. The patient was also found to be in experiencing acute metabolic encephalopathy. On arrival to the ED, the patient was on nonrebreather and saturating 100%. Patient's labs in the ED were remarkable for sodium 134, potassium 4.6, creati nine 4.7, lactic acid 5.2, troponin 0.149. Patient's urinalysis was also unremarkable for acute cystitis without hematuria (positive nitrites, moderate leukocyte esterase, WBC >182, and 3+ WBC clumps). Secondary information from the patient's son described 10 as having lost an increased amount of weight having difficulty with feeding. The topic of hospice was discussed; however, the patient's son is not ready at that point in time. Nephrology was consulted as well as infectious disease. Patient received IV antibiotics for treatment of his sepsis secondary to acute cystitis without hematuria. Patient also received antibiotic management for presumed community-acquired pneumonia. Due to concerns for the patient's p.o. intake, family agreed for PEG placement that occurred on 01/24/2022. Patient has since completed his entire antibiotic course, he is medically clear for discharge. Disposition: [facility] Final Discharge Diagnosis (Prints w/discharge instructions): Sepsis secondary to acute cystitis without hematuria, left lower lobe pneumonia, lactic acidosis, elevated transaminases, atrial fibrillation with RVR, NSTEMI type II, VAMSI secondary to vasomotor nephropathy, hypokalemia, hyponatremia, metabolic acidosis, microcytic anemia, thrombocytopenia, acute metabolic encephalopathy, hypertension, history of colon cancer currently on chemotherapy, failure to thrive, moderate protein caloric malnutrition Time spent for discharge: 45 min Core Measure Documentation - Palliative Care Palliative Care/ Comfort Measures: Not Applicable - Core Measures Any of the following diagnoses?: none Exam - Constitutional Vitals: Temp Pulse Resp BP Pulse Ox 97 F L 94 H 20 133/84 100 01/29/22 10:50 01/29/22 10:50 01/29/22 10:50 01/29/22 10:50 01/29/22 10:50 General appearance: Present: no acute distress, cachectic - EENT Eyes: Present: PERRL, EOM intact ENT: hearing intact, clear oral mucosa, poor dentition, edentulous - Neck Neck: Present: supple, normal ROM - Respiratory Respiratory effort: normal Respiratory: bilateral: diminished - Cardiovascular Rhythm: regular Heart Sounds: Present: S1 & S2 - Extremities Extremities: no ischemia, pulses intact, pulses symmetrical, No edema, normal temperature, normal color Peripheral Pulses: within normal limits - Abdominal General gastrointestinal: Present: soft, non-tender, non-distended, normal bowel sounds, other (Colostomy bag in place) Male genitourinary: Present: deferred - Rectal Rectal Exam: deferred - Integumentary Integumentary: Present: clear, warm, dry - Musculoskeletal Musculoskeletal: generalized weakness - Psychiatric Psychiatric: cooperative - Neurologic Neurologic: CNII-XII intact - Allied Health Allied health notes reviewed: nursing, case management Plan Activity: advance as tolerated Diet: other (Tube feeds) Additional Instructions: The patient is a 71-year-old male with past medical history of colon cancer status post chemotherapy complicated by colostomy, atrial fibrillation, failure to thrive, and moderate protein caloric malnutrition who presented to the ED from his residential because of worsening dyspnea and respiratory distress. The patient was also found to be in experiencing acute metabolic encephalopathy. On arrival to the ED, the patient was on nonrebreather and saturating 100%. Patient's labs in the ED were remarkable for sodium 134, potassium 4.6, creatinine 4.7, lactic acid 5.2, trop onin 0.149. Patient's urinalysis was also unremarkable for acute cystitis without hematuria (positive nitrites, moderate leukocyte esterase, WBC >182, and 3+ WBC clumps). Secondary information from the patient's son described 10 as having lost an increased amount of weight having difficulty with feeding. The topic of hospice was discussed; however, the patient's son is not ready at that point in time. Nephrology was consulted as well as infectious disease. Patient received IV antibiotics for treatment of his sepsis secondary to acute cystitis without hematuria. Patient also received antibiotic management for presumed community-acquired pneumonia. Due to concerns for the patient's p.o. intake, family agreed for PEG placement that occurred on 01/24/2022. Patient has since completed his entire antibiotic course, he is medically clear for discharge. Care Plan Goals: Patient is medically clear for discharge. Assessment: The patient is a 71-year-old male with past medical history of colon cancer status post chemotherapy complicated by colostomy, atrial fibrillation, failure to thrive, and moderate protein caloric malnutrition who presented to the ED from his residential because of worsening dyspnea and respiratory distress. The patient was also found to be in experiencing acute metabolic encephalopathy. On arrival to the ED, the patient was on nonrebreather and saturating 100%. Patient's labs in the ED were remarkable for sodium 134, potassium 4.6, creatinine 4.7, lactic acid 5.2, troponin 0.149. Patient's urinalysis was also unremarkable for acute cystitis without hematuria (positive nitrites, moderate leukocyte esterase, WBC >182, and 3+ WBC clumps). Secondary information from the patient's son described 10 as having lost an increased amount of weight having difficulty with feeding. The topic of hospice was discussed; however, the patient's son is not ready at that point in time. Nephrology was consulted as well as infectious disease. Patient received IV antibiotics for treatment of his sepsis secondary to acute cystitis without hematuria. Patient also received antibiotic management for presumed community-acquired pneumonia. Due to concerns for the patient's p.o. intake, family agreed for PEG placement that occurred on 01/24/2022. Patient has since completed his entire antibiotic course, he is medically clear for discharge. Follow up with: GENNARO GARCIA MD [Primary Care Provider] - 7 Days Prescriptions: Aspirin [Aspirin BABY CHEW TAB] 81 mg FEEDTUBE QDAY #30 tab.chew Losartan [Cozaar] 25 mg PO QDAY #30 tablet Apixaban [Eliquis] 5 mg PO Q12HR #60 tablet Metoprolol [Lopressor TAB] 25 mg PO Q8HR #90 tablet NIFEdipine XL [Procardia Xl] 30 mg PO QDAY #30 tablet Thiamine [Vitamin B-1] 100 mg FEEDTUBE QDAY #30 tablet
[2022-01-29] MEDS ORDERED: NEOMY 3.5 MG/BACIT 400 UNITS/POLY B 5000 UNITS/GM OINT PACKET TP SCH (13:30)
== END 2022-01-29 14:00 | DRG 853 ==
LOC: ED 19:41 → IMCU 01-18 02:52 → 3A 01-19 01:11
PROVIDERS: ADMIT Hospitalist; ATTEND Student in an Organized Health Care Education/Training Program
PROC: 0DH63UZ Insertion of Feeding Device into Stomach, Percutaneous Approach (ICD-10-PCS; principal; 2022-01-24)
PROC: 4A033R1 Measurement of Arterial Saturation, Peripheral, Percutaneous Approach (ICD-10-PCS; 2022-01-24)
PROC: 0DNW4ZZ Release Peritoneum, Percutaneous Endoscopic Approach (ICD-10-PCS; 2022-01-24)
PROC: 0WJG4ZZ Inspection of Peritoneal Cavity, Percutaneous Endoscopic Approach (ICD-10-PCS; 2022-01-24)
PROC: 0DJ68ZZ Inspection of Stomach, Via Natural or Artificial Opening Endoscopic (ICD-10-PCS; 2022-01-24)
DX: A41.9 Sepsis, unspecified organism (principal); G93.41 Metabolic encephalopathy; J18.9 Pneumonia, unspecified organism; N17.0 Acute kidney failure with tubular necrosis; I21.A1 Myocardial infarction type 2; R64 Cachexia; I48.20 Chronic atrial fibrillation, unspecified; N39.0 Urinary tract infection, site not specified; E87.2 Acidosis; E87.0 Hyperosmolality and hypernatremia; C18.9 Malignant neoplasm of colon, unspecified; E44.0 Moderate protein-calorie malnutrition; Z20.822 Contact with and (suspected) exposure to COVID-19; R62.7 Adult failure to thrive; D50.9 Iron deficiency anemia, unspecified; D69.6 Thrombocytopenia, unspecified; I50.9 Heart failure, unspecified; I11.0 Hypertensive heart disease with heart failure; N40.0 Benign prostatic hyperplasia without lower urinary tract symptoms; E87.5 Hyperkalemia; Z68.20 Body mass index [BMI] 20.0-20.9, adult; Z82.49 Family history of ischemic heart disease and other diseases of the circulatory system
CPT/HCPCS: 36415; 70450; 70551; 71045; 74150; 76770; 76857; 80048; 80053; 80061; 80320; 81001; 82010; 82140; 82550; 82565; 82803; 82962; 83880; 84132; 84484; 85007; 85014; 85018; 85025; 85027; 85520; 85610; 85730; 86140; 87040; 87641; 93005; 93306; 94640; 96374; 96375; 99285; G0378; J1815; J3490; C8929; G0480; J0360; J0456; J0610; J0696; J1644; J2270; J2405; J2704; J2710; J3010; J3480; J7030; J7070; U0003